=== PATIENT | male | born 1960 | race Caucasian/White ===

== ENCOUNTER 2017-04-18 13:50 | Emergency (ER) | payer SELFPAY ==
[2017-04-18 14:55] VITALS: BP 132/89
== END 2017-04-18 16:09 | disposition left against medical advice (07) ==
LOC: UCEAST 13:50
DX: M54.9 Dorsalgia, unspecified (principal); Z53.21 Procedure and treatment not carried out due to patient leaving prior to being seen by health care provider

== ENCOUNTER 2017-04-18 16:32 | Emergency (ER) | payer BC ==
--- NOTE | 2017-04-18 16:54 | UC ---
Ned Braxton Anna, scribed for Fabio Gutierrez MD on 04/18/17 at 1643 . Back Pain HPI - HPI Summary HPI Summary: Patient is a 56 y/o male coming to [facility] [place] presenting with acute on chronic back pain that began two days ago. He describes the pain as severity 10/10. He hurt his back one year ago and has since returned to work. Two days ago, he could not work because of the pain that started when he got out of bed. The pain was somewhat alleviated yesterday, and he was able to work a few hours but had to stop because of the pain. Today, the pain had returned. The pain extends to his lower back. The pain is exacerbated by twisting, bending, and movement. Denies incontinence, numbness, loss of leg strength. He is currently prescribed 300 mg pills of Gabapentin, which he reports that he takes 5 times a day, and this does not alleviate the symptoms. He has also tried ibuprofen and oxycodone, which do not alleviate the symptoms. Patient medications were reviewed this visit. - History of Current Complaint Stated Complaint: BACK PAIN Time Seen by Provider: 04/18/17 16:36 Hx Obtained From: Patient Onset/Duration: Still Present, Worse Since - two days ago Timing: Lasting Days Severity Initially: Moderate Severity Currently: Moderate - Allergies/Home Medications Allergies/Adverse Reactions: Allergies Allergy/AdvReac Type Severity Reaction Status Date / Time No Known Allergies Allergy Verified 04/18/17 16:51 PMH/Surg Hx/FS Hx/Imm Hx - Additional Past Medical History Additional PMH: chronic back pain Respiratory History: COPD - Surgical History Surgical History: Yes Surgery Procedure, Year, and Place: GROIN SURGERY, HERNIA REPAIR - Family History Known Family History: Positive: Hypertension - Social History Alcohol Use: Weekly Substance Use Type: None Smoking Status (MU): Light Every Day Tobacco Smoker Household Exposure Type: Cigarettes Review of Systems Constitutional: Negative Skin: Negative Eyes: Negative ENT: Negative Respiratory: Negative Cardiovascular: Negative Gastrointestinal: Negative Genitourinary: Negative Motor: Negative Neurovascular: Negative Musculoskeletal: Myalgia - acute on chronic back pain Neurological: Negative Psychological: Negative All Other Systems Reviewed And Are Negative: Yes Physical Exam Triage Information Reviewed: Yes Appearance: Well-Appearing, Pain Distress - mild, worse with activity and movement Vital Signs: Temp Pulse Resp BP Pulse Ox 99.3 F 73 16 119/66 100 04/18/17 16:47 04/18/17 16:47 04/18/17 16:47 04/18/17 16:47 04/18/17 16:47 Vital Signs Reviewed: Yes Eye Exam: Normal - EOMI, BORIS ENT Exam: Normal Neck: Positive: Supple, Nontender Respiratory: Positive: Lungs clear, Normal breath sounds, No respiratory distress Cardiovascular: Positive: RRR Musculoskeletal: Positive: Other: - Tender paraspinous upper lumbar area Neurological Exam: Normal - sensory/motor intact, A&O x3, Other - No focal neurological deficits. Good patella reflexes. No decreased sensation. Psychological Exam: Normal - affect/mood appropriate Skin Exam: Other - warm, dry, skin color reflects adequate perfusion Back Pain Course/Dx - Course Course Of Treatment: CANNOT TOLERATE NSAIDS. NO NEW TRAUMA. NO NEUROLOGIC SX. DISCHARGE HOME STABLE. F/U PMD. - Differential Dx/Diagnosis Provider Diagnoses: ACUTE LOW BACK PAIN WITH CHRONIC LOW BACK PAIN WITHOUT RADICULOPATHY/NEUROLOGIC SX. Discharge - Discharge Plan Condition: Stable Disposition: HOME Prescriptions: Cyclobenzaprine TAB* [Flexeril 10 MG TAB*] 10 mg PO TID PRN #15 tab MDD 3 PRN Reason: Pain HYDROcodone/ACETAMIN 5-325 MG* [Beach 5-325 TAB*] 1 tab PO Q4H PRN #20 tab MDD 6 PRN Reason: Pain Patient Education Materials: Acute Low Back Pain (ED), Chronic Back Pain (ED) Referrals: Pawel Van MD [Primary Care Provider] - Additional Instructions: FOLLOW UP WITH YOUR DOCTOR. GET REEVALUATED FOR ANY WORSENING OF YOUR CONDITION; WEAKNESS, NUMBNESS, DIFFICULTY CONTROLLING BOWEL OR BLADDER OR QUESTIONS OR CONCERNS. The documentation as recorded by the Ned de paz Anna accurately reflects the service I personally performed and the decisions made by me, Fabio Gutierrez MD.
[2017-04-18 17:04] VITALS: BP 119/66
== END 2017-04-18 17:07 | disposition home or self-care (01) ==
LOC: UCEAST 16:32
DX: M54.5 Low back pain (principal); G89.29 Other chronic pain; Z72.0 Tobacco use
CPT/HCPCS: 99212; G0463

== ENCOUNTER 2019-03-15 15:07 | Inpatient (IN) | payer SELFPAY ==
--- OUTSIDE RECORDS SUMMARY | 2019-03-15 15:28 | XMS REPORT | Continuity of Care Document ---
:1960 External Reference #:[id number] Author Name Ilene Clayton Care Team Providers Name Role Phone Pawel Van III, MD Primary Care Physician Unavailable Payers Date Identification Numbers Payment Provider Subscriber Expires: 2017 Policy Number: [id number] Medicaid Hector [facility] Name: 1 1 [address] PayID: [id number] [place] [address] Effective: 2015 Policy Number: [id number] [employer] Hector Bloom Onset: 2015 PayID: [id number] [address] [address] [place] [address] Effective: 2016 Policy Number: [id number] [facility] Hector Bloom Expires: 2018 Group Number: 60% [address] [facility] PayID: [id number] [address] Advance Directives Description No Information Available Problems Active Problems Provider Date Disturbance in sleep behavior Cyndy Ding MD Onset: 01/19/2017 Tobacco user Cyndy Ding MD Onset: 01/19/2017 Emphysema, unspecified Cyndy Ding MD Onset: 01/19/2017 Family History Date Family Member(s) Observation Comments Father Lung cancer ; at age 83 Mother Leukemia at age 67 Siblings 10 1/2 siblings - unknown 1 full sister - unknown Social History Type Date Description Comments Sex Unknown Marital Status Lives With Family 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 Tobacco Use Start: Unknown Currently smoking 1/2 1/2 PPD or less as of End: Unknown PPD as of 01/19/17 02/20/17 ETOH Use Occasionally consumes alcohol Tobacco Use Start: Unknown Patient is a current smoker, smokes every day Recreational Drug Use Current Drug User Jose Juan occasionally Tobacco Use Start: Unknown 1 PPD x 30 yrs Smoking Status Reviewed: 02/27/19 1 PPD x 30 yrs Exercise Type/Frequency Does not exercise Allergies, Adverse Reactions, Alerts Description No Known Drug Allergies Medications Active Medications SIG Qnty Indications Ordering Provider Date Ferrous Sulfate 1 by mouth twice 60tabs Luther Braxton NP 03/04/2019 daily. 325(65Fe) mg Tablets Tramadol HCL 1-2 tablets every 28tabs M25.50 Luther Braxton NP 02/27/2019 50mg 12 hours as Tablets needed for pain. History Medications No Active Medications Unknown 02/27/2019 - 02/27/2019 Lidocaine apply patch up 30units M54.6 Pawel Osorio 05/03/2017 - 5% Patches to 12 hours once Kamron Van 02/27/2019 a day. Vicodin 1 po up to 4 30tabs M54.6 Pawel Osorio 05/03/2017 - 5-300mg Tablets times a day as Kamron Van 02/27/2019 needed Cyclobenzaprine HCL one by mouth 30tabs M54.6 Pawel Osorio 05/03/2017 - 10mg three times a Kamron Van 02/27/2019 Tablets day as needed spasm Nicotine 1 patch on skin 30units F17.210 Cyndy 01/19/2017 - 14mg/24HR Patches every day MD Timur 02/27/2019 24HR [facility] Nicotine Polacrilex 1 gum, every 6 60units F17.210 Cyndy 01/19/2017 - 4mg hours as needed MD Timur 02/27/2019 Gum Iron 1 by mouth every Unknown 01/18/2017 - 325(65Fe) mg Tablets day 02/27/2019 Gabapentin Take Two 180caps M54.6 Pawel Osorio 01/12/2017 - 300mg Capsules Capsules By Kamron Van 02/27/2019 Mouth Three Times A Day as Directed Omeprazole 1 by mouth every 30caps D64.9 Pawel Osorio 12/07/2016 - 20mg Capsules DR desi Van M.D. 02/27/2019 Gabapentin 2 tabs 3 times a 180caps M54.6 Pawel Osorio 12/07/2016 - 100mg Capsules day Kamron Van 01/12/2017 Aspir-81 1 by mouth every 90tabs R07.9 Pawel Osorio 11/10/2016 - 81mg Tablets DR desi Van M.D. 01/18/2017 Nitrostat one sl q5min up 25tabs R07.9 Pawel Osorio 11/10/2016 - 0.4mg Tablets Sub to 3 doses as Kamron Van 02/27/2019 needed Duloxetine HCL 1 by mouth every 60caps M54.6 Pawel Osorio 05/12/2016 - 30mg Caps DR weeks x 1 week Kamron Vna 11/10/2016 Part then increase to 2 tablets daily Ferrous Sulfate take 5ml by 473units Pawel Osorio 05/05/2016 - 220(44Fe) mouth every day Kamron Van 01/18/2017 mg/5ML Liquid with a small glass of orange juice Oxycodone HCL 1-2 tabs by Unknown - 5mg Capsules mouth every 4-6 Unknown hours as needed pain Naproxen 1 tablet with 60tabs Pawel Osorio - 500mg Tablets food by mouth Kamron Van Unknown once a day Diazepam 1 or 2 by mouth Unknown - 5mg Tablets two hours prior Unknown to mri, repeat up to once per hour if needed. Aleve 2 tabs as needed Unknown - 220mg Tablets 01/18/2017 Medications Administered in Office Medication SIG Qnty Indications Ordering Provider Date Inj, Regadenoson, 0.1 MG Michael Rodrigues M.D. 12/16/2016 Injection Technetium TC 99M Tetrofosmin, Michael Rodrigues M.D. 12/16/2016 Per Unit Dose Up To 40 Millicuries Injection Immunizations CPT Code Status Date Vaccine Lot # [id number] Given 07/21/2016 Influ Virus Vaccine, Quadrivalent, Split Virus, Im Fluzone not PF Vital Signs Date Vital Result Comment 02/27/2019 11:10am Height 74 inches 6'2" Weight 135.00 lb Heart Rate 86 /min BP Systolic 115 mmHg BP Diastolic 70 mmHg Body Temperature 97.2 F O2 % BldC Oximetry 99 % BMI (Body Mass Index) 17.3 kg/m2 05/03/2017 5:22pm Height 74 inches 6'2" Weight 147.00 lb Heart Rate 76 /min BP Systolic 130 mmHg BP Diastolic 70 mmHg Body Temperature 97.6 F O2 % BldC Oximetry 98 % BMI (Body Mass Index) 18.9 kg/m2 02/20/2017 10:43am Height 74 inches 6'2" Weight 144.00 lb Heart Rate 64 /min BP Systolic Sitting 140 mmHg BP Diastolic Sitting 76 mmHg Respiratory Rate 16 /min O2 % BldC Oximetry 98 % BMI (Body Mass Index) 18.5 kg/m2 01/19/2017 7:20am Height 74 inches 6'2" Weight 145.12 lb with shoes on Heart Rate 86 /min BP Systolic Sitting 136 mmHg BP Diastolic Sitting 80 mmHg Respiratory Rate 16 /min O2 % BldC Oximetry 94 % BMI (Body Mass Index) 18.6 kg/m2 12/07/2016 1:13pm Height 75 inches 6'3" Weight 145.50 lb Heart Rate 81 /min BP Systolic Sitting 112 mmHg BP Diastolic Sitting 62 mmHg Body Temperature 97.6 F O2 % BldC Oximetry 98 % BMI (Body Mass Index) 18.2 kg/m2 11/10/2016 3:38pm Weight 147.00 lb Heart Rate 60 /min BP Systolic Sitting 150 mmHg BP Diastolic Sitting 84 mmHg Body Temperature 98.1 F Pain Level 10 lower back 10/03/2016 3:13pm Height 74 inches 6'2" Weight 140.00 lb Heart Rate 60 /min BP Systolic Sitting 116 mmHg BP Diastolic Sitting 80 mmHg Respiratory Rate 16 /min Body Temperature 97.8 F BMI (Body Mass Index) 18.0 kg/m2 03/22/2016 11:22am Weight 148.00 lb Heart Rate 65 /min BP Systolic Sitting 126 mmHg BP Diastolic Sitting 74 mmHg Body Temperature 97.4 F O2 % BldC Oximetry 96 % 08/20/2015 12:58pm Height 71.5 inches 5'11.50" Weight 144.00 lb Heart Rate 97 /min BP Systolic Sitting 124 mmHg BP Diastolic Sitting 80 mmHg Body Temperature 98.6 F O2 % BldC Oximetry 97 % BMI (Body Mass Index) 19.8 kg/m2 07/24/2015 1:00pm Height 71.5 inches 5'11.50" Weight 143.00 lb Heart Rate 62 /min BP Systolic Sitting 122 mmHg BP Diastolic Sitting 76 mmHg Body Temperature 97.7 F O2 % BldC Oximetry 96 % BMI (Body Mass Index) 19.7 kg/m2 Results Test Date Facility Test Result H/L Range Note Cell Morphology 02/27/2019 [facility] Microcytosis 2+ [place] [address] [phone] Hypochromasia 1+ Elliptocyte 1+ HIV 1&2 AB 02/27/2019 [facility] HIV 1 2 Nonreactive Nonreactive 1 W/[place] [address] [phone] Laboratory 02/27/2019 [facility] Erythrocyte 47 mm/Hr High 0- 19 [place] [address] [phone] C Reactive Protein 31.94 mg/L High <8.01 Lyme Screen W/ Reflex To WB Negative Negative Protein 02/27/2019 [facility] Total 6.4 g/dL 6.3 - Electrophoresis Protein(Pep) 7.9 [place] [address] [phone] Albumin 2.6 g/dL Abnormal 3.4-4.7 Alpha-1 Globulin 0.3 g/dL 0.1-0.3 Alpha-2 Globulin 0.8 g/dL 0.6-1.0 Beta Globulin 0.9 g/dL 0.7-1.2 Gamma Globulin 1.9 g/dL Abnormal 0.6-1.6 Albumin/Globulin Ratio 0.66 Impression See Comment 2 Laboratory test 02/27/2019 [facility] TSH (Thyroid 1.89 N 0.34 -5.60 finding Stim Horm) mcIU/[place] [address] [phone] Comp Metabolic 02/27/2019 [facility] Sodium 134 mmol/L Low 135 -145 [place] [address] [phone] Potassium 4.4 mmol/L N 3.5-5.0 Chloride 104 mmol/L N 101-111 Co2 Carbon Dioxide 27 mmol/L N 22-32 Anion Gap 3 mmol/L N 2-11 Glucose 95 mg/dL N 70-100 Blood Urea Nitrogen 12 mg/dL N 6-24 Creatinine 0.95 mg/dL N 0.67-1.17 BUN/Creatinine Ratio 12.6 N 8-20 Calcium 8.7 mg/dL N 8.6-10.3 Total Protein 6.2 g/dL Low 6.4-8.9 Albumin 3.0 g/dL Low 3.2-5.2 Globulin 3.2 g/dL N 2-4 Albumin/Globulin Ratio 0.9 Low 1-3 Total Bilirubin 0.30 mg/dL N 0.2-1.0 Alkaline Phosphatase 49 U/L N 34-104 Alt 4 U/L Low 7-52 Ast 12 U/L Low 13-39 Egfr Non- 81.4 >60 Egfr 98.5 >60 3 Iron & Iron 02/27/2019 [facility] Total Iron 330 g/dL N 250- [address] [place] [address] Capacity [phone] Transferrin 236 mg/dL N 203-362 Iron < 17 g/dL Low 50-212 Unsaturated Iron Binding < 315 g/dL % Iron Saturation 5 % Low 15-55 CBC Auto 02/27/2019 [facility] White Blood 2.5 10^3/uL Low 3.5 -10.[address] [place] [address] [phone] Red Blood Count 3.66 10^6/uL Low 4.18-5.48 Hemoglobin 7.9 g/dL Low 14.0-18.0 Hematocrit 26 % Low 36-46 Mean Corpuscular Volume 70 fL Low 80-94 Mean Corpuscular Hemoglobin 22 pg Low 27-31 Mean Corpuscular HGB Conc 31 g/dL N 31-36 Red Cell Distribution Width 17 % High 10.5-15 Platelet Count 502 10^3/uL High 150-450 Mean Platelet Volume 6.9 fL Low 7.4-10.4 Abs Neutrophils 1.8 10^3/uL N 1.5-7.7 Abs Lymphocytes 0.5 10^3/uL Low 1.0-4.8 Abs Monocytes 0.1 10^3/uL N 0-0.8 Abs Eosinophils 0 10^3/uL N 0-0.6 Abs Basophils 0 10^3/uL N 0-0.2 Abs Nucleated RBC 0 10^3/uL Granulocyte % 71.5 % Lymphocyte % 21.2 % Monocyte % 4.3 % Eosinophil % 1.8 % Basophil % 1.2 % Nucleated Red Blood Cells % 0 Laboratory test 04/20/2017 [facility] Surgical SEE RESULT [address] Interface Order BELOW [place], [place] [id number] [phone] CBC No Diff 04/19/2017 [facility] White Blood 4.9 10^3/uL N 3.5-[address] Count .8 [place], [place] [id number] [phone] Red Blood Count 4.21 10^6/uL N 4.0-5.4 Hemoglobin 7.6 g/dL Low 14.0-18.0 Hematocrit 27 % Low 42-52 Mean Corpuscular Volume 64 fL Low 80-94 Mean Corpuscular Hemoglobin 18 pg Low 27-31 Mean Corpuscular HGB Conc 28 g/dL Low 31-36 Red Cell Distribution Width 19 % High 10.5-15 Platelet Count 350 10^3/uL N 150-450 Mean Platelet Volume 7 um3 Low 7.4-10.4 Laboratory test 04/19/2017 [facility] Clotest SEE RESULT [address] [place] [address] [phone] Laboratory test 01/09/2017 [facility] Surgical Interface SEE RESULT 6, [address] [place] [address] [phone] Laboratory test 01/09/2017 [facility] Clotest SEE RESULT 8 , [address] [place] [address] [phone] Order 12/16/2016 [facility] Stress Test, <pending> Pharmacologic Nuclear (Lexiscan) Laboratory test 12/06/2016 [employer] [facility] Occult Blood - pos x3 finding Stool Laboratory test 11/11/2016 [facility] Troponin-I (TnI) 0.00 ng/ mL N <0.0 [address] 4 [place], [place] [address] [phone] Magnesium 1.9 mg/dL N 1.9-2.7 11 CKMB 11/11/2016 [facility] CKMB ng/mL 1.2 ng/mL N 0.6-6.[address] [place] [address] [phone] CBC Auto Diff 11/11/2016 [facility] White Blood 6.4 10^3/uL N 3.5-10.[address] [place] [address] [phone] Red Blood Count 3.49 10^6/uL Low 4.0-5.4 Hemoglobin 9.2 g/dL Low 14.0-18.0 Hematocrit 29 % Low 42-52 Mean Corpuscular Volume 83 fL N 80-94 Mean Corpuscular Hemoglobin 26 pg Low 27-31 Mean Corpuscular HGB Conc 32 g/dL N 31-36 Red Cell Distribution Width 18 % High 10.5-15 Platelet Count 385 10^3/uL N 150-450 Mean Platelet Volume 7 um3 Low 7.4-10.4 Abs Neutrophils 4.2 10^3/uL N 1.5-7.7 Abs Lymphocytes 1.1 10^3/uL N 1.0-4.8 Abs Monocytes 0.7 10^3/uL N 0-0.8 Abs Eosinophils 0.3 10^3/uL N 0-0.6 Abs Basophils 0.1 10^3/uL N 0-0.2 Abs Nucleated RBC 0 10^3/uL N Granulocyte % 66.6 % N 38-83 Lymphocyte % 17.8 % Low 25-47 Monocyte % 10.6 % High 1-9 Eosinophil % 4.2 % N 0-6 Basophil % 0.8 % N 0-2 Nucleated Red Blood Cells % 0 N Lipid Profile 11/11/2016 [facility] Triglycerides 99 mg/dL N 12 (Trig/Chol/HDL) [address] [place] [address] [phone] Cholesterol 126 mg/dL N 13 HDL Cholesterol 27.9 mg/dL N 14 LDL Cholesterol 78 mg/dL N 15 Laboratory test 11/11/2016 [facility] TSH (Thyroid 1.79 mcIU/mL N 0.34-5.60 [address] Stim Horm) [place] [address] [phone] Comp Metabolic 11/11/2016 [facility] Sodium 135 mmol/L N 133- [address] [place] [address] [phone] Potassium 4.5 mmol/L N 3.5-5.0 Chloride 104 mmol/L N 101-111 Co2 Carbon Dioxide 26 mmol/L N 22-32 Anion Gap 5 mmol/L N 2-11 Glucose 105 mg/dL High 70-100 Blood Urea Nitrogen 18 mg/dL N 6-24 Creatinine 0.83 mg/dL N 0.67-1.17 BUN/Creatinine Ratio 21.7 High 8-20 Calcium 8.7 mg/dL N 8.6-10.3 Total Protein 5.7 g/dL Low 6.4-8.9 Albumin 3.2 g/dL N 3.2-5.2 Globulin 2.5 g/dL N 2-4 Albumin/Globulin Ratio 1.3 N 1-3 Total Bilirubin 0.30 mg/dL N 0.2-1.0 Alkaline Phosphatase 41 U/L N 34-104 Alt 9 U/L N 7-52 Ast 10 U/L Low 13-39 Egfr Non- 96.2 N >60 Egfr 123.7 N >60 17 Laboratory test 11/11/2016 [facility] Erythrocyte Sed 30 mm/Hr High 0-20 [address] [place] [address] [phone] C Reactive Protein 3.94 mg/L N < 5.00 19 Iron & Iron 11/11/2016 [facility] Total Iron 421 g/dL N 250- [address] [place] [address] Capacity [phone] Iron < 15 g/dL Low 50-212 Unsaturated Iron Binding 406.04548 g/dL N % Iron Saturation 4 % Low 15-55 CBC Auto Diff 07/28/2016 [facility] White Blood 5.8 10^3/uL N 3.5-10.[address] [place] [address] [phone] Red Blood Count 4.41 10^6/uL N 4.0-5.4 Hemoglobin 11.3 g/dL Low 14.0-18.0 Hematocrit 36 % Low 42-52 Mean Corpuscular Volume 82 fL N 80-94 Mean Corpuscular Hemoglobin 26 pg Low 27-31 Mean Corpuscular HGB Conc 31 g/dL N 31-36 Red Cell Distribution Width 16 % High 10.5-15 Platelet Count 370 10^3/uL N 150-450 Mean Platelet Volume 7 um3 Low 7.4-10.4 Abs Neutrophils 3.4 10^3/uL N 1.5-7.7 Abs Lymphocytes 1.3 10^3/uL N 1.0-4.8 Abs Monocytes 0.7 10^3/uL N 0-0.8 Abs Eosinophils 0.3 10^3/uL N 0-0.6 Abs Basophils 0.1 10^3/uL N 0-0.2 Abs Nucleated RBC 0 10^3/uL N Granulocyte % 59.6 % N 38-83 Lymphocyte % 23.1 % Low 25-47 Monocyte % 11.5 % High 1-9 Eosinophil % 4.9 % N 0-6 Basophil % 0.9 % N 0-2 Nucleated Red Blood Cells % 0.1 N Laboratory test 05/05/2016 [facility] Occult Blood - Stool neg x 3 finding Cell Morphology 04/25/2016 [facility] Microcytosis 2+ N [address] [place] [address] [phone] Hypochromasia 3+ N Elliptocyte 1+ N CBC Auto Diff 04/25/2016 [facility] White Blood 7.2 10^3/uL N 3.5-10.[address] [place] [address] [phone] Red Blood Count 4.19 10^6/uL N 4.0-5.4 Hemoglobin 8.5 g/dL Low 14.0-18.0 Hematocrit 30 % Low 42-52 Mean Corpuscular Volume 71 fL Low 80-94 Mean Corpuscular Hemoglobin 20 pg Low 27-31 Mean Corpuscular HGB Conc 29 g/dL Low 31-36 Red Cell Distribution Width 18 % High 10.5-15 Platelet Count 515 10^3/uL High 150-450 Mean Platelet Volume 7 um3 Low 7.4-10.4 Abs Neutrophils 5.0 10^3/uL N 1.5-7.7 Abs Lymphocytes 1.1 10^3/uL N 1.0-4.8 Abs Monocytes 0.7 10^3/uL N 0-0.8 Abs Eosinophils 0.3 10^3/uL N 0-0.6 Abs Basophils 0.1 10^3/uL N 0-0.2 Abs Nucleated RBC 0 10^3/uL N Granulocyte % 69.3 % N 38-83 Lymphocyte % 15.5 % Low 25-47 Monocyte % 10.4 % High 1-9 Eosinophil % 4.1 % N 0-6 Basophil % 0.7 % N 0-2 Nucleated Red Blood Cells % 0 N Comp Metabolic Panel 03/23/2016 [facility] Sodium 136 mmol/L N 133-[address] [place] [address] [phone] Potassium 4.3 mmol/L N 3.5-5.0 Chloride 105 mmol/L N 101-111 Co2 Carbon Dioxide 26 mmol/L N 22-32 Anion Gap 5 mmol/L N 2-11 Glucose 91 mg/dL N 70-100 Blood Urea Nitrogen 9 mg/dL N 6-24 Creatinine 0.85 mg/dL N 0.67-1.17 BUN/Creatinine Ratio 10.6 N 8-20 Calcium 8.8 mg/dL N 8.6-10.3 Total Protein 6.3 g/dL Low 6.4-8.9 Albumin 3.6 g/dL N 3.2-5.2 Globulin 2.7 g/dL N 2-4 Albumin/Globulin Ratio 1.3 N 1-3 Total Bilirubin 0.30 mg/dL N 0.2-1.0 Alkaline Phosphatase 49 U/L N 34-104 Alt 8 U/L N 7-52 Ast 10 U/L Low 13-39 Egfr Non- 93.6 N >60 Egfr 120.4 N >60 20 Laboratory test 03/23/2016 [facility] TSH (Thyroid 1.32 ?IU/mL N 0.34-5.[address] Stim Horm) [place] [address] [phone] Erythrocyte Sed Rate 18 mm/Hr N 0-20 C Reactive Protein 3.51 mg/L N < 5.00 21 Iron & Iron Binding 03/23/2016 [facility] Iron 14 g/dL Low 50-[address] [place] [address] [phone] Unsaturated Iron Binding 449 g/dL N Total Iron Binding Capacity 463 g/dL High 250-450 % Iron Saturation 3 % Low 15-55 1 It is recognized that currently available assays for the detection of antibodies to HIV-1 and/or HIV-2 may not detect all infected individuals. HIV antibodies may be undetectable in some stages of the infection and in some clinical conditions. The performance of this assay has not been established for populations of infants or children. Assayed by Chemiluminescence Microparticle Immunoassay on the Siemens Advia Centaur CP. Values obtained with different methods or kits cannot be used interchangeably.The diagnostic specificity of the ADVIA Centaur 1/O/2 Enhanced assay in the low risk population was 99.90% (6052/6058) with a 95% confidence interval of 99.78 to 99.96%. 2 RESULT: Polyclonal hypergammaglobulinemia Test Performed by: [facility] [address], [place] [address] 3 Because ethnic data is not always readily available, this report includes an eGFR for both -Americans and non- Americans. The National Kidney Disease Education Program (NKDEP) does not endorse the use of the MDRD equation for patients that are not between the ages of 18 and 70, are , have extremes of body size, muscle mass, or nutritional status, or are non- or non-. According to the National Kidney Foundation, irrespective of diagnosis, the stage of the disease is based on the level of kidney function: Stage Description GFR(mL/min/1.73 m(2)) 1 Kidney damage with normal or decreased GFR 90 2 Kidney damage with mild decrease in GFR 60-89 3 Moderate decrease in GFR 30-59 4 Severe decrease in GFR 15-29 5 Kidney failure <15 (or dialysis) 4 SEE RESULT BELOW Name: HECTOR BLOOM : [address]: Tera Wright MD Acct: [id number] Unit: [id number] AGE: 56 Location: [facility] Re04/19/17 SEX: M Status: DEP REF SPEC: [id number] WANDA: 04/20/17- SUBM DR: Tera Wright MD REQ: [id number] RECD: 04/20/17 STATUS: HEMAL FELIX DR: Pawel Van III, MD _ ORDERED: LEVEL 4, IMMUNO-FIRST Addendum: An immunohistochemical stain for Helicobacter pylori-like organisms was performed with appropriate controls and is negative. Addendum Signed (signature on file) Clifford Quesada MD 0932 Addendum: An immunohistochemical stain for Helicobacter pylori-like organisms performed with appropriate controls and is negative. Addendum Signed (signature on file) Clifford Quesada MD 1458 FINAL DIAGNOSIS Stomach, biopsy: -- Focally eroded body-type gastric mucosa with moderate chronic gastritis and reactive chemical gastropathy; see comment. COMMENT: An H. pylori immunostain is pending and the results will be reported in an addendum. CLINICAL HISTORY History of gastric ulcer December 2016 POST-OPERATIVE DIAGNOSIS Esophagus - normal; stomach - area of previous ulcer, has healed with some mild flattening of folds, biopsied; duodenum - normal bulb to third portion. Conclusions/Plan : Healed gastric ulcer CONTINUED ON NEXT PAGE * ML=Testing performed at Main Lab DEPARTMENT OF PATHOLOGY, [address] [place] [address] Clifford Quesada M.D. Director [facility] # [id number] RUN DATE: 04/26/17 [facility] LAB LIVE PAGE 2 Patient: BLOOMHECTOR [id number] (Continued) GROSS DESCRIPTION (Continued) GROSS DESCRIPTION The specimen is received in formalin labeled, Biopsies Gastric Ulcer, and consists of a 0.7 x 0.5 by up to 0.2 cm aggregate of tripathi-white irregular soft tissue fragments which is submitted entirely in one cassette. Signed (signature on file) Rylee Saravia MD 01/06 1134 END OF REPORT * ML=Testing performed at Main Lab DEPARTMENT OF PATHOLOGY, [address] [place] [address] Clifford Quesada M.D. Director [facility] # [id number] 5 SEE RESULT BELOW Name: HECTOR BLOOM : [address]: Tera Wright MD Acct: [id number] Unit: [id number] AGE: 56 Location: ENDO Re04/19/17 SEX: M Status: REG REF SPEC: [id number] WANDA: 04/19/17-[address] [facility] [address]: Tera Wright MD REQ: [id number] RECD: 04/19/170904 STATUS: BENJA FELIX DR: Pawel Van III, MD _ SOURCE: GAS ANTRUM SPDESC: ORDERED: Clotest Procedure Result Reported Site Clotest Final 04/20/17- 906 ML Clotest Positive * ML - MAIN LAB ([facility]) . END OF REPORT * ML=Testing performed at Main Lab DEPARTMENT OF PATHOLOGY, [address] [place] [address] Clifford Quesada M.D. Director [facility] # [id number] SEE RESULT BELOW Name: HECTOR BLOOM : [address]: Tera Wright MD Acct: [id number] Unit: [id number] AGE: 56 Location: ENDOC Re01/09/17 SEX: M Status: DEP REF SPEC: [id number] WANDA: 01/09/17-[address] [facility] [address]: Tera Wright MD REQ: [id number] RECD: 01/09/17 STATUS: HEMAL FELIX DR: Pawel Van III, MD _ ORDERED: H PYLORI IMM ST, LEVEL IV COMMENTS: [id number] Deeper levels of sectioning show identical histologic features. There is no evidence of neoplasia. An H. pylori immunostain, with appropriately reacting controls, was performed and is negative. Addendum Signed (signature on file) Rylee Saravia MD 0937 FINAL DIAGNOSIS Stomach, body, biopsy: -- Ulcerated antral and body-type gastric mucosa with marked active inflammation; see comment. COMMENT: Deeper levels of sectioning and an H. pylori immunostain are pending and will be reported in an addendum. CLINICAL HISTORY Iron deficiency anemia POST-OPERATIVE DIAGNOSIS Esophagus- normal; stomach - large approximately 2 cm deep gastric ulcer in body, biopsied; duodenum - normal bulb to third portion. Conclusions/Plan: Gastric ulcer GROSS DESCRIPTION The specimen is received in formalin labeled, Biopsy Gastric Body Ulcer, and consists of three speckled tripathi-pink irregular to polypoid soft tissue fragments measuring 0.3 x 0.2 x 0.2 cm, 0.4 x 0.3 x 0.2 cm and 0.5 x 0.3 by up to 0.2 cm, which are entirely submitted in one cassette. CONTINUED ON NEXT PAGE * ML=Testing performed at Main Lab DEPARTMENT OF PATHOLOGY, [address] [place] [id number] Clifford Quesada M.D. Director [facility] # [id number] RUN DATE: 01/11/17 [facility] LAB LIVE PAGE 2 Patient: HECTOR BLOOM [id number] (Continued) GROSS DESCRIPTION (Continued) Signed (signature on file) Rylee Saravia MD 1130 END OF REPORT * ML=Testing performed at Main Lab DEPARTMENT OF PATHOLOGY, [address] [place], [place] [address] Clifford Quesada M.D. Director [facility] # [id number] SEE RESULT BELOW Name: HECTOR BLOOM : [address]: Tera Wright MD Acct: [id number] Unit: [id number] AGE: 56 Location: [facility] Re01/09/17 SEX: M Status: DEP REF SPEC: [id number] WANDA: 01/09/17-[address]: Tera Wright MD REQ: [id number] RECD: 01/09/17 STATUS: BENJA FELIX DR: Pawel Van III, MD _ SOURCE: GAS ANTRUM SPDC: ORDERED: Svitlana COMMENTS: [id number] Procedure Result Reported Site Clotest Final 01/10/17- 0752 ML Clotest Negative * ML - MAIN LAB ([facility]) . END OF REPORT * ML=Testing performed at Main Lab DEPARTMENT OF PATHOLOGY, [address] [place] [address] Clifford Quesada M.D. Director [facility] # [id number] 10 99th percentile=0.04 ng/mL Troponin results at [facility] and [facility] are not interchangeable. 11 FASTING PATIENT STATES HE HAD COFEE WITH LIGHT CREAM 1 CUP...STILL WANTS BLOODWORK DONE 12 Desirable <150 Borderline high 150-199 High 200-499 Very High >500 13 Desirable <200 Borderline high 200-239 High >239 14 Low <40 Desirable: 40-60 High: >60 15 Desirable: <100 mg/dL Near Optimal: 100-129 mg/dL Borderline High: 130-159 mg/dL High: 160-189 mg/dL Very High: >189 mg/dL 16 FASTING PATIENT STATES HE HAD COFEE WITH LIGHT CREAM 1 CUP...STILL WANTS BLOODWORK DONE 17 Because ethnic data is not always readily available, this report includes an eGFR for both -Americans and non- Americans. The National Kidney Disease Education Program (NKDEP) does not endorse the use of the MDRD equation for patients that are not between the ages of 18 and 70, are , have extremes of body size, muscle mass, or nutritional status, or are non- or non-. According to the National Kidney Foundation, irrespective of diagnosis, the stage of the disease is based on the level of kidney function: Stage Description GFR(mL/min/1.73 m(2)) 1 Kidney damage with normal or decreased GFR 90 2 Kidney damage with mild decrease in GFR 60-89 3 Moderate decrease in GFR 30-59 4 Severe decrease in GFR 15-29 5 Kidney failure <15 (or dialysis) 18 FASTING PATIENT STATES HE HAD COFEE WITH LIGHT CREAM 1 CUP...STILL WANTS BLOODWORK DONE 19 Acute inflammation: >10.00 20 Because ethnic data is not always readily available, this report includes an eGFR for both -Americans and non- Americans. The National Kidney Disease Education Program (NKDEP) does not endorse the use of the MDRD equation for patients that are not between the ages of 18 and 70, are , have extremes of body size, muscle mass, or nutritional status, or are non- or non-. According to the National Kidney Foundation, irrespective of diagnosis, the stage of the disease is based on the level of kidney function: Stage Description GFR(mL/min/1.73 m(2)) 1 Kidney damage with normal or decreased GFR 90 2 Kidney damage with mild decrease in GFR 60-89 3 Moderate decrease in GFR 30-59 4 Severe decrease in GFR 15-29 5 Kidney failure <15 (or dialysis) 21 Acute inflammation: >10.00 Procedures Date Code Description Status 02/06/2017 12356 Diffusing Capacity Completed 02/06/2017 46085 Plethysmography Determination Lung Volumes & Per Airway Completed Resist 02/06/2017 30972 Pulmonary Stress Test Simple Completed 02/06/2017 91888 Pulmonary Function><Bronchodil Completed 12/16/2016 96591 Stress Test Completed 12/16/2016 32417 Myocardial Perfusion Imaging Tomographic (Spect) Multiple Completed Studies Encounters Type Date Location Provider Dx Diagnosis Office Visit 02/27/2019 [facility] Internal Luther Braxton NP D64.9 Anemia, unspecified 11:20a Medicine R53.83 Other fatigue M25.50 Pain in unspecified joint R61 Generalized hyperhidrosis R63.4 Abnormal weight loss K62.5 Hemorrhage of anus and rectum Office Visit 05/03/2017 4:20p [facility] Internal Pawel Osorio M54.6 Pain in thoracic Medicine - Kamron Van spine [place] D64.9 Anemia, unspecified Office Visit 02/20/2017 10:45a Pulmonology And Cyndy J43.9 Emphysema, [facility] Timur unspecified [facility] F17.210 Nicotine dependence, cigarettes, uncomplicated R06.83 Snoring Office Visit 01/19/2017 7:30a Pulmonology And Cyndy J43.9 Emphysema, [facility] Timur unspecified [facility] F17.210 Nicotine dependence, cigarettes, uncomplicated R06.83 Snoring R06.89 Other abnormalities of breathing R06.00 Dyspnea, unspecified Office Visit 12/07/2016 1:20p [facility] Internal Pawel EKita R07.9 Chest pain, Selene Van M.D. unspecified [place] D64.9 Anemia, unspecified M54.6 Pain in thoracic spine Office Visit 11/10/2016 3:40p [facility] Internal Pawel EKita R07.9 Chest pain, Selene Van M.D. unspecified [place] R06.00 Dyspnea, unspecified D64.9 Anemia, unspecified Z13.220 Encounter for screening for lipoid disorders M54.6 Pain in thoracic spine Office Visit 10/03/2016 3:00p Surgical Blake PKita R10.32 [facility] Christina Ramirez MD, quadrant pain FACS W18.30xA Fall on same level, unspecified, initial encounter Office Visit 03/22/2016 11:40a [facility] Internal Pawel EKita M54.6 Pain in thoracic Medicine Kamron Van spine Plan of Treatment 02/27/2019 - Luther Braxton NPD64.9 Anemia, dsdpliynjdtL80.83 Other ibaxcfqK85.50 Pain in unspecified jointNew Medication:Tramadol HCL 50 mg - 1-2 tablets every 12 hours as needed for pain.Comments:Please have the bloodwork done today.I have sent the tramadol to your pharmacy.R61 Generalized rlscpilvgxfziO23.4 Abnormal weight lossK62.5 Hemorrhage of anus and rectumNew Labs:Stool Occult Blood, Screen, Ordered: 02/27/19
[2019-03-15] MEDS ORDERED: Albuterol/Ipratropium NEB.SOL* Albuterol 2.5 MG/Ipratropium 0.5 MG 3 ML ONE (15:41)
--- NOTE | 2019-03-15 15:44 | ED ---
Shortness of Breath - HPI Summary HPI Summary: Pt is a 58 y/o M presenting to the ED with a chief complaint of shortness of breath. The pt also reports chest pain that is worsened with deep breaths, cough , weakness, diffuse arthralgia, and myalgia. He has lost over 40lbs within the last year, and knows that his iron levels are currently low. All of these sx began approximately 5 months ago and are only getting worse. He is unsure about what physician he last saw, he thinks it may have been Dr. Ding or Dr. Van. - History of Current Complaint Chief Complaint: EDShortnessOfBreath Time Seen by Provider: 03/15/19 15:31 Hx Obtained From: Patient Onset/Duration: Gradual Onset, Lasting Weeks, Still Present Timing: Constant Current Severity: Severe Dyspnea At: Rest Aggrevating Factors: Nothing Alleviating Factors: Nothing Associated Signs & Symptoms: Cough (Nonproductive) - Allergy/Home Medications Allergies/Adverse Reactions: Allergies Allergy/AdvReac Type Severity Reaction Status Date / Time No Known Allergies Allergy Verified 07/28/17 11:35 Home Medications: Home Medications Iron,Carb/Vit C/Vit B12/Folic [Iron 100 Plus] 1 tab PO DAILY 03/15/19 [History Confirmed 03/15/19] PMH/Surg Hx/FS Hx/Imm Hx Previously Healthy: No Endocrine/Hematology History: Reports: Hx Anemia Denies: Hx Diabetes, Hx Thyroid Disease Cardiovascular History: Denies: Hx Hypertension, Hx Pacemaker/ICD Respiratory History: Reports: Hx Chronic Obstructive Pulmonary Disease (COPD), Other Respiratory Problems/Disorders - SOB Denies: Hx Asthma GI History: Reports: Hx Gastroesophageal Reflux Disease, Hx Ulcer - gastric ulcer w/ H pylori Musculoskeletal History: Reports: Hx Arthritis, Hx Back Problems, Hx Orthopedic Injury Sensory History: Reports: Hx Contacts or Glasses, Other Sensory Impairments - dentures Denies: Hx Hearing Aid Opthamlomology History: Reports: Hx Contacts or Glasses, Other Sensory Impairments - dentures Neurological History: Reports: Hx Headaches, Other Neuro Impairments/Disorders - hx dizziness, headaches, head injury 10 years ago Psychiatric History: Denies: Hx Panic Disorder - Surgical History Surgery Procedure, Year, and Place: GROIN SURGERY - [facility] -"CLEANED OUT" 17-18 YEARS AGO. INGUINAL HERNIA REPAIR AGE 7 Infectious Disease History: No Infectious Disease History: Denies: Hx Clostridium Difficile, Hx Hepatitis, Hx Human Immunodeficiency Virus (HIV), Hx of Known/Suspected MRSA, Hx Shingles, Hx Tuberculosis, Hx Known/ Suspected VRE, Hx Known/Suspected VRSA, History Other Infectious Disease, Traveled Outside the [place] in Last 30 Days - Family History Known Family History: Positive: Hypertension - Social History Alcohol Use: None Alcohol Amount: 12 pack of beer per week Hx Substance Use: Yes Substance Use Type: Reports: Marijuana Hx Tobacco Use: Yes Smoking Status (MU): Current Every Day Smoker Type: Cigarettes Amount Used/How Often: 1/2 PPD Review of Systems Positive: Chest Pain Positive: Shortness Of Breath, Cough Positive: Arthralgia, Myalgia Positive: Weakness All Other Systems Reviewed And Are Negative: Yes Physical Exam - Summary Physical Exam Summary: Appearance: The patient is cachectic, in no acute distress and in no acute pain. Skin: The skin is warm and dry and skin color reflects adequate perfusion. HEENT: The head is normocephalic and atraumatic. The pupils are equal and reactive. The conjunctivae are clear and without drainage. Nares are patent and without drainage. Mouth reveals moist mucous membranes and the throat is without erythema and exudate. The external ears are intact. The ear canals are patent and without drainage. The tympanic membranes are intact. Neck: The neck is supple with full range of motion and non-tender. There are no carotid bruits. There is no neck vein distension. Respiratory: Chest is non-tender. There are decreased breath sounds that are symmetrical and equal. Cardiovascular: Heart is regular rate and rhythm. There is no murmur or rub auscultated. There is no peripheral edema and pulses are symmetrical and equal. Abdomen: The abdomen is soft and non-tender. There are normal bowel sounds heard in all four quadrants and there is no organomegaly palpated. Musculoskeletal: There is no back tenderness noted. Extremities are non-tender with full range of motion. There is good capillary refill. There is no peripheral edema or calf tenderness elicited. Neurological: Patient is alert and oriented to person, place and time. The patient has symmetrical motor strength in all four extremities. Cranial nerves are grossly intact. Deep tendon reflexes are symmetrical and equal in all four extremities. Psychiatric: The patient has an appropriate affect and does not exhibit any anxiety or depression. Triage Information Reviewed: Yes Vital Signs On Initial Exam: Initial Vitals Temp Pulse Resp BP Pulse Ox 98.6 F 98 24 136/87 100 03/15/19 15:11 03/15/19 15:11 03/15/19 15:11 03/15/19 15:11 03/15/19 15:11 Vital Signs Reviewed: Yes Diagnostics - Vital Signs Vital Signs Temp Pulse Resp BP Pulse Ox 03/15/19 15:11 98.6 F 98 24 136/87 100 - Laboratory Result Diagrams: 03/15/19 15:55 03/15/19 15:55 Lab Statement: Any lab studies that have been ordered have been reviewed, and results considered in the medical decision making process. - Radiology CXR Radiology Interpretation Completed By: Radiologist Summary of Radiographic Findings: Hyperinflation, c/w COPD. No active cardiopulmonary disease. ED physician has reviewed this report. - CT CTA Chest/Thorax CT Interpretation Completed By: Radiologist Summary of CT Findings: 1. NO PULMONARY ARTERIAL FILLING DEFECT TO SUGGEST PULMONARY EMBOLISM. 2. EMPHYSEMA. 3. HILAR LYMPHADENOPATHY. 4. SMALL LEFT PLEURAL EFFUSION. ED physician has reviewed this report. Course/Dx - Course Course Of Treatment: Mr. Bloom presents in a very cachectic state with normal vitals and decreased breath sounds but no wheezes. His main complaint was some shortness of breath and chest pain but he did have a myriad of other complaints. A plain chest x-ray showed only hyperinflated lung diaz but his d -dimer returned very elevated. A CTA was obtained which showed some lymphadenopathy. At one point he spiked a fever here and became to And at that point met sepsis criteria. Antibiotics and fluids were ordered for him at that point. I spoke with the hospitalist for admission. - Diagnoses Provider Diagnoses: Sepsis - Critical Care Time Critical Care Time: 30-74 min Discharge - Sign-Out/Discharge Documenting (check all that apply): Patient Departure - Discharge Plan Condition: Stable Disposition: ADMITTED TO [facility] Referrals: Pawel Van MD [Primary Care Provider] - - Billing Disposition and Condition Condition: STABLE Disposition: Admitted to [facility] - Attestation Statements Document Initiated by Scribe: Yes Documenting Scribe: Lori Bagley Provider For Whom Scribe is Documenting (Include Credential): Randall Olivo MD. Scribe Attestation: Lori Braxton, scribed for Randall Olivo MD. on 03/15/19 at 1832. Scribe Documentation Reviewed: Yes Provider Attestation: The documentation as recorded by the scribe, Lori Bagley accurately reflects the service I personally performed and the decisions made by me, Randall Olivo MD. Status of Scribe Document: Viewed Consult Consult: [id number] - I spoke with Dr. Rivera about the pt's present condition who will be accepting the pt to [facility] with a dx of sepsis.
[2019-03-15] MEDS ORDERED: Albuterol/Ipratropium NEB.SOL* Albuterol 2.5 MG/Ipratropium 0.5 MG 3 ML INH ONE (15:47)
[2019-03-15 16:21] LABS: Albumin 3.1 g/dL (3.2-5.2); Albumin/Globulin Ratio 0.8 (1-3); BUN/Creatinine Ratio 16.5 (8-20); C Reactive Protein 84.91 mg/L (<8.01); Calcium 8.8 mg/dL (8.6-10.3); EGFR African American 70.5 (>60); EGFR Non-African American 58.2 (>60); Globulin 3.9 g/dL (2-4); Potassium 3.9 mmol/L (3.5-5.0); Total Bilirubin 0.4 mg/dL (0.2-1.0)
[2019-03-15 17:01] LABS: Hematocrit 28 % (36-46); Hemoglobin 8.6 g/dL (14.0-18.0); Mean Corpuscular HGB Conc 31 g/dL (31-36); Mean Corpuscular Hemoglobin 21 pg (27-31); Mean Corpuscular Volume 70 fL (80-94); Mean Platelet Volume 6.7 fL (7.4-10.4); Platelet Count 481 10^3/uL (150-450); Red Blood Count 4.06 10^6 /uL (4.18-5.48); Red Cell Distribution Width 18 % (10.5-15); White Blood Count 2.4 10^3/uL (3.5-10.8)
[2019-03-15 17:02] LABS: ABS Basophils 0 10^3/ul (0-0.2); ABS Eosinophils 0 10^3/ul (0-0.6); ABS Lymphocytes 0.6 10^3/ul (1.0-4.8); ABS Monocytes 0.2 10^3/ul (0-0.8); ABS Neutrophils 1.6 10^3/ul (1.5-7.7); ABS Nucleated RBC 0 10^3/ul; Eosinophil % 0.5 %; Lymphocyte % 24.3 %; Nucleated Red Blood Cells % 0.1
[2019-03-15] MEDS ORDERED: Iodixanol* (CONTRAST) 320 MG/ML 100 ML SDV IV ONE (17:02)
[2019-03-15 17:03] LABS: Microcytosis 2+
[2019-03-15 17:27] LABS: Troponin I 0.02 ng/mL (<0.04)
[2019-03-15] MEDS ORDERED: Levofloxacin 750 MG IVPREMIX(* 750 MG/150 ML BAG IVPB ONE (17:40)
[2019-03-15] MEDS ORDERED: NS 0.9% 1000 ML** 1,000 ML IV ONE ×2 (17:40→18:34)
[2019-03-15] MEDS ORDERED: Piperacillin/Tazobac ADVAN(*) 3.375 GM in NS 0.9% 100 ML* 100 ML IVPB ONE (17:42)
[2019-03-15] MEDS ORDERED: Vancomycin(*) 1,000 MG in NS 0.9% 250 ML* 250 ML IVPB ONE (17:42)
[2019-03-15] MEDS ORDERED: Acetaminophen TAB* 325 MG PO ONE (18:34)
[2019-03-15] MEDS ORDERED: Acetaminophen TAB* 325 MG PO PRN (19:50)
[2019-03-15] MEDS ORDERED: Albuterol 2.5 MG/3 ML NEB.SOL* (0.083%) INH PRN (19:50)
[2019-03-15] MEDS ORDERED: cefTRIAXone(*) 1 GM in NS 0.9% 50 ML* 50 ML IVPB ONE (20:30)
[2019-03-15] MEDS ORDERED: cefTRIAXone(*) 1 GM in NS 0.9% 50 ML* 50 ML IVPB SCH (21:00)
[2019-03-15] MEDS ORDERED: Azithromycin 500 mg/250 mL NS IVPB ONE (21:00)
[2019-03-15 21:09] LABS: Influenza A Molecular NEGATIVE (Negative); Influenza B Molecular NEGATIVE (Negative)
[2019-03-15] MEDS ORDERED: Azithromycin 500 mg/250 ml NS 500 MG/250 ML BAG IVPB SCH (21:30)
[2019-03-15] MEDS: NS 0.9% 1000 ML** 1,000 ML IV SCH (22:34)
[2019-03-15 23:05] LABS: Urine Appearance Cloudy; Urine Bacteria 1+ (Absent); Urine Bilirubin Negative (Negative); Urine Blood 3+ (Negative); Urine Color Yellow; Urine Glucose Negative (Negative); Urine Ketones Negative (Negative); Urine Nitrite Negative (Negative); Urine Protein 2+(100 mg/dL) (Negative); Urine Red Blood Cell 3+(>10/hpf) (Absent); Urine Specific Gravity 1.036 (1.010-1.030); Urine Urobilinogen Negative (Negative); Urine White Blood Cell Trace(0-5/hpf) (Absent)
--- NOTE | 2019-03-16 06:03 | HP ---
CC: Dr. Van* HISTORY AND PHYSICAL: DATE OF ADMISSION: 03/15/19 PROVIDER: Humera Greenfield NP. PRIMARY CARE PROVIDER: Dr. Van. ATTENDING PHYSICIAN WHILE IN THE HOSPITAL: Dr. Lilliana Craft* (dictated by Humera Greenfield NP). CHIEF COMPLAINT: Shortness of breath. HISTORY OF PRESENT ILLNESS: Mr. Bloom is a 58-year-old male with no significant past medical history, who presented to the emergency room with complaints of progressively worsening shortness of breath. The patient reports that he has had body aches for the last 5 to 6 months that have progressively become worse. He reports over the past 2 weeks he has progressively become more short of breath. It is worse with ambulation and exertion. He reports that he has also had chest pain on and off x3 weeks. He reports pain with swallowing x2 weeks. His tongue is black. The patient reports that he has had a 50- to 60-pound weight loss in the last 8 to 9 months. He reports a dry cough. He does report increased rib pain with coughing. He denies any nausea, vomiting, or diarrhea. He denies any abdominal pain, hematuria, or dysuria. He denies any weakness on one side. Denies any visual complaints. He does report generalized body aches and pains and red scabbed areas noted to the lower legs. He denies any psychosis or anxiety. The patient reports that he was seen at urgent care approximately 2 weeks ago for an episode of bright red blood per rectum. The patient reports he has had no further episodes of bright red blood. At that time, he was started on iron. He reports he does have black stools and has been constipated at times, but has had no further blood. While in the emergency room, the patient was found to have a fever and leukopenia with a white count of 2.4, for which he meets SIRS criteria. He has no identified source of infection. Due to his shortness of breath and meeting SIRS criteria, we were asked to see and evaluate him for admission. PAST MEDICAL HISTORY: No significant past medical history. PAST SURGICAL HISTORY: No surgeries. MEDICATIONS: No home medications. ALLERGIES: No known drug allergies. FAMILY HISTORY: Unknown for coronary artery disease or diabetes. Mother at the age of 65 from leukemia. Father at the age of 83 from lung cancer. SOCIAL HISTORY: The patient smoked a pack a day, he quit this morning, for 42 years. He denies any alcohol use. He reports he quit drinking approximately 4 months ago, prior to that he was drinking a 6-pack twice a week. He does admit to marijuana use, last use 2 months ago. He does report use of cocaine, last use approximately a month ago. He is . Surrogate decision maker in the event he is unable to make his own decisions is his . He is a full code. REVIEW OF SYSTEMS: He did have documented fever in the emergency room. He reports a 50- to 60-pound weight loss in the last 8 to 9 months. He does report chest pain on and off x3 weeks. Denies any edema. He does report dry cough and progressively worsening shortness of breath x2 weeks. He denies any nausea, vomiting, or diarrhea. He denies any abdominal pain. He does report rib pain with coughing. Denies any hematuria, dysuria, focal weakness, or sensory loss. Denies any visual complaints. He does report he has had difficulty swallowing x2 weeks, reports it is painful to swallow. He reports generalized body aches, joint aches, bone pain x5 to 6 months, this progressively worsened. He denies any rashes, lesions, psychosis, or anxiety. PHYSICAL EXAMINATION GENERAL: Mr. Bloom is a 58-year-old male. He is emaciated, resting on the stretcher in the emergency room. He does have temporal wasting and appears malnourished. VITAL SIGNS: Blood pressure 113/64, temperature 97.7, heart rate 77, respirations 18, O2 saturation 97% on room air. HEENT: Head is atraumatic, normocephalic. Eyes: EOMs are intact. Sclerae are pale. Mucous membranes are dry. His tongue is black. NECK: Supple. LUNGS: Diminished throughout bilaterally. No expiratory wheezes or rales. CARDIAC: S1, S2. Regular rate and rhythm. No murmurs, rubs, or gallops. ABDOMEN: Flat, concave. Bowel sounds are active x4. MUSCULOSKELETAL: He is able to move all 4 extremities. There is no clubbing or cyanosis. SKIN: Intact. NEUROLOGIC: He is awake, alert, oriented x3. Speech is clear. Thought process is intact. There is no gross focal deficits. PSYCH: Calm and cooperative. LABORATORY DATA AND DIAGNOSTIC STUDIES: WBCs 2.4, RBCs 4.06, hemoglobin 8.6, hematocrit 28, MCV 70, MCH 21, platelet count 481. D-dimer was greater than 1050. Sodium 135, potassium 3.9, chloride 104, carbon dioxide 25, anion gap 6, BUN 21, creatinine 1.27, glucose 105, calcium 8.8. AST 16, ALT 6, alkaline phosphatase 36. Troponin 0.02, 0.02, and 0.01. C-reactive protein was 84.91. Albumin was 3.1, prealbumin was 5. Urine pH was 5, specific gravity was 1.036. Urine protein was 2+, ketones were negative, blood was 3+, nitrites were negative, bilirubin was negative, urobilinogen was negative, leukocyte esterase was negative, WBCs were trace, RBCs 3+, bacteria was 1+. Flu A and B were both negative. The patient had a chest x-ray. Radiologist's impression: Hyperinflation consistent with COPD, no active cardiopulmonary disease. He had a CTA of the chest and thorax, showed no pulmonary embolism. Emphysema, hilar lymphadenopathy, small left pleural effusion. ASSESSMENT AND PLAN: Mr. Bloom is a 58-year-old male with no significant past medical history, who presented to the emergency room with complaints of generalized body aches, shortness of breath, and found to have a fever meeting systemic inflammatory response syndrome criteria. He received a 30 cc per kg bolus in the emergency room and was started on antibiotics. At this time, he will be admitted inpatient for: 1. Systemic inflammatory response syndrome. The patient does meet systemic inflammatory response syndrome criteria with an elevated temperature and leukopenia. It is unclear his source of infection, this could possibly be related to pneumonia, though this is not evident on a CAT scan. Urine culture is currently pending. Sputum culture is currently pending. The patient will have blood cultures, urine culture. 2. Shortness of breath. The patient did have an elevated D-dimer. He had a CTA of the chest that did not show pulmonary embolism or pneumonia. I suspect that his shortness of breath is probably related to undiagnosed chronic obstructive pulmonary disease. I will place him on nebulizers and continue with ceftriaxone and azithromycin as the patient does report he has been short of breath with a dry cough and did have a fever of 101.4 in the emergency room. 3. Leukopenia. Leukopenia can be related to his infection. I would recommend that the patient follow up with Oncology as an outpatient for further evaluation. 4. Anemia. The patient did present with anemia. He was seen at urgent care center approximately 2 weeks ago, and at the urgent care center, he was found to be anemic with a hemoglobin of 7.9. His hemoglobin today is 8.6. The patient does report that he had an episode of rectal bleeding approximately 2 weeks ago and has had no further bright red blood from the rectum since that episode. 5. Acute kidney injury. The patient does have an elevated creatinine level. I suspect this is related to dehydration. He did receive hydration in the emergency room. Repeat a BMP in the a.m. 6. Chest pain. The patient does report he has had chest pain on and off for the past 3 weeks. We will trend his troponins and monitor him on telemetry during this hospitalization. I will get an EKG. We will get a transthoracic echocardiogram. 7. DVT prophylaxis: The patient will be placed on SCDs. 8. Code status: He is a full code. 9. Fluid, electrolytes, and nutrition: He can have a regular diet. 10. Disposition: He will be placed under observation on medical floor on tele. 11. Severe malnutrition. The patient does have temporal wasting and appears to be emaciated. I would recommend that the patient have a nutritional consult during this hospitalization. 12. Tobacco abuse. The patient reports that he has quit smoking and should he have nicotine withdrawal, we can offer nicotine patch or inhalers as needed. TIME SPENT: Time spent on this admission was 60 minutes, greater than half the time was spent at the bedside reviewing the events leading thus far to his hospitalization, performing my physical exam, and reviewing my plan of care. I have discussed this with my attending Dr. Lilliana Craft, and she is in agreement with my plan. HUMERA GREENFIELD, TONYA [id number]/[facility] #: [id number] LUCINDA
[2019-03-16 07:31] LABS: Hematocrit 21 % (36-46); Hemoglobin 6.5 g/dL (14.0-18.0); Mean Corpuscular HGB Conc 31 g/dL (31-36); Mean Corpuscular Hemoglobin 22 pg (27-31); Mean Corpuscular Volume 69 fL (80-94); Mean Platelet Volume 6.9 fL (7.4-10.4); Platelet Count 400 10^3/uL (150-450); Red Blood Count 2.99 10^6 /uL (4.18-5.48); Red Cell Distribution Width 18 % (10.5-15); White Blood Count 2.2 10^3/uL (3.5-10.8)
[2019-03-16 08:02] LABS: ABS Basophils 0 10^3/ul (0-0.2); ABS Eosinophils 0 10^3/ul (0-0.6); ABS Lymphocytes 0.4 10^3/ul (1.0-4.8); ABS Monocytes 0.1 10^3/ul (0-0.8); ABS Neutrophils 1.6 10^3/ul (1.5-7.7); ABS Nucleated RBC 0 10^3/ul; Eosinophil % 1.1 %; Lymphocyte % 18.2 %; Nucleated Red Blood Cells % 0
[2019-03-16 08:04] LABS: Microcytosis 2+
[2019-03-16 08:26] LABS: BUN/Creatinine Ratio 15.9 (8-20); Calcium 7.8 mg/dL (8.6-10.3); EGFR African American 71.1 (>60); EGFR Non-African American 58.8 (>60); Potassium 3.9 mmol/L (3.5-5.0)
[2019-03-16] MEDS: Ferrous Sulfate TAB* 325 MG PO SCH (08:36)
[2019-03-16] MEDS: NS 0.9% 1000 ML** 1,000 ML IV SCH (09:16)
[2019-03-16] MEDS ORDERED: methylPREDNISolone 125 MG* 2 ML VIAL IV ONE (16:14)
[2019-03-16] MEDS ORDERED: Pantoprazole IV* 40 MG IV ONE (16:27)
--- NOTE | 2019-03-16 16:27 | PN ---
Subjective Date of Service: 03/16/19 Interval History: Dry cough Odynophagia and dysphagia continue worse over last 2 weeks but present at several months SOB with dypnea walking to bathroom which is about baseline but improved since yesterday Loose stool with black specks but no tarry characteristics or BRBPR Objective Active Medications: Acetaminophen (Tylenol Tab*) 650 mg PO Q4H PRN PRN Reason: FEVER/PAIN Albuterol (Ventolin 2.5 Mg/3 Ml Neb.Maida*) 2.5 mg INH [id number] AWAKE PRN PRN Reason: sob/wheezing Ferrous Sulfate (Ferrous Sulfate Tab*) 325 mg PO DAILY [facility] Last Admin: 03/16/19 08:36 Dose: 325 mg Azithromycin (Zithromax 500 Mg/250 Ml) 500 mg in 250 mls @ 250 mls/hr IVPB Q24H [facility] Last Admin: 03/15/19 22:33 Dose: 250 mls/hr Ceftriaxone Sodium 1 gm/ (Sodium Chloride) 50 mls @ 200 mls/hr IVPB Q24H [facility] Last Admin: 03/15/19 22:07 Dose: 200 mls/hr Methylprednisolone Sodium Succinate (Solu-Medrol 125mg *) 125 mg IV ONCE ONE Stop: 03/16/19 16:15 Prednisone (Deltasone Tab*) 40 mg PO DAILY [facility] Vital Signs - 8 hr 03/16/19 03/16/19 11:26 15:18 Temperature 98.1 F 98.8 F Pulse Rate 73 76 Respiratory 24 18 Rate Blood Pressure 120/62 127/64 (mmHg) O2 Sat by Pulse 98 97 Oximetry Oxygen Devices in Use Now: None Appearance: thin, NAD Eyes: No Scleral Icterus, PERRLA Ears/Nose/Mouth/Throat: Clear Oropharnyx, Mucous Membranes Moist Neck: - - thypoid tissue apparently enlarged, no nodules Respiratory: Symmetrical Chest Expansion and Respiratory Effort, Clear to Auscultation Cardiovascular: RRR Abdominal: NL Sounds; No Tenderness; No Distention, No Hepatosplenomegaly Extremities: No Edema, No Clubbing, Cyanosis Skin: No Rash or Ulcers Neurological: Alert and Oriented x 3 - Nutrition: Malnutrition Diagnosis/Plan Malnutrition Assessment by Registered Dietitian: Malnutrition Assessment Clinical Characteristics Chronic,Severe Malnutrition Assessment: severe wt loss 5-6 mos (and up to 1 year): 25% Criteria < or = 75% of EEE x > or = 1 mo [id number] body fat/muscle mass wasting as evidenced by temporal wasting; orbital fat pad wasting; subcutaneous fat loss (triceps) Malnutrition Assessment: * regular diet appropriate; pt declined modified Interventions texture diet to ease chewing, but accepted suggestion of extra sauce/gravy with meals * Ensure Enlive (vance) @ BLD daily: 350 kcal, 20 g pro per serving * recommend APPLICATION COORDINATOR eval to determine etiology of difficulty/pain with swallowing and for recommendations for diet/liquid texture * pt at risk for refeeding syndrome - monitor K + , phos, mag * follow PO intake at meals and supplement intake Malnutrition Assessment: Goals 1. Pt will tolerate regular texture diet without difficulty/pain with swallowing 2. Intake at meals and of supplement will be adequate to repete protein stores and promote wt gain 3. H&H will improve with iron supplementation and adequate intake 4. Cr will improve with adequate hydration Result Diagrams: 03/16/19 06:31 03/16/19 06:31 Microbiology and Other Data: Microbiology 03/15/19 22:10 Gram Stain - Final Sputum Assess/Plan/Problems-Billing Assessment: 58 yo M h/o microcytic anemia pw SOB in setting of 60 lbs weight loss over last year with hospital stay notable for worsening anemia - Patient Problems (1) Anemia Comment: Iron def anemia at baseline Gastric ulcer seen in 2017 EGD which healed Acute drop since presentation stool occult pending and requested to RN 1 U PRBC now and recheck this evening (2) Odynophagia Comment: GI consult for evaluation concerning given weight loss (3) Goiter Comment: thyroid US (4) Weight loss Comment: management as above HIV check (5) Shortness of breath Comment: suspect COPD exacerbation start steroids stop abx (6) DVT prophylaxis Comment: hsq
[2019-03-16 21:28] LABS: Hematocrit 24 % (36-46); Hemoglobin 7.3 g/dL (14.0-18.0)
[2019-03-17] MEDS: Heparin VIAL(*) 5000 UNITS/ML VIAL (FIVE THOUSAND) SUBCUT SCH ×4 (00:05→21:45)
[2019-03-17 08:04] LABS: BUN/Creatinine Ratio 23.7 (8-20); Calcium 8.6 mg/dL (8.6-10.3); EGFR African American 79.8 (>60); Potassium 4.3 mmol/L (3.5-5.0)
[2019-03-17] MEDS: Ferrous Sulfate TAB* 325 MG PO SCH (08:04)
[2019-03-17] MEDS: predniSONE TAB* 20 MG PO SCH (08:04)
[2019-03-17 08:16] LABS: Hematocrit 24 % (36-46); Hemoglobin 7.5 g/dL (14.0-18.0); Mean Corpuscular HGB Conc 31 g/dL (31-36); Mean Corpuscular Hemoglobin 22 pg (27-31); Mean Corpuscular Volume 71 fL (80-94); Mean Platelet Volume 7.1 fL (7.4-10.4); Platelet Count 363 10^3/uL (150-450); Red Blood Count 3.42 10^6 /uL (4.18-5.48); Red Cell Distribution Width 19 % (10.5-15); White Blood Count 1.4 10^3/uL (3.5-10.8)
[2019-03-17 08:37] LABS: ABS Basophils 0 10^3/ul (0-0.2); ABS Eosinophils 0 10^3/ul (0-0.6); ABS Lymphocytes 0.4 10^3/ul (1.0-4.8); ABS Monocytes 0.1 10^3/ul (0-0.8); ABS Neutrophils 0.9 10^3/ul (1.5-7.7); ABS Nucleated RBC 0 10^3/ul; Eosinophil % 0 %; Lymphocyte % 27.8 %; Nucleated Red Blood Cells % 0.2
[2019-03-17] MEDS ORDERED: Pantoprazole IV* 40 MG IV SCH (09:00)
[2019-03-17 12:25] LABS: Urine Appearance Cloudy; Urine Bacteria Absent (Absent); Urine Bilirubin Negative (Negative); Urine Blood 3+ (Negative); Urine Color Amber; Urine Glucose Negative (Negative); Urine Ketones Negative (Negative); Urine Nitrite Negative (Negative); Urine Protein 1+(30 mg/dL) (Negative); Urine Red Blood Cell 3+(>10/hpf) (Absent); Urine Specific Gravity 1.023 (1.010-1.030); Urine Urobilinogen Negative (Negative); Urine White Blood Cell 1+(6-10/hpf) (Absent)
--- NOTE | 2019-03-17 15:06 | PN ---
Subjective Date of Service: 03/17/19 Interval History: SOB feels much better; was SOB at rest now able to walk to bathroom. Dry cough persists Denies BRBPR or melena +odynophagia Objective Active Medications: Acetaminophen (Tylenol Tab*) 650 mg PO Q4H PRN PRN Reason: FEVER/PAIN Albuterol (Ventolin 2.5 Mg/3 Ml Neb.Maida*) 2.5 mg INH [id number] AWAKE PRN PRN Reason: sob/wheezing Ferrous Sulfate (Ferrous Sulfate Tab*) 325 mg PO DAILY [facility] Last Admin: 03/17/19 08:04 Dose: 325 mg Heparin Sodium (Porcine) (Heparin Vial(*)) 5,000 units SUBCUT Q8HR [facility] Last Admin: 03/17/19 13:21 Dose: 5,000 units Pantoprazole Sodium (Protonix Iv*) 40 mg IV DAILY [facility] Last Admin: 03/17/19 08:05 Dose: 40 mg Prednisone (Deltasone Tab*) 40 mg PO DAILY [facility] Last Admin: 03/17/19 08:04 Dose: 40 mg Vital Signs - 8 hr 03/17/19 03/17/19 07:30 10:56 Temperature 97.7 F 98.1 F Pulse Rate 49 46 Respiratory 16 16 Rate Blood Pressure 117/59 119/53 (mmHg) O2 Sat by Pulse 96 99 Oximetry Oxygen Devices in Use Now: None Appearance: thin appearing, interactive, NAD Eyes: No Scleral Icterus, PERRLA Ears/Nose/Mouth/Throat: NL Teeth, Lips, Gums, Clear Oropharnyx, Mucous Membranes Moist Neck: NL Appearance and Movements; NL JVP, Trachea Midline Respiratory: Symmetrical Chest Expansion and Respiratory Effort, Clear to Auscultation Cardiovascular: NL Sounds; No Murmurs; No JVD, RRR Abdominal: NL Sounds; No Tenderness; No Distention, No Hepatosplenomegaly Lymphatic: No Cervical Adenopathy Extremities: No Edema Skin: No Rash or Ulcers Neurological: Alert and Oriented x 3, NL Muscle Strength and Tone - Nutrition: Malnutrition Diagnosis/Plan Malnutrition Assessment by Registered Dietitian: Malnutrition Assessment Clinical Characteristics Chronic,Severe Malnutrition Assessment: severe wt loss 5-6 mos (and up to 1 year): 25% Criteria < or = 75% of EEE x > or = 1 mo [id number] body fat/muscle mass wasting as evidenced by temporal wasting; orbital fat pad wasting; subcutaneous fat loss (triceps) Malnutrition Assessment: * regular diet appropriate; pt declined modified Interventions texture diet to ease chewing, but accepted suggestion of extra sauce/gravy with meals * Ensure Enlive (vance) @ BLD daily: 350 kcal, 20 g pro per serving * recommend MACHINE SPREADER eval to determine etiology of difficulty/pain with swallowing and for recommendations for diet/liquid texture * pt at risk for refeeding syndrome - monitor K + , phos, mag * follow PO intake at meals and supplement intake Malnutrition Assessment: Goals 1. Pt will tolerate regular texture diet without difficulty/pain with swallowing 2. Intake at meals and of supplement will be adequate to repete protein stores and promote wt gain 3. H&H will improve with iron supplementation and adequate intake 4. Cr will improve with adequate hydration Result Diagrams: 03/17/19 07:29 03/17/19 07:29 Microbiology and Other Data: Microbiology 03/15/19 22:10 Gram Stain - Final Sputum Assess/Plan/Problems-Billing Assessment: 58 yo M h/o microcytic anemia pw SOB in setting of 60 lbs weight loss over last year with hospital stay notable for worsening anemia - Patient Problems (1) Anemia Comment: Iron def anemia at baseline Gastric ulcer seen in 2017 EGD which healed on repeat EGD Acute drop since presentation improved with 1 U PRBC 03/16 Transfusion reaction notable for flushing and SOB - rceived about 1/2 of 1 unit PRBC total stool occult negative PPI stopped (2) Odynophagia Comment: GI consult appreciated concerning given weight loss EGD planned fpr 03/18 (3) Goiter Comment: thyroid wnl (4) Weight loss Comment: management as above HIV check (5) Shortness of breath Comment: suspect COPD exacerbation improving on steroids (6) Microscopic hematuria Comment: Persistant on repeat UA May warrant urine cytology as outpatient Consider depending on EGD results and need for further evaluation (7) Leukopenia Comment: Unclear etiology Now neutropenic Start precautions and neutropenic diet If develops fever will warrant abx Stop PPI, no other medications identified consult heme for assistance (8) DVT prophylaxis Comment: hsq
--- NOTE | 2019-03-17 15:49 | CONS ---
CC: Dr. Van* CONSULTATION REPORT: DATE OF CONSULT: 03/17/19 REQUESTING PHYSICIAN: Dr. Miller. INDICATION: Dysphagia. NARRATIVE: Mr. Bloom is a pleasant 58-year-old gentleman who was admitted to the hospital on the 03/15/19 for worsening shortness of breath. He states that his symptoms began on the 03/14/19 the day before. He has been having body aches for about 6 months that it become worse and the shortness of breath over the past few weeks have definitely become more difficult. He describes difficulties eating over the past 2 to 3 weeks, feels like food gets down into his stomach, but then it sits there and just does not want to go any further. He states that it is difficult to swallow, but food is not coming back up on him. He does have some painful swallowing. He has lost approximately 60 pounds over the past 9 months. He did have one episode of bright red blood per rectum 2 weeks ago, but that has stopped. He has occasional black stools and does feel constipated at times. The patient was admitted to the hospital with a diagnosis of leukopenia and fever. He did have an upper endoscopy in March [address] Wright, which revealed healing gastric ulcer. PAST MEDICAL HISTORY: None. PAST SURGICAL HISTORY: None. MEDICATIONS AT HOME: None. ALLERGIES: None. FAMILY HISTORY: Coronary artery disease, leukemia, lung cancer. No esophageal cancers in the family. SOCIAL HISTORY: He does smoke a pack of tobacco per day. He has been doing this for at least 40 years. No recent alcohol use. He quit drinking about 3 to 4 months ago. He was drinking about 12 beers per week. He does use occasional marijuana. REVIEW OF SYSTEMS: Twelve systems were reviewed and other than that mentioned in the HPI were unremarkable. PHYSICAL EXAM: Temperature is 98.1, blood pressure is 119/53, pulse is 46. General: Cachectic-appearing male, no apparent distress, alert, oriented, pleasant, fluent. HEENT: Mucous membranes are moist without lesions, ulcers, or exudate. Neck is supple. Trachea is midline. Head is normocephalic, atraumatic. Heart: Regular rate and rhythm. No murmurs, rubs, or gallops. Lungs: Diminished breath sounds bilaterally. No wheezes, rales, or rhonchi. Abdomen: Positive bowel sounds. Soft, nontender, nondistended. Skin is warm and dry, numerous tattoos. DIAGNOSTIC STUDIES/LAB DATA: Radiology workup: He did just have a thyroid ultrasound, which reveals no discrete thyroid nodule or mass. He had a CTA of his chest back in February which revealed no PE. He does have emphysema, hilar lymphadenopathy and a small left pleural effusion. Labs of note; white count is 1.4, hemoglobin is 7.5, platelets of 363. BUN is 27, creatinine is 1.14, iron is less than 17. HIV and Lyme are nonreactive from February. ASSESSMENT AND PLAN: This is a pleasant 58-year-old gentleman with a significant 50- to 60-pound weight loss, potentially odynophagia, dysphagia and gastroesophageal reflux disease. His last endoscopy approximately 2 years ago did not reveal any ominous pathology; however, I think given his new symptoms and weight loss, we should perform another upper endoscopy. I will make arrangements for it tomorrow. [id number]/[facility] #: [id number] LUCINDA
[2019-03-18] MEDS: Heparin VIAL(*) 5000 UNITS/ML VIAL (FIVE THOUSAND) SUBCUT SCH ×3 (05:11→20:59)
[2019-03-18 06:58] LABS: BUN/Creatinine Ratio 35.2 (8-20); Calcium 8.7 mg/dL (8.6-10.3); EGFR African American 73.8 (>60); Potassium 4.3 mmol/L (3.5-5.0)
[2019-03-18 07:03] LABS: ABS Basophils 0 10^3/ul (0-0.2); ABS Eosinophils 0 10^3/ul (0-0.6); ABS Lymphocytes 0.9 10^3/ul (1.0-4.8); ABS Monocytes 0.3 10^3/ul (0-0.8); ABS Neutrophils 4.4 10^3/ul (1.5-7.7); ABS Nucleated RBC 0 10^3/ul; Eosinophil % 0 %; Hematocrit 24 % (36-46); Hemoglobin 7.3 g/dL (14.0-18.0); Lymphocyte % 15.8 %; Mean Corpuscular HGB Conc 31 g/dL (31-36); Mean Corpuscular Hemoglobin 22 pg (27-31); Mean Corpuscular Volume 71 fL (80-94); Mean Platelet Volume 7.3 fL (7.4-10.4); Nucleated Red Blood Cells % 0; Platelet Count 431 10^3/uL (150-450); Red Blood Count 3.33 10^6 /uL (4.18-5.48); Red Cell Distribution Width 18 % (10.5-15); White Blood Count 5.7 10^3/uL (3.5-10.8)
[2019-03-18] MEDS: predniSONE TAB* 20 MG PO SCH (08:34)
[2019-03-18] MEDS: Ferrous Sulfate TAB* 325 MG PO SCH (08:34)
[2019-03-18 11:35] LABS: Corrected Retic Count 0.6 % (0.5-1.5); Hematocrit for Retic CNT 24 % (36-46); RBC Retic Count 3.36 10^6/uL (4.18-5.48)
[2019-03-18] MEDS: Iron Sucrose* 200 MG in NS 0.9% 100 ML* 100 ML IVPB SCH (12:07)
[2019-03-18] MEDS ORDERED: Iohexol 300* (CONTRAST) 10 ML SDV IV ONE (12:38)
--- NOTE | 2019-03-18 13:22 | CONS ---
CONSULTATION REPORT: DATE OF CONSULT: 03/18/19 REFERRING PHYSICIAN: Dr. Miller. PRIMARY CARE PHYSICIAN: Dr. Van. CHIEF COMPLAINT: Weight loss, iron-deficiency anemia and leukopenia. HISTORY OF PRESENT ILLNESS: Mr. Bloom is a 58-year-old male, smoker, without significant other past medical history. He was admitted on 03/17/19 with complaint of worsening shortness of breath. Difficulty breathing started approximately 5 to 6 months ago, but is getting worse and worse, the past 2 weeks it has become difficult for him to function. 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 He feels his symptoms all started approximately 2 years ago when he developed back pain at work. He has been followed by Dr. Van for that ever since and has had muscle spasms, treated with steroid injections and pain medication. In addition to the shortness of breath, he has also developed decreased appetite and weight loss over the past 5 to 6 months. He does not know why he was losing weight. He has also been getting weaker and feel like he is losing muscle mass. Two weeks ago, he had difficulty just picking the bag of joie letter. He has had difficulty swallowing and pain with swallowing over the past 2 to 3 weeks and then just before admission, he had an episode of bright red blood per rectum. He has lost approximately 60 pounds over the last 5 to 6 months. When he was sent to the emergency room, he has noted to be cachetic, he had a fever of 101.4, then 102. He was noted to be leukopenic with a white count of 1.2. He was treated with Zosyn and ceftriaxone as well as vancomycin IV. On the first day of admission, he had a brief course of Levaquin, but has been off antibiotics since that time. His white count was 2.4 on admission, went down to 1.4 yesterday and then came back at 5.7 today, ANC was 1.6 on admission, down to 0.9 and 4.4 today and he has more than normal absolute lymphocyte count. He had a creatinine of 1.22 on admission, up from 0.83 at baseline and it stayed elevated despite hydration. He had an albumin of 3.1, otherwise normal LFTs. He had CT of the chest that shows fairly severe COPD. He has no mediastinal lymphadenopathy. Diffuse thickening of the esophagus, seems more prominent at the GE junction. Upper abdominal cuts without clear liver disease , normal-sized spleen, and no clear retroperitoneal lymphadenopathy. There is no pulmonary embolism. PAST MEDICAL HISTORY: 1. Heavy smoking history, but not formally diagnosed with COPD. 2. History of alcohol use, drank up to two 6 packs a day up until a year ago, then moderated significantly. PAST SURGICAL HISTORY: Back injections, otherwise none. FAMILY HISTORY: Mother had blood cancer at 83 and father had lung cancer at 65 , he was a smoker. He has a brother and sister, but they are estranged. He has no other history. SOCIAL HISTORY: He is , no children. He works on [employer] and construction, but has not been working lately. Very concerned about losing his income and insurance, applying for disability. He has a history of marijuana and cocaine use, but not daily. REVIEW OF SYSTEMS: Fatigue and weight loss, difficulty swallowing. HEENT: No visual changes. No dental pain. Nodes: He has no distinct swollen glands or lymph nodes. Skin: No rash. Pulmonary: Shortness of breath as noted above for the past several weeks, no cough. GI: Difficulty swallowing, weight loss, poor appetite. He has been having normal bowel movements. Cardiac: Negative. Musculoskeletal: Chronic back pain, otherwise negative. Neurologic: Negative. Psychiatry: Denies depression or anxiety. PHYSICAL EXAMINATION: Temperature 96.3, BP 112/60, heart rate 50, respirations 16, O2 sat 96%. HEENT: Oral mucosa moist, no clear oral lesions, poor dentition. Cachetic. Nodes: No cervical, supraclavicular, axillary or inguinal lymphadenopathy. Lungs: Decreased breath sounds bilaterally. No wheezing or crackles. Cardiac: Regular rate and rhythm. S1 and S2. No murmurs or gallops. Abdomen: Thin, nontender, nondistended. No hepatosplenomegaly. No palpable masses. Extremities: Clubbing. Good pulses and no edema. Skin: No rashes or lesions. Neurologic: Alert and oriented x3. Grossly nonfocal, but full exam deferred. DIAGNOSTIC STUDIES/LAB DATA: As noted above. ASSESSMENT AND PLAN: This a 58-year-old male who presents with 60-pound weight loss and dysphagia. CT scan of the chest with some thickening in the esophagus , but is fairly nonspecific. He had leukopenia on admission, improved today. 1. Leukopenia. Differential diagnosis includes medication effect. Among the medications he received in the hospital, Zosyn and ceftriaxone are likely causative. It is possible it is from a course of antibiotics given as an outpatient but he does not recall any new medications started between February and now that were stopped on admission. Given improvement today, we will continue to follow. We will check B12. 2. Odynophagia and weight loss. Agree with EGD. We will also check CT scan of the abdomen and pelvis. 3. Iron-deficiency anemia. Stop all iron as it will exacerbate his difficulty swallowing. IV iron sucrose 200 mg daily x8 days or until discharge. 4. Protein-calorie malnutrition. We will need nutrition evaluation, pending EGD. We will continue to follow through the hospitalization. [id number]/[facility] #: [id number] MTDD
[2019-03-18] MEDS ORDERED: fentaNYL* 50 MCG/ML 2 ML VIAL (100 MCG VIAL) ONE (15:15)
[2019-03-18] MEDS ORDERED: Midazolam* 1 MG/ML 10 ML VIAL (10 MG) ONE (15:15)
--- NOTE | 2019-03-18 17:29 | PRO ---
DATE OF PROCEDURE: 03/18/19 - ROOM #420 PROCEDURE: EGD. INDICATIONS: Odynophagia, dysphagia, weight loss, failure to thrive. MEDIATIONS GIVEN: 50 mcg IV fentanyl, 7 mg IV Versed. DESCRIPTION OF PROCEDURE: After the EGD procedure, including risks, benefits, and alternative, not limited to perforation, surgery, and/or were explained to the patient, written consent was then obtained, IV medication was given and a bite block was placed between the teeth. Olympus gastroscope was then inserted into the patient's mouth, advanced down the distal esophagus, into the stomach, into the distal duodenum. In the esophagus at the GE junction , Z-line was intact. No erosive esophagitis, stricture, ring or mass was seen. Scope was advanced through the GE junction into the body of the stomach. Retroflexed view was unremarkable. Forward view also was unremarkable. Biopsy was obtained from the gastric antrum. Scope was advanced through a widely patent pylorus, into the duodenal bulb and into the distal duodenum, both of which were unremarkable. Biopsy was obtained for celiac disease. Scope was then withdrawn from the patient. In the esophagus, I did take biopsy from the upper esophageal mucosa to rule out fungal infection. It did not really appear like nataliya, appeared to be more likely food debris; however, biopsy was obtained. The scope was withdrawn from the patient. He tolerated the procedure well and was returned to his hospital room in stable condition. IMPRESSION: 1. Complete upper endoscopy into the duodenum with biopsies. 2. No abnormalities were seen. Biopsies were obtained from the esophagus, stomach and small bowel. 3. We will follow up on the biopsies. [id number]/[facility] #: [id number] [facility]ENTER[facility]
--- NOTE | 2019-03-18 17:31 | PN ---
Subjective Date of Service: 03/18/19 Interval History: Patient has no new complaints. He continues to have trouble swallowing. Just came back from endoscopy, he is a bit confused from the sedation. Family History: Unchanged from Admission Social History: Unchanged from Admission Past Medical History: Unchanged from Admission Objective Active Medications: Acetaminophen (Tylenol Tab*) 650 mg PO Q4H PRN PRN Reason: FEVER/PAIN Albuterol (Ventolin 2.5 Mg/3 Ml Neb.Maida*) 2.5 mg INH [id number] AWAKE PRN PRN Reason: sob/wheezing Heparin Sodium (Porcine) (Heparin Vial(*)) 5,000 units SUBCUT Q8HR [facility] Last Admin: 03/18/19 14:12 Dose: 5,000 units Iron Sucrose 200 mg/ Sodium (Chloride) 110 mls @ 110 mls/hr IVPB DAILY [facility] Stop: 03/26/19 10:59 Last Admin: 03/18/19 12:07 Dose: 110 mls/hr Prednisone (Deltasone Tab*) 40 mg PO DAILY [facility] Last Admin: 03/18/19 08:34 Dose: 40 mg Vital Signs - 8 hr 03/18/19 11:20 Temperature 36.7 C Pulse Rate 49 Respiratory 20 Rate Blood Pressure 127/62 (mmHg) O2 Sat by Pulse 96 Oximetry Oxygen Devices in Use Now: None Appearance: alert, no distress, cachectic Eyes: No Scleral Icterus Ears/Nose/Mouth/Throat: Clear Oropharnyx Neck: NL Appearance and Movements; NL JVP, No Thyroid Enlargement, Masses Respiratory: Symmetrical Chest Expansion and Respiratory Effort, - - diminished bilat Abdominal: NL Sounds; No Tenderness; No Distention Lymphatic: No Cervical Adenopathy, No Axillary Adenopathy, No Inguinal Adenopathy Extremities: No Edema Neurological: Alert and Oriented x 3 Lines/Tubes/Other Access: Clean, Dry and Intact Peripheral IV - Nutrition: Malnutrition Diagnosis/Plan Malnutrition Assessment by Registered Dietitian: Malnutrition Assessment Clinical Characteristics Chronic,Severe Malnutrition Assessment: severe wt loss 5-6 mos (and up to 1 year): 25% Criteria < or = 75% of EEE x > or = 1 mo [id number] body fat/muscle mass wasting as evidenced by temporal wasting; orbital fat pad wasting; subcutaneous fat loss (triceps) Malnutrition Assessment: * regular diet appropriate; pt declined modified Interventions texture diet to ease chewing, but accepted suggestion of extra sauce/gravy with meals * Ensure Enlive (vance) @ BLD daily: 350 kcal, 20 g pro per serving * recommend POOLROOM/POOLHALL MANAGER eval to determine etiology of difficulty/pain with swallowing and for recommendations for diet/liquid texture * pt at risk for refeeding syndrome - monitor K + , phos, mag * follow PO intake at meals and supplement intake Malnutrition Assessment: Goals 1. Pt will tolerate regular texture diet without difficulty/pain with swallowing 2. Intake at meals and of supplement will be adequate to repete protein stores and promote wt gain 3. H&H will improve with iron supplementation and adequate intake 4. Cr will improve with adequate hydration Result Diagrams: 03/18/19 06:19 03/18/19 06:19 Additional Lab and Data: Laboratory Tests 03/18/19 03/18/19 06:19 10:52 Lactate Dehydrogenase 176 Lipase 33 Vitamin B12 217 Assess/Plan/Problems-Billing Assessment: 58 yo M h/o microcytic anemia pw SOB in setting of 60 lbs weight loss over last year with hospital stay notable for worsening anemia - Patient Problems (1) Cachexia Current Visit: Yes Status: Acute Priority: High Code(s): R64 - CACHEXIA SNOMED Code(s): 994155345 Comment: -Discussed case with Dr. Worley, EGD is normal -Differential includes colonic malignancy, lymphoma, sarcoidosis, depression -Will pursue colonoscopy (2) Iron deficiency anemia Current Visit: Yes Status: Acute Priority: Medium Code(s): D50.9 - IRON DEFICIENCY ANEMIA, UNSPECIFIED SNOMED Code(s): 92585571 Comment: -Occult blood in stool negative, will check iron studies -Received first dose IV iron -Appreciate Dr. Peña's consult, he will follow up in office (3) Leukopenia Current Visit: Yes Status: Acute Priority: Medium Code(s): D72.819 - DECREASED WHITE BLOOD CELL COUNT, UNSPECIFIED SNOMED Code(s): 43638367 Comment: -Resolved, may have been medication effect -B12 borderline low, checking MMA. (4) DVT prophylaxis Current Visit: Yes Status: Acute Priority: Low Code(s): YYD1523 - SNOMED Code(s): 762633633 Comment: hsq Status and Disposition: inpatient
[2019-03-18] MEDS ORDERED: PEG 3000 GI LAVAGE* 1 GALLON PO ONE (17:58)
[2019-03-18 18:02] LABS: % Iron Saturation 22 % (15-55); Iron 55 ug/dL (50-212); Total Iron Binding Capacity 252 mcg/dL (250-450); Transferrin 180 mg/dL (203-362)
[2019-03-18 18:12] LABS: Ferritin 48.9 ng/mL (24-336)
[2019-03-19] MEDS: Heparin VIAL(*) 5000 UNITS/ML VIAL (FIVE THOUSAND) SUBCUT SCH ×3 (05:55→21:11)
[2019-03-19 06:28] LABS: ABS Basophils 0 10^3/ul (0-0.2); ABS Eosinophils 0 10^3/ul (0-0.6); ABS Lymphocytes 0.9 10^3/ul (1.0-4.8); ABS Monocytes 0.2 10^3/ul (0-0.8); ABS Nucleated RBC 0 10^3/ul; Eosinophil % 0 %; Hematocrit 24 % (36-46); Hemoglobin 7.6 g/dL (14.0-18.0); Lymphocyte % 20.7 %; Mean Corpuscular HGB Conc 31 g/dL (31-36); Mean Corpuscular Hemoglobin 22 pg (27-31); Mean Corpuscular Volume 71 fL (80-94); Nucleated Red Blood Cells % 0.1; Platelet Count 461 10^3/uL (150-450); Red Blood Count 3.42 10^6 /uL (4.18-5.48); Red Cell Distribution Width 19 % (10.5-15); White Blood Count 4.1 10^3/uL (3.5-10.8)
[2019-03-19] MEDS: predniSONE TAB* 20 MG PO SCH (09:17)
[2019-03-19] MEDS: Iron Sucrose* 200 MG in NS 0.9% 100 ML* 100 ML IVPB SCH (09:18)
--- NOTE | 2019-03-19 14:33 | PN ---
Subjective Date of Service: 03/19/19 Interval History: Patient unhappy with being NPO for colonoscopy prep again. He feels he could eat once this is done. States he was eating pretty well before admission, but could not keep the weight on. This AM, reported anterior chest pain w/ exertion. He states the tele pack is causing the pain. Pain associated w/ SOB, same as SOB present on admission Also has pains in both shoulders, forearms, both hands. SOB and extremity pain present for weeks-months prior to admission. Family History: Unchanged from Admission Social History: Unchanged from Admission Past Medical History: Unchanged from Admission Objective Active Medications: Acetaminophen (Tylenol Tab*) 650 mg PO Q4H PRN PRN Reason: FEVER/PAIN Albuterol (Ventolin 2.5 Mg/3 Ml Neb.Maida*) 2.5 mg INH [id number] AWAKE PRN PRN Reason: sob/wheezing Heparin Sodium (Porcine) (Heparin Vial(*)) 5,000 units SUBCUT Q8HR PENDING SALE TO [facility] Last Admin: 03/19/19 05:55 Dose: Not Given Iron Sucrose 200 mg/ Sodium (Chloride) 110 mls @ 110 mls/hr IVPB DAILY PENDING SALE TO [facility] Stop: 03/26/19 10:59 Last Admin: 03/19/19 09:18 Dose: 110 mls/hr Prednisone (Deltasone Tab*) 40 mg PO DAILY PENDING SALE TO [facility] Last Admin: 03/19/19 09:17 Dose: 40 mg Vital Signs - 8 hr 03/19/19 03/19/19 03/19/19 07:42 08:00 09:43 Temperature 36.6 C Pulse Rate 54 56 Respiratory 20 20 22 Rate Blood Pressure 130/63 142/69 (mmHg) O2 Sat by Pulse 94 98 Oximetry 03/19/19 11:24 Temperature 36.2 C Pulse Rate 58 Respiratory 23 Rate Blood Pressure 135/67 (mmHg) O2 Sat by Pulse 95 Oximetry Oxygen Devices in Use Now: None Appearance: cachectic, alert Eyes: No Scleral Icterus Ears/Nose/Mouth/Throat: NL Teeth, Lips, Gums Neck: NL Appearance and Movements; NL JVP Respiratory: Symmetrical Chest Expansion and Respiratory Effort, - - diminished bilat Cardiovascular: NL Sounds; No Murmurs; No JVD, RRR Abdominal: NL Sounds; No Tenderness; No Distention, No Hepatosplenomegaly, - - scaphoid Extremities: - - cannot make fist >60% bilat Lines/Tubes/Other Access: Clean, Dry and Intact Peripheral IV Nutrition: Taking PO's - Nutrition: Malnutrition Diagnosis/Plan Malnutrition Assessment by Registered Dietitian: Malnutrition Assessment Clinical Characteristics Chronic,Severe Malnutrition Assessment: severe wt loss 5-6 mos (and up to 1 year): 25% Criteria < or = 75% of EEE x > or = 1 mo [id number] body fat/muscle mass wasting as evidenced by temporal wasting; orbital fat pad wasting; subcutaneous fat loss (triceps) Malnutrition Assessment: * regular diet appropriate; pt declined modified Interventions texture diet to ease chewing, but accepted suggestion of extra sauce/gravy with meals * Ensure Enlive (vance) @ BLD daily: 350 kcal, 20 g pro per serving * recommend NP eval to determine etiology of difficulty/pain with swallowing and for recommendations for diet/liquid texture * pt at risk for refeeding syndrome - monitor K + , phos, mag * follow PO intake at meals and supplement intake Malnutrition Assessment: Goals 1. Pt will tolerate regular texture diet without difficulty/pain with swallowing 2. Intake at meals and of supplement will be adequate to repete protein stores and promote wt gain 3. H&H will improve with iron supplementation and adequate intake 4. Cr will improve with adequate hydration Result Diagrams: 03/19/19 06:03 03/18/19 06:19 Additional Lab and Data: Laboratory Tests 03/18/19 10:52 Iron 55 TIBC 252 D % Saturation 22 Transferrin 180 L Vitamin B12 217 Microbiology and Other Data: Microbiology 03/17/19 12:00 Urine Urine Culture - Final No Growth (<1,000 CFU/mL) 03/16/19 20:08 Blood Bag Transfusion Reaction Gram Stain - Final 03/16/19 19:00 Stool Stool Occult Blood (MATTHEW) - Final 03/16/19 20:08 Blood Bag Transfusion Reaction Culture - Preliminary 03/16/19 20:08 Blood Bag No Growth Day 3 Assess/Plan/Problems-Billing Assessment: 58 yo M h/o microcytic anemia pw SOB in setting of 60 lbs weight loss over last year with hospital stay notable for worsening anemia - Patient Problems (1) Cachexia Current Visit: Yes Status: Chronic Priority: High Code(s): R64 - CACHEXIA SNOMED Code(s): 323413544 Comment: -Discussed case with Dr. Hoskins and Dr. Worley, EGD is normal, will have colonoscopy today -Differential includes colonic malignancy, lymphoma, sarcoidosis, depression, rheumatic disease -RF added on (2) Iron deficiency anemia Current Visit: Yes Status: Suspected Priority: Medium Code(s): D50.9 - IRON DEFICIENCY ANEMIA, UNSPECIFIED SNOMED Code(s): 73084379 Comment: -Occult blood in stool negative, iron studies do not actually show iron deficiency -Received first dose IV iron after labs yesterday -may need bone marrow biopsy for severe microcytic anemia (3) Leukopenia Current Visit: Yes Status: Resolved Priority: Medium Code(s): D72.819 - DECREASED WHITE BLOOD CELL COUNT, UNSPECIFIED SNOMED Code(s): 34426954 Comment: -Resolved, may have been medication effect -B12 borderline low, MMA pending (4) DVT prophylaxis Current Visit: Yes Status: Acute Priority: Low Code(s): EYX4730 - SNOMED Code(s): 378603592 Comment: hsq (5) Chest pain Current Visit: Yes Status: Acute Priority: Medium Code(s): R07.9 - CHEST PAIN, UNSPECIFIED SNOMED Code(s): 55180186 Comment: -New issue, may be associated w/ COPD, chest tightness/SOB w/ exertion -Will recheck EKG -If negative, will d/c telemetry -outpatient stress test should be arranged (6) COPD exacerbation Current Visit: Yes Status: Acute Priority: Medium Code(s): J44.1 - CHRONIC OBSTRUCTIVE PULMONARY DISEASE W (ACUTE) EXACERBATION SNOMED Code(s): 132178618 Comment: -Continue oral prednisone -Continue albuterol PRN Status and Disposition: inpatient
[2019-03-19] MEDS ORDERED: Midazolam* 1 MG/ML 10 ML VIAL (10 MG) ONE (17:26)
[2019-03-19] MEDS ORDERED: fentaNYL* 50 MCG/ML 2 ML VIAL (100 MCG VIAL) ONE (17:26)
--- NOTE | 2019-03-20 00:06 | PRO ---
DATE: 03/19/19 - ROOM #[id number] REFERRING PHYSICIAN: Pawel Van.* PROCEDURE: Colonoscopy and ileoscopy INDICATIONS: This 58-year-old man was admitted with shortness of breath and found to be weak, fatigued and anemic with an iron-deficiency pattern. His stool is heme negative. Hemoglobin was 8.6, MCV 71, white count 2.4, ferritin 48, ALT 6, C-reactive protein 84.91, albumin 3.1, prealbumin 5, creatinine 1.27, BUN 21, B12 217. He had had a gastric ulcer diagnosed December [address] Wright, which was healed as of 04/19/17. Virtual colonoscopy 05/17/16 had been negative but a poor prep. Yesterday, he had upper endoscopy that was unremarkable by Dr. Worley. He did take between 2 and 3 L of a standard prep. Informed consent was obtained from the patient with him being explained that not all findings necessarily would be acted upon based on his frailty and weakness. ENDOSCOPIST: Dr. Hoskins. MEDICATIONS: Midazolam 7, fentanyl 75. FINDINGS: He is a frail-appearing, somewhat cachectic middle-aged man, multiple tattooed, in no overt distress. His abdomen was scaphoid and firm. Perianal inspection and rectal are normal. He was positioned left side down and moderate sedation induced. An adult scope was introduced and encountered normal-appearing mucosa. The sigmoid and left colon in general was quite floppy with loops that raised up, not unexpected given his reduced fat stores and tall frame. BMI was 16. Slow, painstaking advancement with frequent filling of loops was accomplished to the transverse. The hepatic flexure was quite windy. Eventually, the cecum was reached. Cecum, ileocecal valve 25 cm from terminal ileum and the right colon directly were normal. On slow withdrawal, no abnormalities were noted. Views were 98% with a fair amount of retained sludge but much could be suctioned and the scope did not clog. Two biopsies were taken at 20 cm from the edge of the sigmoid fold. There is a question of furrowing seen in the distal colon. Final views in the rectum directly were normal. IMPRESSION: 1. Normal colonoscopy and ileoscopy. 2. Weight loss and systemic illness - no answer found with this exam. Corroborating history from his may be helpful. Addendum: sigmoid Bx hyperplastic change [id number]/[facility] #: [id number] LUCINDA
[2019-03-20] MEDS: Heparin VIAL(*) 5000 UNITS/ML VIAL (FIVE THOUSAND) SUBCUT SCH (06:23)
[2019-03-20 07:04] LABS: Albumin 2.3 g/dL (3.2-5.2); Calcium 8.4 mg/dL (8.6-10.3); Potassium 4.3 mmol/L (3.5-5.0); Total Bilirubin 0.2 mg/dL (0.2-1.0)
[2019-03-20 07:10] LABS: Albumin/Globulin Ratio 0.8 (1-3); BUN/Creatinine Ratio 30.2 (8-20); EGFR African American 63.5 (>60); EGFR Non-African American 52.5 (>60); Globulin 2.8 g/dL (2-4); Total Protein 5.1 g/dL (6.4-8.9)
[2019-03-20 07:36] VITALS: BP 133/61
[2019-03-20] MEDS ORDERED: Calcium Carbonate CHEW TAB* 500 MG (TUMS) PO PRN (09:18)
[2019-03-20] MEDS: predniSONE TAB* 20 MG PO SCH (09:47)
[2019-03-20] MEDS: Iron Sucrose* 200 MG in NS 0.9% 100 ML* 100 ML IVPB SCH (10:38)
--- NOTE | 2019-03-20 23:43 | DS ---
CC: Dr. Van; Dr. Peña; Ismael; Dr. Worley * DISCHARGE SUMMARY: DATE OF ADMISSION: 03/17/19 DATE OF DISCHARGE: 03/20/19 PRIMARY CARE PROVIDER: Dr. Van. CONSULTING PROCESS CONTROL TECHNICIAN: Dr. Peña. CONSULTING FOLDER SEAMER AUTOMATIC: Dr. Worley. DISCHARGE DIAGNOSES: 1. Severe protein-calorie malnutrition. 2. Iron deficiency anemia. 3. Leukopenia. 4. Hilar adenopathy. 5. Probable chronic obstructive pulmonary disease. 6. Esophageal candidiasis. SECONDARY DIAGNOSIS: Tobacco abuse. MEDICATIONS AT THE TIME OF TRANSFER: 1. Iron Plus tablet 1 tablet p.o. daily. New medications: 1. Acetaminophen 60 mg p.o. q.4 hours p.r.n. pain or fever. 2. Albuterol HFA 2 puffs inhaled q.6 hours p.r.n. shortness of breath or wheezing. 3. Prednisone taper as follows 40 mg for 3 days, 30 mg for 3 days, 20 mg for 3 days, 10 mg for 3 days, 5 mg for 3 days and stop. 4. Tramadol 50 mg p.o. q.12 hours p.r.n. severe pain, MDD 100 mg, dispensed 14 tablets. 5. Fluconazole 400 mg p.o. x1 dose followed by 200 mg p.o. daily for 14 days. HOSPITAL COURSE: Mr. Bloom is a 58-year-old male with a past medical history as stated above that presented to the emergency room on 03/15/19 with complaints of shortness of breath, arthralgias, and weight loss. For the past 5 to 6 months, he has had progressive shortness of breath with exertion but he continued to smoke until the day of admission. He also described pain in all his joints and had unintentional weight loss of 50 to 60 pounds over that time period too. In the emergency room, the patient had a chest x-ray that showed hyperinflation consistent with COPD, but no active cardiopulmonary disease. He also had a CTA of the chest that showed no pulmonary arterial filling defect to suggest pulmonary embolism, only emphysema, hilar lymphadenopathy, and small left pleural effusion. X-ray of the lumbar spine showed scoliosis, degenerative disk disease, and osteoarthritis. The patient was admitted for further workup. There was concern for possible COPD exacerbation and the patient was started on antibiotics, bronchodilators, and steroids. He states that his shortness of breath remains unchanged but he did have some fever on the day of admission, although only 1 episode. Sputum, blood, and urine cultures yielded no growth and influenza A and B were negative. With his significant weight loss, multiple etiologies were searched including thyroid disease. The patient had a normal TSH of 1.8 earlier this month and a thyroid ultrasound showed no discrete thyroid nodule or mass. The patient was found to be anemic with an H and H of 8.6 from a baseline of 11.3, although he was anemic before that. He was seen in consultation by GI ( Dr. Worley) whose impression was the patient had significant 50- to 60-pound weight loss with potential odynophagia, dysphagia, and GERD. His recommendation was for an upper endoscopy that the patient underwent on and showed no abnormalities. Biopsies taken showed no malignancy. The pathology did show an inflammatory exudate containing numerous nataliya yeast on his esophagus biopsy. The patient received prescription for fluconazole at this time, but he will need followup with GI as an outpatient. The patient underwent a colonoscopy that was normal. CT of the abdomen and pelvis showed small bilateral pleural effusions with small amount of ascites, mildly enlarged retroperitoneal lymph nodes and chronic dorsal vertebral body compression fractures, unchanged. The patient was seen in consultation by Hematology (Dr. Peña), and his impression was the patient had a 60-pound weight loss, dysphagia, and he felt that this leukopenia could be secondary to a medication side effect including Zosyn and ceftriaxone. For his iron deficiency anemia, he had recommended IV iron that the patient received while in the hospital and he will continue oral iron as outpatient as his odynophagia is improved and he will follow up with Dr. Peña as an outpatient. Please note that at the time of this dictation, the pathology of his colonic biopsy is still pending and this will need to be followed as outpatient. Going over the patient's symptoms and confirmatory studies, I believe he may have a rheumatological disease causing his anemia, joint pain, and even his lung disease, although I also suspect he has undiagnosed COPD. His CRP was elevated at 84, and with his hilar adenopathy, I suspect he may have sarcoidosis. An JURGEN level was sent and is pending at the time of this dictation , so it will need to be followed, but he may benefit from rheumatology and pulmonology evaluations as outpatient to clarify his diagnosis. 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 He was seen in consultation by rn social work and he received information on how to apply for Medicaid. The patient was advised he should quit smoking, and he states that he will be able to do so with no nicotine supplementation. The patient received indication about the need for further workup and my suspicion for possible sarcoidosis, although he understands the malignancy is still on the differential on his significant weight loss. The patient is medically stable to be discharged home today to follow up with Dr. Van, Dr. Peña, and Dr. Worley as an outpatient. PHYSICAL EXAMINATION: Vital Signs: Temperature 97.8, heart rate 51, respiratory rate 17, oxygen saturation 97% room air, blood pressure is 133/61. General: The patient is a middle aged, very thin gentleman, sitting up in bed, in no acute distress. CVS: Normal S1, S2. Regular rate and rhythm. Chest: Breath sounds bilaterally with no added sounds. Neuro: He is alert and oriented x3, able to move all 4 extremities. DIET: Regular diet. ACTIVITIES: As tolerated. DISPOSITION: To home. STATUS WHILE IN THE HOSPITAL: Inpatient. CONDITION: Fair. Please keep in mind, this is a summarized version of this patient's hospital stay. If you need more information, please feel free to call me at [phone] or please obtain the full medical records. TIME SPENT: Approximately 45 minutes was spent to complete this discharge. ADDENDUM 03/21/19 Patient was called and updated about EGD result with esophageal candidiasis. 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 Worley was also called and updated. [id number]/[facility] #: [id number] [facility]
== END 2019-03-20 11:05 | disposition home or self-care (01) | DRG 811 ==
LOC: ED 15:07 → MED 19:50 → OBSVTOIN 03-17 12:55
PROVIDERS: ADMIT Hospitalist; ATTEND Internal Medicine
PROC: 30233N1 Transfusion of Nonautologous Red Blood Cells into Peripheral Vein, Percutaneous Approach (ICD-10-PCS; 2019-03-16)
PROC: 0DD18ZX Extraction of Upper Esophagus, Via Natural or Artificial Opening Endoscopic, Diagnostic (ICD-10-PCS; principal; 2019-03-18)
PROC: 0DD98ZX Extraction of Duodenum, Via Natural or Artificial Opening Endoscopic, Diagnostic (ICD-10-PCS; 2019-03-18)
PROC: 0DD68ZX Extraction of Stomach, Via Natural or Artificial Opening Endoscopic, Diagnostic (ICD-10-PCS; 2019-03-18)
PROC: 0DDN8ZX Extraction of Sigmoid Colon, Via Natural or Artificial Opening Endoscopic, Diagnostic (ICD-10-PCS; 2019-03-19)
DX: D50.9 Iron deficiency anemia, unspecified (principal); E43 Unspecified severe protein-calorie malnutrition; N17.9 Acute kidney failure, unspecified; B37.81 Candidal esophagitis; J90 Pleural effusion, not elsewhere classified; R18.8 Other ascites; R65.10 Systemic inflammatory response syndrome (SIRS) of non-infectious origin without acute organ dysfunction; J44.1 Chronic obstructive pulmonary disease with (acute) exacerbation; Z68.1 Body mass index [BMI] 19.9 or less, adult; K92.1 Melena; M41.9 Scoliosis, unspecified; R13.10 Dysphagia, unspecified; E04.9 Nontoxic goiter, unspecified; R59.9 Enlarged lymph nodes, unspecified; F17.210 Nicotine dependence, cigarettes, uncomplicated; M51.36 Other intervertebral disc degeneration, lumbar region; M47.896 Other spondylosis, lumbar region; D86.9 Sarcoidosis, unspecified; R07.9 Chest pain, unspecified; R31.29 Other microscopic hematuria; M48.56XD Collapsed vertebra, not elsewhere classified, lumbar region, subsequent encounter for fracture with routine healing; T36.0X5A Adverse effect of penicillins, initial encounter; F12.90 Cannabis use, unspecified, uncomplicated; T36.1X5A Adverse effect of cephalosporins and other beta-lactam antibiotics, initial encounter; Y92.9 Unspecified place or not applicable; Z80.1 Family history of malignant neoplasm of trachea, bronchus and lung; Z80.6 Family history of leukemia
CPT/HCPCS: 36415; 71045; 71046; 71275; 72100; 74177; 76536; 80048; 80053; 81003; 81015; 82164; 82272; 82607; 82728; 83010; 83540; 83550; 83615; 83690; 83921; 84134; 84484; 85014; 85018; 85025; 85045; 85060; 85379; 86078; 86140; 86431; 86703; 86850; 86900; 86901; 86922; 87040; 87070; 87077; 87086; 87205; 88305; 93005; 99156; 99157; 99223; 99284; A9270-GY; G0378; J0456; J0696; J1644; J1756; J2250; J2543; J2930; J3010; J3370; J7512; P9040; Q9967

== ENCOUNTER 2019-05-21 21:12 | Emergency (ER) | payer MEDICAID ==
[2019-05-21 21:58] LABS: ABS Lymphocytes 0.4 10^3/ul (1.0-4.8); ABS Monocytes 0.1 10^3/ul (0-0.8); ABS Neutrophils 1.6 10^3/ul (1.5-7.7); Eosinophil % 1.5 %; Hematocrit 26 % (42-52); Hemoglobin 8.3 g/dL (14.0-18.0); Lymphocyte % 20.6 %; Mean Corpuscular HGB Conc 33 g/dL (31-36); Mean Corpuscular Hemoglobin 26 pg (27-31); Mean Corpuscular Volume 78 fL (80-94); Mean Platelet Volume 6.4 fL (7.4-10.4); Platelet Count 409 10^3/uL (150-450); Red Blood Count 3.27 10^6 /uL (4.18-5.48); Red Cell Distribution Width 20 % (10-15); White Blood Count 2.2 10^3/uL (3.5-10.8)
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
--- OUTSIDE RECORDS SUMMARY | 2019-05-21 22:13 | XMS REPORT | Continuity of Care Document ---
:1960 External Reference #:[id number] Author Name Hector Tan Care Team Providers Name Role Phone Cierra Bell M.D. Primary Care Physician Unavailable Payers Date Identification Numbers Payment Provider Subscriber Expires: 2017 Policy Number: [id number] Medicaid Hector Barr Group Name: 1 1 [address] PayID: [id number] [place] [address] Effective: 2015 Policy Number: [id number] Mar[employer] Claims Hector Barr Onset: 2015 PayID: [id number] [address] [address] [place] [address] Effective: 2016 Policy Number: [id number] [facility] Hector Barr Expires: 2018 Group Number: 60% [address] [facility] PayID: [id number] [facility] [address] [place] [address] Problems Active Problems Provider Date Disturbance in [...] Marital Status Lives With Family 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 Tobacco Use Start: Unknown Currently smoking 1/2 1/2 PPD or less as of End: Unknown PPD as of 01/19/17 02/20/17 ETOH Use Occasionally consumes alcohol Recreational Drug Use Current Drug User Jose Juan occasionally Tobacco Use Start: Unknown Patient is a former End: Unknown smoker Smoking Status Reviewed: 05/10/19 Patient is a former smoker Exercise Type/Frequency Does not exercise Allergies, Adverse Reactions, Alerts Description No Known Drug Allergies Medications Active Medications SIG Qnty Indications Ordering Provider Date Ferrous Sulfate 1 by mouth twice 60tabs Luther Braxton NP 03/04/2019 daily. 325(65Fe) mg Tablets Tramadol HCL 1-2 tablets every 28tabs M25.50 Luther Braxton NP 02/27/2019 50mg 12 hours as Tablets needed for pain. Mapap take 2 tablets by Unknown 325mg Tablets mouth every 4 hours if needed Fluconazole Take 2 tablets Unknown 200mg then take 1 by Tablets mouth every day for 14 days Prednisone 4 tabs by mouth Unknown 10mg Tablets for 3 days 3 tabs by mouth for 3 days 2 tabs by mouth for 3 days 1 tab by mouth for 3 days, & 1/2 tab by mouth for 3 days History Medications No Active Medications Unknown 02/27/2019 [...] Mouth Three Times A Day as Directed Gabapentin 2 tabs 3 times a 180caps M54.6 Pawel Osorio 12/07/2016 - 100mg Capsules desi Van M.D. 01/12/2017 Omeprazole 1 by mouth every 30caps D64.9 Pawel Osorio 12/07/2016 - 20mg Capsules DR desi Van M.D. 02/27/2019 Aspir-81 1 by mouth every 90tabs R07.9 Pawel Osorio 11/10/2016 - 81mg Tablets DR desi Van M.D. 01/18/2017 Nitrostat one sl q5min up 25tabs R07.9 Pawel Osorio 11/10/2016 - 0.4mg Tablets Sub to 3 doses as Kamron Van 02/27/2019 needed Duloxetine HCL 1 by mouth every 60caps M54.6 Pawel Osorio 05/12/2016 - 30mg Caps DR weeks x 1 week Kamron Van 11/10/2016 Part then increase to 2 tablets [...] CPT Code Status Date Vaccine Lot # 56868 Given 07/21/2016 Influ Virus Vaccine, Quadrivalent, Split Virus, Im Fluzone not PF Vital Signs Date Vital Result Comment 05/10/2019 9:56am Height 74 inches 6'2" Weight 120.31 lb Heart Rate 111 /min BP Systolic 115 mmHg BP Diastolic 74 mmHg Body Temperature 97.6 F O2 % BldC Oximetry 99 % BMI (Body Mass Index) 15.4 kg/m2 03/28/2019 3:35pm Height 74 inches 6'2" Weight 141.50 lb Heart Rate 58 /min BP Systolic 145 mmHg BP Diastolic 71 mmHg Body Temperature 97.3 F O2 % BldC Oximetry 99 % BMI (Body Mass Index) 18.2 kg/m2 02/27/2019 11:10am Height 74 inches 6'2" Weight [...] Date Facility Test Result H/L Range Note CBC Auto Diff 03/28/2019 [facility] White Blood 4.0 10^3/uL N 3.5-10.[address] [place] [address] [phone] Red Blood Count 3.21 10^6/uL Low 4.18-5.48 Hemoglobin 7.5 g/dL Low 14.0-18.0 Hematocrit 24 % Low 42-52 Mean Corpuscular Volume 75 fL Low 80-94 Mean Corpuscular Hemoglobin 23 pg Low 27-31 Mean Corpuscular HGB Conc 31 g/dL N 31-36 Red Cell Distribution Width 23 % High 10.5-15 Platelet Count 384 10^3/uL N 150-450 Mean Platelet Volume 7.4 fL N 7.4-10.4 Abs Neutrophils 3.3 10^3/uL N 1.5-7.7 Abs Lymphocytes 0.5 10^3/uL Low 1.0-4.8 Abs Monocytes 0.2 10^3/uL N 0-0.8 Abs Eosinophils 0.0 10^3/uL N 0-0.6 Abs Basophils 0.0 10^3/uL N 0-0.2 Abs Nucleated RBC 0.0 10^3/uL Granulocyte % 82.5 % Lymphocyte % 11.9 % Monocyte % 4.6 % Eosinophil % 0.2 % Basophil % 0.8 % Nucleated Red Blood Cells % 0.0 Cell Morphology 03/28/2019 [facility] Anisocytosis 2+ [address] [place] [address] [phone] Schistocytes 1+ Elliptocyte 1+ Laboratory test 03/28/2019 [facility] Pathologist (SEE NOTE) [address] [place] [address] [phone] Laboratory test 03/18/2019 [facility] Surgical SEE RESULT [address] [place] [address] [phone] Comp Metabolic 03/15/2019 [facility] Sodium 135 mmol/L N 135- [address] [place] [address] [phone] Potassium 3.9 mmol/L N 3.5-5.0 Chloride 104 mmol/L N 101-111 Co2 Carbon Dioxide 25 mmol/L N 22-32 Anion Gap 6 mmol/L N 2-11 Glucose 105 mg/dL High 70-100 Blood Urea Nitrogen 21 mg/dL N 6-24 Creatinine 1.27 mg/dL High 0.67-1.17 BUN/Creatinine Ratio 16.5 N 8-20 Calcium 8.8 mg/dL N 8.6-10.3 Total Protein 7.0 g/dL N 6.4-8.9 Albumin 3.1 g/dL Low 3.2-5.2 Globulin 3.9 g/dL N 2-4 Albumin/Globulin Ratio 0.8 Low 1-3 Total Bilirubin 0.40 mg/dL N 0.2-1.0 Alkaline Phosphatase 36 U/L N 34-104 Alt 6 U/L Low 7-52 Ast 16 U/L N 13-39 Egfr Non- 58.2 >60 Egfr 70.5 >60 3 Laboratory test 03/15/2019 [facility] C Reactive 84.91 mg/L High <8.[address] [place] [address] [phone] D Dimer Quantitative > 1050 ng/mL High Less Than 230 4 CBC Auto 03/15/2019 [facility] White Blood 2.4 10^3/uL Low 3.5 -10.[address] [place] [address] [phone] Red Blood Count 4.06 10^6/uL Low 4.18-5.48 Hemoglobin 8.6 g/dL Low 14.0-18.0 Hematocrit 28 % Low 36-46 Mean Corpuscular Volume 70 fL Low 80-94 5 Mean Corpuscular Hemoglobin 21 pg Low 27-31 Mean Corpuscular HGB Conc 31 g/dL N 31-36 Red Cell Distribution Width 18 % High 10.5-15 Platelet Count 481 10^3/uL High 150-450 Mean Platelet Volume 6.7 fL Low 7.4-10.4 Abs Neutrophils 1.6 10^3/uL N 1.5-7.7 Abs Lymphocytes 0.6 10^3/uL Low 1.0-4.8 Abs Monocytes 0.2 10^3/uL N 0-0.8 Abs Eosinophils 0 10^3/uL N 0-0.6 Abs Basophils 0 10^3/uL N 0-0.2 Abs Nucleated RBC 0 10^3/uL Granulocyte % 67.1 % Lymphocyte % 24.3 % Monocyte % 6.5 % Eosinophil % 0.5 % Basophil % 1.6 % Nucleated Red Blood Cells % 0.1 Cell Morphology 03/15/2019 [facility] Microcytosis 2+ [address] [place] [address] [phone] Hypochromasia 2+ Anisocytosis 2+ Elliptocyte 1+ Laboratory test 03/15/2019 [facility] Troponin-I (TnI) 0.02 ng/ mL <0.04 [address] [place] [address] [phone] Prealbumin 5 mg/dL Low 18-38 Cell Morphology 02/27/2019 [facility] Microcytosis 2+ [address] [place] [address] [phone] Hypochromasia 1+ Elliptocyte 1+ HIV 1&2 AB 02/27/2019 [facility] HIV 1 2 Nonreactive Nonreactive 7 W/Prelim [address] [place] [address] [phone] Laboratory 02/27/2019 [facility] Erythrocyte 47 mm/Hr High 0- 19 [place] [address] [phone] C Reactive Protein 31.94 mg/L High <8.01 Lyme Screen W/ Reflex To WB Negative Negative Protein 02/27/2019 [facility] Total 6.4 g/dL 6.3 - Electrophoresis Protein(Pep) 7.9 [place] [address] [phone] Albumin 2.6 g/dL Abnormal 3.4-4.7 Alpha-1 Globulin 0.3 g/dL 0.1-0.3 Alpha-2 Globulin 0.8 g/dL 0.6-1.0 Beta Globulin 0.9 g/dL 0.7-1.2 Gamma Globulin 1.9 g/dL Abnormal 0.6-1.6 Albumin/Globulin Ratio 0.66 Impression See Comment 8 Laboratory test 02/27/2019 [facility] TSH (Thyroid 1.89 N 0.34 -5.60 finding Stim Horm) mcIU/[place] [address] [phone] Comp Metabolic 02/27/2019 [facility] Sodium 134 mmol/L Low 135 -145 [place] [address] [phone] Potassium 4.4 mmol/L N 3.5-5.0 Chloride 104 [...] Egfr Non- 81.4 >60 Egfr 98.5 >60 9 Iron & Iron 02/27/2019 [facility] Total Iron 330 g/dL N 250- [address] [place] [address] Capacity [phone] Transferrin 236 mg/dL N 203-362 Iron < 17 g/dL Low 50-212 Unsaturated Iron Binding < 315 g/dL % Iron Saturation 5 % Low 15-55 CBC Auto 02/27/2019 [facility] White Blood 2.5 10^3/uL Low 3.5 -10.[address] [place] [address] [phone] Red Blood Count 3.66 10^6/uL Low 4.18-5.48 [...] Blood Cells % 0 Laboratory test 04/20/2017 [facility] Surgical SEE RESULT [address] [place] [place] [address] [phone] CBC No Diff 04/19/2017 [facility] White Blood 4.9 10^3/uL N 3.5-[address] Count .8 [place] [address] [phone] Red Blood Count 4.21 10^6/uL N 4.0-5.4 Hemoglobin 7.6 g/dL Low 14.0-18.0 Hematocrit 27 % Low 42-52 Mean Corpuscular Volume 64 fL Low 80-94 Mean Corpuscular Hemoglobin 18 pg Low 27-31 Mean Corpuscular HGB Conc 28 g/dL Low 31-36 Red Cell Distribution Width 19 % High 10.5-15 Platelet Count 350 10^3/uL N 150-450 Mean Platelet Volume 7 um3 Low 7.4-10.4 Laboratory test 04/19/2017 [facility] Clotest SEE RESULT [address] [place] [address] [phone] Laboratory test 01/09/2017 [facility] Surgical Interface SEE RESULT 12, [address] [place] [place] [address] [phone] Laboratory test 01/09/2017 [facility] Clotest SEE RESULT 14 , [address] [place] [address] [phone] Order 12/16/2016 [facility] In-House Stress Test, <pending> Pharmacologic Nuclear (Lexiscan) Laboratory test 12/06/2016 [facility] In House Occult Blood - pos x3 finding Stool Laboratory test 11/11/2016 [facility] Troponin-I (TnI) 0.00 ng/ mL N <0.0 [address] [place] [address] [phone] Magnesium 1.9 mg/dL N 1.9-2.7 17 CKMB 11/11/2016 [facility] CKMB ng/mL 1.2 ng/mL N 0.6-6.[address] [place] [address] [phone] CBC Auto Diff 11/11/2016 [facility] White Blood 6.4 10^3/uL N 3.5-10.[address] [place] [address] [phone] Red Blood Count 3.49 10^6/uL Low 4.0-5.4 [...] Cells % 0 N Lipid Profile 11/11/2016 [facility] Triglycerides 99 mg/dL N 18 (Trig/Chol/HDL) [address] [place] [address] [phone] Cholesterol 126 mg/dL N 19 HDL Cholesterol 27.9 mg/dL N 20 LDL Cholesterol 78 mg/dL N 21 Laboratory test 11/11/2016 [facility] TSH (Thyroid 1.79 mcIU/mL N 0.34-5.[address] Stim Horm) [place] [address] [phone] Comp Metabolic 11/11/2016 [facility] Sodium 135 mmol/L N 133- 145 Panel [address] [place] [address] [phone] Potassium 4.5 mmol/L N 3.5-5.0 Chloride 104 [...] 96.2 N >60 Egfr 123.7 N >60 23 Laboratory test 11/11/2016 [facility] Erythrocyte Sed 30 mm/Hr High 0-20 [address] [place] [address] [phone] Reactive Protein 3.94 mg/L N < 5.00 25 Iron & Iron 11/11/2016 [facility] Total Iron 421 g/dL N 250- [address] [place] [address] Capacity [phone] Iron < 15 g/dL Low 50-212 Unsaturated Iron Binding 406.03910 g/dL N % Iron Saturation 4 % Low 15-55 CBC Auto Diff 07/28/2016 [facility] White Blood 5.8 10^3/uL N 3.5-10.[address] [place] [address] [phone] Red Blood Count 4.41 10^6/uL N 4.0-5.4 [...] Cells % 0.1 N Laboratory test 05/05/2016 [facility]ologist In House Occult Blood - Stool neg x 3 finding Cell Morphology 04/25/2016 [facility] Microcytosis 2+ [place] [address] [place] [address] [phone] Hypochromasia 3+ N Elliptocyte 1+ N CBC Auto Diff 04/25/2016 [facility] White Blood 7.2 10^3/uL N 3.5-10.[address] [place] [address] [phone] Red Blood Count 4.19 10^6/uL N 4.0-5.4 [...] % 0 N Comp Metabolic Panel 03/23/2016 [facility] Sodium 136 mmol/L N 133-[address] [place] [address] [phone] Potassium 4.3 mmol/L N 3.5-5.0 Chloride 105 [...] 93.6 N >60 Egfr 120.4 N >60 26 Laboratory test 03/23/2016 [facility] TSH (Thyroid 1.32 ?IU/mL N 0.34-5.[address] Stim Horm) [place] [address] [phone] Erythrocyte Sed Rate 18 mm/Hr N 0-20 C Reactive Protein 3.51 mg/L N < 5.00 27 Iron & Iron Binding 03/23/2016 [facility] Iron 14 g/dL Low 50-[address] [place] [address] [phone] Unsaturated Iron Binding 449 g/dL N Total Iron Binding Capacity 463 g/dL High 250-450 % Iron Saturation 3 % Low 15-55 1 Hypochromic microcytic anemia with red cell indices suggestive of iron deficiency. Additional studies as clinically warranted. Reviewed by Dr. Quesada 2 SEE RESULT BELOW Name: HECTOR BARR : [address]: El Langley MD Acct: [id number] Unit: [id number] AGE: 58 Location: [facility]: 03/17/19 SEX: M Status: ADM IN SPEC: [id number] WANDA: 03/18/19-[address] [facility] [address]: Jama Worley MD REQ: [id number] RECD: 03/18/19 STATUS: HEMAL FELIX DR: Miguelangel Van III, MD _ ORDERED: LEVEL 4/3 FINAL DIAGNOSIS 1. Duodenum, biopsy: -- Benign small intestinal mucosa with no significant pathologic abnormalities. -- No evidence of villous blunting or increased intraepithelial lymphocytes. 2. Stomach, body, biopsy: -- Body-type gastric mucosa with mild chronic gastritis. -- No evidence of Helicobacter organisms. 3. Esophagus, upper, biopsy: -- Benign squamous mucosa with chronic inflammation and an inflammatory exudate containing numerous Shani yeasts. POST-OPERATIVE DIAGNOSIS EGD: esophagus - nomass, biopsy of upper esophagus; gastric - no mass, biopsy for body; duodenum - no mass, biopsy for celiac; normal GROSS DESCRIPTION 1. The specimen is received in formalin labeled, Duodenal Biopsy, and consists of a 0.3 x 0.3 x 0.2 cm tripathi-pink irregular to polypoid soft tissue fragment, which is entirely submitted in one cassette. 2. The specimen is received in formalin labeled, Gastric Body Biopsy, and consists of a 0.4 x 0.3 x 0.2 cm white-pink irregular to polypoid soft tissue fragments, which is entirely submitted in one cassette. CONTINUED ON NEXT PAGE DEPARTMENT OF PATHOLOGY, [facility] [place], [place] [address] Clifford Quesada M.D. Director T[facility] # [id number] RUN DATE: 03/19/19 [facility] LAB LIVE PAGE 2 Patient: HECTOR BARR [id number] (Continued) GROSS DESCRIPTION (Continued) 3. The specimen is received in formalin labeled, Upper Esophageal Biopsy, and consists of two speckled white red irregular to polypoid soft tissue fragments measuring 0.2 x 0.2 x 0.1 cm and 0.5 x 0.3 x 0.1 cm, which are entirely submitted in one cassette. Signed by and Reported on: Rylee Saravia MD 03/19/19 1124 END OF REPORT DEPARTMENT OF PATHOLOGY, [facility] [place], [place] [address] Clifford Quesada M.D. Director [facility] # [id number] 3 Because ethnic data is not always [...] 5 Kidney failure <15 (or dialysis) 4 Please note: The following may produce a false positive D Dimer test: - Rheumatoid factor greater than 60 IU/ml - Plasma hemoglobin greater than 0.05 gm/dl - Bilirubin greater than 50 mg/dl - Lipids greater than 1000 mg/dl - FDP greater than 20 ug/ml 5 Consistent with Previous Results Reported on 02/27/19 6 Troponin-I testing on Plasma Separator Tubes (PST) has a known false positive rate of 0.20-0.40%. All positive troponins reflex immediately to secondary confirmatory testing. Using the [employer] 800 Access Immunoassay systems, the 99th percentile upper reference limit was demonstrated to be < 0.03 ng/mL. 7 It is recognized that currently available assays [...] 95% confidence interval of 99.78 to 99.96%. 8 RESULT: Polyclonal hypergammaglobulinemia Test Performed by: [facility] [address] , [place] [address] 9 Because ethnic data is not always readily [...] 15-29 5 Kidney failure <15 (or dialysis) 10 SEE RESULT BELOW Name: MOMOHECTOR Yash : [address]: Tera Wright MD Acct: [id number] Unit: [id number] AGE: 56 Location: ENDO Re04/19/17 SEX: M Status: DEP REF SPEC: [id number] WANDA: 04/20/17- [facility] DR: Tera Wright MD REQ: [id number] RECD: 04/20/17-1053 STATUS: HEMAL FELIX DR: Pawel Van III, [...] performed at Main Lab DEPARTMENT OF PATHOLOGY, [address] [place] [address] Clifford Quesada M.D. Director [facility] # [id number] RUN DATE: 04/26/17 [facility] LAB LIVE PAGE 2 Patient: HECTOR BARR [id number] (Continued) GROSS DESCRIPTION (Continued) GROSS DESCRIPTION The specimen is received in formalin labeled, Biopsies Gastric Ulcer, and consists of a 0.7 x 0.5 by up to 0.2 cm aggregate of tripathi-white irregular soft tissue fragments which is submitted entirely in one cassette. Signed (signature on file) Rylee Saravia MD 01/06 1134 END OF REPORT * ML=Testing performed at Main Lab DEPARTMENT OF PATHOLOGY, [address] [place] [address] Clifford Quesada M.D. Director [facility] # [id number] 11 SEE RESULT BELOW Name: HECTOR BARR : [address]: Tera Wright MD Acct: [id number] Unit: [id number] AGE: 56 Location: ENDO Re04/19/17 SEX: M Status: REG REF SPEC: [id number] WANDA: 04/19/17-[address]: Tera Wright MD REQ: [id number] RECD: 04/19/171418 STATUS: BENJA FELIX DR: Pawel Van III, MD _ SOURCE: GAS ANTRUM SPDESC: ORDERED: Clotest Procedure Result Reported Site Clotest Final 04/20/17- 906 ML Clotest Positive * ML - MAIN LAB ([facility]) . END OF REPORT * ML=Testing performed at Main Lab DEPARTMENT OF PATHOLOGY, [address] [place] [address] Clifford Quesada M.D. Director [facility] # [id number] 12 [id number] 13 SEE RESULT BELOW Name: HECTOR BARR : [address]: Tera Wright MD Acct: [id number] Unit: [id number] AGE: 56 Location: [facility] Re01/09/17 SEX: M Status: DEP REF SPEC: [id number] WANDA: 01/09/17-[address] [facility] [address]: Tera Wright MD REQ: [id number] RECD: 01/09/17160 STATUS: HEMAL FELIX DR: Pawel Van III, MD _ ORDERED: H PYLORI IMM ST, LEVEL IV COMMENTS: [id number] Deeper levels of sectioning show identical histologic [...] performed at Main Lab DEPARTMENT OF PATHOLOGY, [address] [place] [address] Clifford Quesada M.D. Director [facility] # [id number] RUN DATE: 01/11/17 [facility] LAB LIVE PAGE 2 Patient: MOMOHECTOR Berrios [id number] (Continued) GROSS DESCRIPTION (Continued) Signed (signature on file) Rylee Saravia MD 1130 END OF REPORT * ML=Testing performed at Main Lab DEPARTMENT OF PATHOLOGY, [address] [place] [address] Clifford Quesada M.D. Director [facility] # [id number] 14 [id number] 15 SEE RESULT BELOW Name: HECTOR BARR : [address]: Tera Wright MD Acct: [id number] Unit: [id number] AGE: 56 Location: [facility] Re01/09/17 SEX: M Status: DEP REF SPEC: [id number] WANDA: 01/09/17-[address] [facility] [address]: Tera Wright MD REQ: [id number] RECD: 01/09/17 STATUS: BENJA FELIX DR: Pawel Van III, MD _ SOURCE: GAS ANTRUM SPDES: ORDERED: Clotest COMMENTS: [id number] Procedure Result Reported Site Clotest Final 01/10/17- 0752 ML Clotest Negative * ML - MAIN LAB ([facility]) . END OF REPORT * ML=Testing performed at Main Lab DEPARTMENT OF PATHOLOGY, [address] [place] [address] Clifford Quesada M.D. Director [facility] # [id number] 16 99th percentile=0.04 ng/mL Troponin results at [facility] and [facility] are not interchangeable. 17 FASTING PATIENT STATES HE HAD COFEE WITH LIGHT CREAM 1 CUP...STILL WANTS BLOODWORK DONE 18 Desirable <150 Borderline high 150-199 High 200-499 Very High >500 19 Desirable <200 Borderline high 200-239 High >239 20 Low <40 Desirable: 40-60 High: >60 21 Desirable: <100 mg/dL Near Optimal: 100-129 mg/dL Borderline High: 130-159 mg/dL High: 160-189 mg/dL Very High: >189 mg/dL 22 FASTING PATIENT STATES HE HAD COFEE WITH LIGHT CREAM 1 CUP...STILL WANTS BLOODWORK DONE 23 Because ethnic data is not always readily [...] 15-29 5 Kidney failure <15 (or dialysis) 24 FASTING PATIENT STATES HE HAD COFEE WITH LIGHT CREAM 1 CUP...STILL WANTS BLOODWORK DONE 25 Acute inflammation: >10.00 26 Because ethnic data is not always readily [...] 15-29 5 Kidney failure <15 (or dialysis) 27 Acute inflammation: >10.00 Procedures Date Code Description Status 03/19/2019 46492 EKG, Interpretation Only Completed 03/19/2019 03325 Colonoscopy Flexible W/Biopsy Completed 03/19/2019 58616 Colonoscopy Flexible W/Biopsy Completed 03/19/2019 81511549 Colonoscopy Completed 03/18/2019 90064 EKG, Interpretation Only Completed 02/06/2017 91512 Diffusing Capacity Completed 02/06/2017 95561 Plethysmography Determination Lung Volumes & Per Airway Completed Resist 02/06/2017 25065 Pulmonary Stress Test Simple Completed 02/06/2017 09338 Pulmonary Function><Bronchodil Completed 12/16/2016 83714 Stress Test Completed 12/16/2016 28952 Myocardial Perfusion Imaging Tomographic (Spect) Completed Multiple Studies Encounters Type Date Location Provider Dx Diagnosis Office Visit 03/28/2019 [facility] Internal Pawel Van, D50.9 Iron deficiency 3:20p Selene - Natalie Lundy anemia, unspecified E43 Unspecified severe protein-calorie malnutrition B37.81 Candidal esophagitis D50.9 Iron deficiency anemia, unspecified R53.83 Other fatigue R06.02 Shortness of breath J43.9 Emphysema, unspecified R53.83 Other fatigue J44.9 Chronic obstructive pulmonary disease, unspecified Office Visit 03/20/2019 [facility] Ronda E43 Unspecified severe 10:30a mike Salas M.D. protein-calorie Hospitalists malnutrition D50.9 Iron deficiency anemia, unspecified D72.819 Decreased white blood cell count, unspecified B37.81 Candidal esophagitis R59.0 Localized enlarged lymph nodes Office Visit 03/19/2019 [facility] Miguelangel Ladd E43 Unspecified severe 10:29a Assoc,mike Langley M.D.,FACP protein-calorie Hospitalists malnutrition D50.9 Iron deficiency anemia, unspecified D72.819 Decreased white blood cell count, unspecified R64 Cachexia R07.9 Chest pain, unspecified Office Visit 03/18/2019 [facility] Miguelangel Ladd D50.9 Iron deficiency 10:29a Assoc,mike Langley M.D.,FACP anemia, Hospitalists unspecified R64 Cachexia Office Visit 03/17/2019 10:29a [facility] Trino D50.9 Iron deficiency Assoc,mike Miller M.D. anemia, Hospitalists unspecified D72.819 Decreased white blood cell count, unspecified R63.4 Abnormal weight loss R31.29 Other microscopic hematuria R13.19 Other dysphagia R06.02 Shortness of breath Office Visit 03/16/2019 10:28a [facility] D64.9 Anemia, Assoc,mike Miller M.D. unspecified Hospitalists E43 Unspecified severe protein-calorie malnutrition R13.19 Other dysphagia R06.02 Shortness of breath Office Visit 03/15/2019 [facility] Humera D64.9 Anemia, 10:27a Assoc,mike Greenfield, FUSING MACHINE [employer]EDER unspecified Hospitalists D64.9 Anemia, unspecified N17.9 Acute kidney failure, unspecified R65.11 Sirs of non-infectious origin w acute organ dysfunction N17.9 Acute kidney failure, unspecified R65.11 Sirs of non-infectious origin w acute organ dysfunction D72.819 Decreased white blood cell count, unspecified D72.819 Decreased white blood cell count, unspecified R07.9 Chest pain, unspecified R07.9 Chest pain, unspecified R63.4 Abnormal weight loss R63.4 Abnormal weight loss Office Visit 02/27/2019 11:20a [facility] Internal Luther Fox, D64.9 Anemia, unspecified Medicine - [facility] FUSING MACHINE [employer]EDER R53.83 Other fatigue M25.50 Pain in unspecified joint R61 Generalized hyperhidrosis R63.4 Abnormal weight loss K62.5 Hemorrhage of anus and rectum Office Visit 05/03/2017 [facility] Internal Pawel Osorio M54.6 Pain in 4:20p Medicine-Nathalie Van M.D. thoracic spine D64.9 Anemia, unspecified Office Visit 02/20/2017 10:45a Pulmonology [facility] Cyndy J43.9 Emphysema, [facility] Timur unspecified [facility] F17.210 Nicotine dependence, cigarettes, uncomplicated R06.83 Snoring Office Visit 01/19/2017 7:30a Pul[facility]dy J43.9 Emphysema, [facility] Timur unspecified [facility] F17.210 Nicotine dependence, cigarettes, uncomplicated R06.83 Snoring R06.89 Other abnormalities of breathing R06.00 Dyspnea, unspecified Office Visit 12/07/2016 [facility] Internal Pawel Osorio R07.9 Chest pain, 1:20p Medicine-Nathalie Van M.D. unspecified D64.9 Anemia, unspecified M54.6 Pain in thoracic spine Office Visit 11/10/2016 [facility] Internal Pawel Osorio R07.9 Chest pain, 3:40p SeleneNathalie Van M.D. unspecified R06.00 Dyspnea, unspecified D64.9 Anemia, unspecified Z13.220 Encounter for screening for lipoid disorders M54.6 Pain in thoracic spine Office Visit 10/03/2016 3:00p Surgical Blake P. R10.32 Left lower [facility] MD James, quadrant pain FACS W18.30xA Fall on same level, unspecified, initial encounter Office Visit 03/22/2016 11:40a [facility] Internal Pawel Osorio M54.6 Pain in thoracic Medicine - Natalie Van M.D. spine Plan of Treatment Future Appointment(s):07/03/2019 8:20 am - Cierra Bell MD at [facility] Internal Medicine - [facility]05/10/2019 - Pawel Van M.D.R64 Cachexia
[2019-05-21 22:15] LABS: Albumin 3.1 g/dL (3.2-5.2); Albumin/Globulin Ratio 0.8 (1-3); BUN/Creatinine Ratio 20.7 (8-20); Calcium 9.3 mg/dL (8.6-10.3); EGFR African American 58.2 (>60); EGFR Non-African American 48.1 (>60); Globulin 3.7 g/dL (2-4); Potassium 4.2 mmol/L (3.5-5.0); Total Bilirubin 0.3 mg/dL (0.2-1.0); Total Protein 6.8 g/dL (6.4-8.9)
[2019-05-21 22:18] LABS: Troponin I 0.01 ng/mL (<0.04)
[2019-05-21 22:20] LABS: CKMB ng/mL 0.6 ng/mL (0.6-6.3)
[2019-05-21 22:30] LABS: TSH (Thyroid Stimulating Horm) 2.56 mcIU/mL (0.34-5.60)
[2019-05-21 22:33] LABS: Free T4 1.08 ng/dL (0.61-1.12)
--- NOTE | 2019-05-21 22:41 | ED ---
Progress - Progress Note Progress Note: Receiving sign-out from Dr. Maldonado at 2200 pending workup. CXR reveals no acute process. Pending official radiologist report. A plan for discharge was discussed with the patient and he was agreeable with this plan. Course/Dx - Course Course Of Treatment: Receiving sign-out from Dr. Maldonado at 2200 pending workup. CXR reveals no acute process. Pending official radiologist report. A plan for discharge was discussed with the patient and he was agreeable with this plan. - Diagnoses Provider Diagnoses: Atypical chest pain Discharge - Sign-Out/Discharge Documenting (check all that apply): Patient Departure - Discharge, Receiving Sign-Out Receiving patient FROM: Noa Maldonado Patient Received Moderate/Deep Sedation with Procedure: No - Discharge Plan Condition: Stable Disposition: HOME Patient Education Materials: Chest Pain (ED) Referrals: No Primary Care Phys,NOPCP [Primary Care Provider] - Additional Instructions: Return to ED with new or worsening symptoms. - Billing Disposition and Condition Condition: STABLE Disposition: Home - Attestation Statements Document Initiated by Amadou: Yes Documenting Scribe: Trino Patton Provider For Whom Amadou is Documenting (Include Credential): Ary Velásquez MD Scribe Attestation: Trino Braxton, scribed for Ary Velásquez MD on 05/22/19 at 0648. Scribe Documentation Reviewed: Yes Provider Attestation: The documentation as recorded by the Trino de paz accurately reflects the service I personally performed and the decisions made by me, Ary Velásquez MD Status of Scribe Document: Viewed
[2019-05-22 02:34] VITALS: BP 131/73
== END 2019-05-22 02:31 | disposition home or self-care (01) ==
LOC: ED 21:12
DX: R07.89 Other chest pain (principal); J44.1 Chronic obstructive pulmonary disease with (acute) exacerbation; E43 Unspecified severe protein-calorie malnutrition; Z79.899 Other long term (current) drug therapy; Z87.891 Personal history of nicotine dependence
CPT/HCPCS: 36415; 71045; 80053; 82550; 82553; 83605; 84439; 84443; 84484; 85025; 85730; 87040; 93005; 99284

== ENCOUNTER 2019-06-28 08:53 | Inpatient (IN) | payer OTHER ==
[2019-06-28] MEDS ORDERED: NS 0.9% 1000 ML** 1,000 ML IV.FLUID IV ONE (09:14)
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
[2019-06-28 09:52] LABS: ABS Lymphocytes 0.3 10^3/ul (1.0-4.8); ABS Monocytes 0.2 10^3/ul (0-0.8); Eosinophil % 0.1 %; Hematocrit 20 % (42-52); Hemoglobin 6.4 g/dL (14.0-18.0); Lymphocyte % 3.9 %; Mean Corpuscular HGB Conc 33 g/dL (31-36); Mean Corpuscular Hemoglobin 26 pg (27-31); Mean Corpuscular Volume 78 fL (80-94); Mean Platelet Volume 6.4 fL (7.4-10.4); Platelet Count 334 10^3/uL (150-450); Red Blood Count 2.53 10^6 /uL (4.18-5.48); Red Cell Distribution Width 18 % (10-15); White Blood Count 6.4 10^3/uL (3.5-10.8)
--- OUTSIDE RECORDS SUMMARY | 2019-06-28 09:55 | XMS REPORT | Continuity of Care Document ---
:1960 External Reference #:[id number] Author Name Liyah Fowler Care Team Providers Name Role Phone Cierra Bell M.D. Primary Care Physician Unavailable Payers Date Identification Numbers Payment Provider Subscriber Policy Number: [id number] Medicaid Hector Barr Group Name: 1 1 [address] PayID: [id number] [place] [address] Expires: 2017 Policy Number: [id number] Medicaid Hector Barr Group Name: 1 1 [address] PayID: [id number] [place] [address] Effective: 2015 Policy Number: [id number] [place] [employer] Hector Barr Onset: 2015 PayID: [id number] [address] [address] [place] [address] Effective: 2016 Policy Number: [id number] [facility] Hector Barr Expires: 2018 Group Number: 60% [id number] [facility] PayID: [id number] [address] Problems Active Problems Provider Date Disturbance in [...] Marital Status Lives With Family 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 Tobacco Use Start: Unknown Currently smokes 1-5 Cigarettes Daily Smoking Status Reviewed: 06/18/19 Currently smokes 1-5 Cigarettes Daily ETOH Use Occasionally consumes alcohol Recreational Drug Use Current Drug User Jose Juan occasionally Tobacco Use Start: Unknown Patient is a former End: Unknown smoker Exercise Type/Frequency Does not exercise Allergies, Adverse Reactions, Alerts Description No Known Drug Allergies Medications Active Medications SIG Qnty Indications Ordering Date Provider Prednisone one tab daily 30tabs M06.4 Cierra Bell MD 06/18/2019 20mg Tablets Ensure Active High 2-3 times a day 90units R64 Elaine Stallings, 05/28/2019 Protein after meals M.D. Liquid Spiriva Handihaler inhale the 90caps J43.9 Elaine Stallings, 05/28/2019 contents of one M.D. 18mcg Capsules capsule via handihaler by mouth every evening Oxycodone HCL 1 - 2 tabs by Unknown 5mg mouth every 12 Capsules hours as needed pain History Medications Ferrous Sulfate 1 by mouth 60tabs Luther Braxton NP 03/04/2019 - 325(65Fe) twice daily. 06/17/2019 mg Tablets No Active Medications Unknown 02/27/2019 - 02/27/2019 Tramadol HCL 1-2 tablets 28tabs M25.50 Luther Braxton NP 02/27/2019 - 50mg Tablets every 12 hours 06/17/2019 as needed for pain. Lidocaine apply patch up 30units M54.6 Pawel Osorio 05/03/2017 - 5% Patches to 12 hours Kamron Van 02/27/2019 once a day. Vicodin 1 po up to [...] Timur 02/27/2019 Gum Iron 1 by mouth Unknown 01/18/2017 - 325(65Fe) mg Tablets every day 02/27/2019 Gabapentin Take Two 180caps M54.6 Pawel Osorio 01/12/2017 - 300mg Capsules Capsules By Kamron Van 02/27/2019 Mouth Three Times A Day as Directed Omeprazole 1 by mouth 30caps D64.9 Pawel Osorio 12/07/2016 - 20mg Capsules every day Kamron Van 02/27/2019 Gabapentin 2 tabs 3 times 180caps M54.6 Pawel Osorio 12/07/2016 - 100mg Capsules a day Kamron Van 01/12/2017 Aspir-81 1 by mouth 90tabs R07.9 Pawel Osorio 11/10/2016 - 81mg Tablets DR every day Kamron Van 01/18/2017 Nitrostat one sl q5min up 25tabs R07.9 Pawel Osorio 11/10/2016 - 0.4mg Tablets Sub to 3 doses as aKmron Van 02/27/2019 needed Duloxetine HCL 1 by mouth 60caps M54.6 Pawel Osorio 05/12/2016 - 30mg Caps every day x 1 Kamron Van 11/10/2016 Part week then increase to 2 tablets daily Ferrous [...] hour if needed. Aleve 2 tabs as Unknown - 220mg Tablets needed 01/18/2017 Mapap take 2 tablets Unknown - 325mg Tablets by mouth every 06/17/2019 4 hours if needed Fluconazole Take 2 tablets Unknown - 200mg Tablets then take 1 by 05/28/2019 mouth every day for 14 days Prednisone 4 tabs by mouth Unknown - 10mg Tablets for 3 days 3 05/28/2019 tabs by mouth for 3 days 2 tabs by mouth for 3 days 1 tab by mouth for 3 days, & 1/2 tab by mouth for 3 days Prednisone 2 tabs daily in Unknown - 20mg Tablets Am 06/18/2019 Medications Administered in Office Medication SIG Qnty Indications Ordering Provider Date Inj, Regadenoson, 0.1 MG Michael Rodrigues M.D. 12/16/2016 Injection Technetium TC 99M Tetrofosmin, Michael Rodrigues M.D. 12/16/2016 Per Unit Dose Up To 40 Millicuries Injection Immunizations CPT Code Status Date Vaccine Lot # [id number] Given 07/21/2016 Influ Virus Vaccine, Quadrivalent, Split Virus, Im Fluzone not PF Vital Signs Date Vital Result Comment 06/18/2019 1:37pm Height 74 inches 6'2" Weight 120.00 lb Heart Rate 80 /min BP Systolic Sitting 130 mmHg Rue sm cuff BP Diastolic Sitting 82 mmHg Rue sm cuff O2 % BldC Oximetry 98 % BMI (Body Mass Index) 15.4 kg/m2 05/28/2019 7:50am Height 74 inches 6'2" Weight 110.00 lb per pt Heart Rate 111 /min BP Systolic Sitting 77 mmHg BP Diastolic Sitting 57 mmHg O2 % BldC Oximetry 100 % BMI (Body Mass Index) 14.1 kg/m2 05/10/2019 9:56am Height 74 inches 6'2" Weight [...] Date Facility Test Result H/L Range Note HIV 4TH Generation [facility] HIV 4th Negative Negative [address] [place] [address] [phone] Protein [facility] Total 7.0 g/dL 6.3 - 7.9 Electrophoresis [address] Protein(Pep) [place] [address] [phone] Albumin 3.0 g/dL Abnormal 3.4-4.7 Alpha-1 Globulin 0.3 g/dL 0.1-0.3 Alpha-2 Globulin 1.0 g/dL 0.6-1.0 Beta Globulin 0.9 g/dL 0.7-1.2 Gamma Globulin 1.9 g/dL Abnormal 0.6-1.6 Albumin/Globulin Ratio 0.73 Impression See Comment 1 CBC Auto 05/28/2019 [facility] White Blood 3.2 10^3/uL Low 3.5 -10.[address] [place] [address] [phone] Red Blood Count 3.19 10^6/uL Low 4.18-5.48 Hemoglobin 8.2 g/dL Low 14.0-18.0 Hematocrit 25 % Low 42-52 Mean Corpuscular Volume 79 fL Low 80-94 Mean Corpuscular Hemoglobin 26 pg Low 27-31 Mean Corpuscular HGB Conc 32 g/dL Normal 31-36 Red Cell Distribution Width 18 % High 10-15 Platelet Count 415 10^3/uL Normal 150-450 Mean Platelet Volume 6.7 fL Low 7.4-10.4 Abs Neutrophils 2.6 10^3/uL Normal 1.5-7.7 Abs Lymphocytes 0.4 10^3/uL Low 1.0-4.8 Abs Monocytes 0.2 10^3/uL Normal 0-0.8 Abs Eosinophils 0.0 10^3/uL Normal 0-0.6 Abs Basophils 0.0 10^3/uL Normal 0-0.2 Abs Nucleated RBC 0.0 10^3/uL Granulocyte % 81.8 % Lymphocyte % 12.7 % Monocyte % 4.6 % Eosinophil % 0.3 % Basophil % 0.6 % Nucleated Red Blood Cells % 0.0 Laboratory 05/28/2019 [facility] Alpha 1 207 mg/dL Abnormal 100 - 2 test finding [address] Antitrypsin A1a 190 [place] [address] [phone] Laboratory 05/21/2019 [facility] Partial Thrombo 31.6 Normal 26.0-3 3 test finding [address] Time PTT seconds 8.0 [place] [address] [phone] Lactic Acid 1.4 mmol/L Normal 0.5-2.0 4 Laboratory 05/21/2019 [facility] TSH (Thyroid 2.56 Normal 0.34 -5.60 test finding [address] Stim Horm) mcIU/[place] [address] [phone] Free T4 (Free Thyroxine) 1.08 ng/dL Normal 0.61-1.12 Blood Culture SEE RESULT BELOW 5 CBC Auto 05/21/2019 [facility] White Blood 2.2 10^3/uL Low 3.5 -10.[address] [place] [address] [phone] Red Blood Count 3.27 10^6/uL Low 4.18-5.48 Hemoglobin 8.3 g/dL Low 14.0-18.0 Hematocrit 26 % Low 42-52 Mean Corpuscular Volume 78 fL Low 80-94 Mean Corpuscular Hemoglobin 26 pg Low 27-31 Mean Corpuscular HGB Conc 33 g/dL Normal 31-36 Red Cell Distribution Width 20 % High 10-15 Platelet Count 409 10^3/uL Normal 150-450 Mean Platelet Volume 6.4 fL Low 7.4-10.4 Abs Neutrophils 1.6 10^3/uL Normal 1.5-7.7 Abs Lymphocytes 0.4 10^3/uL Low 1.0-4.8 Abs Monocytes 0.1 10^3/uL Normal 0-0.8 Abs Eosinophils 0.0 10^3/uL Normal 0-0.6 Abs Basophils 0.0 10^3/uL Normal 0-0.2 Abs Nucleated RBC 0.0 10^3/uL Granulocyte % 72.3 % Lymphocyte % 20.6 % Monocyte % 4.8 % Eosinophil % 1.5 % Basophil % 0.8 % Nucleated Red Blood Cells % 0.0 Comp Metabolic 05/21/2019 [facility] Sodium 136 mmol/L Normal 135-[address] [place] [address] [phone] Potassium 4.2 mmol/L Normal 3.5-5.0 Chloride 105 mmol/L Normal 101-111 Co2 Carbon Dioxide 24 mmol/L Normal 22-32 Anion Gap 7 mmol/L Normal 2-11 Glucose 103 mg/dL High 70-100 Blood Urea Nitrogen 31 mg/dL High 6-24 Creatinine 1.50 mg/dL High 0.67-1.17 BUN/Creatinine Ratio 20.7 High 8-20 Calcium 9.3 mg/dL Normal 8.6-10.3 Total Protein 6.8 g/dL Normal 6.4-8.9 Albumin 3.1 g/dL Low 3.2-5.2 Globulin 3.7 g/dL Normal 2-4 Albumin/Globulin Ratio 0.8 Low 1-3 Total Bilirubin 0.30 mg/dL Normal 0.2-1.0 Alkaline Phosphatase 38 U/L Normal 34-104 Alt 6 U/L Low 7-52 Ast 15 U/L Normal 13-39 Egfr Non- 48.1 >60 Egfr 58.2 >60 6 CKMB 05/21/2019 [facility] CKMB ng/mL 0.6 ng/mL Normal 0.6- 6.[address] [place] [address] [phone] Laboratory test 05/21/2019 [facility] Creatine 17 U/L Normal 10-[address] Kinase(CK) [place] [address] [phone] Troponin-I (TnI) 0.01 ng/mL <0.04 7 CBC Auto 03/28/2019 [facility] White Blood 4.0 10^3/uL Normal 3.5-10.[address] [place] [address] [phone] Red Blood Count 3.21 10^6/uL Low 4.18-5.48 Hemoglobin 7.5 g/dL Low 14.0-18.0 Hematocrit 24 % Low 42-52 Mean Corpuscular Volume 75 fL Low 80-94 Mean Corpuscular Hemoglobin 23 pg Low 27-31 Mean Corpuscular HGB Conc 31 g/dL Normal 31-36 Red Cell Distribution Width 23 % High 10.5-15 Platelet Count 384 10^3/uL Normal 150-450 Mean Platelet Volume 7.4 fL Normal 7.4-10.4 Abs Neutrophils 3.3 10^3/uL Normal 1.5-7.7 Abs Lymphocytes 0.5 10^3/uL Low 1.0-4.8 Abs Monocytes 0.2 10^3/uL Normal 0-0.8 Abs Eosinophils 0.0 10^3/uL Normal 0-0.6 Abs Basophils 0.0 10^3/uL Normal 0-0.2 Abs Nucleated RBC 0.0 10^3/uL Granulocyte % 82.5 % Lymphocyte % 11.9 % Monocyte % 4.6 % Eosinophil % 0.2 % Basophil % 0.8 % Nucleated Red Blood Cells % 0.0 Cell Morphology 03/28/2019 [facility] Anisocytosis 2+ [place] [address] [phone] Schistocytes 1+ Elliptocyte 1+ Laboratory test 03/28/2019 [facility] Pathologist (SEE NOTE) [address] [place] [address] [phone] Laboratory test 03/18/2019 [facility] Surgical SEE RESULT [address] [place] [address] [phone] Laboratory test 03/15/2019 [facility] Troponin-I (TnI) 0.02 ng/ mL <0.[address] [place] [address] [phone] Prealbumin 5 mg/dL Low 18-38 Comp Metabolic 03/15/2019 [facility] Sodium 135 mmol/L Normal 135-[address] [place] [address] [phone] Potassium 3.9 mmol/L Normal 3.5-5.0 Chloride 104 mmol/L Normal 101-111 Co2 Carbon Dioxide 25 mmol/L Normal 22-32 Anion Gap 6 mmol/L Normal 2-11 Glucose 105 mg/dL High 70-100 Blood Urea Nitrogen 21 mg/dL Normal 6-24 Creatinine 1.27 mg/dL High 0.67-1.17 BUN/Creatinine Ratio 16.5 Normal 8-20 Calcium 8.8 mg/dL Normal 8.6-10.3 Total Protein 7.0 g/dL Normal 6.4-8.9 Albumin 3.1 g/dL Low 3.2-5.2 Globulin 3.9 g/dL Normal 2-4 Albumin/Globulin Ratio 0.8 Low 1-3 Total Bilirubin 0.40 mg/dL Normal 0.2-1.0 Alkaline Phosphatase 36 U/L Normal 34-104 Alt 6 U/L Low 7-52 Ast 16 U/L Normal 13-39 Egfr Non- 58.2 >60 Egfr 70.5 >60 11 Laboratory test 03/15/2019 [facility] C Reactive 84.91 mg/L High <8.[address] [place] [address] [phone] D Dimer Quantitative > 1050 ng/mL High Less Than 230 12 Cell Morphology 03/15/2019 [facility] Microcytosis 2+ [address] [place] [address] [phone] Hypochromasia 2+ Anisocytosis 2+ Elliptocyte 1+ CBC Auto 03/15/2019 [facility] White Blood 2.4 10^3/uL Low 3.5 -10.[address] [place] [address] [phone] Red Blood Count 4.06 10^6/uL Low 4.18-5.48 Hemoglobin 8.6 g/dL Low 14.0-18.0 Hematocrit 28 % Low 36-46 Mean Corpuscular Volume 70 fL Low 80-94 13 Mean Corpuscular Hemoglobin 21 pg Low 27-31 Mean Corpuscular HGB Conc 31 g/dL Normal 31-36 Red Cell Distribution Width 18 % High 10.5-15 Platelet Count 481 10^3/uL High 150-450 Mean Platelet Volume 6.7 fL Low 7.4-10.4 Abs Neutrophils 1.6 10^3/uL Normal 1.5-7.7 Abs Lymphocytes 0.6 10^3/uL Low 1.0-4.8 Abs Monocytes 0.2 10^3/uL Normal 0-0.8 Abs Eosinophils 0 10^3/uL Normal 0-0.6 Abs Basophils 0 10^3/uL Normal 0-0.2 Abs Nucleated RBC 0 10^3/uL Granulocyte % 67.1 % Lymphocyte % 24.3 % Monocyte % 6.5 % Eosinophil % 0.5 % Basophil % 1.6 % Nucleated Red Blood Cells % 0.1 Cell Morphology 02/27/2019 [facility] Microcytosis 2+ [address] [place] [address] [phone] Hypochromasia 1+ Elliptocyte 1+ HIV 1&2 AB 02/27/2019 [facility] HIV 1 2 Nonreactive Nonreactive 14 W/Prelim [address] [place] [place] [address] [phone] CBC Auto 02/27/2019 [facility] White Blood 2.5 10^3/uL Low 3.5 -10.[address] Count [place], [place] [address] [phone] Red Blood Count 3.66 10^6/uL Low 4.18-5.48 Hemoglobin 7.9 g/dL Low 14.0-18.0 Hematocrit 26 % Low 36-46 Mean Corpuscular Volume 70 fL Low 80-94 Mean Corpuscular Hemoglobin 22 pg Low 27-31 Mean Corpuscular HGB Conc 31 g/dL Normal 31-36 Red Cell Distribution Width 17 % High 10.5-15 Platelet Count 502 10^3/uL High 150-450 Mean Platelet Volume 6.9 fL Low 7.4-10.4 Abs Neutrophils 1.8 10^3/uL Normal 1.5-7.7 Abs Lymphocytes 0.5 10^3/uL Low 1.0-4.8 Abs Monocytes 0.1 10^3/uL Normal 0-0.8 Abs Eosinophils 0 10^3/uL Normal 0-0.6 Abs Basophils 0 10^3/uL Normal 0-0.2 Abs Nucleated RBC 0 10^3/uL Granulocyte % 71.5 % Lymphocyte % 21.2 % Monocyte % 4.3 % Eosinophil % 1.8 % Basophil % 1.2 % Nucleated Red Blood Cells % 0 Iron & Iron 02/27/2019 [facility] Total Iron 330 g/dL Normal 250-[address] [place] [address] Capacity [phone] Transferrin 236 mg/dL Normal 203-362 Iron < 17 g/dL Low 50-212 Unsaturated Iron Binding < 315 g/dL % Iron Saturation 5 % Low 15-55 Comp Metabolic Panel 02/27/2019 [facility] Sodium 134 mmol/L Low 135-[address] [place] [address] [phone] Potassium 4.4 mmol/L Normal 3.5-5.0 Chloride 104 mmol/L Normal 101-111 Co2 Carbon Dioxide 27 mmol/L Normal 22-32 Anion Gap 3 mmol/L Normal 2-11 Glucose 95 mg/dL Normal 70-100 Blood Urea Nitrogen 12 mg/dL Normal 6-24 Creatinine 0.95 mg/dL Normal 0.67-1.17 BUN/Creatinine Ratio 12.6 Normal 8-20 Calcium 8.7 mg/dL Normal 8.6-10.3 Total Protein 6.2 g/dL Low 6.4-8.9 Albumin 3.0 g/dL Low 3.2-5.2 Globulin 3.2 g/dL Normal 2-4 Albumin/Globulin Ratio 0.9 Low 1-3 Total Bilirubin 0.30 mg/dL Normal 0.2-1.0 Alkaline Phosphatase 49 U/L Normal 34-104 Alt 4 U/L Low 7-52 Ast 12 U/L Low 13-39 Egfr Non- 81.4 >60 Egfr 98.5 >60 15 Laboratory test 02/27/2019 [facility] TSH 1.89 Normal 0.34- 5.[address] (Thyroid mcIU/[place] [address] Stim Horm) [phone] Protein 02/27/2019 [facility] Total 6.4 g/dL 6.3 - 7.[address] Protein([place] [address] ) [phone] Albumin 2.6 g/dL Abnormal 3.4-4.7 Alpha-1 Globulin 0.3 g/dL 0.1-0.3 Alpha-2 Globulin 0.8 g/dL 0.6-1.0 Beta Globulin 0.9 g/dL 0.7-1.2 Gamma Globulin 1.9 g/dL Abnormal 0.6-1.6 Albumin/Globulin Ratio 0.66 Impression See Comment 16 Laboratory test 02/27/2019 [facility] Erythrocyte Sed 47 mm/Hr High 0-[address] [place] [address] [phone] C Reactive Protein 31.94 mg/L High <8.01 Lyme Screen W/ Reflex To WB Negative Negative Laboratory test 04/20/2017 [facility] Surgical SEE RESULT [address] [place] [address] Order [phone] CBC No Diff 04/19/2017 [facility] White Blood 4.9 10^3/uL Normal 3.5-[address] Count 0.8 [place] [address] [phone] Red Blood Count 4.21 10^6/uL Normal 4.0-5.4 Hemoglobin 7.6 g/dL Low 14.0-18.0 Hematocrit 27 % Low 42-52 Mean Corpuscular Volume 64 fL Low 80-94 Mean Corpuscular Hemoglobin 18 pg Low 27-31 Mean Corpuscular HGB Conc 28 g/dL Low 31-36 Red Cell Distribution Width 19 % High 10.5-15 Platelet Count 350 10^3/uL Normal 150-450 Mean Platelet Volume 7 um3 Low 7.4-10.4 Laboratory 04/19/2017 [facility] Clotest SEE RESULT 18 test finding [address] [place] [address] [phone] Laboratory 01/09/2017 [facility] Surgical SEE RESULT 19, test finding [address] Interface Order BELOW 20 [place], [place] [id number] [phone] Laboratory 01/09/2017 [facility] Clotest SEE RESULT 21, test finding [address] BELOW 22 [place] [address] [phone] Order 12/16/2016 [employer] In-House Stress Test, <pending> Pharmacologic Nuclear (Lexiscan) Laboratory 12/06/2016 [employer] In House Occult Blood - pos x3 test finding Stool Iron & Iron 11/11/2016 [facility] Total Iron 421 g/dL Normal [address] Binding Capacity -45 [place] [address] 0 [phone] Iron < 15 g/dL Low 50-212 Unsaturated Iron Binding 406.34583 g/dL Normal % Iron Saturation 4 % Low 15-55 Laboratory test 11/11/2016 [facility] Erythrocyte Sed 30 mm/Hr High 0-20 [address] [place] [address] [phone] C Reactive Protein 3.94 mg/L Normal < 5.00 24 Comp Metabolic 11/11/2016 [facility] Sodium 135 mmol/L Normal 133-[address] [place] [address] [phone] Potassium 4.5 mmol/L Normal 3.5-5.0 Chloride 104 mmol/L Normal 101-111 Co2 Carbon Dioxide 26 mmol/L Normal 22-32 Anion Gap 5 mmol/L Normal 2-11 Glucose 105 mg/dL High 70-100 Blood Urea Nitrogen 18 mg/dL Normal 6-24 Creatinine 0.83 mg/dL Normal 0.67-1.17 BUN/Creatinine Ratio 21.7 High 8-20 Calcium 8.7 mg/dL Normal 8.6-10.3 Total Protein 5.7 g/dL Low 6.4-8.9 Albumin 3.2 g/dL Normal 3.2-5.2 Globulin 2.5 g/dL Normal 2-4 Albumin/Globulin Ratio 1.3 Normal 1-3 Total Bilirubin 0.30 mg/dL Normal 0.2-1.0 Alkaline Phosphatase 41 U/L Normal 34-104 Alt 9 U/L Normal 7-52 Ast 10 U/L Low 13-39 Egfr Non- 96.2 Normal >60 Egfr 123.7 Normal >60 25 Laboratory test 11/11/2016 [facility] Troponin-I 0.00 Normal < 0.04 26 finding 101 (TnI) ng/[place] [address] [phone] Magnesium 1.9 mg/dL Normal 1.9-2.7 27 Laboratory 11/11/2016 [facility] TSH (Thyroid 1.79 Normal 0.34 -5.[address] Stim Horm) mcIU/[place] [address] [phone] Lipid Profile 11/11/2016 [facility] Triglycerides 99 mg/dL Normal 29 (Trig/Chol/HD [address]) [place] [address] [phone] Cholesterol 126 mg/dL Normal 30 HDL Cholesterol 27.9 mg/dL Normal 31 LDL Cholesterol 78 mg/dL Normal 32 CKMB 11/11/2016 [facility] CKMB ng/mL 1.2 ng/mL Normal 0.6- 6.[address] [place] [address] [phone] CBC Auto 11/11/2016 [facility] White Blood 6.4 10^3/uL Normal 3.5-10.[address] [place] [address] [phone] Red Blood Count 3.49 10^6/uL Low 4.0-5.4 Hemoglobin 9.2 g/dL Low 14.0-18.0 Hematocrit 29 % Low 42-52 Mean Corpuscular Volume 83 fL Normal 80-94 Mean Corpuscular Hemoglobin 26 pg Low 27-31 Mean Corpuscular HGB Conc 32 g/dL Normal 31-36 Red Cell Distribution Width 18 % High 10.5-15 Platelet Count 385 10^3/uL Normal 150-450 Mean Platelet Volume 7 um3 Low 7.4-10.4 Abs Neutrophils 4.2 10^3/uL Normal 1.5-7.7 Abs Lymphocytes 1.1 10^3/uL Normal 1.0-4.8 Abs Monocytes 0.7 10^3/uL Normal 0-0.8 Abs Eosinophils 0.3 10^3/uL Normal 0-0.6 Abs Basophils 0.1 10^3/uL Normal 0-0.2 Abs Nucleated RBC 0 10^3/uL Normal Granulocyte % 66.6 % Normal 38-83 Lymphocyte % 17.8 % Low 25-47 Monocyte % 10.6 % High 1-9 Eosinophil % 4.2 % Normal 0-6 Basophil % 0.8 % Normal 0-2 Nucleated Red Blood Cells % 0 Normal CBC Auto 07/28/2016 [facility] White Blood 5.8 10^3/uL Normal 3.5-10.[address] [place] [address] [phone] Red Blood Count 4.41 10^6/uL Normal 4.0-5.4 Hemoglobin 11.3 g/dL Low 14.0-18.0 Hematocrit 36 % Low 42-52 Mean Corpuscular Volume 82 fL Normal 80-94 Mean Corpuscular Hemoglobin 26 pg Low 27-31 Mean Corpuscular HGB Conc 31 g/dL Normal 31-36 Red Cell Distribution Width 16 % High 10.5-15 Platelet Count 370 10^3/uL Normal 150-450 Mean Platelet Volume 7 um3 Low 7.4-10.4 Abs Neutrophils 3.4 10^3/uL Normal 1.5-7.7 Abs Lymphocytes 1.3 10^3/uL Normal 1.0-4.8 Abs Monocytes 0.7 10^3/uL Normal 0-0.8 Abs Eosinophils 0.3 10^3/uL Normal 0-0.6 Abs Basophils 0.1 10^3/uL Normal 0-0.2 Abs Nucleated RBC 0 10^3/uL Normal Granulocyte % 59.6 % Normal 38-83 Lymphocyte % 23.1 % Low 25-47 Monocyte % 11.5 % High 1-9 Eosinophil % 4.9 % Normal 0-6 Basophil % 0.9 % Normal 0-2 Nucleated Red Blood Cells % 0.1 Normal Laboratory test 05/05/2016 Adult [employer] In House Occult Blood - Stool neg x 3 finding Cell Morphology 04/25/2016 [facility] Microcytosis 2+ Normal [address] [place] [address] [phone] Hypochromasia 3+ Normal Elliptocyte 1+ Normal CBC Auto 04/25/2016 [facility] White Blood 7.2 10^3/uL Normal 3.5-10.[address] [place] [address] [phone] Red Blood Count 4.19 10^6/uL Normal 4.0-5.4 Hemoglobin 8.5 g/dL Low 14.0-18.0 Hematocrit 30 % Low 42-52 Mean Corpuscular Volume 71 fL Low 80-94 Mean Corpuscular Hemoglobin 20 pg Low 27-31 Mean Corpuscular HGB Conc 29 g/dL Low 31-36 Red Cell Distribution Width 18 % High 10.5-15 Platelet Count 515 10^3/uL High 150-450 Mean Platelet Volume 7 um3 Low 7.4-10.4 Abs Neutrophils 5.0 10^3/uL Normal 1.5-7.7 Abs Lymphocytes 1.1 10^3/uL Normal 1.0-4.8 Abs Monocytes 0.7 10^3/uL Normal 0-0.8 Abs Eosinophils 0.3 10^3/uL Normal 0-0.6 Abs Basophils 0.1 10^3/uL Normal 0-0.2 Abs Nucleated RBC 0 10^3/uL Normal Granulocyte % 69.3 % Normal 38-83 Lymphocyte % 15.5 % Low 25-47 Monocyte % 10.4 % High 1-9 Eosinophil % 4.1 % Normal 0-6 Basophil % 0.7 % Normal 0-2 Nucleated Red Blood Cells % 0 Normal Comp Metabolic 03/23/2016 [facility] Sodium 136 mmol/L Normal 133-145 [place] [address] [phone] Potassium 4.3 mmol/L Normal 3.5-5.0 Chloride 105 mmol/L Normal 101-111 Co2 Carbon Dioxide 26 mmol/L Normal 22-32 Anion Gap 5 mmol/L Normal 2-11 Glucose 91 mg/dL Normal 70-100 Blood Urea Nitrogen 9 mg/dL Normal 6-24 Creatinine 0.85 mg/dL Normal 0.67-1.17 BUN/Creatinine Ratio 10.6 Normal 8-20 Calcium 8.8 mg/dL Normal 8.6-10.3 Total Protein 6.3 g/dL Low 6.4-8.9 Albumin 3.6 g/dL Normal 3.2-5.2 Globulin 2.7 g/dL Normal 2-4 Albumin/Globulin Ratio 1.3 Normal 1-3 Total Bilirubin 0.30 mg/dL Normal 0.2-1.0 Alkaline Phosphatase 49 U/L Normal 34-104 Alt 8 U/L Normal 7-52 Ast 10 U/L Low 13-39 Egfr Non- 93.6 Normal >60 Egfr 120.4 Normal >60 33 Laboratory test 03/23/2016 [facility] TSH (Thyroid 1.32 Normal 0.34-5.[address] Stim Horm) ?IU/[place] [address] [phone] Erythrocyte Sed Rate 18 mm/Hr Normal 0-20 C Reactive Protein 3.51 mg/L Normal < 5.00 34 Iron & Iron Binding 03/23/2016 [facility] Iron 14 g/dL Low 50-212 [place] [address] [phone] Unsaturated Iron Binding 449 g/dL Normal Total Iron Binding Capacity 463 g/dL High 250-450 % Iron Saturation 3 % Low 15-55 1 RESULT: Polyclonal hypergammaglobulinemia Test Performed by: [facility] [address] [place] [address] 2 Test Performed by: [facility] [address] [place] [address] 3 Patient is On Antibiotics? NO 4 MDS Severe Sepsis and Septic Shock Management Bundle Measure requires all lactic acids initially measuring >2.0 mmol/L be repeated. 5 SEE RESULT BELOW Name: HECTOR BARR : [address]: Noa Maldonado MD Acct: [id number] Unit: [id number] AGE: 58 Location: ED Re05/21/19 SEX: M Status: DEP ER SPEC: [id number] WANDA: 05/21/[address] [facility] [address]: Noa Maldonado MD REQ: [id number] RECD: 05/21/19 STATUS: BENJA FELIX DR: Pawel Van III, MD _ SOURCE: BLOOD,VENO SPDESC: ORDERED: Blood Cult COMMENTS: Patient is On Antibiotics? NO Procedure Result Reported Site Aerobic Culture Bottle Final 05/26/19- 2152 ML No Growth Day 5 Anaerobic Culture Bottle Final 05/26/19- 2152 ML No Growth Day 5 * ML - Main Lab . END OF REPORT DEPARTMENT OF PATHOLOGY, [address] [place] [address] Clifford Quesada M.D. Director [facility] # [id number] 6 Because ethnic data is not always readily [...] 15-29 5 Kidney failure <15 (or dialysis) 7 Troponin-I testing on Plasma Separator Tubes (PST) has a known false positive rate of 0.20-0.40%. All positive troponins reflex immediately to secondary confirmatory testing. Using the [employer] 800 Access Immunoassay systems, the 99th percentile upper reference limit was demonstrated to be < 0.03 ng/mL. 8 Hypochromic microcytic anemia with red cell indices suggestive of iron deficiency. Additional studies as clinically warranted. Reviewed by Dr. Quesada 9 SEE RESULT BELOW Name: HECTOR BARR : [address]: El Langley MD Acct: [id number] Unit: [id number] AGE: 58 Location: [place] [address] Re03/17/19 SEX: M Status: ADM IN SPEC: [id number] WANDA: 03/18/191049 [facility] DR: Jama Worley MD REQ: [id number] RECD: 03/18/19 STATUS: HEMAL FELIX DR: Miguelangel [...] CONTINUED ON NEXT PAGE DEPARTMENT OF PATHOLOGY, [address] [place] [address] Clifford Quesada M.D. Director [facility] # [id number] RUN DATE: 03/19/19 [facility] LIVE PAGE 2 Patient: HECTOR BARR [id number] (Continued) GROSS DESCRIPTION (Continued) 3. The specimen [...] 1124 END OF REPORT DEPARTMENT OF PATHOLOGY, [address] [place] [address] Clifford Quesada M.D. Director [facility] # [id number] 10 Troponin-I testing on Plasma Separator Tubes (PST) has a known false positive rate of 0.20-0.40%. All positive troponins reflex immediately to secondary confirmatory testing. Using the spotflux DxI 800 Access Immunoassay systems, the 99th percentile upper reference limit was demonstrated to be < 0.03 ng/mL. 11 Because ethnic data is not always readily [...] 15-29 5 Kidney failure <15 (or dialysis) 12 Please note: The following may produce a false positive D Dimer test: - Rheumatoid factor greater than 60 IU/ml - Plasma hemoglobin greater than 0.05 gm/dl - Bilirubin greater than 50 mg/dl - Lipids greater than 1000 mg/dl - FDP greater than 20 ug/ml 13 Consistent with Previous Results Reported on 02/27/19 14 It is recognized that currently available assays [...] 95% confidence interval of 99.78 to 99.96%. 15 Because ethnic data is not always readily [...] 15-29 5 Kidney failure <15 (or dialysis) 16 RESULT: Polyclonal hypergammaglobulinemia Test Performed by: [facility] [address] [place] [address] 17 SEE RESULT BELOW Name: HECTOR BARR : [address]: Tera Wright MD Acct: [id number] Unit: [id number] AGE: 56 Location: ENDO Re04/19/17 SEX: M Status: DEP REF SPEC: [id number] WANDA: 04/20/17- [facility] DR: Tera Wright MD REQ: [id number] RECD: 04/20/171053 STATUS: HEMAL FELIX DR: Pawel Van III, MD _ ORDERED: LEVEL 4, IMMUNO-FIRST Addendum: An immunohistochemical stain for Helicobacter pylori-like organisms was performed with appropriate controls and is negative. Addendum Signed (signature on file) Clifford Quesada MD 0932 Addendum: An immunohistochemical stain for Helicobacter pylori-like organisms performed with appropriate controls and is negative. Addendum Signed (signature on file)Rosie Clifford Quesada MD 1458 FINAL DIAGNOSIS Stomach, [...] performed at Main Lab DEPARTMENT OF PATHOLOGY, [address] [place] [address] Clifford Quesada M.D. Director [facility] # [id number] RUN DATE: 04/26/17 [facility] LAB LIVE PAGE 2 Patient: HECTOR BARR Yash [id number] (Continued) GROSS DESCRIPTION (Continued) GROSS DESCRIPTION The specimen is received in formalin labeled, Biopsies Gastric Ulcer, and consists of a 0.7 x 0.5 by up to 0.2 cm aggregate of tripathi-white irregular soft tissue fragments which is submitted entirely in one cassette. Signed (signature on file) Rylee Saravia MD 01/06 1134 END OF REPORT * ML=Testing performed at Main Lab DEPARTMENT OF PATHOLOGY, [address] [place] [address] Clifford Quesada M.D. Director [facility] # [id number] 18 SEE RESULT BELOW Name: HECTOR BARR : [address]: Tera Wright MD Acct: [id number] Unit: [id number] AGE: 56 Location: ENDO Re04/19/17 SEX: M Status: REG REF SPEC: [id number] WANDA: 04/19/17-[address] [facility] [address]: Tera Wright MD REQ: [id number] RECD: 04/19/178770 STATUS: COMP OTHR DR: Pawel Van III, MD _ SOURCE: GAS ANTRUM SPDESC: ORDERED: Clotest Procedure Result Reported Site Clotest Final 04/20/17- 906 ML Clotest Positive * ML - MAIN LAB ([facility]) . END OF REPORT * ML=Testing performed at Main Lab DEPARTMENT OF PATHOLOGY, [address] [place] [address] Clifford Quesada M.D. Director [facility] # [id number] 19 [id number] 20 SEE RESULT BELOW Name: HECTOR BARR : [address]: Tera Wright MD Acct: [id number] Unit: [id number] AGE: 56 Location: [facility] Re01/09/17 SEX: M Status: DEP REF SPEC: [id number] WANDA: 01/09/17-[address] [facility] [address]: Tera Wright MD REQ: [id number] RECD: 01/09/17 STATUS: HEMAL FELIX DR: Pawel Van III, MD _ ORDERED: H PYLORI IMM ST, LEVEL IV COMMENTS: [id number] Deeper levels of sectioning show identical histologic [...] performed at Main Lab DEPARTMENT OF PATHOLOGY, [facility] [employer] [place] [address] Clifford Quesada M.D. Director [facility] # [id number] RUN DATE: 01/11/17 [facility] LAB LIVE PAGE 2 Patient: HECTOR BARR [id number] (Continued) GROSS DESCRIPTION (Continued) Signed (signature on file) Rylee Saravia MD 1130 END OF REPORT * ML=Testing performed at Main Lab DEPARTMENT OF PATHOLOGY, [facility] [place] [address] Clifford Quesada M.D. Director [facility] # [id number] 21 [id number] 22 SEE RESULT BELOW Name: HECTOR BARR : [address]: Tera Wright MD Acct: [id number] Unit: [id number] AGE: 56 Location: ENDOC Re01/09/17 SEX: M Status: DEP REF SPEC: [id number] WANDA: 01/09/17-[address] [facility] [address]: Tera Wright MD REQ: [id number] RECD: 01/09/17-1635 STATUS: BENJA FELIX DR: Pawel Van III, MD _ SOURCE: GAS ANTRUM SPDES: ORDERED: Clotest COMMENTS: [id number] Procedure Result Reported Site Clotest Final 01/10/17- 0752 ML Clotest Negative * ML - MAIN LAB ([facility]) . END OF REPORT * ML=Testing performed at Main Lab DEPARTMENT OF PATHOLOGY, [address] [place] [address] Clifford Quesada M.D. Director [facility] # [id number] 23 FASTING PATIENT STATES HE HAD COFEE WITH LIGHT CREAM 1 CUP...STILL WANTS BLOODWORK DONE 24 Acute inflammation: >10.00 25 Because ethnic data is not always readily [...] 15-29 5 Kidney failure <15 (or dialysis) 26 99th percentile=0.04 ng/mL Troponin results at [facility] and [facility] are not interchangeable. 27 FASTING PATIENT STATES HE HAD COFEE WITH LIGHT CREAM 1 CUP...STILL WANTS BLOODWORK DONE 28 FASTING PATIENT STATES HE HAD COFEE WITH LIGHT CREAM 1 CUP...STILL WANTS BLOODWORK DONE 29 Desirable <150 Borderline high 150-199 High 200-499 Very High >500 30 Desirable <200 Borderline high 200-239 High >239 31 Low <40 Desirable: 40-60 High: >60 32 Desirable: <100 mg/dL Near Optimal: 100-129 mg/dL Borderline High: 130-159 mg/dL High: 160-189 mg/dL Very High: >189 mg/dL 33 Because ethnic data is not always readily [...] 15-29 5 Kidney failure <15 (or dialysis) 34 Acute inflammation: >10.00 Procedures Date Code Description Status 03/19/2019 67999 EKG, Interpretation Only Completed 03/19/2019 08717 Colonoscopy Flexible W/Biopsy Completed 03/19/2019 54859 Colonoscopy Flexible W/Biopsy Completed 03/19/2019 18853897 Colonoscopy Completed 03/18/2019 42761 EKG, Interpretation Only Completed 02/06/2017 94322 Diffusing Capacity Completed 02/06/2017 68991 Plethysmography Determination Lung Volumes & Per Airway Completed Resist 02/06/2017 94395 Pulmonary Stress Test Simple Completed 02/06/2017 50606 Pulmonary Function><Bronchodil Completed 12/16/2016 52640 Stress Test Completed 12/16/2016 80259 Myocardial Perfusion Imaging Tomographic (Spect) Completed Multiple Studies Encounters Type Date Location Provider Dx Diagnosis Office Visit 05/28/2019 8:50a [facility] Elaine Stallings M.D. R64 [facility] J[facility].9 Emphysema, unspecified D64.9 Anemia, unspecified Office Visit 05/10/2019 10:20a [facility] Pawel Van, R64 [facility] - [facility] [place] R64 Cachexia Office Visit 03/28/2019 3:20p [facility] Pawel Osorio D50.9 Iron deficiency Medicine - [facility] [place] M.[facility]. anemia, unspecified E43 Unspecified severe protein-calorie malnutrition B37.81 Candidal esophagitis D50.9 Iron deficiency anemia, unspecified R53.83 Other fatigue R06.02 Shortness of breath J43.9 Emphysema, unspecified R53.83 Other fatigue J44.9 Chronic obstructive pulmonary disease, unspecified [facility] Unspecified severe 10:30a mike Salas M.D. protein-calorie Hospitalists malnutrition D50.9 Iron deficiency anemia, unspecified D72.819 Decreased white blood cell count, unspecified B37.81 Candidal esophagitis R59.0 Localized enlarged lymph nodes Office Visit 03/19/2019 [facility] Miguelangel D. E43 Unspecified severe 10:29a Assmike rodriguez M.D.,FACP protein-calorie Hospitalists malnutrition D50.9 Iron deficiency anemia, unspecified D72.819 Decreased white blood cell count, unspecified R64 Cachexia R07.9 Chest pain, unspecified Office Visit 03/18/2019 [facility] Miguelangel D. D50.9 Iron deficiency 10:29a Assmike rodriguez M.D.,FACP anemia, Hospitalists unspecified R64 Cachexia Office Visit 03/17/2019 10:29a [facility] Trino D50.9 Iron deficiency Assmike rodriguez M.D. anemia, Hospitalists unspecified D72.819 Decreased white blood cell count, unspecified R63.4 Abnormal weight loss R31.29 Other microscopic hematuria R13.19 Other dysphagia R06.02 Shortness of breath Office Visit 03/16/2019 10:28a [facility] Trino D64.9 Anemia, Assmike rodriguez M.D. unspecified Hospitalists E43 Unspecified severe protein-calorie malnutrition R13.19 Other dysphagia R06.02 Shortness of breath Office Visit 03/15/2019 [facility] D64.9 Anemia, 10:27a Assoc,mike Greenfield, MACHINE SHORTHAND TEACHER unspecified Hospitalists D64.9 Anemia, unspecified N17.9 Acute [...] Abnormal weight loss Office Visit 02/27/2019 11:20a [facility] Internal Luther Fox, D64.9 Anemia, unspecified Medicine - [facility] MACHINE SHORTHAND TEACHER R53.83 Other fatigue M25.50 Pain in unspecified joint R61 Generalized hyperhidrosis R63.4 Abnormal weight loss K62.5 Hemorrhage of anus and rectum Office Visit 05/03/2017 [facility] Pawel EKita M54.6 Pain in 4:20p Leah Van M.D. thoracic spine D64.9 Anemia, unspecified Office Visit 02/20/2017 10:45a [facility] Cyndy J43.9 Emphysema, [facility] Timur unspecified Adult Basic Education Instructor F17.210 Nicotine dependence, cigarettes, uncomplicated R06.83 Snoring Office Visit 01/19/2017 7:30a [facility]dy J43.9 Emphysema, [facility] Timur unspecified Adult Basic Education Instructor F17.210 Nicotine dependence, cigarettes, uncomplicated R06.83 Snoring R06.89 Other abnormalities of breathing R06.00 Dyspnea, unspecified Office Visit 12/07/2016 [facility] Pawel EKita R07.9 Chest pain, 1:20p Leah Van M.D. unspecified D64.9 Anemia, unspecified M54.6 Pain in thoracic spine Office Visit 11/10/2016 [facility] Pawel EKita R07.9 Chest pain, 3:40p Leah Van M.D. unspecified R06.00 Dyspnea, unspecified D64.9 Anemia, unspecified Z13.220 Encounter for screening for lipoid disorders M54.6 Pain in thoracic spine Office Visit 10/03/2016 3:00p Surgical Blake Rich R10.32 Left lower [facility] MD James, quadrant pain FACS W18.30xA Fall on same level, unspecified, initial encounter Office Visit 03/22/2016 11:40a [facility] Pawel E. M54.6 Pain in thoracic Medicine - [facility] [place] [facility] M.D. spine Plan of Treatment Future Appointment(s):07/03/2019 8:20 am - Cierra Bell MD at [facility] - [facility]06/18/2019 - Cierra Bell, MDR64 CachexiaComments:we will process a prior authorization with your insurance for RulhnpP75.9 Iron deficiency anemia, unspecifiedComments:please keep appointment with Dr. Fall53.83 Other fatigueComments:we cannot explain why you are anemic and losing weight yet. The CT scan was negative (normal). I will continue to look for answers I am ordering a test for your heart tzagnwggT24.4 Inflammatory polyarthropathyNew Medication:Prednisone 20 mg - one tab dailyComments:I am starting you on a trial of prednisone for your swollen, painful joints.R06.02 Shortness of breathNew Orders:Echocardiogram, Ordered: 06/18/19
[2019-06-28 09:58] LABS: Activated Partial Thrombo Time 33.4 seconds (26.0-38.0); INR 1.27 (0.82-1.09)
[2019-06-28 10:02] LABS: Albumin 2.5 g/dL (3.2-5.2); Albumin/Globulin Ratio 0.8 (1-3); BUN/Creatinine Ratio 17.8 (8-20); C Reactive Protein 251.44 mg/L (<8.01); Calcium 7.7 mg/dL (8.6-10.3); EGFR African American 57.3 (>60); EGFR Non-African American 47.3 (>60); Globulin 3.2 g/dL (2-4); Potassium 3.6 mmol/L (3.5-5.0); Total Bilirubin 0.6 mg/dL (0.2-1.0); Total Protein 5.7 g/dL (6.4-8.9)
[2019-06-28 10:04] LABS: Troponin I 0.03 ng/mL (<0.04)
[2019-06-28 10:43] LABS: Microcytosis 1+
[2019-06-28] MEDS ORDERED: cefTRIAXone(*) 1 GM in NS 0.9% 50 ML* 50 ML IVPB ONE (10:44)
[2019-06-28] MEDS ORDERED: Azithromycin 500 mg/250 ml NS 500 MG/250 ML BAG IVPB ONE (10:44)
[2019-06-28] MEDS ORDERED: Ondansetron INJ* 2 MG/ML VIAL IV PRN (13:50)
[2019-06-28] MEDS ORDERED: Acetaminophen TAB* 325 MG PO PRN (13:50)
[2019-06-28] MEDS ORDERED: Albuterol/Ipratropium NEB.SOL* Albuterol 2.5 MG/Ipratropium 0.5 MG 3 ML INH PRN (13:50)
[2019-06-28] MEDS ORDERED: Benzonatate CAP* 100 MG PO PRN (13:50)
[2019-06-28] MEDS: Pantoprazole* 80 mg IN NS 80 MG/250 ML BAG IV SCH (16:00)
[2019-06-28] MEDS: predniSONE TAB* 50 MG PO SCH (16:00)
[2019-06-28 17:08] LABS: Erythrocyte Sed Rate 115 mm/Hr (0-19)
--- NOTE | 2019-06-28 17:12 | CONSULT ---
Consult Consult: Mr. Bloom is a 58 year old man with recurrent pulmonary and musculoskeletal complaints admitted for treatment of pneumonia. A serologic evaluation has revealed an abnormal AMMY and P ANCA. These antibodies are non specific; his P ANCA in particular could potentially reflect a possible evolving connective tissue disorder; however he does not have cavitating lung lesions. Granulomatosis with polyangiitis seems unlikely. I agree with a serologic evaluation of his condition but checking more specific antibodies. Agree with a trial of Prednisone at 50 mg daily. The response to steroids suggests an underlying inflammatory process. 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 Ding.
--- NOTE | 2019-06-28 18:44 | CONS ---
CONSULTATION REPORT: DATE OF CONSULT: 06/28/19 CONSULTING PHYSICIAN: NAEL Hanley. REASON FOR CONSULT: Evaluate for vasculitis in the setting of an indeterminate pANCA. HISTORY OF PRESENT ILLNESS: Mr. Hector Bloom is a 58-year-old male with a recent hospitalization, n ow readmitted with a syncopal episode. He has had pulmonary complaints as well as increased joint pa in and diffuse arthralgias. Specifically, he noted over the past 6 years that his joints have been v tino stiff and painful with minimal swelling, but it has involved his hands, shoulders, and lower extr emities. It has been difficult to mobilize, but it has been difficult to get medical care over the p ast couple of years. Regarding his recent joint pain, however, it improved dramatically with prednis one, although not completely. It has been difficult to afford prednisone as an outpatient and some o f his joint pain symptoms returned when he was unable to get the prescribed dose. In terms of his mo st recent complaints, he was found to be in SVT when he had a syncopal episode this morning. He had been recently seen by his primary care doctor and diagnosed with anemia and has been following up wit Dr. Peña and Dr. Worley who saw him during his prior hospitalization. He has been on a course of prednisone as noted above as well as oxycodone. He was admitted with pneumonia, and as he was found to be cachectic and tachycardic, he was given supportive care. He was also found to be very anemic. There is airspace opacification predominantly in the left lower lung mid diaz. In terms of his pr ior workup, he has been seen by Dr. Ding from Pulmonology. He was seen as an outpatient on 7. He has a history of gastroesophageal reflux disease as well as an abnormal chest CT in the past a s well too and emphysema, which is likely related to smoking. He has had significant precipitous maribel nges bilaterally with paraseptal emphysema and blebs noted on prior CT scans, and this was noted on h is visit in 2017. He is also noted to have mildly enlarged hilar lymph nodes with no mediastinal usha nopathy. He does have a history of frequent bronchitis, which may be related to his COPD, but he als o has gastroesophageal reflux disease. He has been limited in terms of his ability to work and was i ncarcerated in the distant past. In terms of his prior pulmonology workup, he was noted to have prio r mildly enlarged hilar lymph nodes with no mediastinal adenopathy in the past. It was felt to be in flammation from smoking. He has also had lymphadenopathy, which was advised to be followed by Pulmono garima in the past, who last saw him in January of 2017. He was noted to have significant emphysema seco ndary to smoking and marijuana usage. It was advised that he have alpha-1 antitrypsin levels checked at that time and a sleep study. In terms of his more recent history, however, he was seen in the [facility] in February and evaluated by GI as well as Hematology. He has had difficulty with appetite over the past couple of months with a decreased appetite, although this recently stabilized. He has had 1 episode of bright red blood per rectum in the past, but not recently. He has also had an upper endo scopy in March 2017, which revealed healing gastric ulcers, with Dr. Wright. He was also seen by Dr. Tyson samaniego in the setting of weight loss, iron deficiency anemia, and leukopenia in February 2019. At that alexander e, he was also cachectic with fever and creatinine of 1.22 on admission with COPD, noted changes on C T of the chest. At that time, he was found to have leukopenia as well as anemia iron deficiency with odynophagia and weight loss. It was advised that he have a CT scan of his abdomen and pelvis checke d at that time. He was also referred to Pain Management in the past as well too for his symptoms. I n terms of his prior serologic evaluation, today he had an elevated C-reactive protein, and he was an emic with a hemoglobin of 6.4. His BNP was also elevated at 161. He has had a prior MRI of the [facility] spine in 2017, which revealed scoliosis with degenerative changes and osteoarthritis. He has hung d a chest CT most recently done on 06/12/19, it showed [id number] centrolobular emphysema wit hout focal consolidation with increased inherent contrast between the blood pool and myocardium, whic h could represent anemia with generalized increased attenuation of the liver, which was nonspecific, it could be seen in the setting of iron deposition. His inflammatory markers, however, have also bee n elevated, and on 06/27/19, in addition to elevated inflammatory markers, he was found to have an ab normal pANCA as well as elevated CK, and he was also leukopenic with a white count of 3.2 on 06/11/19 with an alpha-1 antitrypsin (A1A) of 207. PAST MEDICAL HISTORY: In terms of his past medical history, he has had no recent travel. In terms o f his prior hospitalization history, he was admitted to [facility] on 03/17/19 with 6 months of weight loss and shortness of breath with weakness and his white count was 1.2 at that time with a fever of 102. White count improved with changed antibiotics. He has had a prior CT evaluation, which showed mild h ilar changes with an JURGEN level of 37 with an GREG of 12, ESR of 68 with a B12 of 217, MMA of 0.18, janette ritin 91, saturations of 8%. EGD and colonoscopy, which revealed esophageal candidiasis. HIV was ne gative. He was prescribed IV iron with the hemoglobin going to 8.4 at that time. He was discharged on 03/20/19 and lost to follow up for several months. Past medical history is also notable for hilar abnormalities noted in 2017 with his brand protection manager. MEDICATIONS: Included: 1. Acetaminophen 325 mg up to 6 times daily. 2. Albuterol sulfate and [facility] 1 tablet as needed. ALLERGIES: No known drug allergies. FAMILY HISTORY: Notable for arthritis in his mother and father. Mother had blood cancer, at th e age of 83 with father had lung cancer and was a smoker. SOCIAL HISTORY: He is . He stopped smoking in February 2019. He has worked in [employer] occasionally has been used in the past but no alcohol use. He also has a history of esophagitis. He has had prior injections of the spine as well too. REVIEW OF SYSTEMS: General: He has had cachexia and weight loss. ENT: No trauma to the eyes or ea rs. Mouth and Nose: No dry mouth or dry eyes. Cardiac: Elevated BNP in the past, but denies chest wall pain or anginal symptoms. Pulmonary: He has had shortness of breath as noted above. GI: He hung s had peptic ulcer disease as noted above. Neurologic: No focal weakness. No evidence of mononeuri tis multiplex. Skin: No recent rash. Musculoskeletal: As noted above with diffuse arthralgias. O phthalmologic History: He has had no sensory impairment and no acute ocular changes. Other 14-point review of systems were reviewed and were otherwise negative. PHYSICAL EXAM: He had a respiratory rate of 16, temperature of 98.2, blood pressure 90/58. In gener al, he is pleasant, in no acute distress, sitting up, conversive but he appeared to be very weak and he required some assistance with sitting up to listen to his lungs. HEENT: Normocephalic, atraumati c. Pupils equal, round, reactive to light and accommodate. Pale conjunctivae. Ears: The hearing w as grossly intact. Mouth: Oropharynx was within normal limits. Neck was supple. Trachea was midli ne. No adenopathy. Cardiac: No JVP elevation. No carotid bruits. Pulmonary: Symmetric. No tend erness to palpation. Slightly diminished breath sounds at the bases, but no wheezes. He had slightl y barrel- shaped chest. Cardiac: Normal S1 and S2. No S3 or S4. No murmurs, rubs, or gallops appr eciated. Abdomen: Soft, nontender, nondistended. Positive bowel sounds with no organomegaly. Extr emities: Full range of motion in all major joints. No edema. No cyanosis or clubbing. Neurologic: Alert and oriented fully with no acute neurologic deficits. Normal speech and follows commands. S kin was dry and warm with no erythema and no rash. On musculoskeletal exam, there is no synovitis of his joints, but he does have kyphosis and mild osteoarthritic deformities in his knees as well as hi s PIP and DIP joints, but no synovitis was noted. Neurologic: He had 4+/5 strength in the biceps an d triceps with deep tendon reflexes 1+ throughout with no focal neurologic deficits. : No CVA ten derness. Lymph: No adenopathy. DIAGNOSTIC STUDIES/LAB DATA: As noted above. He had an elevated C-reactive protein and a lactic aci d today of 1.9 which was normal. Sodium of 132. His calcium was 7.7, albumin of 2.5, CRP of 251.44 with an INR of 1.27 with a hemoglobin of 6.4, hematocrit 20. ASSESSMENT AND PLAN: Mr. Bloom is a 58-year-old male with a history of a positive GREG as well as indeterminate pANCA with a recent history of pneumonia and frequent history of infections in the sett ing of arthralgias and arthritis, which did seem to respond to prednisone. He does have a history of hilar abnormalities, but this was also noted in 2017 with his brand protection manager Dr. Ding. He also has a history of possible iron overload on CT imaging studies, which is intriguing given his history of anemia. It is possible that he may have an underlying metabolic condition as well such as hemochroma tosis which is masked by iron deficiency anemia secondary to blood loss. At this present time, in te bren of his pANCA abnormality, I agree with further serologic evaluation including checking myeloperox idase antibody and a proteinase 3 antibody. In terms of his antinuclear antibody, even though it is nonspecific, given his underlying above mentioned conditions, we should consider the possibility of a n evolving connective tissue disorder. I would also check extractable nuclear antigens, complements, and double-stranded DNA. Given his history of frequent infections, I would also consider checking im munoglobin levels to screen for a humoral immunodeficiency as well as CMV titers. He may be immunosup pressed from chronic disability and smoking, also increases his risk for lung disease. It should be noted that the pANCA is nonspecific, it could reflect a wide variety of autoimmune conditions includi ng rheumatoid arthritis, so it is intriguing that his joint pain responded to prednisone, but at this point in time, it is not diagnostic and further immunosuppressive therapy should be held until we ac hieve a more definitive diagnosis. Consider consulting his outpatient brand protection manager as well Dr. Andrez torres for evaluation. We will continue to follow. [id number]/[facility] #: [id number]
--- NOTE | 2019-06-28 18:44 | HP ---
AMENDED REPORT NOW INCLUDES DESIGNATED COSIGNER CC: Dr. Cierra Bell; Dr. Bismark Fenton; Dr. Luis Alberto Hoskins * ADMISSION HISTORY AND PHYSICAL: DATE OF ADMISSION: 06/28/19 PRIMARY CARE PROVIDER: Dr. Cierra Bell. MY ATTENDING PHYSICIAN WHILE IN THE HOSPITAL: Dr. Patrick Rivera * (DICTATED BY NAEL ROMERO) CONSULTING NETWORK CONTROLLER: Dr. Bismark Fenton. CONSULTING STULL INSTALLER: Dr. Luis Alberto Hoskins. CHIEF COMPLAINT: Syncope. HISTORY OF PRESENT ILLNESS: Mr. Bloom is a 58-year-old male with a past medical history significant for severe malnutrition, iron deficiency anemia, COPD, history of esophageal candidiasis with possible recurrence, and heart failure with reduced ejection fraction, recently diagnosed with EF 45% to 50%, who presents to the emergency department after earlier this week he had been feeling sick for approximately 3 days, Monday, Monday, and Monday. He had cough, shortness of breath, fevers, chills, and aches and pain all over. For this, he took aspirin 2 tablets each day, which he takes intermittently as well for his joint pain, which he feels made him feel better. He around the same time also ran out of prednisone due to his inability to pay for co-pays on his medications, and then on , 06/27/19, he states he felt relatively well, but he has overlying sense of unwellness related to joint pain, fatigue, and weight loss. The patient on Monday, however, felt poorly from when he woke up and felt had some changes in his vision, sweating, shortness of breath, but had no cough this morning, no hemoptysis. The patient has had worsening symptoms from 5 to 7 a.m. and then passed out around 7 a.m. and was brought into the emergency department. In the ambulance, the patient was found to be in SVT with heart rate in the 170s to 180s. The patient was given adenosine and was transitioned to sinus tachycardia. The patient was initially hypoxic and hypotensive. The patient was found to have a hemoglobin of 6.7 with microcytic pattern, decreased from his recent baseline of around 8. The patient also had chest x-ray consistent with pneumonia and a CRP at 251.44. The patient was given blood and fluids in the emergency department and felt somewhat better with resolution of his presyncopal symptoms and vision change. In a broader sense, the patient still feels as if he has been failing at home. He states he eats all the time, but never gains any weight. He was recently seen by his telephone lines repairer, offered an iron infusion, but it was felt he was not up for it and went home. The patient has not had any dark or tarry stools. No bright red blood per rectum per his report, though previous primary care doctor notes do report bright red blood per rectum. The patient denies any other recent changes in his meds. No recent sick contacts. The patient has for significant period of time been feeling as if his balance is off; he feels oozy when he walks and bumps into the mari, he states. The patient has not had any recent difficulty swallowing since most treatment with fluconazole. The patient had some sharp pain in his abdomen last night night with no associated gastrointestinal symptoms that lasted only several seconds and then went away. The patient complains of dry mouth and joint pain which get better when he is on steroids. The patient denies any swelling in his legs, no difficulty breathing lying flat. The patient has chronic fatigue. The patient denies any rash. The patient states that his symptoms got somewhat better on steroids and worse again when he was off them. Due to concern for hypotension, anemia, and pneumonia, we were asked to evaluate the patient for admission to the hospital. PAST MEDICAL HISTORY: Protein calorie malnutrition, iron deficiency anemia, COPD, history of recurrent esophageal candidiasis, heart failure with reduced ejection fraction, unspecified autoimmune disorder. PAST SURGICAL HISTORY: Hernia repair, skin grafting. MEDICATIONS AT HOME: 1. Aspirin as needed for pain. 2. Oxycodone 5 mg p.o. q.6 hours. The patient is out of this medication. 3. Prednisone 20 mg daily. The patient is out of this medication. ALLERGIES: No known drug allergies. FAMILY HISTORY: The patient's father of lung cancer. The patient's mother by a complication of blood cancer. SOCIAL HISTORY: The patient still smokes cigarettes occasionally. Denies any illicit drug use or any alcohol abuse. 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 The patient is and has no children. REVIEW OF SYSTEMS: A 14-point review of systems was reviewed and is negative except as above in the HPI. PHYSICAL EXAMINATION GENERAL: The patient is 58-year-old male who appears much older than his stated age. He is pale, sitting in the bed, in no acute distress. VITAL SIGNS: At the time of evaluation, temperature 98.2, pulse rate 83, respiratory rate 20, oxygen saturation 100% on room air, blood pressure 99/74. HEENT: Head: Normocephalic, atraumatic. Sclerae anicteric. No conjunctival injection. Nasal mucosa moist. Oral mucosa moist. No pharyngeal erythema, discharge, or exudate. NECK: Supple, nontender. No lymphadenopathy. No carotid bruits. No JVD. RESPIRATORY: Diminished throughout. No wheezes, rales, or rhonchi. Diminished breath sounds in the left lower lobe. CARDIAC: Regular rate and rhythm. No clicks, murmurs, gallops, or rubs. Pulses are +2 in dorsalis pedis, posterior tibialis, and radial areas. Capillary refill less than 3 seconds. The patient is pale. The patient is non- tachycardic. The patient has negative lactic acid. The patient has Lalo Coma Scale of 15. ABDOMEN: Soft. GENITOURINARY: No suprapubic tenderness or CVA tenderness NEURO: Cranial nerves II through XII intact. No focal deficits. Alert and oriented x3. SKIN: Clean, dry and intact. No rashes. PSYCHIATRIC: Pleasant and cooperative. DIAGNOSTIC STUDIES/LAB DATA: White blood cell count 6.4, hemoglobin 6.4, platelet count 334. INR 1.27, APTT 33.4. Sodium 132, potassium 3.6, chloride 103, carbon dioxide 19, anion gap 10, BUN 27, creatinine 1.52, lactic acid 1.9, calcium is 7.7. Bilirubin 0.6, AST 16, ALT 9, alkaline phosphatase 41. Troponin I 0.03. CRP 251.44. BNP 161. Protein 5.7, albumin 2.5, globulin 3.2. Studies: Chest x-ray read as opacification probably in the left lower and middle lung zone this is concerning for pneumonia. Electrocardiogram shows normal sinus rhythm, incomplete right bundle-branch block. No ST segment elevation or depression. QTc of 472, rate of 109. Compared to previous exam, there are no significant changes. ASSESSMENT AND PLAN: Impression: Mr. Bloom is a 58-year-old male with past medical history significant for severe protein calorie malnutrition, iron efficiency anemia, chronic obstructive pulmonary disease, and newly diagnosed heart failure with reduced ejection fraction as well as concern for unspecified autoimmune condition who presents to the emergency department with syncope, found to be markedly anemic and having chest x-ray findings consistent with pneumonia. 1. Anemia. The patient's anemia is microcytic. The patient did not have a source found when he was previously admitted for chronic blood loss. The patient at that time was not found to have elevated corrected reticulocyte count in the setting of hemoglobin. The patient was given IV iron with some response in his hemoglobin. He was also on steroids at that time. The patient has been on steroids on and off for several months now. The patient has also been taking aspirin for his joint pain and respiratory symptoms. The patient will be admitted to the hospital. The patient was given 1 unit of packed red blood cells in the emergency department. His hemoglobin will be rechecked after this and he will be re-transfused as needed. The patient was seen in consultation by Dr. Luis Alberto Hoskins of Gastroenterology who recommends PPI drip for concern for possible upper gastrointestinal bleed, though he did not recommend repeat endoscopy at this point, only empiric treatment for his possible upper gastrointestinal bleeding. The patient will not be transfused iron at this point given transfusions, this may be considered later in the hospitalization. 2. Pneumonia. The patient had symptoms earlier this week which seemed to have significantly decreased which are consistent with pneumonia. The patient is hypotensive. The patient's pneumonia may have resolved at this point; however, given his hypotension, he will be treated for community-acquired pneumonia with azithromycin and ceftriaxone. The patient received a 150 mL/kg bolus while in the emergency department along with blood to which his blood pressure responded. The patient does meet criteria for severe sepsis. The patient's initial hypotension has at this point resolved. The patient is perfusing well. Please consider this to be the patient's severe sepsis reassessment note. 3. Unspecified inflammatory condition. The patient has concerns for an autoimmune condition which has not been fully elucidated yet. The patient had an elevated AMMY. To further clarify this, we will add on an anti-double- stranded DNA antibody and anti-smooth antibody. The patient had a negative rheumatoid factor, negative CCP. The patient had intermittently positive P- ANCA. MPO and PR3 antibodies have been sent through this case and discussed with Dr. Fenton of Rheumatology who will see the patient. Recommended steroids and consideration of a lung biopsy to look for any lymph nodes which could give clarity to whether or not the patient has sarcoidosis. Given patient's heart dysfunction, pulmonary lymph node, kidney dysfunction, and dry mouth and chronic wasting, these could be symptoms consistent with sarcoidosis. The patient had negative JURGEN level but this is neither sensitive or specific for this condition. An ESR has been an added on those, this is likely going to be high as well due to the patient's pneumonia. Pulmonology consultation should be considered after the patient's acute illnesses have resolved for possible bronchoscopy. 4. Chronic obstructive pulmonary disease. The patient is not currently exacerbation even with pneumonia. Will have p.r.n. DuoNeb. 5. Heart failure with reduced ejection fraction. The patient does show signs of fluid overload. We will be cautious with mass transfusions and fluids for precipitating fluid overload. 6. FEN. The patient will be on heart healthy diet without caffeine, which has been cleared with GI and will have fluids as needed. 7. Protein calorie malnutrition. The patient will have nutrition consultation for possible dietary supplementation. 8. DVT prophylaxis. SCDs in the setting of possible gastrointestinal bleeding. 9. Disposition. The patient is admitted inpatient to the hospital. TIME SPEN: Approximately 60 minutes was spent on this discharge, 30 of which spent [id number] with the patient obtaining history and physical and discussing the treatment plan. This plan has been discussed with my attending, Dr. Patrick Rivera, and he is in agreement. NAEL ROMERO [id number]/[facility] #: [id number] LUCINDA
[2019-06-28 19:28] LABS: Hematocrit 29 % (42-52); Hemoglobin 9.8 g/dL (14.0-18.0)
[2019-06-28] MEDS: guaiFENesin ER TAB 600 MG PO SCH (22:42)
[2019-06-29] MEDS: Pantoprazole* 80 mg IN NS 80 MG/250 ML BAG IV SCH (01:10)
[2019-06-29 07:30] LABS: ABS Lymphocytes 0.2 10^3/ul (1.0-4.8); ABS Monocytes 0.2 10^3/ul (0-0.8); Corrected Retic Count 0.3 % (0.5-1.5); Hematocrit 28 % (42-52); Hematocrit for Retic CNT 28 % (42-52); Hemoglobin 9.4 g/dL (14.0-18.0); Immature Retic Fraction 0.29; Lymphocyte % 2.4 %; Mean Corpuscular HGB Conc 34 g/dL (31-36); Mean Corpuscular Hemoglobin 27 pg (27-31); Mean Corpuscular Volume 80 fL (80-94); Mean Platelet Volume 6.8 fL (7.4-10.4); Nucleated Red Blood Cells % 0.1; Platelet Count 379 10^3/uL (150-450); RBC Retic Count 3.46 10^6/uL (4.18-5.48); Red Blood Count 3.46 10^6 /uL (4.18-5.48); Red Cell Distribution Width 18 % (10-15); White Blood Count 9.4 10^3/uL (3.5-10.8)
[2019-06-29 07:50] LABS: Urine Appearance Cloudy; Urine Bacteria 1+ (Absent); Urine Bilirubin Negative (Negative); Urine Blood 3+ (Negative); Urine Color Yellow; Urine Glucose Negative (Negative); Urine Ketones Negative (Negative); Urine Nitrite Negative (Negative); Urine Protein 1+(30 mg/dL) (Negative); Urine Red Blood Cell 3+(>10/hpf) (Absent); Urine Specific Gravity 1.018 (1.010-1.030); Urine Urobilinogen Negative (Negative); Urine White Blood Cell Trace(0-5/hpf) (Absent)
[2019-06-29 07:51] LABS: Albumin 2.5 g/dL (3.2-5.2); Calcium 7.9 mg/dL (8.6-10.3); Magnesium 1.9 mg/dL (1.9-2.7); Total Bilirubin 0.3 mg/dL (0.2-1.0)
[2019-06-29 07:57] LABS: Albumin/Globulin Ratio 0.8 (1-3); BUN/Creatinine Ratio 25.2 (8-20); EGFR African American 73.1 (>60); EGFR Non-African American 60.4 (>60); Globulin 3.2 g/dL (2-4); Total Protein 5.7 g/dL (6.4-8.9)
[2019-06-29] MEDS: predniSONE TAB* 50 MG PO SCH (09:53)
[2019-06-29] MEDS: guaiFENesin ER TAB 600 MG PO SCH ×2 (09:53→21:13)
[2019-06-29] MEDS: Pantoprazole IV* 40 MG IV SCH ×2 (09:54→21:13)
[2019-06-29] MEDS: cefTRIAXone(*) 1 GM in NS 0.9% 50 ML* 50 ML IVPB SCH (11:29)
[2019-06-29] MEDS: Azithromycin IV(*) 250 MG in NS 0.9% 250 ML* 250 ML IVPB SCH (12:19)
--- NOTE | 2019-06-29 15:36 | PN ---
Subjective Date of Service: 06/29/19 Interval History: Patient is feeling better today. Patient had some diarrhea yesterday again with no blood or dark material in it. Patient states his appetite is good, patient has no abdominal pain today. Patient has occasional cough that brings up no sputum nor blood. patient Family History: Unchanged from Admission Social History: Unchanged from Admission Past Medical History: Unchanged from Admission Objective Active Medications: Acetaminophen (Tylenol Tab*) 650 mg PO Q6H PRN PRN Reason: MILD PAIN or TEMP > 100.4 Albuterol/Ipratropium (Duoneb (Albuterol 2.5 Mg/Ipratropium 0.5 Mg)) 1 neb INH Q4H PRN PRN Reason: SOB/WHEEZING Last Admin: 06/29/19 09:03 Dose: 1 neb Benzonatate (Tessalon Cap*) 100 mg PO BID PRN PRN Reason: COUGH Last Admin: 06/28/19 16:00 Dose: 100 mg Guaifenesin (Mucinex*) 1,200 mg PO BID [facility] Last Admin: 06/29/19 09:53 Dose: 1,200 mg Azithromycin 250 mg/ Sodium (Chloride) 250 mls @ 250 mls/hr IVPB Q24H [facility] Last Admin: 06/29/19 12:19 Dose: 250 mls/hr Ceftriaxone Sodium 1 gm/ (Sodium Chloride) 50 mls @ 200 mls/hr IVPB Q24H [facility] Last Admin: 06/29/19 11:29 Dose: 200 mls/hr Ondansetron HCl (Zofran Inj*) 4 mg IV Q6H PRN PRN Reason: NAUSEA Pantoprazole Sodium (Protonix Iv*) 40 mg IV Q12H [facility] Last Admin: 06/29/19 09:54 Dose: 40 mg Prednisone (Deltasone Tab*) 50 mg PO DAILY [facility] Last Admin: 06/29/19 09:53 Dose: 50 mg Vital Signs - 8 hr 06/29/19 06/29/19 06/29/19 07:36 09:05 09:45 Temperature 97.7 F Pulse Rate 81 69 Respiratory 18 18 18 Rate Blood Pressure 126/81 (mmHg) O2 Sat by Pulse 100 100 Oximetry 06/29/19 11:49 Temperature 97.7 F Pulse Rate 75 Respiratory 20 Rate Blood Pressure 118/63 (mmHg) O2 Sat by Pulse 100 Oximetry Oxygen Devices in Use Now: Nasal Cannula Appearance: Patient is a 58yo male who appears older than stated age and is sitting in the bed in NAD. Eyes: No Scleral Icterus, PERRLA Ears/Nose/Mouth/Throat: NL Teeth, Lips, Gums, Clear Oropharnyx, Mucous Membranes Moist Neck: NL Appearance and Movements; NL JVP, Trachea Midline Respiratory: Symmetrical Chest Expansion and Respiratory Effort, - - Diminished in right lung base. Cardiovascular: NL Sounds; No Murmurs; No JVD, RRR, No Edema Abdominal: NL Sounds; No Tenderness; No Distention, No Hepatosplenomegaly Lymphatic: No Cervical Adenopathy Extremities: No Edema, No Clubbing, Cyanosis Skin: No Rash or Ulcers, No Nodules or Sclerosis Neurological: Alert and Oriented x 3, NL Sensation, NL Muscle Strength and Tone , - - CN II-XII intact. Result Diagrams: 06/29/19 07:03 06/29/19 07:03 Microbiology and Other Data: Microbiology 06/29/19 07:40 Gram Stain - Final Sputum 06/28/19 10:31 Aerobic Blood Culture - Preliminary Blood Venous No Growth Day 1 Anaerobic Blood Culture - Preliminary No Growth Day 1 06/28/19 09:33 Aerobic Blood Culture - Preliminary Blood Venous No Growth Day 1 Anaerobic Blood Culture - Preliminary No Growth Day 1 Assess/Plan/Problems-Billing Assessment: Patient is a 58yo male with a PMH for Severe Emphysema, Severe Malnutrition, History of Candidal Esophagitis, and anemia who presents to the hospital for syncope and was found to be markedly anemic and having CXR findings concerning for pneumonia. Patient is improving with transfusion and Antibiotics. - Patient Problems (1) Anemia Current Visit: No Status: Chronic Code(s): D64.9 - ANEMIA, UNSPECIFIED SNOMED Code(s): 586903910 Comment: - FLAVIA with acute worsening, possibly due to bleeding - AOCD also likely. - Gastric ulcer seen in 2017 EGD which healed on repeat EGD, Positive CLOtest at that time. - S/P 2u PRBC, with good response - Poor reticulocyte count likely due to chronic anemia - Previous slight response to IV iron and steroids - Stool Occult Blood Pending - May need More IV iron this hospitalization. - Likely EGD again tomorrow for repeat Ulcer and CLOtest. (2) Pneumonia Current Visit: Yes Status: Acute Code(s): J18.9 - PNEUMONIA, UNSPECIFIED ORGANISM SNOMED Code(s): 623411242 Comment: - CXR findings consistent with pneumonia - Treat with antibiotics despite symptoms having resolved mostly - Urine antigens pending - Pulmonary toilet - F/U chest imaging to assess for resolution. (3) Protein-calorie malnutrition, severe Current Visit: No Status: Chronic Code(s): E43 - UNSPECIFIED SEVERE PROTEIN- CALORIE MALNUTRITION SNOMED Code(s): 016507351 Comment: - Muscle wasting and over 60 pounds of weight loss in the past year - Claims he eats very well - Concern for inflammatory state - Nutrition consult pending. (4) Cachexia Current Visit: No Status: Chronic Priority: High Code(s): R64 - CACHEXIA SNOMED Code(s): 042981575 Comment: - Concern for chronic inflammatory state or occult malignancy - Negative Colonoscopy and Endoscopy - Multiple negative CT of chest - Start Steroids and continue Autoimmune workup. - Severely elevated CRP and ESR - May need Bronchoscopy for LN biopsy and - ? Liver iron overload, HFE testing pending, FLAVIA possibly masking Hemochromatosis (5) DVT prophylaxis Current Visit: No Status: Acute Priority: Low Code(s): XMT1850 - SNOMED Code(s): 379106393 Comment: - SCDs in setting of Possible GI Bleeding and profound anemia. Status and Disposition: Inpatient, Discharge when medically stable.
--- NOTE | 2019-06-29 16:05 | CONS ---
DICTATION ENDS ABRUPTLY - FULLY REDICTATED GASTROENTEROLOGY CONSULT: DATE OF CONSULT: 06/29/19 CONSULTING PHYSICIANS: Dr. Cierra Bell; NAEL Hanley. REASON FOR CONSULT: Profound anemia and malnutrition in a man with a gastric ulcer in December 2016, but a negative GI workup in February of 2017 when he was admitted also anemic and with profound leukopenia down to 1.4, though no unifying diagnosis made. 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 on Monday and in the emergency room was converted from an SVT of 170 to sinus rhythm. He was found to be anemic, microcytic, hemoglobin 6.7, MCV 78, and with an indeterminate BUN/creatinine ratio with BUN 27, creatinine 1.52. Stool was not submitted for Hemoccult, though had been negative during his previous admission on 03/16/19. He is a man with chronic malnutrition, social deprivation DICTATION ENDS ABRUPTLY [id number]/[facility] #: [id number] [facility]
--- NOTE | 2019-06-29 17:52 | CONS ---
GASTROENTEROLOGY CONSULTATION DATE: 09/07 CONSULTING PHYSICIANS: NAEL Hanley; Cierra Bell MD REASON FOR CONSULT: Anemia with hemoglobin 6.4, MCV 78 found during an admission for syncope with SVT discovered in the ER. HISTORY: This chronically ill 58-year-old man with chronic low back pain and cachexia was in the hospital in February and had a workup for microcytic anemia that was inconclusive, presents with multiple problems. He fainted at home around 7 a.m. and in the emergency room SVT of 170s to 180s, was treated with adenosine. An infiltrate was seen on chest x-ray and CRP was 251, so he was placed on azithromycin and ceftriaxone. He is a difficult historian and it is difficult to determine when he had been at his baseline. About 5 weeks ago, he was placed on prednisone 20 mg twice a day (dosing not certain) and took it for 21 days, stating that arthralgias felt better during this time. He has a long history of anemia with hemoglobin 8.5 in April 2016, at which time his MCV was 71 and he turned down colonoscopy, so a virtual colonoscopy ordered by his rig manager at that time, Dr. Van, was negative though with some limitations in the rectosigmoid. He then later had upper endoscopy in December [address] Wright, finding a significant deep 2 cm lesser curvature ulcer. Biopsies were negative. Three months later, after 20 mg twice a day of Prilosec , it was healed. Repeat CLOtest at that time showed Helicobacter. He does not recall ever being treated for that. Several lines of questioning were used and it appears he did not take any antibiotic pills over the last several years. He also was not taking any NSAIDs on Dr. Wright' advice. When he was admitted here in February 2019 with an MCV of 70, hemoglobin 7.9, upper endoscopy was negative and no specimens were taken. Hemoccult was negative then. Colonoscopy then was negative including ileoscopy. At that time, he was also reporting more than 50-pound weight loss. From the [facility] chart, his weight bounces around from 120 to 110 to 145 and indeed it is very difficult to get a true baseline. Current weight is reported at 114. He had been seen by Dr. Peña. Some parenteral iron was given, but it is unclear how much. He is still smoking. He maintains that he does not have any money to do anything other than eat. He said he cannot afford generic acetaminophen and certainly has not been taking any Advil, Aleve, etc. His was not present to corroborate. PAST MEDICAL HISTORY: 1. Chronic back pain - old compression fractures present. 2. History of gastric ulcer - December 2016 with possible H. pylori. 3. History of hernia repair. 4. COPD, centrilobular emphysema seen on chest CT. 5. Ongoing tobacco abuse. 6. Iron-deficiency anemia with borderline vitamin B12 level. 7. Alcohol abuse. 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 He is from [place], attended 1 year of [employer] [place] [employer]. There was a history of alcohol use 2 packs a day until mid 2017. REVIEW OF SYSTEMS: Denies any history of chest pain, SC, hemoptysis, TB, CVA, seizures, hepatitis, rectal bleeding. He did have leukopenia in February 2019, which was the focus of Dr. Peña's consultation. He wondered about a medication reaction. Blood cultures were negative then. EXAM: He is a cachectic, middle-aged man, appearing unwell, in no overt distress. He is afebrile, pulse 75, blood pressure 118/63, O2 saturation 100% on 2 L. HEENT exam shows no icterus. His temples were sunken and he is definitely cachectic with temporal wasting. He has no adenopathy. Breath sounds are diminished symmetrically. He is not coughing. Heart sounds are regular. The abdomen is scaphoid, firm and without focal finding. Perianal inspection is normal and rectal reveals no specimen other than a little bit of liquid mucus, not sufficient for submission. Extremities show no edema. IMPRESSION: This 58-year-old man with weight loss and cachexia, certainly has protein malnutrition and is anemic with an iron deficient predominating pattern. Malabsorption needs to be ruled out and celiac antibodies will be sent. His NSAID use is uncertain and as his anemia seems out of proportion to other aspects of his chronic illness (though they are significant) and he had a history of an ulcer 2- 1/2 years ago with apparently untreated Helicobacter pylori, upper endoscopy will be done. Maintenance PPI therapy may be indicated until the situation is clear- cut. Two days of antibiotics could suppress the finding of Helicobacter pylori on biopsy. [id number]/[facility] #: [id number] [facility]
[2019-06-29] MEDS: Cyanocobalamin TAB* 500 MCG PO SCH (21:13)
[2019-06-30 06:24] LABS: ABS Lymphocytes 0.3 10^3/ul (1.0-4.8); ABS Monocytes 0.3 10^3/ul (0-0.8); ABS Neutrophils 6.5 10^3/ul (1.5-7.7); Hematocrit 25 % (42-52); Hemoglobin 8.1 g/dL (14.0-18.0); Lymphocyte % 4.7 %; Mean Corpuscular HGB Conc 33 g/dL (31-36); Mean Corpuscular Hemoglobin 27 pg (27-31); Mean Corpuscular Volume 81 fL (80-94); Mean Platelet Volume 6.7 fL (7.4-10.4); Platelet Count 383 10^3/uL (150-450); Red Blood Count 3.04 10^6 /uL (4.18-5.48); Red Cell Distribution Width 18 % (10-15); White Blood Count 7.1 10^3/uL (3.5-10.8)
[2019-06-30 06:38] LABS: C Reactive Protein 98.68 mg/L (<8.01); Calcium 8.2 mg/dL (8.6-10.3); EGFR African American 78.2 (>60); EGFR Non-African American 64.7 (>60); Magnesium 1.8 mg/dL (1.9-2.7); Potassium 3.9 mmol/L (3.5-5.0)
[2019-06-30] MEDS ORDERED: Midazolam* 1 MG/ML 10 ML VIAL (10 MG) ONE (07:55)
[2019-06-30] MEDS ORDERED: fentaNYL* 50 MCG/ML 2 ML VIAL (100 MCG VIAL) ONE (07:55)
[2019-06-30] MEDS: guaiFENesin ER TAB 600 MG PO SCH ×2 (10:07→21:12)
[2019-06-30] MEDS: Pantoprazole IV* 40 MG IV SCH (10:07)
[2019-06-30] MEDS: Cyanocobalamin TAB* 500 MCG PO SCH (10:08)
[2019-06-30] MEDS: predniSONE TAB* 50 MG PO SCH (10:08)
--- NOTE | 2019-06-30 11:41 | PRO ---
DATE: 06/30/19 - ROOM #417 REFERRING PHYSICIAN: Cierra Bell MD.* PROCEDURE: Upper gastrointestinal endoscopy and CLOtest and biopsy of gastric lesser curvature and third portion of duodenum. INDICATION: This 58-year-old man has had progressive weight loss of over 50 pounds over a prolonged period of time. He also reports diarrhea. He was admitted after a syncopal episode, being found to be profoundly anemic with a hemoglobin of 6.4, MCV 78 on 06/28/19. His BUN was 27 that day, generally consistent with his recent baseline over the last 4 months where he has run from 27 to 43. His stool was heme negative twice yesterday. Stool was heme negative on 03/16/19 during his last admission. ENDOSCOPIST: Dr. Hoskins. MEDICATION: Midazolam 7, fentanyl 100. FINDINGS: He is a slender, cachectic man with temporal wasting, in no distress. He was positioned left side down and moderate sedation induced with sequential doses of medication. ESOPHAGOGASTRODUODENOSCOPY: Larynx - not seen. Esophagus - easily entered. The mucosa is normal in the upper, mid, and lower esophagus with the EG junction at 42 showing no scarring or columnar replacement or hiatal hernia. Stomach - minimal retention of pale, pellet-like seed or pill material in the fundus. There is no general bezoar. The retention is minimal. The mucosa in general is normal in the cardia, fundus, body, and antrum. There is a scar in the lesser curvature corresponding to the ulcer reported by Dr. Wright 2 years ago. A CLOtest and 2 biopsies from the lesser curvature obtained. Duodenum - the pylorus, bulb, and second through fourth portions appeared normal with a somewhat light complexion, potentially postabsorptive effect. Three biopsies obtained from the third portion of the duodenum. IMPRESSION: 1. Gastric scar, lesser curvature. Addendum: Clotest negative ; duodenal and gastric Bx normal 2. Minimal gastric retention. 3. History of H. pylori - specimen sent today, though he has been on 48 hours of intravenous antibiotics. 4. Diarrhea and weight loss - studies pending [id number]/[facility] #: [id number] [facility]
[2019-06-30] MEDS: cefTRIAXone(*) 1 GM in NS 0.9% 50 ML* 50 ML IVPB SCH (11:50)
[2019-06-30] MEDS: Azithromycin IV(*) 250 MG in NS 0.9% 250 ML* 250 ML IVPB SCH (12:11)
[2019-06-30 15:20] LABS: Hematocrit 27 % (42-52); Hemoglobin 8.7 g/dL (14.0-18.0)
--- NOTE | 2019-06-30 17:27 | PN ---
Subjective Date of Service: 06/30/19 Interval History: Patient feels his fatigue and shortness of breath is improved. He tells me the small wounds on his extremities have been appearing for several months, he denies excoriation and IV drug use. He denies fever/chills, chest pain, abd pain , n/v. Family History: Unchanged from Admission Social History: Unchanged from Admission Past Medical History: Unchanged from Admission Objective Active Medications: Acetaminophen (Tylenol Tab*) 650 mg PO Q6H PRN PRN Reason: MILD PAIN or TEMP > 100.4 Albuterol/Ipratropium (Duoneb (Albuterol 2.5 Mg/Ipratropium 0.5 Mg)) 1 neb INH Q4H PRN PRN Reason: SOB/WHEEZING Last Admin: 06/29/19 09:03 Dose: 1 neb Benzonatate (Tessalon Cap*) 100 mg PO BID PRN PRN Reason: COUGH Last Admin: 06/28/19 16:00 Dose: 100 mg Cyanocobalamin (Vitamin B12 Tab*) 1,000 mcg PO DAILY [facility] Last Admin: 06/30/19 10:08 Dose: 1,000 mcg Guaifenesin (Mucinex*) 1,200 mg PO BID [facility] Last Admin: 06/30/19 10:07 Dose: 1,200 mg Azithromycin 250 mg/ Sodium (Chloride) 250 mls @ 250 mls/hr IVPB Q24H [facility] Last Admin: 06/30/19 12:11 Dose: 250 mls/hr Ceftriaxone Sodium 1 gm/ (Sodium Chloride) 50 mls @ 200 mls/hr IVPB Q24H [facility] Last Admin: 06/30/19 11:50 Dose: 200 mls/hr Ondansetron HCl (Zofran Inj*) 4 mg IV Q6H PRN PRN Reason: NAUSEA Pantoprazole Sodium (Protonix Tab*) 20 mg PO DAILY [facility] Prednisone (Deltasone Tab*) 50 mg PO DAILY [facility] Last Admin: 06/30/19 10:08 Dose: 50 mg Vital Signs - 8 hr 06/30/19 06/30/19 06/30/19 09:51 10:47 11:46 Temperature 97.4 F 97.6 F 97.4 F Pulse Rate 51 58 45 Respiratory 18 20 20 Rate Blood Pressure 140/68 136/51 122/80 (mmHg) O2 Sat by Pulse 96 95 99 Oximetry 06/30/19 13:42 Temperature 97.6 F Pulse Rate 70 Respiratory 18 Rate Blood Pressure 114/58 (mmHg) O2 Sat by Pulse 97 Oximetry Oxygen Devices in Use Now: None Appearance: Cachectic appearing middle age white male laying in bed appearing in NAD Eyes: No Scleral Icterus, PERRLA Ears/Nose/Mouth/Throat: Mucous Membranes Moist Neck: NL Appearance and Movements; NL JVP Respiratory: Symmetrical Chest Expansion and Respiratory Effort, Clear to Auscultation Cardiovascular: NL Sounds; No Murmurs; No JVD, RRR Abdominal: NL Sounds; No Tenderness; No Distention Extremities: No Edema, No Clubbing, Cyanosis, - - thin extremities Skin: - - diffuse ~3mm eschar throughout LEs including on hands, flexor surface of UEs, feet Neurological: Alert and Oriented x 3 Result Diagrams: 06/30/19 15:11 06/30/19 05:54 Microbiology and Other Data: Microbiology 06/29/19 07:40 Gram Stain - Final Sputum 06/28/19 10:31 Aerobic Blood Culture - Preliminary Blood Venous No Growth Day 1 Anaerobic Blood Culture - Preliminary No Growth Day 1 06/28/19 09:33 Aerobic Blood Culture - Preliminary Blood Venous No Growth Day 1 Anaerobic Blood Culture - Preliminary No Growth Day 1 Assess/Plan/Problems-Billing Assessment: Patient is a 58yo male with a PMH for Severe Emphysema, Severe Malnutrition, History of Candidal Esophagitis, and anemia who presents to the hospital for syncope and was found to be markedly anemic and having CXR findings concerning for pneumonia. Patient is improving with transfusion and Antibiotics. - Patient Problems (1) Anemia Current Visit: No Status: Chronic Code(s): D64.9 - ANEMIA, UNSPECIFIED SNOMED Code(s): 093190422 Comment: - FLAVIA with acute worsening, low reticulocyte count - S/P 2u PRBC, with good response - UGIB ruled out with overall normal EGD today, and stool occult negative x 3 - AOCD also possible - Gastric ulcer seen in 2017 EGD which healed on repeat EGD, Positive CLOtest at that time. CAREN test from this EGD pending, will continue a po PPI - Previous slight response to IV iron and steroids - May need More IV iron this hospitalization, but will await input from heme/onc (2) Pneumonia Current Visit: Yes Status: Acute Code(s): J18.9 - PNEUMONIA, UNSPECIFIED ORGANISM SNOMED Code(s): 142769019 Comment: - CXR findings consistent with pneumonia - Treat with antibiotics despite symptoms having resolved mostly, cont azithromycin and ceftriaxone - Urine antigens negative - Pulmonary toilet - F/U chest imaging to assess for resolution. (3) MEENAKSHI (acute kidney injury) Current Visit: Yes Status: Acute Code(s): N17.9 - ACUTE KIDNEY FAILURE, UNSPECIFIED SNOMED Code(s): 07325013 Comment: - now resolved - likely prerenal (4) Cachexia Current Visit: No Status: Chronic Priority: High Code(s): R64 - CACHEXIA SNOMED Code(s): 182039692 Comment: - Concern for chronic inflammatory state or occult malignancy - Negative Colonoscopy and Endoscopy - recent CT of chest negative, but did previously have hilar adenopathy which is concerning for sarcoidosis especially considering strange cutaneous lesions - Start Steroids and continue Dr. Fenton's autoimmune workup which is pending - Severely elevated CRP and ESR - ? Liver iron overload, due to abnormal liver on CT chest; ordered US liver (5) Protein-calorie malnutrition, severe Current Visit: No Status: Chronic Code(s): E43 - UNSPECIFIED SEVERE PROTEIN- CALORIE MALNUTRITION SNOMED Code(s): 526606953 Comment: - Muscle wasting and over 60 pounds of weight loss in the past year - Claims he eats very well - Concern for inflammatory state - Possibly related to celiac's, ttg from EGD biospy pending - 24hr urine protein ordered - Nutrition consult placed (6) Full code status Current Visit: Yes Status: Acute Code(s): Z78.9 - OTHER SPECIFIED HEALTH STATUS SNOMED Code(s): 030049943 (7) DVT prophylaxis Current Visit: No Status: Acute Priority: Low Code(s): QZU2080 - SNOMED Code(s): 338180823 Comment: - SCDs in setting of Possible GI Bleeding and profound anemia. Status and Disposition: Inpatient, Discharge when medically stable.
[2019-07-01] MEDS ORDERED: oxyCODONE TAB* 5 MG TAB PO ONE (04:15)
[2019-07-01 06:08] LABS: ABS Lymphocytes 0.3 10^3/ul (1.0-4.8); ABS Monocytes 0.2 10^3/ul (0-0.8); Eosinophil % 0.1 %; Hematocrit 25 % (42-52); Hemoglobin 8.4 g/dL (14.0-18.0); Lymphocyte % 7.6 %; Mean Corpuscular HGB Conc 33 g/dL (31-36); Mean Corpuscular Hemoglobin 27 pg (27-31); Mean Corpuscular Volume 81 fL (80-94); Mean Platelet Volume 6.9 fL (7.4-10.4); Platelet Count 409 10^3/uL (150-450); Red Blood Count 3.11 10^6 /uL (4.18-5.48); Red Cell Distribution Width 18 % (10-15); White Blood Count 4.6 10^3/uL (3.5-10.8)
[2019-07-01 06:36] LABS: % Iron Saturation 11 % (15-55); Iron 24 ug/dL (50-212); Total Iron Binding Capacity 213 mcg/dL (250-450); Transferrin 152 mg/dL (203-362)
[2019-07-01 06:37] LABS: ALT 20 U/L (7-52); AST 22 U/L (13-39); Albumin 2.5 g/dL (3.2-5.2); Albumin/Globulin Ratio 0.9 (1-3); Alkaline Phosphatase 42 U/L (34-104); Blood Urea Nitrogen 40 mg/dL (6-24); CO2 Carbon Dioxide 20 mmol/L (22-32); EGFR African American 92.9 (>60); EGFR Non-African American 76.7 (>60); Globulin 2.9 g/dL (2-4); Glucose 129 mg/dL (70-100); Potassium 3.9 mmol/L (3.5-5.0); Sodium 139 mmol/L (135-145); Total Protein 5.4 g/dL (6.4-8.9)
[2019-07-01 06:42] LABS: Anion Gap 7 mmol/L (2-11); Chloride 112 mmol/L (101-111)
[2019-07-01 06:55] LABS: Ferritin 233.5 ng/mL (24-336)
[2019-07-01 08:11] LABS: Phosphorus 1.4 mg/dL (2.5-5.0)
[2019-07-01 08:22] LABS: Folate 7.95 ng/mL (>3.99)
[2019-07-01] MEDS ORDERED: Mirtazapine TAB* 15 MG PO PRN (08:33)
[2019-07-01 08:58] LABS: Magnesium 1.9 mg/dL (1.9-2.7)
[2019-07-01] MEDS ORDERED: Pantoprazole TAB * 40 MG TAB PO SCH (09:00)
[2019-07-01] MEDS: guaiFENesin ER TAB 600 MG PO SCH (09:46)
[2019-07-01] MEDS: Dronabinol CAP* 2.5 MG PO SCH ×2 (09:46→13:28)
[2019-07-01] MEDS: predniSONE TAB* 50 MG PO SCH (09:47)
[2019-07-01] MEDS: Cyanocobalamin TAB* 500 MCG PO SCH (09:47)
--- NOTE | 2019-07-01 10:49 | PN ---
Progress Note - Progress Note Date of Service: 07/01/19 SOAP: Subjective: []Feeling better and is now eating well. He is not in pain. Very anxious to go home. Acetaminophen (Tylenol Tab*) 650 mg PO Q6H PRN PRN Reason: MILD PAIN or TEMP > 100.4 Albuterol/Ipratropium (Duoneb (Albuterol 2.5 Mg/Ipratropium 0.5 Mg)) 1 neb INH Q4H PRN PRN Reason: SOB/WHEEZING Last Admin: 06/29/19 09:03 Dose: 1 neb Benzonatate (Tessalon Cap*) 100 mg PO BID PRN PRN Reason: COUGH Last Admin: 06/28/19 16:00 Dose: 100 mg Cyanocobalamin (Vitamin B12 Tab*) 1,000 mcg PO DAILY [facility] Last Admin: 07/01/19 09:47 Dose: 1,000 mcg Dronabinol (Marinol Cap*) 5 mg PO TID [facility] Last Admin: 07/01/19 09:46 Dose: 5 mg Guaifenesin (Mucinex*) 1,200 mg PO BID [facility] Last Admin: 07/01/19 09:46 Dose: 1,200 mg Azithromycin 250 mg/ Sodium (Chloride) 250 mls @ 250 mls/hr IVPB Q24H [facility] Last Admin: 06/30/19 12:11 Dose: 250 mls/hr Ceftriaxone Sodium 1 gm/ (Sodium Chloride) 50 mls @ 200 mls/hr IVPB Q24H [facility] Last Admin: 06/30/19 11:50 Dose: 200 mls/hr Mirtazapine (Remeron Tab*) 15 mg PO BEDTIME PRN PRN Reason: SLEEP Ondansetron HCl (Zofran Inj*) 4 mg IV Q6H PRN PRN Reason: NAUSEA Pantoprazole Sodium (Protonix Tab*) 40 mg PO DAILY [facility] Last Admin: 07/01/19 09:47 Dose: 40 mg Prednisone (Deltasone Tab*) 50 mg PO DAILY [facility] Last Admin: 07/01/19 09:47 Dose: 50 mg Objective: [] Vital Signs Temp Pulse Resp BP Pulse Ox 97.4 F 56 20 132/78 99 07/01/19 07:15 07/01/19 07:15 07/01/19 09:46 07/01/19 07:15 07/01/19 07:15 HEENT: think, pale, no oral lesions CTA RRR S1S2 +BS NT ND, no HSM Ext w/o edema Assessment: []58 with marked weight loss, positive inflammatory markers and a refractory anemia. Possible vasculitis or connective tissue disease. During admission eating well and he feels better after IV Abx. DDx anemia includes thalassemia, anemia of chronic disease, possible concurrent iron deficiency. No evidence for primary bone marrow disease or malignancy at this time. Plan: [] 1. Anemia stable s/p PRBC 2. No supplemental iron 3. Check hemoglobin electrophoresis 4. Will follow up later this week if he goes home today
[2019-07-01] MEDS: cefTRIAXone(*) 1 GM in NS 0.9% 50 ML* 50 ML IVPB SCH (12:02)
[2019-07-01 12:24] LABS: JO-1 Antibody <0.2 U; RNP Antibody, IgG 0.2 U; SS-A/Ro Antibody <0.2 U; SS-B/La Antibody <0.2 U; Sm (Smith) IgG Antibody <0.2 U
[2019-07-01] MEDS: Azithromycin IV(*) 250 MG in NS 0.9% 250 ML* 250 ML IVPB SCH (12:24)
[2019-07-01 12:33] LABS: Cytomegalovirus IgG Antibody Positive (Negative)
[2019-07-01 15:00] LABS: Myeloperoxidase Antibody <0.2 U; Proteinase 3 <0.2 U; Sm (Smith) IgG Antibody <0.2 U
[2019-07-01 15:37] VITALS: BP 148/72
[2019-07-01 16:01] LABS: Complement C3 108 mg/dL (75 - 175)
[2019-07-01 16:08] LABS: Immunoglobulin A 346 mg/dL (61 - 356); Immunoglobulin G 1100 mg/dL (767 - 1590); Immunoglobulin M 81 mg/dL (37 - 286)
--- NOTE | 2019-07-02 00:52 | DS ---
CC: Dr. Bell; Dr. Fenton; Dr. Peña; Dr. Worley; Dr. Hoskins * DISCHARGE SUMMARY: DATE OF ADMISSION: 06/28/19 DATE OF DISCHARGE: 07/01/19 PROVIDER: NAEL Hayden. PRIMARY CARE PROVIDER: Dr. Bell. ATTENDING PHYSICIAN WHILE IN THE HOSPITAL: Dr. Trino Miller * (dictated by NAEL Hayden). CONSULTING OPTICAL COATING TECHNICIAN: Dr. Fenton. CONSULTING ELECTRICAL APPLIANCE REPAIRER/ONCOLOGIST: Dr. Peña. CONSULTING TRANSPORTATION PROJECT MANAGER: Dr. Worley, Dr. Hoskins. PRIMARY DIAGNOSES: 1. Acute kidney injury, likely prerenal, resolved. 2. Possible anemia of chronic disease or thalassemia in addition to previously known iron deficiency anemia. 3. Unclear autoimmune disorder. 4. Pneumonia. SECONDARY DIAGNOSES: 1. Ongoing protein-calorie malnutrition. 2. Iron deficiency anemia. 3. Heart failure with reduced ejection fraction. 4. History of gastritis. 5. Chronic obstructive pulmonary disease. 6. Recurrent esophageal candidiasis. PROCEDURE DONE WHILE IN THE HOSPITAL: EGD on 06/30/[address] Hoskins. Impression: 1. Gastric scar, lesser curvature. 2. Minimal gastric retention. STUDIES WHILE IN THE HOSPITAL: Liver ultrasound on 06/30/19. Impression: Liver has normal ultrasound appearance. Trace free fluid in the right upper quadrant of uncertain etiology. Chest x-ray on 06/28/19. Air space opacification predominating the left lower and mid lung zones concerning for pneumonia. PERTINENT LABORATORY DATA: CMV IgG positive. CMV IgM negative. RF 14. Creatinine on day of discharge 1.00. B12 and folate were within normal limits. HISTORY OF PRESENT ILLNESS/HOSPITAL COURSE: Hector Bloom is a 58-year-old male with a past medical history of COPD, iron deficiency anemia, recurrent esophageal candidiasis, heart failure with reduced ejection fraction, who has been recently admitted and has an ongoing workup for his ongoing malnutrition status and reported to the emergency department on 06/28/19 due to feeling unwell and experiencing syncope. Please see admitting history and physical dictated by Fabio Velazco, physician per diem physical therapist assistant, for further information. Ultimately, the patient was found to have anemia of 6.4 and was given 2 units of PRBCs. The patient additionally was given IV iron during his hospital stay. His H and H did improve and remained stable and the patient was no longer feeling symptomatic of this anemia. He does continue to have low protein and he was seen by registered sales assistant who did not have further recommendations aside from increased sauces and gravies and Ensure supplementation 3 times a day. The patient's iron studies were consistent with low iron, but did have normal ferritin. This was discussed with Dr. Peña who believes he probably has an ongoing anemia of chronic disease in the setting of this ongoing autoimmune disorder that may be masking what may be a lower ferritin, plus also the patient may have thalassemia. The patient had an outpatient echocardiogram prior to admission and results demonstrate an ejection fraction of 45% to 50%, which has raised concern for possible amyloidosis as the patient has ongoing poor nutrition and subcutaneous findings of small wounds and describes occasional lesions which are transient and the patient describes as a healing bite howell. The patient's endoscopy did not demonstrate any concern for oncological findings and did not demonstrate any cause of active bleeding and Dr. Hoskins recommended restarting a PPI concerning the patient had previous gastritis. The patient did have colonoscopy in the previous recent hospitalization, which was also negative for any evidence of masses. Because the patient had a CT chest, which demonstrated a possible iron overload in the previous hospitalization 8 weeks ago and a liver ultrasound, which was normal other than some small serous fluid, which is likely due to his heart failure. It does not appear the patient is on medications to help treat his heart failure. He was bradycardiac on the last several days of his hospital stay and would likely not tolerate a beta-lisa though would likely benefit from an JURGEN inhibitor. The patient has been seen by Dr. Peña in the past when he followed up outpatient with him, was found to have a positive AMMY and was looking very unwell on his office visit according to Dr. Peña. This prompted a referral to Dr. Fenton and the patient took that opportunity to follow up with his outpatient provider by coming to the hospital, when Dr. Fenton evaluated the patient and also ordered several labs, which will be further discussed, which are still pending. On the day of discharge, the patient had positive CMV IgG which was discussed with Dr. Fenton. Considering that the patient is likely not immunosuppressive, he had been on prednisone for a period of time. He is not in need of treatment for CMV at this time. I did order a CMV PCR which is pending. On the day of discharge, the patient was feeling improved from time of his arrival. His MEENAKSHI has resolved. He denies chest pain, difficulty breathing, shortness of breath, dizziness, stomach pain, nausea and vomiting and he feels safe for discharge. LABS THAT ARE PENDING AT THE TIME OF DISCHARGE: Tissue transglutaminase antibody, endoscopy pathology, immunoglobulin A, stool H. pylori antigen, pancreatic elastase-1 stool. CCP, MPO, double-stranded DNA, hemoglobin electrophoresis, Bharti-1 antibody, SSA/Ro antibody, SSB/La antibody, Salgado IgG, HEAD GOLF PROFESSIONAL IgG, scleroderma antibody, complements C3 and C4. PHYSICAL EXAMINATION: General: Cachetic middle aged white male, lying in hospital bed, appearing comfortable, in no acute distress. Head: Normocephalic , atraumatic. Eyes: PERRL. Sclerae anicteric. ENT: Mucous membranes moist. Neck: Supple. Neck is thin. Lungs: Clear to auscultation throughout. Cardio : Regular rate and rhythm without murmurs, rubs, or gallops. Abdomen: Soft, nontender, nondistended. Extremities: No clubbing, cyanosis, or edema. Neuro : The patient is alert and oriented x3. No focal deficits. Skin: Diffuse small eschar less than 0.5 cm in diameter disseminated throughout lower extremities, upper extremities including on flexor surfaces of upper arms and fingers. DISCHARGE PLAN: Diet: Regular, unrestricted diet to be supplemented a.c. with Ensure. Activity: The patient may return to normal activity. The patient was advised to return to emergency department if he experiences shortness of breath, chest pain, loss of consciousness. The patient will be following up with Dr. Fenton and Dr. Peña as an outpatient. At this time, he will have followup of labs previously discussed. Results pending at the time of discharge. The patient should have a repeat CMV IgG tested in 2 to 4 weeks to evaluate if this is raising as this may be signs sales representative of an acute CMV infection. The patient has followup appointments scheduled with Dr. Bell for 07/03/19. He is planning on reporting to his appointment and he should review this hospital stay at that time. During his stay, a customer care team coach with [facility] was established and will be following the patient to help coordinate his care. Of note, I did prescribe the patient 20 mg of Lasix considering his heart failure diagnosis and he has been complaining of intermittent lower extremity edema. However, given the patient's poor nutrition status, I will call the pharmacy and notify them to tell the patient not to take this medication. DISCHARGE MEDICATIONS: 1. Prednisone 50 mg x1 day, then 40 mg x1 week, then 30 mg x1 week, then 20 mg x1 week, 10 mg x1 week, then discontinue. 2. Pantoprazole 40 mg p.o. daily. 3. Mirtazapine 50 mg p.o. at bedtime. 4. Lisinopril 20 mg p.o. daily. 5. Ensure High Protein 237 mL p.o. a.c. 6. Cefdinir 300 mg p.o. b.i.d. Continued home medications: 1. Oxycodone 5 mg p.o. q. 6 hours p.r.n. severe pain, maximum daily dose 4 tabs. 2. Acetaminophen 650 mg p.o. q. 6 hours p.r.n. mild pain. CONDITION ON DISCHARGE: Fair. DISPOSITION: Home. TIME SPENT: Approximately 50 minutes was spent on this discharge, approximately half this time was spent at the bedside. NAEL HAYDEN [id number]/[facility] #: [id number] [facility]
[2019-07-02 16:31] LABS: Stool Helicobacter pylori Ag Negative (Negative)
[2019-07-02 17:22] LABS: Tissue Transglutaminase IgG Ab 1.3 U/mL
[2019-07-02 17:27] LABS: Tissue Transglutaminase IgA Ab <1.2 U/mL
[2019-07-05 10:54] LABS: Hemochromatosis Specimen WB Whole Blood
== END 2019-07-01 17:50 | disposition home or self-care (01) | DRG 469 ==
LOC: ED 08:53 → MED 13:50
PROVIDERS: ADMIT Internal Medicine; ATTEND Internal Medicine
PROC: 30233N1 Transfusion of Nonautologous Red Blood Cells into Peripheral Vein, Percutaneous Approach (ICD-10-PCS; principal; 2019-06-28)
PROC: 0DD98ZX Extraction of Duodenum, Via Natural or Artificial Opening Endoscopic, Diagnostic (ICD-10-PCS; 2019-06-30)
PROC: 0DD68ZX Extraction of Stomach, Via Natural or Artificial Opening Endoscopic, Diagnostic (ICD-10-PCS; 2019-06-30)
DX: N17.9 Acute kidney failure, unspecified (principal); E43 Unspecified severe protein-calorie malnutrition; J18.9 Pneumonia, unspecified organism; R64 Cachexia; B37.81 Candidal esophagitis; I47.1 Supraventricular tachycardia; Z68.1 Body mass index [BMI] 19.9 or less, adult; D89.89 Other specified disorders involving the immune mechanism, not elsewhere classified; I50.9 Heart failure, unspecified; D63.8 Anemia in other chronic diseases classified elsewhere; D50.9 Iron deficiency anemia, unspecified; J44.9 Chronic obstructive pulmonary disease, unspecified; R00.1 Bradycardia, unspecified; D56.9 Thalassemia, unspecified; R19.7 Diarrhea, unspecified; M54.5 Low back pain; I45.19 Other right bundle-branch block; M17.0 Bilateral primary osteoarthritis of knee; F10.10 Alcohol abuse, uncomplicated; F17.210 Nicotine dependence, cigarettes, uncomplicated; R40.2413 Glasgow coma scale score 13-15, at hospital admission; Z79.82 Long term (current) use of aspirin; Z79.891 Long term (current) use of opiate analgesic; Z79.52 Long term (current) use of systemic steroids; Z80.1 Family history of malignant neoplasm of trachea, bronchus and lung; Z80.7 Family history of other malignant neoplasms of lymphoid, hematopoietic and related tissues
CPT/HCPCS: 36415; 71045; 76705; 80048; 80053; 81003; 81015; 81256; 82270; 82272; 82607; 82656; 82728; 82746; 82784; 83020; 83516; 83540; 83550; 83605; 83735; 83880; 84100; 84484; 85014; 85018; 85025; 85045; 85610; 85652; 85730; 86140; 86160; 86200; 86225; 86235; 86431; 86644; 86645; 86850; 86900; 86901; 86922; 87040; 87070; 87077; 87086; 87205; 87338; 87497; 87899; 88305; 93005; 94640; 99156; 99157; 99232; 99285; A9270-GY; J0456; J0696; J2250; J3010; J7512; P9040

== ENCOUNTER 2019-12-20 14:15 | Observation (INO) | payer OTHER ==
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
--- OUTSIDE RECORDS SUMMARY | 2019-12-20 15:05 | XMS REPORT | Continuity of Care Document ---
:1960 External Reference #:[id number] Author Name Dariana Chavez M.D., FACP (transmitted by agent of provider Elda Mcneill) Address [address], [place] [address] Care Team Providers Name Role Phone Cierra Bell M.D. 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 Ding MD Onset: 01/19/2017 Tobacco user Cyndy Ding MD Onset: 01/19/2017 Emphysema, unspecified Cyndy Ding MD Onset: 01/19/2017 Social History Type Date Description Comments Sex Unknown Tobacco Use Start: Unknown Currently smokes 1-5 Cigarettes Daily ETOH Use Occasionally consumes alcohol Recreational Drug Use Current Drug User Marijuna occasionally Tobacco Use Start: Unknown Patient is a current smoker, smokes every day Smoking Status Reviewed: 11/11/19 Patient is a current smoker, smokes every day Exercise Type/Frequency Does not exercise Allergies, Adverse Reactions, Alerts Description No Known Drug Allergies Medications Active Medications SIG Qnty Indications Ordering Date Provider Megace ES 5 ml by mouth 150ml R64 Dariana Chavez, 11/11/2019 625mg/5ML daily M.D., FACP Suspension Gabapentin take one pill 3 60caps Bismark Fenton, 10/29/2019 300mg times a day M.D. Capsules Aspercreme Lidocaine apply daily as 30units Bismark Fenton, 10/29/2019 Max Strength needed for M.D. 4% Patches localized pain Ipratropium 1 unit every 6 270ml J44.9 Cyndy Ding, 08/22/2019 [place]/Albuterol hours as needed MD Sulfate 0.5-2.5(3)mg/3ML Solution Nebulizer System 1 unit q4 hours 1units J44.9 Cyndyangel luis Paradaali, 08/22/2019 ALL-In-One and as needed MD Andrews Spiriva Respimat one inhalation 4gm Cierra Bell MD 08/14/2019 once a day 2.5mcg/Act Aerosol Mirtazapine take one tablet at 90tabs Cierra Bell MD 07/18/2019 45mg night Tablets Plaquenil 1 by mouth every 30tabs M06.4 Bismark Fenton, 07/11/2019 200mg Tablets day M.D. Prednisone take one 60tabs M06.4 Bismark Fenton, 07/11/2019 10mg Tablets capsule/tablet M.D. daily by mouth Lisinopril 1 by mouth every 90tabs Cierra Bell MD 07/03/2019 20mg Tablets day Acetaminophen ER take every 6 hours 60tabs Other Ordering 07/03/2019 650mg as needed for Provider Tablets ER pain. Protonix every day 90tabs Cierra Bell MD 07/01/[address] Freitas Before Meals 90caps Unknown 07/01/2019 2.5mg Capsules Ensure Active High 2-3 times a day 90units R64 Dariana Chavez, 05/28/2019 Protein after meals dx r64 M.D., FACP Liquid auth# [id number] Spiriva Handihaler inhale the 90caps J43.9 Cierra Bell MD 05/28/2019 contents of one 18mcg Capsules capsule via handihaler by mouth every evening Oxycodone HCL 1 - 2 tabs by 90caps Dariana Chavez, 5mg mouth every 6 M.D., FACP Capsules hours as needed pain History Medications Spiriva Respimat one inhalation 4gm Cierra Bell MD 08/14/2019 - once a day 08/14/2019 1.25mcg/Act Aerosol Mirtazapine 50MG 1 by mouth at 90units Cierra Bell MD 07/03/2019 - bedtime 07/18/2019 Remeron Unknown 07/01/2019 - 07/03/2019 Cefdinir Twice Daily 14caps Unknown 07/01/2019 - 300mg 08/09/2019 Capsules Lasix Every Day 30tabs Unknown 07/01/2019 - 20mg Tablets 07/17/2019 Prednisone one tab daily 30tabs M06.4 Cierra Bell MD 06/18/2019 - 20mg 07/11/2019 Tablets Medications Administered in Office Medication SIG Qnty Indications Ordering Provider Date Inj, Regadenoson, 0.1 MG Blake Connell, DO [facility] 08/07/2019 Injection Technetium TC 99M Blake Connell, DO [facility] 08/07/2019 Tetrofosmin, Per Unit Dose Up To 40 Millicuries Injection Technetium TC 99M Blake S. Ko, DO [facility] 08/07/2019 Tetrofosmin, Per Unit Dose Up To 40 Millicuries Injection Inj, Regadenoson, 0.1 MG Michael Rodrigues M.D. 12/16/2016 Injection Technetium TC 99M Michael Rodrigues M.D. 12/16/2016 Tetrofosmin, Per Unit Dose Up To 40 Millicuries Injection Immunizations CPT Code Status Date Vaccine Lot # [id number] Given 07/21/2016 Influ Virus Vaccine, Quadrivalent, Split Virus, Im Fluzone not PF Vital Signs Date Vital Result Comment 11/11/2019 8:10am Height 74 inches 6'2" Weight 132.00 lb Heart Rate 76 /min BP Systolic Sitting 97 mmHg BP Diastolic Sitting 62 mmHg O2 % BldC Oximetry 98 % BMI (Body Mass Index) 16.9 kg/m2 10/29/2019 1:11pm Height 74 inches 6'2" Weight 131.25 lb Heart Rate 86 /min BP Systolic Sitting 118 mmHg BP Diastolic Sitting 62 mmHg Pain Level 3 BMI (Body Mass Index) 16.8 kg/m2 Results Test Acquired Date Facility Test Result H/L Range Note Laboratory test 11/04/2019 [facility] TSH 1.42 Normal 0.34- 5.[address] (Thyroid mcIU/[place] [address] [employer] H[employer]) [phone] Comp Metabolic 11/04/2019 [facility] Sodium 135 mmol/L Normal 135-[address] [place], [place] [id number] [phone] Chloride 104 mmol/L Normal 101-111 Co2 Carbon Dioxide 26 mmol/L Normal 22-32 Glucose 84 mg/dL Normal 70-100 Blood Urea Nitrogen 32 mg/dL High 6-24 Creatinine 1.36 mg/dL High 0.67-1.17 BUN/Creatinine Ratio 23.5 High 8-20 Calcium 9.5 mg/dL Normal 8.6-10.3 Total Protein 6.2 g/dL Low 6.4-8.9 Albumin 3.6 g/dL Normal 3.2-5.2 Globulin 2.6 g/dL Normal 2-4 Albumin/Globulin Ratio 1.4 Normal 1-3 Total Bilirubin 0.20 mg/dL Normal 0.2-1.0 Alkaline Phosphatase 46 U/L Normal 34-104 Alt 7 U/L Normal 7-52 Ast 11 U/L Low 13-39 Egfr Non- 53.8 >60 Egfr 65.1 >60 1 Potassium 5.1 mmol/L High 3.5-5.0 Anion Gap 5 mmol/L Normal 2-11 Laboratory test 11/04/2019 [facility] C Reactive 11.34 High < 8.[address] Protein mg/[place] [address] [phone] CBC Auto Diff 11/04/2019 [facility] White Blood 8.2 Normal 3.5 -10.[address] Count 10^3/[place] [address] [phone] Red Blood Count 3.50 10^6/uL Low 4.18-5.48 Hemoglobin 10.0 g/dL Low 14.0-18.0 Hematocrit 31 % Low 42-52 Mean Corpuscular Volume 88 fL Normal 80-94 Mean Corpuscular Hemoglobin 29 pg Normal 27-31 Mean Corpuscular HGB Conc 32 g/dL Normal 31-36 Red Cell Distribution Width 19 % High 10-15 Platelet Count 284 10^3/uL Normal 150-450 Mean Platelet Volume 7.8 fL Normal 7.4-10.4 Abs Neutrophils 7.4 10^3/uL Normal 1.5-7.7 Abs Lymphocytes 0.6 10^3/uL Low 1.0-4.8 Abs Monocytes 0.2 10^3/uL Normal 0-0.8 Abs Eosinophils 0.0 10^3/uL Normal 0-0.6 Abs Basophils 0.0 10^3/uL Normal 0-0.2 Abs Nucleated RBC 0.0 10^3/uL Granulocyte % 89.9 % Lymphocyte % 6.8 % Monocyte % 2.7 % Eosinophil % 0.3 % Basophil % 0.3 % Nucleated Red Blood Cells % 0.1 Laboratory test 11/04/2019 [facility] Erythrocyte Sed 30 mm/Hr High 0-[address] Rate [place], [place] [id number] [phone] Connective 11/04/2019 [facility] Anti-Nuclear > 12.0 U High 2 Tissue Panel [address] [place] [address] [phone] Cyclic Citrullinated Peptide <15.6 U 3 Laboratory test 11/04/2019 [facility] Anti Nuclear >12.0 U Abnormal [address] [place] [address] [phone] Protein 11/04/2019 [facility] Total 6.5 g/dL 6.[address] Protein([place]) [place] [address] 7.9 [phone] Albumin 3.3 g/dL Abnormal 3.4-4.7 Alpha-1 Globulin 0.3 g/dL 0.1-0.3 Alpha-2 Globulin 0.8 g/dL 0.6-1.0 Beta Globulin 0.9 g/dL 0.7-1.2 Gamma Globulin 1.2 g/dL 0.6-1.6 Albumin/Globulin Ratio 1.05 Impression See Comment 5 Drug Abuse 20 09/05/2019 [facility] Urine Amphetamine Negative ng/mL [address] [place] [address] [phone] Urine Barbiturates Negative ng/mL 7 Urine Benzodiazepines Negative ng/mL 8 Urine Cocaine Negative ng/mL 9 Urine Phencyclidine Negative ng/mL Cutoff: 25 Urine Tetrahydrocannabinol Negative ng/mL Cutoff: 50 10 Creatinine, Urine 17.6 mg/dL Specific [place] 1.004 pH 6.0 Oxidants Negative 11 Adulterants Comment Normal Codeine, Ur Not Detected ng/mL Cutoff: 25 12 Ghxqbsn-0-tlvz-glucuronide, Ur Not Detected ng/mL 13 Morphine, Ur Not Detected ng/mL Cutoff: 25 14 Zzauptra-0-rnaf-glucuronide, U Not Detected ng/mL 15 6-monoacetylmorphine, Ur Not Detected ng/mL Cutoff: 25 16 Hydrocodone, Ur Not Detected ng/mL Cutoff: 25 17 Norhydrocodone, Ur Not Detected ng/mL Cutoff: 25 18 Dihydrocodeine, Ur Not Detected ng/mL Cutoff: 25 19 Hydromorphone, Ur Not Detected ng/mL Cutoff: 25 20 Gfyoplvgveoau0tmnyubkcqqpauts Not Detected ng/mL 21 Oxycodone, Ur Present ng/mL Abnormal Cutoff: 25 22 Noroxycodone, Ur Present ng/mL Abnormal Cutoff: 25 23 Oxymorphone, Ur Not Detected ng/mL Cutoff: 25 24 Llwqbczaeca-7-qjvy-glucuronide Present ng/mL Abnormal 25 Noroxymorphone, Ur Present ng/mL Abnormal Cutoff: 25 26 Fentanyl, Ur Not Detected ng/mL Cutoff: 2 27 Norfentanyl, Ur Not Detected ng/mL Cutoff: 2 28 Meperidine, Ur Not Detected ng/mL Cutoff: 25 29 Normeperidine, Ur Not Detected ng/mL Cutoff: 25 30 Naloxone, Ur Not Detected ng/mL Cutoff: 25 31 Jsubsdyy-9-vjdf-glucuronide, U Not Detected ng/mL 32 Methadone, Ur Not Detected ng/mL Cutoff: 25 33 Eddp, Ur Not Detected ng/mL Cutoff: 25 34 Propoxyphene, Ur Not Detected ng/mL Cutoff: 25 35 Norpropoxyphene, Ur Not Detected ng/mL Cutoff: 25 36 Tramadol, Ur Not Detected ng/mL Cutoff: 25 37 O-desmethyltramadol, Ur Not Detected ng/mL Cutoff: 25 38 Tapentadol, Ur Not Detected ng/mL Cutoff: 25 39 N-desmethyltapentadol, Ur Not Detected ng/mL Cutoff: 50 40 Xqqkehanwx-whrc-jljyzqwmicb, U Not Detected ng/mL 41 Buprenorphine, Ur Not Detected ng/mL Cutoff: 5 42 Norbuprenorphine, Ur Not Detected ng/mL Cutoff: 5 43 Norbuprenorphine glucuronide Not Detected ng/mL Cutoff: 20 44 Opioid Interpretation See Comment 45 CBC Auto 09/05/2019 [facility] White Blood 8.8 10^3/uL Normal 3.5-10.[address] [place] [address] [phone] Red Blood Count 3.09 10^6/uL Low 4.18-5.48 Hemoglobin 9.1 g/dL Low 14.0-18.0 Hematocrit 28 % Low 42-52 Mean Corpuscular Volume 89 fL Normal 80-94 Mean Corpuscular Hemoglobin 29 pg Normal 27-31 Mean Corpuscular HGB Conc 33 g/dL Normal 31-36 Red Cell Distribution Width 17 % High 10-15 Platelet Count 383 10^3/uL Normal 150-450 Mean Platelet Volume 7.7 fL Normal 7.4-10.4 Abs Neutrophils 7.6 10^3/uL Normal 1.5-7.7 Abs Lymphocytes 0.7 10^3/uL Low 1.0-4.8 Abs Monocytes 0.3 10^3/uL Normal 0-0.8 Abs Eosinophils 0.1 10^3/uL Normal 0-0.6 Abs Basophils 0.0 10^3/uL Normal 0-0.2 Abs Nucleated RBC 0.0 10^3/uL Granulocyte % 86.7 % Lymphocyte % 8.3 % Monocyte % 3.9 % Eosinophil % 0.8 % Basophil % 0.3 % Nucleated Red Blood Cells % 0.0 Iron & Iron Binding 09/05/2019 [facility] Iron 37 g/dL Low 50-212 [address] [place] [address] [phone] Unsaturated Iron Binding < 328 g/dL Total Iron Binding Capacity 343 g/dL Normal 250-450 Transferrin 245 mg/dL Normal 203-362 % Iron Saturation 11 % Low 15-55 Laboratory test 09/05/2019 [facility] Ferritin 25.8 ng/mL Normal 24-336 [address] [place], [place] [address] [phone] Vitamin B12 350 pg/mL Normal 180-914 46 Comp Metabolic 07/03/2019 [facility] Sodium 136 mmol/L Normal 135-145 Panel [address] [place] [address] [phone] Potassium 4.6 mmol/L Normal 3.5-5.0 Chloride 106 mmol/L Normal 101-111 Co2 Carbon Dioxide 22 mmol/L Normal 22-32 Anion Gap 8 mmol/L Normal 2-11 Glucose 107 mg/dL High 70-100 Blood Urea Nitrogen 33 mg/dL High 6-24 Creatinine 0.96 mg/dL Normal 0.67-1.17 BUN/Creatinine Ratio 34.4 High 8-20 Calcium 8.6 mg/dL Normal 8.6-10.3 Total Protein 6.1 g/dL Low 6.4-8.9 Albumin 2.9 g/dL Low 3.2-5.2 Globulin 3.2 g/dL Normal 2-4 Albumin/Globulin Ratio 0.9 Low 1-3 Total Bilirubin 0.30 mg/dL Normal 0.2-1.0 Alkaline Phosphatase 47 U/L Normal 34-104 Alt 22 U/L Normal 7-52 Ast 15 U/L Normal 13-39 Egfr Non- 80.5 >60 Egfr 97.3 >60 47 Cell Morphology 07/03/2019 [facility] Microcytosis 1+ [address] [place] [address] [phone] Hypochromasia 2+ Lauren Cells 1+ Elliptocyte 2+ CBC Auto 07/03/2019 [facility] White Blood 4.9 10^3/uL Normal 3.5-10.[address] [place] [address] [phone] Red Blood Count 3.54 10^6/uL Low 4.18-5.48 Hemoglobin 9.5 g/dL Low 14.0-18.0 Hematocrit 29 % Low 42-52 Mean Corpuscular Volume 82 fL Normal 80-94 Mean Corpuscular Hemoglobin 27 pg Normal 27-31 Mean Corpuscular HGB Conc 33 g/dL Normal 31-36 Red Cell Distribution Width 19 % High 10-15 Platelet Count 587 10^3/uL High 150-450 Mean Platelet Volume 7.0 fL Low 7.4-10.4 Abs Neutrophils 4.4 10^3/uL Normal 1.5-7.7 Abs Lymphocytes 0.3 10^3/uL Low 1.0-4.8 Abs Monocytes 0.2 10^3/uL Normal 0-0.8 Abs Eosinophils 0.0 10^3/uL Normal 0-0.6 Abs Basophils 0.0 10^3/uL Normal 0-0.2 Abs Nucleated RBC 0.0 10^3/uL Granulocyte % 88.9 % Lymphocyte % 6.4 % Monocyte % 4.5 % Eosinophil % 0.1 % Basophil % 0.1 % Nucleated Red Blood Cells % 0.1 Hemochromatosis 06/28/2019 [facility] Hemochromatosis See Comment 48 Hereditary Dna [address] [place] [address] [phone] Hemochromatosis Specimen WB Whole Blood Hemochromatosis Method See Comment 49 Hemochromatosis Results See Comment 50 Hemochromatosis Interpretation See Comment 51 Hemochromatosis Reviewed By See Comment 52 Laboratory test 06/28/2019 [facility] SM([place]) Igg <0.2 U [address] [place] [address] [phone] Myeloperoxidase AB <0.2 U 54 Proteinase 3 <0.2 U 55 Anti Double Stranded Dna AB 160 IU/mL Abnormal 56 Urine Culture And 06/28/2019 [facility] Urine Culture SEE RESULT [address] [place] [address] [phone] Laboratory test 06/28/2019 [facility] Blood Culture SEE RESULT [address] [place] [address] [phone] Urinalysis Profile 06/28/2019 [facility] Urine Color Yellow [address] [place] [address] [phone] Urine Appearance Cloudy Urine Specific [place] 1.018 Normal 1.010-1.030 Urine pH 5.0 Normal 5-9 Urine Urobilinogen Negative Negative Urine Ketones Negative Negative Urine Protein 1+(30 mg/dL) Abnormal Negative Urine Leukocytes Negative Negative Urine Blood 3+ Abnormal Negative Urine Nitrite Negative Negative Urine Bilirubin Negative Negative Urine Glucose Negative Negative Urine White Blood Cell Trace(0-5/hpf) Absent Urine Red Blood Cell 3+(>10/hpf) Abnormal Absent Urine Bacteria 1+ Abnormal Absent Laboratory test 06/28/2019 [facility] Erythrocyte Sed 115 mm/Hr High 0-[address] [place] [address] [phone] Cell Morphology 06/28/2019 [facility] Microcytosis 1+ [address] [place] [address] [phone] Hypochromasia 1+ Anisocytosis 2+ Elliptocyte 1+ CBC Auto 06/28/2019 [facility] White Blood 6.4 10^3/uL Normal 3.5-10.[address] [place] [address] [phone] Red Blood Count 2.53 10^6/uL Low 4.18-5.48 Hemoglobin 6.4 g/dL Critical low 14.0-18.0 59 Hematocrit 20 % Low 42-52 Mean Corpuscular Volume 78 fL Low 80-94 Mean Corpuscular Hemoglobin 26 pg Low 27-31 Mean Corpuscular HGB Conc 33 g/dL Normal 31-36 Red Cell Distribution Width 18 % High 10-15 Platelet Count 334 10^3/uL Normal 150-450 Mean Platelet Volume 6.4 fL Low 7.4-10.4 Abs Neutrophils 6.0 10^3/uL Normal 1.5-7.7 Abs Lymphocytes 0.3 10^3/uL Low 1.0-4.8 Abs Monocytes 0.2 10^3/uL Normal 0-0.8 Abs Eosinophils 0.0 10^3/uL Normal 0-0.6 Abs Basophils 0.0 10^3/uL Normal 0-0.2 Abs Nucleated RBC 0.0 10^3/uL Granulocyte % 92.7 % Lymphocyte % 3.9 % Monocyte % 3.2 % Eosinophil % 0.1 % Basophil % 0.1 % Nucleated Red Blood Cells % 0.0 Laboratory 06/28/2019 [facility] Partial 33.4 Normal 26.0- 38.0 test finding [address] [place] [address] PTT [phone] Inr/Protime 06/28/2019 [facility] Inr 1.27 High 0.82-1.[address] [place] [address] [phone] Laboratory 06/28/2019 [facility] C Reactive 251.44 High <8.01 test finding [address] Protein mg/[place] [address] [phone] Troponin-I (TnI) 0.03 ng/mL <0.04 61 B-Type Natriuretic Peptide BNP 161 pg/mL High <=100 Comp Metabolic Panel 06/28/2019 [facility] Sodium 132 mmol/L Low 135-[address] [place] [address] [phone] Potassium 3.6 mmol/L Normal 3.5-5.0 Chloride 103 mmol/L Normal 101-111 Co2 Carbon Dioxide 19 mmol/L Low 22-32 Anion Gap 10 mmol/L Normal 2-11 Glucose 97 mg/dL Normal 70-100 Blood Urea Nitrogen 27 mg/dL High 6-24 Creatinine 1.52 mg/dL High 0.67-1.17 BUN/Creatinine Ratio 17.8 Normal 8-20 Calcium 7.7 mg/dL Low 8.6-10.3 Total Protein 5.7 g/dL Low 6.4-8.9 Albumin 2.5 g/dL Low 3.2-5.2 Globulin 3.2 g/dL Normal 2-4 Albumin/Globulin Ratio 0.8 Low 1-3 Total Bilirubin 0.60 mg/dL Normal 0.2-1.0 Alkaline Phosphatase 41 U/L Normal 34-104 Alt 9 U/L Normal 7-52 Ast 16 U/L Normal 13-39 Egfr Non- 47.3 >60 Egfr 57.3 >60 62 Laboratory 06/28/2019 [facility] Lactic Acid 1.9 mmol/L Normal 0.5-2.[address] [place] [address] [phone] Laboratory 06/28/2019 [facility] Packed SEE RESULTS 64, test finding DR[address] Cells BELO <SEE [address] [place] [address] NOTE> [phone] Laboratory 06/28/2019 [facility] Lactic Acid 1.5 mmol/L Normal 0.5-2.[address] [place] [address] [phone] Type & Screen 06/28/2019 [facility] Patient [place] [address] [phone] Antibody Screen NEGATIVE Anca AB Ser If 06/18/2019 [facility] C-Anca [place] [address] [phone] P-Anca Indeterminate Abnormal Negative 67 Laboratory test 06/18/2019 [facility] Rheumatoid < 10 IU/mL Normal <[address] [place] [address] [phone] Cyclic Citrullinated Pep Igg <15.6 U 68 CK Isoenzymes 06/18/2019 [facility] Creatine 15 U/L Abnormal 39 - [address] [place] [address] [phone] CK Isoenzyme Elec, Specimen See Comment 69 Laboratory test 06/18/2019 [facility] Erythrocyte Sed 35 mm/Hr High 0-[address] [place] [address] [phone] C Reactive Protein 22.18 mg/L High <8.01 PSA Screening 0.427 ng/mL Normal 0-4.000 70 B-Type Natriuretic Peptide BNP 302 pg/mL High <=100 Protein 05/28/2019 [facility] Total 7.0 g/dL 6.3 - Electrophoresis [address] Protein(Pep) 7.9 [place], [place] [id number] [phone] Albumin 3.0 g/dL Abnormal 3.4-4.7 Alpha-1 Globulin 0.3 g/dL 0.1-0.3 Alpha-2 Globulin 1.0 g/dL 0.6-1.0 Beta Globulin 0.9 g/dL 0.7-1.2 Gamma Globulin 1.9 g/dL Abnormal 0.6-1.6 Albumin/Globulin Ratio 0.73 Impression See Comment 71 CBC Auto 05/28/2019 [facility] White Blood 3.2 10^3/uL Low 3.5 -10.[address] [place] [address] [phone] Red Blood Count 3.19 10^6/uL Low 4.18-5.48 [...] Red Blood Cells % 0.0 Laboratory 05/28/2019 [facility] Alpha 1 207 mg/dL Abnormal 100 - 190 72 test finding [address] [place] [address] A1a [phone] HIV 4TH 05/28/2019 [facility] HIV 4th Negative Negative Generation [address] [place] [address] [phone] Laboratory 05/21/2019 [facility] Partial 31.6 Normal 26.0- 38.0 73 test finding [address] [place] [address] PTT [phone] Lactic Acid 1.4 mmol/L Normal 0.5-2.0 74 CBC Auto 05/21/2019 [facility] White Blood 2.2 10^3/uL Low 3.5 -10.[address] [place] [address] [phone] Red Blood Count 3.27 10^6/uL Low 4.18-5.48 [...] Blood Cells % 0.0 Comp Metabolic 05/21/2019 [facility] Sodium 136 mmol/L Normal 135-[address] [place] [address] [phone] Potassium 4.2 mmol/L Normal 3.5-5.0 Chloride 105 [...] Egfr Non- 48.1 >60 Egfr 58.2 >60 75 Laboratory test 05/21/2019 [facility] Creatine 17 U/L Normal 10-[address] Kinase(CK) [place], [place] [address] [phone] Troponin-I (TnI) 0.01 ng/mL <0.04 76 CKMB 05/21/2019 [facility] CKMB 0.6 ng/mL Normal 0.6-6.[address] ng/[place] [address] [phone] Laboratory test 05/21/2019 [facility] TSH 2.56 Normal 0.34- 5.[address] (Thyroid mcIU/[place] [address] Stim Horm) [phone] Free T4 (Free Thyroxine) 1.08 ng/dL Normal 0.61-1.12 Blood Culture SEE RESULT BELOW 77 1 Because ethnic data is not always readily [...] 15-29 5 Kidney failure <15 (or dialysis) 2 Interpretation: Strong Positive (>=6.0) REFERENCE VALUE <=1.0 (Negative) 3 REFERENCE VALUE <20.0 (Negative) Test Performed by: [place] [address] [employer] Agent: Fabio Rosa M.D. Ph.D.; CLIA# [id number] 4 Interpretation: Strong Positive (>=6.0) REFERENCE VALUE <=1.0 (Negative) Test Performed by: [place] [address] [employer] Agent: Fabio Rosa M.D. Ph.D.; CLIA# [id number] 5 RESULT: No apparent monoclonal protein on serum electrophoresis. Test Performed by: [place] [address] [employer] Agent: Fabio Rosa M.D. Ph.D.; CLIA# [id number] 6 REFERENCE VALUE Cutoff: 500 7 REFERENCE VALUE Cutoff: 200 8 REFERENCE VALUE Cutoff: 100 9 REFERENCE VALUE Cutoff: 150 10 ADDITIONAL INFORMATION This report is intended for use in clinical monitoring or management of patients. It is not intended for use in employment-related testing. Test Performed by: [facility] [employer] - [address] [address] [employer] Agent: Fabio Rosa M.D. Ph.D.; [facility]# [id number] 11 REFERENCE VALUE Cutoff: 200 mg/L 12 Tylenol 3 13 Metabolite of codeine REFERENCE VALUE Cutoff: 100 14 Jeni Cho, Contin; Also a minor metabolite (10%) of codeine and can be seen in low concentrations (<2,000 ng/mL) with poppy seed ingestion. 15 Metabolite of morphine REFERENCE VALUE Cutoff: 100 16 Metabolite of heroin 17 Lortab, [place], Vicodin; Also a very minor metabolite of codeine and impurity (<1%) of oxycodone. 18 Metabolite of hydrocodone 19 Metabolite of hydrocodone 20 Dilaudid, Exalgo; Also a metabolite of hydrocodone and a minor (<5%) metabolite of morphine. 21 Metabolite of hydromorphone REFERENCE VALUE Cutoff: 100 22 Endocet, Percocet, Oxycontin 23 Metabolite of oxycodone 24 Numorphan, Opana; Also a metabolite of oxycodone. 25 Metabolite of oxymorphone REFERENCE VALUE Cutoff: 100 26 Metabolite of oxymorphone 27 Actiq, Duragesic, Fentora 28 Metabolite of fentanyl 29 Demerol 30 Metabolite of meperidine 31 Narcan 32 Metabolite of naloxone REFERENCE VALUE Cutoff: 100 33 Dolophine 34 Metabolite of methadone 35 Darvon, Darvocet 36 Metabolite of propoxyphene 37 Tradol, Ultram, Ultracet 38 Metabolite of tramadol 39 Nucynta 40 Metabolite of tapentadol 41 Metabolite of tapentadol REFERENCE VALUE Cutoff: 100 42 Buprenex, Suboxone 43 Metabolite of buprenorphine 44 Metabolite of buprenorphine 45 Test detected the presence of oxycodone and several metabolites (noroxycodone, noroxymorphone, and vozxmbjksds-5-fpcf-glucuronide). Suspect use of oxycodone and/or oxymorphone within the past three days. ADDITIONAL INFORMATION This test was developed and its performance characteristics determined by [facility] in a manner consistent with CLIA requirements. This test has not been cleared or approved by the U.S. Food and Drug Administration. 46 Normal Range 180 to 914 Indeterminate Range 145 to 180 Deficient Range <145 47 Because ethnic data is not always readily [...] 15-29 5 Kidney failure <15 (or dialysis) 48 RESULT: COMPLEX (SEE RESULT AND INTERPRETATION) 49 A multiplex PCR based assay utilizing the [employer] Array platform was used to test for the following three mutations in the HFE gene; C282Y, H63D, and S65C. Because of the minimal effect on iron metabolism associated with the S65C mutation, it is only reported when it is found with the C282Y mutation (i.e. if the patient has the C282Y/S65C genotype). 50 C282Y: One copy of the C282Y mutation was identified. H63D: Not detected. S65C: Not detected. 51 This result indicates that this individual is at minimum a carrier of hereditary hemochromatosis (HH). The diagnosis of HH cannot be excluded because approximately 3 to 5% of patients with HH in the [place] population carry this allele. For other ethnicities, the frequency of HH patients with this allele may differ. This assay does not rule out the presence of other disease-causing mutations in the HFE gene or in other genes associated with hemochromatosis. Genotyping results should be interpreted in the context of clinical findings, family history, and other laboratory testing (e.g. serum transferrin-iron saturation and serum ferritin). A genetic consultation may be of benefit. ADDITIONAL INFORMATION Please note that this assay cannot exclude segmental UPD or low level mosaicism for the indicated chromosome(s). An online research opportunity called [employer] (Qnary.How do you roll?), a project of [employer], is available for the recipient of this genetic test. This patient registry collects de-identified genetic and health information to advance the knowledge of genetic variants. [facility] is a collaborator of [employer]. This may not be applicable for all tests. Test results should be interpreted in the context of clinical findings, family history, and other laboratory data. Misinterpretation of results may occur if the information provided is inaccurate or incomplete. Rare polymorphisms exist that could lead to false-negative or false-positive results. If results obtained do not match the clinical findings, additional testing should be considered. Bone Marrow transplants from allogenic donors will interfere with testing. Call [facility] for instructions for testing patients who have received a bone marrow transplant. This test was developed and its performance characteristics determined by [facility] in a manner consistent with CLIA requirements. This test has not been cleared or approved by the U.S. Food and Drug Administration. 52 RESULT: Good Titus, Ph.D. Test Performed by: [facility] - [address] [address] 53 REFERENCE VALUE <1.0 (Negative) Test Performed by: [facility] - [facility] Code Blue [address] [place] [address] 54 REFERENCE VALUE <0.4 (Negative) Test Performed by: [facility] - [address] [address] 55 REFERENCE VALUE <0.4 (Negative) Test Performed by: [facility] - [address] Code Blue , [place] [address] 56 Interpretation: Positive (>75.0) REFERENCE VALUE <30.0 (Negative) Test Performed by: [facility] - [facility] Code Blue [address] [place] [address] 57 SEE RESULT BELOW Name: HECTOR BARR : [address]: Rosalba Bourgeois MD Acct: [id number] Unit: [id number] AGE: 58 Location: [place] [address] Re06/28/19 SEX: M Status: ADM IN SPEC: [id number] WANDA: 06/29/[address] [facility] [address]: Liz Bernard MD REQ: [id number] RECD: 06/29/19 STATUS: COMP ONDINAHR DR: Cierra Bell MD _ SOURCE: URINE SPDESC: ORDERED: Urine Culture Procedure Result Reported Site Urine Culture Final 06/30/19- 1018 ML No Growth (<1,000 CFU/mL) * ML - Main Lab . END OF REPORT DEPARTMENT OF PATHOLOGY, [address] [place] [address] Clifford Quesada M.D. Director [facility] # [id number] 58 SEE RESULT BELOW Name: HECTOR BARR : [address]: Trino Miller MD Acct: [id number] Unit: [id number] AGE: 58 Location: [address] Re06/28/19 Dis: 07/01/19 SEX: M Status: DIS IN SPEC: [id number] WANDA: 06/28/[address]: Liz Bernard MD REQ: [id number] RECD: 06/28/19 STATUS: BENJA FELIX DR: Cierra Bell MD _ SOURCE: BLOOD,VENO SPDES: ORDERED: Blood Cult Procedure Result Reported Site Aerobic Culture Bottle Final 07/03/19- 5 ML No Growth Day 5 Anaerobic Culture Bottle Final 07/03/19- 1035 ML No Growth Day 5 * ML - Main Lab . END OF REPORT DEPARTMENT OF PATHOLOGY, [address] [place] [address] Clifford Quesada M.D. Director [facility] # [id number] 59 Verbal to [id number] by LUCIO at 950 on 06/28/19.Results read back accurately 60 Standard intensity warfarin therapeutic range: 2.0-3.0 High intensity warfarin therapeutic range: 2.5-3.5 61 Troponin-I testing on Plasma Separator Tubes (PST) has a known false positive rate of 0.20-0.40%. All positive troponins reflex immediately to secondary confirmatory testing. Using the [employer] Dhe[employer] Bolo Access Immunoassay systems, the 99th percentile upper reference limit was demonstrated to be < 0.03 ng/mL. 62 Because ethnic data is not always readily [...] 15-29 5 Kidney failure <15 (or dialysis) 63 [facility] Severe Sepsis and Septic Shock Management Bundle Measure requires all lactic acids initially measuring >2.0 mmol/L be repeated. 64 RAPID HR PER EMS 65 SEE RESULTS BELOW [id number] AP PC TRANSFUSED 06/28/19 1201 [id number] AP PC TRANSFUSED 06/28/19 1431 66 [facility] Severe Sepsis and Septic Shock Management Bundle Measure requires all lactic acids initially measuring >2.0 mmol/L be repeated. 67 Indeterminate for pANCA pattern by immunofluorescence using ethanol-fixed neutrophils. Consider further testing for anti-proteinase 3 (PR3) and/or anti-myeloperoxidase (MPO) antibodies, if clinically indicated. Also, consider testing for antinuclear antibody (AMMY) to rule out presence of interfering antibody. ADDITIONAL INFORMATION This test was developed and its performance characteristics determined by [facility] in a manner consistent with CLIA requirements. This test has not been cleared or approved by the U.S. Food and Drug Administration. Test Performed by: [place] [address] 68 REFERENCE VALUE <20.0 (Negative) Test Performed by: [place] [address] 69 RESULT: If CK result is <100, isoenzyme will not be performed. Test Performed by: [address] [address] 70 Serum levels of PSA measured using the [employer] DXI Hybritech immunoassay should not be interpreted as absolute evidence of the presence or absence of disease. The PSA value should be used in conjunction with other pertinent clinical diagnostic procedures. A PSA value in the range of 0.1 to 0.6 ng/ml is indeterminate if being used as an indicator of recurrent or residual disease. The values obtained with different assay methods or kits cannot be used interchangeably. 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 NO 74 [facility] Severe Sepsis and Septic Shock Management Bundle Measure requires all lactic acids initially measuring >2.0 mmol/L be repeated. 75 Because ethnic data is not always readily [...] 15-29 5 Kidney failure <15 (or dialysis) 76 Troponin-I testing on Plasma Separator Tubes (PST) has a known false positive rate of 0.20-0.40%. All positive troponins reflex immediately to secondary confirmatory testing. Using the [employer] DxI 800 Access Immunoassay systems, the 99th percentile upper reference limit was demonstrated to be < 0.03 ng/mL. 77 SEE RESULT BELOW Name: HECTOR BARR : [address]: Noa Maldonado MD Acct: [id number] Unit: [id number] AGE: 58 Location: [place] Re05/21/19 SEX: M Status: DEP ER SPEC: [id number] WANDA: 05/21/[address] [facility] [address]: Noa Maldonado MD REQ: [id number] RECD: 05/21/19 STATUS: BENJA FELIX DR: Pawel Van III, MD _ SOURCE: BLOOD,VENO SPDESC: ORDERED: Blood Cult COMMENTS: Patient is On Antibiotics? NO Procedure Result Reported Site Aerobic Culture Bottle Final 05/26/19- 2151 ML No Growth Day 5 Anaerobic Culture Bottle Final 05/26/19- 2151 ML No Growth Day 5 * ML - Main Lab . END OF REPORT DEPARTMENT OF PATHOLOGY, [address] [place] [address] Clifford Quesada M.D. Director [facility] # [id number] Procedures Date Code Description Status 08/07/2019 13654 Stress Test Completed 08/07/2019 48709 Myocardial Perfusion Imaging Tomographic (Spect) Completed Multiple Studies 07/18/2019 02224 EKG Tracing & Interpretation Completed 06/30/2019 05701 Endoscopy Upper GI Biopsy Completed 06/27/2019 94040 ECHO Transthoracic, Real-Time 2D With Doppler And Color Completed Flow 06/27/2019 25985 ECHO Transthoracic, Real-Time 2D With Doppler And Color Completed Flow 03/19/2019 40470004 Colonoscopy Completed Medical Devices Description No Information Available Encounters Type Date Location Provider Dx Diagnosis Office Visit 10/29/2019 Rheumatology Bismark Fenton, M35.9 Systemic 1:40p Services Of Christina Lundy involvement of connective tissue, unspecified Z79.899 Other skilled nursing (current) drug therapy R20.8 Other disturbances of skin sensation R53.83 Other fatigue D64.9 Anemia, unspecified Office Visit 08/22/2019 1:30p Pulmonology And Cyndy R06.02 Shortness of Sleep Services Of MD Timur breath Lathe Puller J44.9 Chronic obstructive pulmonary disease, unspecified Z72.0 Tobacco use R59.0 Localized enlarged lymph nodes Office Visit 08/09/2019 2:20p [facility] Internal Cierra Bell, D50.9 Iron deficiency Medicine - Ccmob anemia, unspecified J44.9 Chronic obstructive pulmonary disease, unspecified Z72.0 Tobacco use 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 polyarthropathy Office Visit 07/18/2019 10:00a [facility] Blake Chicas R07.9 Chest pain , Of [facility] Ko, unspecified FACC I42.9 Cardiomyopathy, unspecified R06.02 Shortness of breath 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 polyarthropathy 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 polyarthropathy Z79.899 Other buttermaker helper (current) drug therapy R06.02 Shortness of breath R53.83 Other fatigue Office Visit 07/01/2019 8:13a [facility] Anna D64.9 Anemia, Assoc,pc Marium, PA-C unspecified Hospitalists J44.0 Chr obstructive pulmon disease with (acute) lower resp infct J18.9 Pneumonia, unspecified organism I50.9 Heart failure, unspecified Office Visit 06/30/2019 8:12a [facility] Anna D64.9 Anemia, Assoc,pc Marium, PA-C unspecified Hospitalists J18.9 Pneumonia, unspecified organism R64 Cachexia E43 Unspecified severe protein-calorie malnutrition Office Visit 06/29/2019 8:12a [facility] Fabio D64.9 Anemia, Assoc,pc Juan A PA unspecified Hospitalists J18.9 Pneumonia, unspecified organism E43 Unspecified severe protein-calorie malnutrition R64 Cachexia Office Visit 06/29/2019 [facility] Gastroenterology Luis Alberto Martin E43 Unspecified severe 7:00a MD Gato protein-calorie malnutrition D50.9 Iron deficiency anemia, unspecified R64 Cachexia Office Visit 06/28/2019 1:07p Rheumatology Bismark Fenton, R76.0 Raised antibody Services [facility] CarmencitaDKita titer M79.18 Myalgia, other site M25.50 Pain in unspecified joint Z87.01 Personal history of pneumonia (recurrent) Office Visit 06/28/2019 8:11a [facility] D64.9 Anemia, Assoc,pc NAEL Velazco unspecified Hospitalists J44.0 Chr obstructive pulmon disease with (acute) lower resp infct J18.9 Pneumonia, unspecified organism I50.9 Heart failure, unspecified Office Visit 06/18/2019 2:00p [facility] Internal Medicine - Cierra Bell MD R64 Cachexia Ccmob D50.9 Iron deficiency anemia, unspecified R53.83 Other fatigue 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 polyarthropathy R06.02 Shortness of breath Office Visit 06/04/2019 1:00p [facility] Gaurav Peña M.D. R64 Cachexia Of [facility] AT [place] R76.0 Raised antibody titer R70.0 Elevated erythrocyte sedimentation rate B37.81 Candidal esophagitis R53.1 Weakness D64.9 Anemia, unspecified M79.18 Myalgia, other site R59.0 Localized enlarged lymph nodes Office Visit 05/28/2019 8:50a [facility] Internal Medicine Elaine Stallings M.D. R64 Cachexia - Ccmob J43.9 Emphysema, unspecified D64.9 Anemia, unspecified Assessments Date Code Description Provider 11/11/2019 R64 Cachexia Dariana Chavez M.D., FACP 11/11/2019 Z79.891 shelter (current) use of opiate Dariana Chavez M.D., FACP analgesic 10/29/2019 M35.9 Systemic involvement of connective Bismark Fenton M.D. tissue, unspecified 10/29/2019 Z79.899 Other buttermaker helper (current) drug therapy Bismark Fenton M.D. 10/29/2019 R20.8 Other disturbances of skin sensation Bismark Fenton M.D. 10/29/2019 R53.83 Other fatigue Bismark Fenton M.D. 10/29/2019 D64.9 Anemia, unspecified Bismark Fenton M.D. 08/22/2019 R06.02 Shortness of breath Cyndy Ding MD 08/22/2019 J44.9 Chronic obstructive pulmonary disease, Cyndy Ding MD unspecified 08/22/2019 Z72.0 Tobacco use Cyndy Ding MD 08/22/2019 R59.0 Localized enlarged lymph nodes Cyndy Ding MD 08/09/2019 D50.9 Iron deficiency anemia, unspecified Cierra Bell MD 08/09/2019 J44.9 Chronic obstructive pulmonary disease, Cierra Bell MD unspecified 08/09/2019 Z72.0 Tobacco use Cierra Bell MD 08/09/2019 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 polyarthropathy Cierra Bell MD 08/07/2019 R07.9 Chest pain, unspecified Blake S. Ko, DO FACC 07/18/2019 R07.9 Chest pain, unspecified Blake S. Connell, DO FACC 07/18/2019 I42.9 Cardiomyopathy, unspecified Blake S. Connell, DO FACC 07/18/2019 R06.02 Shortness of breath Blake SKita Connell, DO FACC 07/18/2019 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 polyarthropathy Blake S. Ko, DO FACC 07/18/2019 Z79.899 Other skilled nursing (current) drug therapy Blake S. Connell, DO FACC 07/18/2019 D50.9 Iron deficiency anemia, unspecified Blake S. Connell, DO FACC 07/18/2019 J44.9 Chronic obstructive pulmonary disease, Blake S. Connell, DO FACC unspecified 07/18/2019 Z72.0 Tobacco use Blake SKita Connell, DO FACC 07/11/2019 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 polyarthropathy Bismark Fenton M.D. 07/11/2019 Z79.899 Other skilled nursing (current) drug therapy Bismark Fenton M.D. 07/11/2019 R06.02 Shortness of breath Bismark Fenton M.D. 07/11/2019 R53.83 Other fatigue Bismark Fenton M.D. 07/01/2019 D64.9 Anemia, unspecified Anna Brandi'lexa, PA-C 07/01/2019 J44.0 Chronic obstructive pulmonary disease JUANJOSE LionC with (acute) lower respiratory infection 07/01/2019 J18.9 Pneumonia, unspecified organism Annakassie Forreste, PA-C 07/01/2019 I50.9 Heart failure, unspecified Anna Brandi'lexa, NAEL-C 06/30/2019 R19.8 Other specified symptoms and signs Luis Alberto Hoskins MD involving the digestive system and abdomen 06/30/2019 D64.9 Anemia, unspecified Anna Marium, NAEL-C 06/30/2019 K31.89 Other diseases of stomach and duodenum Luis Alberto Hoskins MD 06/30/2019 J18.9 Pneumonia, unspecified organism Anna Causey, NAEL-C 06/30/2019 R19.7 Diarrhea, unspecified Luis Alberto Hoskins MD 06/30/2019 R64 Cachexia JUANJOSE LionC 06/30/2019 E43 Unspecified severe protein-calorie Anna Causey, PA-C malnutrition 06/29/2019 E43 Unspecified severe protein-calorie Luis Alberto Hoskins MD malnutrition 06/29/2019 D64.9 Anemia, unspecified NAEL Hanley 06/29/2019 D50.9 Iron deficiency anemia, unspecified Luis Alberto Hoskins MD 06/29/2019 J18.9 Pneumonia, unspecified organism NAEL Hanley 06/29/2019 R64 Cachexia Luis Alberto Hoskins MD 06/29/2019 E43 Unspecified severe protein-calorie NAEL Hanley malnutrition 06/29/2019 R64 Cachexia NAEL Hanley 06/28/2019 D64.9 Anemia, unspecified NAEL Hanley 06/28/2019 J44.0 Chronic obstructive pulmonary disease NAEL Hanley with (acute) lower respiratory infection 06/28/2019 R76.0 Raised antibody titer Bismark Fenton M.D. 06/28/2019 J18.9 Pneumonia, unspecified organism NAEL Hanley 06/28/2019 I50.9 Heart failure, unspecified NAEL Hanley 06/28/2019 M79.18 Myalgia, other site Bismark Fenton M.D. 06/28/2019 M25.50 Pain in unspecified joint Bismark Fenton M.D. 06/28/2019 Z87.01 Personal history of pneumonia (recurrent) Bismark Fenton M.D. 06/27/2019 R06.02 Shortness of breath Blake Connell, [facility] 06/27/2019 R06.02 Shortness of breath [facility] 06/18/2019 R64 Cachexia Cierra Bell MD 06/18/2019 D50.9 Iron deficiency anemia, unspecified Cierra Bell MD 06/18/2019 R53.83 Other fatigue Cierra Bell MD 06/18/2019 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 polyarthropathy Cierra Bell MD 06/18/2019 R06.02 Shortness of breath Cierra Bell MD 06/04/2019 R64 Cachexia Gaurav Peña M.D. 06/04/2019 R76.0 Raised antibody titer Gaurav Peña M.D. 06/04/2019 R70.0 Elevated erythrocyte sedimentation rate Gaurav Peña M.D. 06/04/2019 B37.81 Candidal esophagitis Gaurav Peña M.D. 06/04/2019 R53.1 Weakness Gaurav Peña M.D. 06/04/2019 D64.9 Anemia, unspecified Gaurav Peña M.D. 06/04/2019 M79.18 Myalgia, other site Gaurav Peña M.D. 06/04/2019 R59.0 Localized enlarged lymph nodes Gaurav Peña M.D. 05/28/2019 R64 Cachexia Elaine Stallings M.D. 05/28/2019 J43.9 Emphysema, unspecified Elaine Stallings M.D. 05/28/2019 D64.9 Anemia, unspecified Elaine Stallings M.D. Plan of Treatment Future Appointment(s):03/25/2020 11:40 am - Cierra Bell MD at [facility] Internal Medicine - [facility]12/03/2019 2:40 pm - Bismark Fenton M.D. at Rheumatology [facility]11/28/2019 3:30 pm - Cyndy Ding MD at Pulmonology [facility]11/11/2019 - Dariana Chavez M.D., FACPR64 CachexiaNew Medication:Megace ES 625 mg/5ML - 5 ml by mouth dailyComments:WEIGHT LOSS: I think that you may benefit from a medication call Megace that can stimulate appetite. I have called this in to your pharmacy.We will also try to have you seen at the [facility] for a trial of medical marijuana.Z79.891 shelter ( current) use of opiate analgesicComments:PAIN CONTROL:Today we talked at length about the discrepancy involving your oxycodone prescribing. As you know, [facility] is very strict about this and it is a criminal offense to misrepresent opioid use. I understand that you received oxycodone from Dr. Peña's office on 10/21/19. Today we both signed a narcotic contract that states that you are not to seek or fill controlled substances from other medical offices and that [facility] 's is your designated pharmacy. 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 Patient with unexplained wasting syndrome Sent and recent onset of lower extremity edema, slightly decreased ejection fraction found on echo. [facility] [place], [place] [id number] [phone] Bismark Gomez MD Please check for Plaquenil or Prednisone toxicity Sent [address] [place] [address] [phone] Gaurav Peña MD Closed 06/04/[address] [facility] [address] [place], [place] [id number] [phone]
--- OUTSIDE RECORDS SUMMARY | 2019-12-20 15:05 | XMS REPORT | Continuity of Care Document ---
:1960 External Reference #:[id number] Author Name Bismark Fenton M.D. (transmitted by agent of provider Mel Logan) Address [address] [place] [address] Care Team Providers Name Role Phone Cierra Bell M.D. 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 Active Problems Provider Date Disturbance in [...] smoker, smokes every day Smoking Status Reviewed: 10/29/19 Patient is a current smoker, smokes every day Exercise Type/Frequency Does not exercise Allergies, Adverse Reactions, Alerts Description No Known Drug Allergies Medications Active Medications SIG Qnty Indications Ordering Date Provider Gabapentin take one 60caps Bismark Fenton, 10/29/2019 300mg capsule/tablet by M.DKita Capsules mouth at night for 1 week then 1 twice daily for 1 week the 1 three times daily Aspercreme Lidocaine apply daily as 30units Bismark Fenton, 10/29/2019 Max Strength needed for M.D. 4% localized pain Patches Ipratropium 1 unit every 6 270ml J44.9 Cyndy Ding, 08/22/2019 [place]/Albuterol hours as needed MD Sulfate 0.5-2.5(3)mg/3ML Solution Nebulizer System 1 unit q4 hours 1units J44.9 Cyndy Ding, 08/22/2019 ALL-In-One and as needed MD Andrews Spiriva Respimat one inhalation 4gm Cierra Bell MD 08/14/2019 once a day 2.5mcg/Act Aerosol Mirtazapine take one tablet at 90tabs Cierra Bell MD 07/18/2019 45mg night Tablets Plaquenil 1 by mouth every 30tabs M06.4 Bismark Fenton, 07/11/2019 200mg day M.D. Tablets Prednisone take one 60tabs M06.4 Bismark Fenton, 07/11/2019 10mg capsule/tablet M.D. Tablets daily by mouth Lisinopril 1 by mouth every 90tabs Cierra Bell MD 07/03/2019 20mg day Tablets Acetaminophen ER take every 6 hours 60tabs Other Ordering 07/03/2019 as needed for Provider 650mg Tablets ER pain. Protonix every day 90tabs Cierra Bell MD 07/01/[address] Freitas Before Meals 90caps Unknown 07/01/2019 2.5mg Capsules Ensure Active High 2-3 times a day 90units R64 Cierra Bell MD 05/28/2019 Protein after meals dx r64 Liquid auth# [id number] Spiriva Handihaler inhale the 90caps J43.9 Cierra Bell MD 05/28/2019 contents of one 18mcg Capsules capsule via handihaler by mouth every evening Oxycodone HCL 1 - 2 tabs by 90caps Shayy 5mg mouth every 6 Cotton, M.D. Capsules hours as needed pain History Medications [...] Ordering Provider Date Inj, Regadenoson, 0.1 MG Blaek Jerry. Connell, DO [facility] 08/07/2019 Injection Technetium TC 99M Blake S. Connell, DO [facility] 08/07/2019 Tetrofosmin, Per Unit Dose Up To 40 Millicuries Injection Technetium TC 99M Blake S. Connell, DO [facility] 08/07/2019 Tetrofosmin, Per Unit Dose Up To 40 Millicuries Injection Inj, Regadenoson, 0.1 MG Michael Rodrigues M.D. 12/16/2016 Injection Technetium TC 99M Michael Rodrigues M.D. 12/16/2016 Tetrofosmin, Per Unit Dose Up To 40 Millicuries Injection Immunizations CPT Code Status Date Vaccine Lot # [id number] Given 07/21/2016 Influ Virus Vaccine, Quadrivalent, Split Virus, Im Fluzone not PF Vital Signs Date Vital Result Comment 10/29/2019 1:11pm Height 74 inches 6'2" Weight 131.25 lb Heart Rate 86 /min BP Systolic Sitting 118 mmHg BP Diastolic Sitting 62 mmHg Pain Level 3 BMI (Body Mass Index) 16.8 kg/m2 08/22/2019 1:05pm Height 74 inches 6'2" Weight 124.00 lb Heart Rate 89 /min BP Systolic Sitting 120 mmHg BP Diastolic Sitting 60 mmHg O2 % BldC Oximetry 86 % room air BMI (Body Mass Index) 15.9 kg/m2 Results Test Acquired Date Facility Test Result H/L Range Note Drug Abuse 09/05/2019 [facility] Urine Amphetamine Negative ng/ mL 1 [address] [place] [address] [phone] Urine Barbiturates Negative ng/mL 2 Urine Benzodiazepines Negative ng/mL 3 Urine Cocaine Negative ng/mL 4 Urine Phencyclidine Negative ng/mL Cutoff: 25 Urine Tetrahydrocannabinol Negative ng/mL Cutoff: 50 5 Creatinine, Urine 17.6 mg/dL Specific [place] 1.004 pH 6.0 Oxidants Negative 6 Adulterants Comment Normal Codeine, Ur Not Detected ng/mL Cutoff: 25 7 Asmtfgw-7-cogv-glucuronide, Ur Not Detected ng/mL 8 Morphine, Ur Not Detected ng/mL Cutoff: 25 9 Vxmepork-2-tqvh-glucuronide, U Not Detected ng/mL 10 6-monoacetylmorphine, Ur Not Detected ng/mL Cutoff: 25 11 Hydrocodone, Ur Not Detected ng/mL Cutoff: 25 12 Norhydrocodone, Ur Not Detected ng/mL Cutoff: 25 13 Dihydrocodeine, Ur Not Detected ng/mL Cutoff: 25 14 Hydromorphone, Ur Not Detected ng/mL Cutoff: 25 15 Dnhgvusaforaz7jftfxbqmptbeppw Not Detected ng/mL 16 Oxycodone, Ur Present ng/mL Abnormal Cutoff: 25 17 Noroxycodone, Ur Present ng/mL Abnormal Cutoff: 25 18 Oxymorphone, Ur Not Detected ng/mL Cutoff: 25 19 Azwroqrppwo-1-hwcl-glucuronide Present ng/mL Abnormal 20 Noroxymorphone, Ur Present ng/mL Abnormal Cutoff: 25 21 Fentanyl, Ur Not Detected ng/mL Cutoff: 2 22 Norfentanyl, Ur Not Detected ng/mL Cutoff: 2 23 Meperidine, Ur Not Detected ng/mL Cutoff: 25 24 Normeperidine, Ur Not Detected ng/mL Cutoff: 25 25 Naloxone, Ur Not Detected ng/mL Cutoff: 25 26 Mxobdohv-4-fvvs-glucuronide, U Not Detected ng/mL 27 Methadone, Ur Not Detected ng/mL Cutoff: 25 28 Eddp, Ur Not Detected ng/mL Cutoff: 25 29 Propoxyphene, Ur Not Detected ng/mL Cutoff: 25 30 Norpropoxyphene, Ur Not Detected ng/mL Cutoff: 25 31 Tramadol, Ur Not Detected ng/mL Cutoff: 25 32 O-desmethyltramadol, Ur Not Detected ng/mL Cutoff: 25 33 Tapentadol, Ur Not Detected ng/mL Cutoff: 25 34 N-desmethyltapentadol, Ur Not Detected ng/mL Cutoff: 50 35 Uwjsyllpde-fwks-jfubrlrlefs, U Not Detected ng/mL 36 Buprenorphine, Ur Not Detected ng/mL Cutoff: 5 37 Norbuprenorphine, Ur Not Detected ng/mL Cutoff: 5 38 Norbuprenorphine glucuronide Not Detected ng/mL Cutoff: 20 39 Opioid Interpretation See Comment 40 CBC Auto 09/05/2019 [facility] White Blood 8.8 10^3/uL Normal 3.5-10.[address] [place] [address] [phone] Red Blood Count 3.09 10^6/uL Low 4.18-5.48 [...] % 0.0 Iron & Iron Binding 09/05/2019 [facility] Iron 37 g/dL Low 50-212 [address]acity [address] [place] [address] [phone] Unsaturated Iron Binding < 328 g/dL Total Iron Binding Capacity 343 g/dL Normal 250-450 Transferrin 245 mg/dL Normal 203-362 % Iron Saturation 11 % Low 15-55 Laboratory test 09/05/2019 [facility] Ferritin 25.8 ng/mL Normal 24-[address] [place] [address] [phone] Vitamin B12 350 pg/mL Normal 180-914 41 CBC Auto 07/03/2019 [facility] White Blood 4.9 10^3/uL Normal 3.5-10.[address] [place] [address] [phone] Red Blood Count 3.54 10^6/uL Low 4.18-5.48 [...] Red Blood Cells % 0.1 Cell Morphology 07/03/2019 [facility] Microcytosis 1+ [address] [place] [address] [phone] Hypochromasia 2+ [place] Cells 1+ Elliptocyte 2+ Comp Metabolic 07/03/2019 [facility] Sodium 136 mmol/L Normal 135-145 Panel [address] [place] [address] [phone] Potassium 4.6 mmol/L Normal 3.5-5.0 Chloride 106 [...] Egfr Non- 80.5 >60 Egfr 97.3 >60 42 Hemochromatosis 06/28/2019 [facility] Hemochromatosis See Comment 43 Hereditary Dna [address] [place] [address] [phone] Hemochromatosis Specimen WB Whole Blood Hemochromatosis Method See Comment 44 Hemochromatosis Results See Comment 45 Hemochromatosis Interpretation See Comment 46 Hemochromatosis Reviewed By See Comment 47 Laboratory test 06/28/2019 [facility] SM(Salgado) Igg <0.2 U [address] [address] [phone] Myeloperoxidase AB <0.2 U 49 Proteinase 3 <0.2 U 50 Anti Double Stranded Dna AB 160 IU/mL Abnormal 51 Urine Culture And 06/28/2019 [facility] Urine Culture SEE RESULT [address] [place] [address] [phone] Laboratory test 06/28/2019 [facility] Blood Culture SEE RESULT [address] [place] [address] [phone] Urinalysis Profile 06/28/2019 [facility] Urine Color Yellow [address] [place] [address] [phone] Urine Appearance Cloudy Urine Specific [place] 1.018 Normal 1.010-1.030 Urine pH 5.0 Normal [...] Bacteria 1+ Abnormal Absent Laboratory test 06/28/2019 [facility] Erythrocyte Sed 115 mm/Hr High 0-[address] [place] [address] [phone] Cell Morphology 06/28/2019 [facility] Microcytosis 1+ [address] [place] [address] [phone] Hypochromasia 1+ Anisocytosis 2+ Elliptocyte 1+ CBC Auto 06/28/2019 [facility] White Blood 6.4 10^3/uL Normal 3.5-10.[address] [place] [address] [phone] Red Blood Count 2.53 10^6/uL Low 4.18-5.48 Hemoglobin 6.4 g/dL Critical low 14.0-18.0 54 Hematocrit 20 % Low 42-52 Mean Corpuscular [...] Red Blood Cells % 0.0 Laboratory 06/28/2019 [facility] Partial 33.4 Normal 26.0- 38.[address] [place] [address] PTT [phone] Inr/Protime 06/28/2019 [facility] Inr 1.27 High 0.82-1.[address] [place] [address] [phone] Laboratory 06/28/2019 [facility] C Reactive 251.44 High <8.[address] Protein mg/[place] [address] [phone] Troponin-I (TnI) 0.03 ng/mL <0.04 56 B-Type Natriuretic Peptide BNP 161 pg/mL High <=100 Comp Metabolic Panel 06/28/2019 [facility] Sodium 132 mmol/L Low 135-[address] [place] [address] [phone] Potassium 3.6 mmol/L Normal 3.5-5.0 Chloride 103 [...] Egfr Non- 47.3 >60 Egfr 57.3 >60 57 Laboratory 06/28/2019 [facility] Lactic Acid 1.9 mmol/L Normal 0.5-2.0 58 test finding [address] [place] [address] [phone] Laboratory 06/28/2019 [facility] Packed SEE RESULTS 59, test finding [address] Cells BELO <SEE 60 [place] [address] NOTE> [phone] Laboratory 06/28/2019 [facility] Lactic Acid 1.5 mmol/L Normal 0.5-2.0 61 test finding [address] [place] [address] [phone] Type & Screen 06/28/2019 [facility] Patient A Positive [address] [place] [address] [phone] Antibody Screen NEGATIVE Anca AB Ser If 06/18/2019 [facility] C-Anca Negative Negative [address] [place] [address] [phone] P-Anca Indeterminate Abnormal Negative 62 Laboratory test 06/18/2019 [facility] Rheumatoid < 10 IU/mL Normal <[address] [place] [address] [phone] Cyclic Citrullinated Pep Igg <15.6 U 63 CK Isoenzymes 06/18/2019 [facility] Creatine 15 U/L Abnormal 39 - [address] [facility] [address] [place] [address] [phone] CK Isoenzyme Elec, Specimen See Comment 64 Laboratory test 06/18/2019 [facility] Erythrocyte Sed 35 mm/Hr High 0-[address] [place] [address] [phone] C Reactive Protein 22.18 mg/L High <8.01 PSA Screening 0.427 ng/mL Normal 0-4.000 65 B-Type Natriuretic Peptide BNP 302 pg/mL High <=100 Protein 05/28/2019 [facility] Total 7.0 g/dL 6.3 - Electrophoresis [address] Protein(Pep) 7.9 [place] [address] [phone] Albumin 3.0 g/dL Abnormal 3.4-4.7 Alpha-1 Globulin 0.3 g/dL 0.1-0.3 Alpha-2 Globulin 1.0 g/dL 0.6-1.0 Beta Globulin 0.9 g/dL 0.7-1.2 Gamma Globulin 1.9 g/dL Abnormal 0.6-1.6 Albumin/Globulin Ratio 0.73 Impression See Comment 66 CBC Auto 05/28/2019 [facility] White Blood 3.2 10^3/uL Low 3.5 -10.[address] [place] [address] [phone] Red Blood Count 3.19 10^6/uL Low 4.18-5.48 [...] Red Blood Cells % 0.0 Laboratory 05/28/2019 [facility] Alpha 1 207 mg/dL Abnormal 100 - 190 67 test finding [address] [place] [address] A1a [phone] HIV 4TH 05/28/2019 [facility] HIV 4th Negative Negative Generation [address] [place] [address] [phone] Laboratory 05/21/2019 [facility] Partial 31.6 Normal 26.0- 38.0 68 test finding [address] [place] [address] PTT [phone] Lactic Acid 1.4 mmol/L Normal 0.5-2.0 69 CBC Auto 05/21/2019 [facility] White Blood 2.2 10^3/uL Low 3.5 -10.[address] [place] [address] [phone] Red Blood Count 3.27 10^6/uL Low 4.18-5.48 [...] Blood Cells % 0.0 Comp Metabolic 05/21/2019 [facility] Sodium 136 mmol/L Normal 135-[address] [place] [address] [phone] Potassium 4.2 mmol/L Normal 3.5-5.0 Chloride 105 [...] Egfr Non- 48.1 >60 Egfr 58.2 >60 70 Laboratory test 05/21/2019 [facility] Creatine 17 U/L Normal 10-[address] Kinase(CK) [place] [address] [phone] Troponin-I (TnI) 0.01 ng/mL <0.04 71 CKMB 05/21/2019 [facility] CKMB 0.6 ng/mL Normal 0.6-6.3 [address] [facility] ng/[place] [address] [phone] Laboratory test 05/21/2019 [facility] TSH 2.56 Normal 0.34- 5.[address] (Thyroid mcIU/[place] [address] Stim Horm) [phone] Free T4 (Free Thyroxine) 1.08 ng/dL Normal 0.61-1.12 Blood Culture SEE RESULT BELOW 72 1 REFERENCE VALUE Cutoff: 500 2 REFERENCE VALUE Cutoff: 200 3 REFERENCE VALUE Cutoff: 100 4 REFERENCE VALUE Cutoff: 150 5 ADDITIONAL INFORMATION This report is intended for use in clinical monitoring or management of patients. It is not intended for use in employment-related testing. Test Performed by: [facility] [employer] - [address] [address] Resource Analyst: Fabio Rosa M.D. Ph.D.; IA# [id number] 6 REFERENCE VALUE Cutoff: 200 mg/L 7 Tylenol 3 8 Metabolite of codeine REFERENCE VALUE Cutoff: 100 9 Jeni Cho, MS Contin; Also a minor metabolite (10%) of codeine and can be seen in low concentrations (<2,000 ng/mL) with poppy seed ingestion. 10 Metabolite of morphine REFERENCE VALUE Cutoff: 100 11 Metabolite of heroin 12 Lortab, Jacobson, Vicodin; Also a very minor metabolite of codeine and impurity (<1%) of oxycodone. 13 Metabolite of hydrocodone 14 Metabolite of hydrocodone 15 Dilaudid, Exalgo; Also a metabolite of hydrocodone and a minor (<5%) metabolite of morphine. 16 Metabolite of hydromorphone REFERENCE VALUE Cutoff: 100 17 Endocet, Percocet, Oxycontin 18 Metabolite of oxycodone 19 Numorphan, Opana; Also a metabolite of oxycodone. 20 Metabolite of oxymorphone REFERENCE VALUE Cutoff: 100 21 Metabolite of oxymorphone 22 Actiq, Duragesic, Fentora 23 Metabolite of fentanyl 24 Demerol 25 Metabolite of meperidine 26 Narcan 27 Metabolite of naloxone REFERENCE VALUE Cutoff: 100 28 Dolophine 29 Metabolite of methadone 30 Darvon, Darvocet 31 Metabolite of propoxyphene 32 Tradol, Ultram, Ultracet 33 Metabolite of tramadol 34 Nucynta 35 Metabolite of tapentadol 36 Metabolite of tapentadol REFERENCE VALUE Cutoff: 100 37 Buprenex, Suboxone 38 Metabolite of buprenorphine 39 Metabolite of buprenorphine 40 Test detected the presence of oxycodone and several metabolites (noroxycodone, noroxymorphone, and fjwbhievpem-4-rstb-glucuronide). Suspect use of oxycodone and/or oxymorphone within the past three days. ADDITIONAL INFORMATION This test was developed and its performance characteristics determined by [facility] in a manner consistent with CLIA requirements. This test has not been cleared or approved by the U.S. Food and Drug Administration. 41 Normal Range 180 to 914 Indeterminate Range 145 to 180 Deficient Range <145 42 Because ethnic data is not always readily [...] 15-29 5 Kidney failure <15 (or dialysis) 43 RESULT: COMPLEX (SEE RESULT AND INTERPRETATION) 44 A multiplex PCR based assay utilizing the [employer] Array platform was used to test for the following three mutations in the HFE gene; C282Y, H63D, and S65C. Because of the minimal effect on iron metabolism associated with the S65C mutation, it is only reported when it is found with the C282Y mutation (i.e. if the patient has the C282Y/S65C genotype). 45 C282Y: One copy of the C282Y mutation was identified. H63D: Not detected. S65C: Not detected. 46 This result indicates that this individual is at minimum a carrier of hereditary hemochromatosis (HH). The diagnosis of HH cannot be excluded because approximately 3 to 5% of patients with HH in the [place] population carry this allele. For other ethnicities, [...] indicated chromosome(s). An online research opportunity called [employer] ([employer]), a project of [employer], is available for the recipient of this genetic test. This patient registry collects de-identified genetic and health information to advance the knowledge of genetic variants. [facility] is a collaborator of [employer]. This may not be applicable for all [...] allogenic donors will interfere with testing. Call [facility] [employer] for instructions for testing patients who have received a bone marrow transplant. This test was developed and its performance characteristics determined by [facility] in a manner consistent with CLIA requirements. This test has not been cleared or approved by the U.S. Food and Drug Administration. 47 RESULT: Good Titus, Ph.D. Test Performed by: [facility] - [address] [address] 48 REFERENCE VALUE <1.0 (Negative) Test Performed by: [facility] [employer] - [address] [address] 49 REFERENCE VALUE <0.4 (Negative) Test Performed by: [facility] - [address] [address] 50 REFERENCE VALUE <0.4 (Negative) Test Performed by: [facility] [place] [employer] [address] [place] [address] 51 Interpretation: Positive (>75.0) REFERENCE VALUE <30.0 (Negative) Test Performed by: [facility] [place] [employer] [address] [place] [address] 52 SEE RESULT BELOW Name: HECTOR BARR : [address]: Rosalba Bourgeois MD Acct: [id number] Unit: [id number] AGE: 58 Location: [place] [address] Re06/28/19 SEX: M Status: ADM IN SPEC: [id number] WANDA: 06/29/19 [facility] DR: Liz Bernard MD REQ: [id number] RECD: 06/29/19 STATUS: BENJA FELIX DR: Cierra Bell MD _ SOURCE: URINE SPDESC: ORDERED: Urine Culture Procedure Result Reported Site Urine Culture Final 06/30/19- 1018 ML No Growth (<1,000 CFU/mL) * ML - Main Lab . END OF REPORT DEPARTMENT OF PATHOLOGY, [address] [place] [address] Clifford Quesada M.D. Director [facility] # [id number] 53 SEE RESULT BELOW Name: HECTOR BARR : [address]: Trino Miller MD Acct: [id number] Unit: [id number] AGE: 58 Location: [place] [address]- Re06/28/19 Dis: 07/01/19 SEX: M Status: DIS IN SPEC: [id number] WANDA: 06/28/19 [facility] DR: Liz Bernard MD REQ: [id number] RECD: 06/28/19 STATUS: BENJA FELIX DR: Cierra Bell MD _ SOURCE: BLOOD,VENO SPDESC: ORDERED: Blood Cult Procedure Result Reported Site Aerobic Culture Bottle Final 07/03/19- 5 ML No Growth Day 5 Anaerobic Culture Bottle Final 07/03/19- 5 ML No Growth Day 5 * ML - Main Lab . END OF REPORT DEPARTMENT OF PATHOLOGY, [address] [place] [address] Clifford Quesada M.D. Director [facility] # [id number] 54 Verbal to [id number] by LUCIO at 950 on 06/28/19.Results read back accurately 55 Standard intensity warfarin therapeutic range: 2.0-3.0 High intensity warfarin therapeutic range: 2.5-3.5 56 Troponin-I testing on Plasma Separator Tubes (PST) has a known false positive rate of 0.20-0.40%. All positive troponins reflex immediately to secondary confirmatory testing. Using the [employer] 800 Access Immunoassay systems, the 99th percentile upper reference limit was demonstrated to be < 0.03 ng/mL. 57 Because ethnic data is not always readily [...] 15-29 5 Kidney failure <15 (or dialysis) 58 [facility] Severe Sepsis and Septic Shock Management Bundle Measure requires all lactic acids initially measuring >2.0 mmol/L be repeated. 59 RAPID HR PER EMS 60 SEE RESULTS BELOW [id number] AP PC TRANSFUSED 06/28/19 1201 [id number] AP PC TRANSFUSED 06/28/19 1431 61 [facility] Severe Sepsis and Septic Shock Management Bundle Measure requires all lactic acids initially measuring >2.0 mmol/L be repeated. 62 Indeterminate for pANCA pattern by immunofluorescence using ethanol-fixed neutrophils. Consider further testing for anti-proteinase 3 (PR3) and/or anti-myeloperoxidase (MPO) antibodies, if clinically indicated. Also, consider testing for antinuclear antibody (AMMY) to rule out presence of interfering antibody. ADDITIONAL INFORMATION This test was developed and its performance characteristics determined by [facility] in a manner consistent with CLIA requirements. This test has not been cleared or approved by the U.S. Food and Drug Administration. Test Performed by: [facility] [address] 63 REFERENCE VALUE <20.0 (Negative) Test Performed by: [place] [address] 64 RESULT: If CK result is <100, isoenzyme will not be performed. Test Performed by: [address] [address] 65 Serum levels of PSA measured using the [employer] DXI Hybritech immunoassay should not be interpreted [...] methods or kits cannot be used interchangeably. 66 RESULT: Polyclonal hypergammaglobulinemia Test Performed by: [address] [address] 67 Test Performed by: [place] [address] 68 Patient is On Antibiotics? NO 69 [facility] Severe Sepsis and Septic Shock Management Bundle Measure requires all lactic acids initially measuring >2.0 mmol/L be repeated. 70 Because ethnic data is not always readily [...] 15-29 5 Kidney failure <15 (or dialysis) 71 Troponin-I testing on Plasma Separator Tubes (PST) has a known false positive rate of 0.20-0.40%. All positive troponins reflex immediately to secondary confirmatory testing. Using the [employer] D[employer]I 800 Access Immunoassay systems, the 99th percentile upper reference limit was demonstrated to be < 0.03 ng/mL. 72 SEE RESULT BELOW Name: HECTOR BARR : [address]: Noa Maldonado MD Acct: [id number] Unit: [id number] AGE: 58 Location: ED Re05/21/19 SEX: M Status: DEP ER SPEC: [id number] WANDA: 05/21/[address]: Noa Maldonado MD REQ: [id number] RECD: 05/21/19 STATUS: BENJA FELIX DR: Pawel Van III, MD _ SOURCE: BLOOD,VENO SPDESC: ORDERED: Blood Cult COMMENTS: Patient is On Antibiotics? NO Procedure Result Reported Site Aerobic Culture Bottle Final 05/26/19- 2151 ML No Growth Day 5 Anaerobic Culture Bottle Final 05/26/19- 2151 ML No Growth Day 5 * ML - Main Lab . END OF REPORT DEPARTMENT OF PATHOLOGY, [address] [place] [address] Clifford Quesada M.D. Director [facility] # [id number] Procedures Date Code Description Status 08/07/2019 43960 Stress Test Completed 08/07/2019 78190 Myocardial Perfusion Imaging Tomographic (Spect) Completed Multiple Studies 07/18/2019 72663 EKG Tracing & Interpretation Completed 06/30/2019 07933 Endoscopy Upper GI Biopsy Completed 06/27/2019 34647 ECHO Transthoracic, Real-Time 2D With Doppler And Color Completed Flow 06/27/2019 93466 ECHO Transthoracic, Real-Time 2D With Doppler And Color Completed Flow 03/19/2019 [id number] Colonoscopy Completed Medical Devices Description No Information Available Encounters Type Date Location Provider Dx Diagnosis Office Visit 08/22/2019 Pulmonology And Cyndy Ding, R06.02 Shortness of 1:30p [facility] 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 J44.9 Chronic obstructive pulmonary disease, unspecified Z72.0 Tobacco use R59.0 Localized enlarged lymph nodes Office Visit 08/09/2019 2:20p [facility] Internal Cierra Bell, D50.9 Iron deficiency Medicine - Ccmob anemia, unspecified J44.9 Chronic obstructive pulmonary disease, unspecified Z72.0 Tobacco use 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 polyarthropathy Office Visit 07/18/2019 10:00a [place] Cardiology Blake Chicas R07.9 Chest pain , Of [facility] Ko, unspecified FACC I42.9 Cardiomyopathy, unspecified R06.02 Shortness of breath 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 polyarthropathy Z79.899 Other fpc (current) drug therapy D50.9 Iron deficiency anemia, unspecified J44.9 Chronic obstructive pulmonary disease, unspecified Z72.0 Tobacco use Office Visit 07/11/2019 Rheumatology Bismark 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 4:00p Services [facility] Kamron Fenton polyarthropathy Z79.899 Other long term acute care registered nurse (current) drug therapy R06.02 Shortness of breath R53.83 Other fatigue Office Visit 07/01/2019 8:13a [facility] Anna D64.9 Anemia, Assoc,pc Marium, PA-C unspecified Hospitalists J44.0 Chr obstructive pulmon disease with (acute) lower resp infct J18.9 Pneumonia, unspecified organism I50.9 Heart failure, unspecified Office Visit 06/30/2019 8:12a [facility] Anna D64.9 Anemia, Assoc,pc Marium, PA-C unspecified Hospitalists J18.9 Pneumonia, unspecified organism R64 Cachexia E43 Unspecified severe protein-calorie malnutrition Office Visit 06/29/2019 8:12a [facility] Fabio D64.9 Anemia, Assoc,pc NAEL Velazco unspecified Hospitalists J18.9 Pneumonia, unspecified organism E43 Unspecified severe protein-calorie malnutrition R64 Cachexia Office Visit 06/29/2019 [facility] Gastroenterology Luis Alberto TKita E43 Unspecified severe 7:00a MD Gato protein-calorie malnutrition D50.9 Iron deficiency anemia, unspecified R64 Cachexia Office Visit 06/28/2019 1:07p Rheumatology Bismark Fenton, R76.0 Raised antibody Services [facility] M.DKita titer M79.18 Myalgia, other site M25.50 Pain in unspecified joint Z87.01 Personal history of pneumonia (recurrent) Office Visit 06/28/2019 8:11a [facility] D64.9 Anemia, Assoc,pc NAEL Velazco unspecified Hospitalists J44.0 Chr obstructive pulmon disease with (acute) lower resp infct J18.9 Pneumonia, unspecified organism I50.9 Heart failure, unspecified Office Visit 06/18/2019 2:00p [facility] Internal Medicine - Cierra Bell MD R64 Cachexia Ccmob D50.9 Iron deficiency anemia, unspecified R53.83 Other fatigue 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 polyarthropathy R06.02 Shortness of breath [facility]2019 [facility] R64 Cachexia [facility] [place] R76.0 Raised antibody titer R70.0 Elevated erythrocyte sedimentation rate B37.81 Candidal esophagitis R53.1 Weakness D64.9 Anemia, unspecified M79.18 Myalgia, other site R59.0 Localized enlarged lymph nodes Office Visit 05/28/2019 8:50a [facility] Internal Medicine Elaine Stallings M.D. 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 tissue, unspecified 10/29/2019 Z79.899 Other long term acute care registered nurse (current) drug therapy Bismark Fenton M.D. 10/29/2019 [...] MD 08/09/2019 D50.9 Iron deficiency anemia, unspecified Cirera Bell MD 08/09/2019 J44.9 Chronic obstructive pulmonary disease, Cierra Bell MD unspecified 08/09/2019 Z72.0 Tobacco use Cierra Bell MD 08/09/2019 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 polyarthropathy Cierra Bell MD 08/07/2019 R07.9 Chest pain, unspecified Blake S. Connell, DO FACC 07/18/2019 R07.9 Chest pain, unspecified Blake S. Connell, DO FACC 07/18/2019 I42.9 Cardiomyopathy, unspecified Blake S. Connell, DO FACC 07/18/2019 R06.02 Shortness of breath Blake Connell, DO FACC 07/18/2019 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 polyarthropathy Blake ClaritzaKita Connell, DO FACC 07/18/2019 Z79.899 Other long term acute care registered nurse (current) drug therapy Blake S. Connell, DO FACC 07/18/2019 D50.9 Iron deficiency anemia, unspecified Blake S. Connell, DO FACC 07/18/2019 J44.9 Chronic obstructive pulmonary disease, Blake S. Connell, DO FACC unspecified 07/18/2019 Z72.0 Tobacco use Blake SKita Connell, DO FACC 07/11/2019 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 polyarthropathy Bismark Fenton M.D. 07/11/2019 Z79.899 Other long term acute care registered nurse (current) drug therapy Bismark Fenton M.D. 07/11/2019 R06.02 Shortness of breath Bismark Fenton M.D. 07/11/2019 R53.83 Other fatigue Bismark Fenton M.D. 07/01/2019 D64.9 Anemia, unspecified Anna Causey PA-C 07/01/2019 J44.0 Chronic obstructive pulmonary disease Anna Causey PA-C with (acute) lower respiratory infection 07/01/2019 J18.9 Pneumonia, unspecified organism Anna O'lexa, PA-C 07/01/2019 I50.9 Heart failure, unspecified Anna O'lexa, PA-C 06/30/2019 R19.8 Other specified symptoms and signs Luis Alberto Hoskins MD involving the digestive system and abdomen 06/30/2019 D64.9 Anemia, unspecified Anna O'lexa, PA-C 06/30/2019 K31.89 Other diseases of stomach and duodenum Luis Alberto Hoskins MD 06/30/2019 J18.9 Pneumonia, unspecified organism Anna O'lexa, PA-C 06/30/2019 R19.7 Diarrhea, unspecified Luis Alberto Hoskins MD 06/30/2019 R64 Cachexia Anna Paz'lexa, NAEL-C 06/30/2019 E43 Unspecified severe protein-calorie Anna Paz'lexa, PA-C malnutrition 06/29/2019 E43 Unspecified severe protein-calorie [...] 06/27/2019 R06.02 Shortness of breath Blake Connell, DO [facility] 06/27/2019 R06.02 Shortness of breath [facility] Schedule 06/18/2019 R64 Cachexia Cierra Bell MD 06/18/2019 [...] 05/28/2019 D64.9 Anemia, unspecified Elaine Stallings M.D. 05/10/2019 R64 Cachexia Pawel Van M.D. 05/10/2019 R64 Cachexia Pawel Van M.D. Plan of Treatment Future Appointment(s):12/03/2019 2:40 pm - Bismark Fenton M.D. at Rheumatology [facility]11/28/2019 3:30 pm - Cyndy Ding MD at [facility]ology [facility]02/19/2020 11:40 am - Cierra Bell MD at [facility] Internal Medicine - Ccmob10/29/2019 - Bismark Fenton M.D.M35.9 Systemic involvement of connective tissue, qbzonfhrcdvD15.899 Other long term acute care registered nurse (current) drug therapyReferral:Bismark Gomez MD, FcfnytnvufatkH92.8 Other disturbances of skin sensationNew Orders:EMG w/Nerve Conduct Study, Lower, Ordered: 10/29/19EMG w/Nerve Conduct Study, Upper, Ordered: 10/29/19R53.83 Other hueotcbL11.9 Anemia , unspecifiedFollow up:Follow up in 4 weeks Functional Status Description No Information Available Mental Status Description No Information Available Referrals Refer to Dr Reason for Referral Status Appt Date Bismark Gomez MD Please monitor for Plaquenil toxicity and Created prednisone toxicity [address] [place] [address] [phone] Pain Clinic Sent [address] [place] [id number] [phone] Created Cyndy Ding MD 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 [facility] [place], [place] [id number] [phone] Bismark Gomez MD Please check for Plaquenil or Prednisone toxicity Sent [address] [place], [place] [id number] [phone] Gaurav Peña MD Closed 06/04/[address] [place], [place] [id number] [phone]
--- OUTSIDE RECORDS SUMMARY | 2019-12-20 15:05 | XMS REPORT | Continuity of Care Document ---
:1960 External Reference #:[id number] Author Name Bismark Fenton M.D. (transmitted by agent of provider Tanja Navas) Address [address] [place] [address] Care Team Providers Name Role Phone Cierra Bell M.D. - Family Medicine Care Team Information Leadership Development Manager [facility] - Pain Care Team Information Leadership Development Manager [phone] Problems Active Problems Provider Date Disturbance in [...] smoker, smokes every day Smoking Status Reviewed: 12/03/19 Patient is a current smoker, smokes every day Exercise Type/Frequency Does not exercise Allergies, Adverse Reactions, Alerts Description No Known Drug Allergies Medications Active Medications SIG Qnty Indications Ordering Provider Date Lidoderm 1 apply to 30units Bismark Fenton, 12/03/2019 5% Patches affected area 12 M.D. hours on, 12 hours off to mid thoracic pain Megace Oral 15 ml by mouth by 240ml R64 Dariana Kathy, 11/15/2019 40mg/ml mouth twice daily M.D., FACP Suspension E43 Gabapentin take one pill 3 60caps Bismark Fenton, 10/29/2019 300mg Capsules times a day M.D. Aspercreme Lidocaine apply daily as 30units Bismark Fenton, 10/29/2019 Max Strength needed for localized M.D. 4% Patches pain Ipratropium 1 unit every 6 hours 270ml J44.9 Cyndy Ding, 08/22/2019 [place]/Albuterol as needed Sulfate 0.5-2.5(3)mg/3ML Solution Nebulizer System 1 unit q4 hours and 1units J44.9 Cyndy Ding, 2018 ALL-In-One as needed MD Andrews Spiriva Respimat one inhalation once 4gm Cierra Bell MD 08/14/2019 2.5mcg/Act a day Aerosol Mirtazapine take one tablet at 90tabs Cierra Bell MD 07/18/2019 45mg Tablets night Plaquenil 1 by mouth every day 30tabs M06.4 Bismark Fenton, 07/11/2019 200mg Tablets M.D. Prednisone take one 60tabs M06.4 Bismark Fenton, 07/11/2019 10mg Tablets capsule/tablet daily M.D. by mouth Lisinopril 1 by mouth every day 90tabs Cierra Bell MD 07/03/2019 20mg Tablets Acetaminophen ER take every 6 hours 60tabs Other Ordering 07/03/2019 650mg as needed for pain. Provider Tablets ER Protonix every day 90tabs Cierra Bell MD 07/01/[address] Freitas Before Meals 90caps Unknown 07/01/2019 2.5mg Capsules Ensure Active High 2-3 times a day 90units R64 Dariana Chavez, 05/28/2019 Protein after meals dx r64 M.D., FACP Liquid auth# [id number] Spiriva Handihaler inhale the contents 90caps J43.9 Cierra Bell MD 2018 18mcg of one capsule via Capsules handihaler by mouth every evening Oxycodone HCL 1 - 2 tabs by mouth 90caps Dariana Chavez, 5mg Capsules every 6 hours as M.D., FACP needed pain History Medications Megace ES 5 milliliters by 150ml R64 Jewell Marion 11/11/2019 - 40mg/ml mouth daily 11/15/2019 Suspension E43 Spiriva Respimat one inhalation 4gm Cierra Bell [...] Inj, Regadenoson, 0.1 MG Blake Connell, DO [facility] 08/07/2019 Injection Technetium TC 99M Blake Connell, DO [facility] 08/07/2019 Tetrofosmin, Per Unit Dose Up To 40 Millicuries Injection Technetium TC 99M Blake Connell, DO [facility] 08/07/2019 Tetrofosmin, Per Unit Dose Up To 40 Millicuries Injection Inj, Regadenoson, 0.1 MG Michael Rodrigues M.D. 12/16/2016 Injection Technetium TC 99M Michael Rodrigues M.D. 12/16/2016 Tetrofosmin, Per Unit Dose Up To 40 Millicuries Injection Immunizations CPT Code Status Date Vaccine Lot # [id number] Given 07/21/2016 Influ Virus Vaccine, Quadrivalent, Split Virus, Im Fluzone not PF Vital Signs Date Vital Result Comment 12/03/2019 2:53pm Height 74 inches 6'2" Weight 146.38 lb Heart Rate 72 /min BP Systolic Sitting 98 mmHg BP Diastolic Sitting 60 mmHg Body Temperature 98.2 F Pain Level 5 O2 % BldC Oximetry 98 % BMI (Body Mass Index) 18.8 kg/m2 11/11/2019 8:10am Height 74 inches 6'2" Weight 132.00 lb Heart Rate 76 /min BP Systolic Sitting 97 mmHg BP Diastolic Sitting 62 mmHg O2 % BldC Oximetry 98 % BMI (Body Mass Index) 16.9 kg/m2 Results Test Acquired Date Facility Test Result H/L Range Note CBC Auto 11/25/2019 [facility] White Blood 9.0 10^3/uL Normal 3.5-10.[address] [place] [address] [phone] Red Blood Count 3.03 10^6/uL Low 4.18-5.48 Hemoglobin 8.9 g/dL Low 14.0-18.0 Hematocrit 27 % Low 42-52 Mean Corpuscular Volume 90 fL Normal 80-94 Mean Corpuscular Hemoglobin 29 pg Normal 27-31 Mean Corpuscular HGB Conc 33 g/dL Normal 31-36 Red Cell Distribution Width 18 % High 10-15 Platelet Count 383 10^3/uL Normal 150-450 Mean Platelet Volume 6.7 fL Low 7.4-10.4 Abs Neutrophils 7.8 10^3/uL High 1.5-7.7 Abs Lymphocytes 0.7 10^3/uL Low 1.0-4.8 Abs Monocytes 0.5 10^3/uL Normal 0-0.8 Abs Eosinophils 0.0 10^3/uL Normal 0-0.6 Abs Basophils 0.0 10^3/uL Normal 0-0.2 Abs Nucleated RBC 0.0 10^3/uL Granulocyte % 86.7 % Lymphocyte % 7.7 % Monocyte % 5.2 % Eosinophil % 0.1 % Basophil % 0.3 % Nucleated Red Blood Cells % 0.0 Laboratory 11/04/2019 [facility] TSH (Thyroid 1.42 Normal 0.34 -5.[address] Stim Horm) mcIU/[place] [address] [phone] Comp Metabolic 11/04/2019 [facility] Sodium 135 mmol/L Normal 135-[address] [place] [address] [phone] Chloride 104 mmol/L Normal 101-111 Co2 Carbon [...] 5 mmol/L Normal 2-11 Laboratory test 11/04/2019 [facility] C Reactive 11.34 High < 8.[address] Protein mg/[place] [address] [phone] CBC Auto Diff 11/04/2019 [facility] White Blood 8.2 Normal 3.5 -10.[address] Count 10^3/uL [place] [address] [phone] Red Blood Count 3.50 10^6/uL Low 4.18-5.48 [...] Blood Cells % 0.1 Laboratory test 11/04/2019 [facility] Erythrocyte Sed 30 mm/Hr High 0-[address] [place] [address] [phone] Connective 11/04/2019 [facility] Anti-Nuclear > 12.0 U High 2 Tissue Panel [address] [facility] [place] [address] [phone] Cyclic Citrullinated Peptide <15.6 U 3 Laboratory test 11/04/2019 [facility] Anti Nuclear >12.0 U Abnormal 4 finding [address] [place] [address] [phone] Protein 11/04/2019 [facility] Total 6.5 g/dL 6.[address] [place] [address] Protein([place]ep) [place] [address] 7.9 [phone] Albumin 3.3 g/dL Abnormal 3.4-4.7 Alpha-1 Globulin 0.3 g/dL 0.1-0.3 Alpha-2 Globulin 0.8 g/dL 0.6-1.0 Beta Globulin 0.9 g/dL 0.7-1.2 Gamma Globulin 1.2 g/dL 0.6-1.6 Albumin/Globulin Ratio 1.05 Impression See Comment 5 Mirna Igg AB Reflex 11/04/2019 [facility] SS-A/Ro Antibody <0.2 U [address] [place] [address] [phone] SS-B/La Antibody <0.2 U 7 Sm (Salgado) IgG Antibody <0.2 U 8 TUNNEL ELASTIC OPERATOR ZIGZAG Antibody, IgG <0.2 U 9 Scl-70 (Scleroderma) Antibody <0.2 U 10 Bharti-1 Antibody <0.2 U 11 Laboratory test 11/04/2019 [facility] Centromere Auto Abs <0.2 U 12 finding [address] [place] [address] [phone] Ribosome P Antibodies, Igg >8.0 U Abnormal 13 Crithidia Interpretation See Comment Negative 14 Interpretation See Comment 15 Laboratory test 09/05/2019 [facility] Ferritin 25.8 ng/mL Normal 24-[address] [place] [address] [phone] Vitamin B12 350 pg/mL Normal 180-914 16 Iron & Iron Binding 09/05/2019 [facility] Iron 37 g/dL Low 50-212 Capacity [address] [place] [address] [phone] Unsaturated Iron Binding < 328 g/dL Total Iron Binding Capacity 343 g/dL Normal 250-450 Transferrin 245 mg/dL Normal 203-362 % Iron Saturation 11 % Low 15-55 CBC Auto 09/05/2019 [facility] White Blood 8.8 10^3/uL Normal 3.5-10.[address] [place] [address] [phone] Red Blood Count 3.09 10^6/uL Low 4.18-5.48 [...] % Nucleated Red Blood Cells % 0.0 Drug Abuse 20 09/05/2019 [facility] Urine Amphetamine Negative ng/mL [address] [place] [address] [phone] Urine Barbiturates Negative ng/mL 18 Urine Benzodiazepines Negative ng/mL 19 Urine Cocaine Negative ng/mL 20 Urine Phencyclidine Negative ng/mL Cutoff: 25 Urine Tetrahydrocannabinol Negative ng/mL Cutoff: 50 21 Creatinine, Urine 17.6 mg/dL Specific [place] 1.004 pH 6.0 Oxidants Negative 22 Adulterants Comment Normal Codeine, Ur Not Detected ng/mL Cutoff: 25 23 Gigagqm-7-cmwi-glucuronide, Ur Not Detected ng/mL 24 Morphine, Ur Not Detected ng/mL Cutoff: 25 25 Rgriotnp-2-zndi-glucuronide, U Not Detected ng/mL 26 6-monoacetylmorphine, Ur Not Detected ng/mL Cutoff: 25 27 Hydrocodone, Ur Not Detected ng/mL Cutoff: 25 28 Norhydrocodone, Ur Not Detected ng/mL Cutoff: 25 29 Dihydrocodeine, Ur Not Detected ng/mL Cutoff: 25 30 Hydromorphone, Ur Not Detected ng/mL Cutoff: 25 31 Fqpsrgghwsoqo3iqzunzafghrmtjw Not Detected ng/mL 32 Oxycodone, Ur Present ng/mL Abnormal Cutoff: 25 33 Noroxycodone, Ur Present ng/mL Abnormal Cutoff: 25 34 Oxymorphone, Ur Not Detected ng/mL Cutoff: 25 35 Vlwgxuknrrz-7-pebi-glucuronide Present ng/mL Abnormal 36 Noroxymorphone, Ur Present ng/mL Abnormal Cutoff: 25 37 Fentanyl, Ur Not Detected ng/mL Cutoff: 2 38 Norfentanyl, Ur Not Detected ng/mL Cutoff: 2 39 Meperidine, Ur Not Detected ng/mL Cutoff: 25 40 Normeperidine, Ur Not Detected ng/mL Cutoff: 25 41 Naloxone, Ur Not Detected ng/mL Cutoff: 25 42 Xgdlysmi-1-bpyn-glucuronide, U Not Detected ng/mL 43 Methadone, Ur Not Detected ng/mL Cutoff: 25 44 Eddp, Ur Not Detected ng/mL Cutoff: 25 45 Propoxyphene, Ur Not Detected ng/mL Cutoff: 25 46 Norpropoxyphene, Ur Not Detected ng/mL Cutoff: 25 47 Tramadol, Ur Not Detected ng/mL Cutoff: 25 48 O-desmethyltramadol, Ur Not Detected ng/mL Cutoff: 25 49 Tapentadol, Ur Not Detected ng/mL Cutoff: 25 50 N-desmethyltapentadol, Ur Not Detected ng/mL Cutoff: 50 51 Dwtluxehui-bozj-czsvfuhcjgx, U Not Detected ng/mL 52 Buprenorphine, Ur Not Detected ng/mL Cutoff: 5 53 Norbuprenorphine, Ur Not Detected ng/mL Cutoff: 5 54 Norbuprenorphine glucuronide Not Detected ng/mL Cutoff: 20 55 Opioid Interpretation See Comment 56 CBC Auto 07/03/2019 [facility] White Blood 4.9 10^3/uL Normal 3.5-10.[address] [place] [address] [phone] Red Blood Count 3.54 10^6/uL Low 4.18-5.48 [...] Blood Cells % 0.1 Cell Morphology 07/03/2019 [facility] Microcytosis 1+ [address] [place] [address] [phone] Hypochromasia 2+ [place] Cells 1+ Elliptocyte 2+ Comp Metabolic 07/03/2019 [facility] Sodium 136 mmol/L Normal 135-145 Panel [address] [place] [address] [phone] Potassium 4.6 mmol/L Normal 3.5-5.0 Chloride 106 [...] Egfr Non- 80.5 >60 Egfr 97.3 >60 57 Hemochromatosis 06/28/2019 [facility] Hemochromatosis See Comment 58 Hereditary Dna [address] Result Summary [place], [place] [id number] [phone] Hemochromatosis Specimen WB Whole Blood Hemochromatosis Method See Comment 59 Hemochromatosis Results See Comment 60 Hemochromatosis Interpretation See Comment 61 Hemochromatosis Reviewed By See Comment 62 Laboratory test 06/28/2019 [facility] SM(Salgado) Igg <0.2 U [address] [place] [address] [phone] Myeloperoxidase AB <0.2 U 64 Proteinase 3 <0.2 U 65 Anti Double Stranded Dna AB 160 IU/mL Abnormal 66 Urine Culture And 06/28/2019 [facility] Urine Culture SEE RESULT [address] [place] [address] [phone] Laboratory test 06/28/2019 [facility] Blood Culture SEE RESULT [address] [place] [address] [phone] Urinalysis Profile 06/28/2019 [facility] Urine Color Yellow [address] [place] [address] [phone] Urine Appearance Cloudy Urine Specific [place] 1.018 Normal 1.010-1.030 Urine pH 5.0 Normal [...] Bacteria 1+ Abnormal Absent Laboratory test 06/28/2019 [facility] Erythrocyte Sed 115 mm/Hr High 0-[address] [place] [address] [phone] Cell Morphology 06/28/2019 [facility] Microcytosis 1+ [address] [place] [address] [phone] Hypochromasia 1+ Anisocytosis 2+ Elliptocyte 1+ CBC Auto 06/28/2019 [facility] White Blood 6.4 10^3/uL Normal 3.5-10.[address] [place] [address] [phone] Red Blood Count 2.53 10^6/uL Low 4.18-5.48 Hemoglobin 6.4 g/dL Critical low 14.0-18.0 69 Hematocrit 20 % Low 42-52 Mean Corpuscular [...] Red Blood Cells % 0.0 Laboratory 06/28/2019 [facility] Partial 33.4 Normal 26.0- 38.[address] [place] [address] PTT [phone] Inr/Protime 06/28/2019 [facility] Inr 1.27 High 0.82-1.[address] [place] [address] [phone] Laboratory 06/28/2019 [facility] C Reactive 251.44 High <8.[address] Protein mg/[place] [address] [phone] Troponin-I (TnI) 0.03 ng/mL <0.04 71 B-Type Natriuretic Peptide BNP 161 pg/mL High <=100 Comp Metabolic Panel 06/28/2019 [facility] Sodium 132 mmol/L Low 135-[address] [place] [address] [phone] Potassium 3.6 mmol/L Normal 3.5-5.0 Chloride 103 [...] Egfr Non- 47.3 >60 Egfr 57.3 >60 72 Laboratory 06/28/2019 [facility] Lactic Acid 1.9 mmol/L Normal 0.5-2.0 73 test finding [address] [place] [address] [phone] Laboratory 06/28/2019 [facility] Packed SEE RESULTS 74, test finding [address] Cells BELO <SEE [address] [place] [address] NOTE> [phone] Type & Screen 06/28/2019 [facility] Patient A Positive [address] [place] [address] [phone] Antibody Screen NEGATIVE Laboratory 06/28/2019 [facility] Lactic Acid 1.5 Normal 0.5- 2.0 76 test finding [address] mmol/[place] [address] [phone] Laboratory 06/18/2019 [facility] Erythrocyte Sed 35 mm/Hr High 0-19 test finding [address] [place] [address] [phone] C Reactive Protein 22.18 mg/L High <8.01 PSA Screening 0.427 ng/mL Normal 0-4.000 77 B-Type Natriuretic Peptide BNP 302 pg/mL High <=100 CK Isoenzymes 06/18/2019 [facility] Creatine 15 U/L Abnormal 39 - [address] [place] [address] [phone] CK Isoenzyme Elec, Specimen See Comment 78 Laboratory test 06/18/2019 [facility] Rheumatoid < 10 IU/mL Normal <[address] [place] [address] [phone] Cyclic Citrullinated Pep Igg <15.6 U 79 Anca AB Ser If 06/18/2019 [facility] C-Anca Negative Negative [address] [place] [address] [phone] P-Anca Indeterminate Abnormal Negative 80 1 Because ethnic data is not always [...] REFERENCE VALUE <20.0 (Negative) Test Performed by: [facility] [address] [place] [address] Human Resources Mgr: Fabio Rosa M.D. Ph.D.; CLIA# [id number] 4 Interpretation: Strong Positive (>=6.0) REFERENCE VALUE <=1.0 (Negative) Test Performed by: [facility] [place] [address] Human Resources Mgr: Fabio Rosa M.D. Ph.D.; CLIA# [id number] 5 RESULT: No apparent monoclonal protein on serum electrophoresis. Test Performed by: [facility] [place] [address] Human Resources Mgr: Fabio Rosa M.D. Ph.D.; CLIA# [id number] 6 REFERENCE VALUE <1.0 (Negative) 7 REFERENCE VALUE <1.0 (Negative) 8 REFERENCE VALUE <1.0 (Negative) 9 REFERENCE VALUE <1.0 (Negative) 10 REFERENCE VALUE <1.0 (Negative) 11 REFERENCE VALUE <1.0 (Negative) Test Performed by: [facility] [place] [address] Human Resources Mgr: Fabio Rosa M.D. Ph.D.; CLIA# [id number] 12 REFERENCE VALUE <1.0 (Negative) Test Performed by: [facility] [place] [address] Human Resources Mgr: Fabio Rosa M.D. Ph.D.; CLIA# [id number] 13 Interpretation: Positive (>=1.0) REFERENCE VALUE <1.0 (Negative) Test Performed by: [place] [address] Human Resources Mgr: Fabio Rosa M.D. Ph.D.; CLIA# [id number] 14 Testing for dsDNA antibody by Crithidia IFA was negative. Unable to confirm borderline positive result obtained by enzyme immunoassay. Test Performed by: [place] [address] Human Resources Mgr: Fabio Rosa M.D. Ph.D.; CLIA# [id number] 15 Strongly positive AMMY with antibodies specific for ribosome P. In addition, the result for anti-dsDNA antibody was borderline positive, although follow-up testing was negative by Crithidia luciliae immunofluorescence. Unable to confirm borderline positive anti-dsDNA antibody result obtained by enzyme immunoassay. Overall, results may be consistent with diagnosis of a connective tissue disease, if compatible clinical symptoms are present, although the exact etiology is unclear based on the antibody profile alone. Unable to provide further interpretation without clinical information. Correlation with clinical presentation recommended. Test Performed by: [place] [address] Human Resources Mgr: Fabio Rosa M.D. Ph.D.; CLIA# [id number] 16 Normal Range 180 to 914 Indeterminate Range 145 to 180 Deficient Range <145 17 REFERENCE VALUE Cutoff: 500 18 REFERENCE VALUE Cutoff: 200 19 REFERENCE VALUE Cutoff: 100 20 REFERENCE VALUE Cutoff: 150 21 ADDITIONAL INFORMATION This report is intended for use in clinical monitoring or management of patients. It is not intended for use in employment-related testing. Test Performed by: [facility] [address] [place] [address] Human Resources Mgr: Fabio Rosa M.D. Ph.D.; CLIA# [id number] 22 REFERENCE VALUE Cutoff: 200 mg/L 23 Tylenol 3 24 Metabolite of codeine REFERENCE VALUE Cutoff: 100 25 Jeni Cho, Contin; Also a minor metabolite (10%) of codeine and can be seen in low concentrations (<2,000 ng/mL) with poppy seed ingestion. 26 Metabolite of morphine REFERENCE VALUE Cutoff: 100 27 Metabolite of heroin 28 Lortab, [place], Vicodin; Also a very minor metabolite of codeine and impurity (<1%) of oxycodone. 29 Metabolite of hydrocodone 30 Metabolite of hydrocodone 31 Dilaudid, Exalgo; Also a metabolite of hydrocodone and a minor (<5%) metabolite of morphine. 32 Metabolite of hydromorphone REFERENCE VALUE Cutoff: 100 33 Endocet, Percocet, Oxycontin 34 Metabolite of oxycodone 35 Numorphan, Opana; Also a metabolite of oxycodone. 36 Metabolite of oxymorphone REFERENCE VALUE Cutoff: 100 37 Metabolite of oxymorphone 38 Actiq, Duragesic, Fentora 39 Metabolite of fentanyl 40 Demerol 41 Metabolite of meperidine 42 Narcan 43 Metabolite of naloxone REFERENCE VALUE Cutoff: 100 44 Dolophine 45 Metabolite of methadone 46 Darvon, Darvocet 47 Metabolite of propoxyphene 48 Tradol, Ultram, Ultracet 49 Metabolite of tramadol 50 Nucynta 51 Metabolite of tapentadol 52 Metabolite of tapentadol REFERENCE VALUE Cutoff: 100 53 Buprenex, Suboxone 54 Metabolite of buprenorphine 55 Metabolite of buprenorphine 56 Test detected the presence of oxycodone and several metabolites (noroxycodone, noroxymorphone, and wftnwwgahyi-2-mepo-glucuronide). Suspect use of oxycodone and/or oxymorphone within the past three days. ADDITIONAL INFORMATION This test was developed and its performance characteristics determined by [facility] in a manner consistent with CLIA requirements. This test has not been cleared or approved by the U.S. Food and Drug Administration. 57 Because ethnic data is not always [...] 5 Kidney failure <15 (or dialysis) 58 RESULT: COMPLEX (SEE RESULT AND INTERPRETATION) 59 A multiplex PCR based assay utilizing the [employer] Array platform was used to test for the following three mutations in the HFE gene; C282Y, H63D, and S65C. Because of the minimal effect on iron metabolism associated with the S65C mutation, it is only reported when it is found with the C282Y mutation (i.e. if the patient has the C282Y/S65C genotype). 60 C282Y: One copy of the C282Y mutation was identified. H63D: Not detected. S65C: Not detected. 61 This result indicates that this individual is at minimum a carrier of hereditary hemochromatosis (HH). The diagnosis of HH cannot be excluded because approximately 3 to 5% of patients with HH in the [place] population carry this allele. For other ethnicities, [...] indicated chromosome(s). An online research opportunity called [employer] ([employer]), a project of [employer], is available for the recipient of this genetic test. This patient registry collects de-identified genetic and health information to advance the knowledge of genetic variants. [facility] is a collaborator of [employer]. This may not be applicable for all [...] allogenic donors will interfere with testing. Call [facility] for instructions for testing patients who have received a bone marrow transplant. This test was developed and its performance characteristics determined by [facility] in a manner consistent with CLIA requirements. This test has not been cleared or approved by the U.S. Food and Drug Administration. 62 RESULT: Good Titus, Ph.D. Test Performed by: [facility] - [address] [address] 63 REFERENCE VALUE <1.0 (Negative) Test Performed by: [facility] - [address] [address] 64 REFERENCE VALUE <0.4 (Negative) Test Performed by: [facility] - [address] [address] 65 REFERENCE VALUE <0.4 (Negative) Test Performed by: [facility] [address] [place] [address] 66 Interpretation: Positive (>75.0) REFERENCE VALUE <30.0 (Negative) Test Performed by: [facility] [address] [place] [address] 67 SEE RESULT BELOW Name: HECTOR BARR : [address]: Rosalba Bourgeois MD Acct: [id number] Unit: [id number] AGE: 58 Location: [place] [address] Re06/28/19 SEX: M Status: ADM IN SPEC: [id number] WANDA: 06/29/[address]: Liz Bernard MD REQ: [id number] RECD: 06/29/19 STATUS: BENJA FELIX DR: Cierra Bell MD _ SOURCE: URINE SPDESC: ORDERED: Urine Culture Procedure Result Reported Site Urine Culture Final 06/30/19- 1018 ML No Growth (<1,000 CFU/mL) * ML - Main Lab . END OF REPORT DEPARTMENT OF PATHOLOGY, [address] [place] [address] Clifford Quesada M.D. Director [facility] # [id number] 68 SEE RESULT BELOW Name: HECTOR BARR : [address]: Trino Miller MD Acct: [id number] Unit: [id number] AGE: 58 Location: [place] [address]- Re06/28/19 Dis: 07/01/19 SEX: M Status: DIS IN SPEC: [id number] WANDA: 06/28/[address]: Liz Bernard MD REQ: [id number] RECD: 06/28/19 STATUS: BENJA FELIX DR: Cierra Bell MD _ SOURCE: BLOOD,VENO SPDES: ORDERED: Blood Cult Procedure Result Reported Site Aerobic Culture Bottle Final 07/03/19- 1035 ML No Growth Day 5 Anaerobic Culture Bottle Final 07/03/19- 1035 ML No Growth Day 5 * ML - Main Lab . END OF REPORT DEPARTMENT OF PATHOLOGY, [address] [place] [address] Clifford Quesada M.D. Director [facility] # [id number] 69 Verbal to [id number] by LUCIO at 950 on 06/28/19.Results read back accurately 70 Standard intensity warfarin therapeutic range: 2.0-3.0 High intensity warfarin therapeutic range: 2.5-3.5 71 Troponin-I testing on Plasma Separator Tubes (PST) has a known false positive rate of 0.20-0.40%. All positive troponins reflex immediately to secondary confirmatory testing. Using the [employer] 800 Access Immunoassay systems, the 99th percentile upper reference limit was demonstrated to be < 0.03 ng/mL. 72 Because ethnic data is not always readily [...] 15-29 5 Kidney failure <15 (or dialysis) 73 [facility] Severe Sepsis and Septic Shock Management Bundle Measure requires all lactic acids initially measuring >2.0 mmol/L be repeated. 74 RAPID HR PER EMS 75 SEE RESULTS BELOW [id number] AP PC TRANSFUSED 06/28/19 1201 [id number] AP PC TRANSFUSED 06/28/19 1431 76 [facility] Severe Sepsis and Septic Shock Management Bundle Measure requires all lactic acids initially measuring >2.0 mmol/L be repeated. 77 Serum levels of PSA measured using the [employer] DXI Hybritech immunoassay should not be interpreted [...] methods or kits cannot be used interchangeably. 78 RESULT: If CK result is <100, isoenzyme will not be performed. Test Performed by: [facility] - [address] [address] 79 REFERENCE VALUE <20.0 (Negative) Test Performed by: [facility] - [address] [address] 80 Indeterminate for pANCA pattern by immunofluorescence using ethanol-fixed neutrophils. Consider further testing for anti-proteinase 3 (PR3) and/or anti-myeloperoxidase (MPO) antibodies, if clinically indicated. Also, consider testing for antinuclear antibody (AMMY) to rule out presence of interfering antibody. ADDITIONAL INFORMATION This test was developed and its performance characteristics determined by [facility] in a manner consistent with CLIA requirements. This test has not been cleared or approved by the U.S. Food and Drug Administration. Test Performed by: [facility] - [address] [address] Procedures Date Code Description Status 08/07/2019 80202 Stress Test Completed 08/07/2019 89239 Myocardial Perfusion Imaging Tomographic (Spect) Completed Multiple Studies 07/18/2019 10576 EKG Tracing & Interpretation Completed 06/30/2019 15396 Endoscopy Upper GI Biopsy Completed 06/27/2019 41746 ECHO Transthoracic, Real-Time 2D With Doppler And Color Completed Flow 06/27/2019 72907 ECHO Transthoracic, Real-Time 2D With Doppler And Color Completed Flow 03/19/2019 [id number] Colonoscopy Completed Medical Devices Description No Information Available Encounters Type Date Location Provider Dx Diagnosis Office Visit 11/11/2019 8:30a [facility] Internal Medicine Dariana Chavez M.D., R64 [facility] Z79.891 penitentiary (current) use of opiate analgesic Office Visit 10/29/2019 1:40p Rheumatology [place] M35.9 Systemic Services Of Christina Fenton M.D. involvement of connective tissue, unspecified Z79.899 Other assisted (current) drug therapy R20.8 Other disturbances of skin sensation R53.83 Other fatigue D64.9 Anemia, unspecified Office Visit 08/22/2019 1:30p Pulmonology And Cyndy R06.02 Shortness of Sleep Services Of MD Timur breath [facility] J44.9 Chronic obstructive pulmonary disease, unspecified Z72.0 Tobacco use R59.0 Localized enlarged lymph nodes Office Visit 08/09/2019 2:20p [facility] Internal Cierra Arabella, D50.9 [facility] J44.9 Chronic obstructive pulmonary disease, unspecified Z72.0 Tobacco use 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 polyarthropathy Office Visit 07/18/2019 10:00a [facility] Blake Chicas R07.9 Chest pain , Of [facility] Ko, unspecified FACC I42.9 Cardiomyopathy, unspecified R06.02 Shortness of breath 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 polyarthropathy Z79.899 Other assisted (current) drug therapy D50.9 Iron deficiency anemia, unspecified J44.9 Chronic obstructive pulmonary disease, unspecified Z72.0 Tobacco use Office Visit 07/11/2019 Rheumatology [place] 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 4:00p Services Of Christina Fenton M.D. polyarthropathy Z79.899 Other assisted (current) drug therapy R06.02 Shortness of breath R53.83 Other fatigue Office Visit 07/01/2019 8:13a [facility] Anna D64.9 Anemia, Assoc,pc Marium, PA-C unspecified Hospitalists J44.0 Chr obstructive pulmon disease with (acute) lower resp infct J18.9 Pneumonia, unspecified organism I50.9 Heart failure, unspecified Office Visit 06/30/2019 8:12a [facility] Anna D64.9 Anemia, Assoc,pc Marium, PA-C unspecified Hospitalists J18.9 Pneumonia, unspecified organism R64 Cachexia E43 Unspecified severe protein-calorie malnutrition Office Visit 06/29/2019 8:12a [facility] Fabio D64.9 Anemia, Assoc,pc NAEL Velazco unspecified Hospitalists J18.9 Pneumonia, unspecified organism E43 Unspecified severe protein-calorie malnutrition R64 Cachexia Office Visit 06/29/2019 [facility] Gastroenterology Peter TKita E43 Unspecified severe 7:00a MD Gato protein-calorie malnutrition D50.9 Iron deficiency anemia, unspecified R64 Cachexia Office Visit 06/28/2019 1:07p Rheumatology [place] Fenton, R76.0 Raised antibody Services Of [facility] M.DKita titer M79.18 Myalgia, other site M25.50 Pain in unspecified joint Z87.01 Personal history of pneumonia (recurrent) Office Visit 06/28/2019 8:11a [facility] Fabio D64.9 Anemia, Assoc,pc NAEL Velazco unspecified Hospitalists J44.0 Chr obstructive pulmon disease with (acute) lower resp infct J18.9 Pneumonia, unspecified organism I50.9 Heart failure, unspecified Office Visit 06/18/2019 2:00p [facility] Internal Medicine - Cierra Bell MD R64 Cachexia [facility] D50.9 Iron deficiency anemia, unspecified R53.83 Other fatigue 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 polyarthropathy R06.02 Shortness of breath Office Visit 06/04/2019 1:00p [facility] Gaurav Peña M.D. R64 Cachexia Of [facility] AT [place] R76.0 Raised antibody titer R70.0 Elevated erythrocyte sedimentation rate B37.81 Candidal esophagitis R53.1 Weakness D64.9 Anemia, unspecified M79.18 Myalgia, other site R59.0 Localized enlarged lymph nodes Assessments Date Code Description Provider 12/03/2019 M54.6 Pain in thoracic spine [facility] Fenton M.D. 12/03/2019 M35.9 Systemic involvement of connective [place] Fenton M.D. tissue, unspecified 12/03/2019 Z79.899 Other terminal supervisor (current) drug therapy [facility] Fenton M.D. 12/03/2019 Z79.52 penitentiary (current) use of systemic [place] Fenton M.D. steroids 11/11/2019 R64 Cachexia Dariana Chavez M.D., FACP 11/11/2019 Z79.891 penitentiary (current) use of opiate Dariana Chavez M.D., FACP analgesic 10/29/2019 M35.9 Systemic involvement of connective [place] Fenton M.D. tissue, unspecified 10/29/2019 Z79.899 Other terminal supervisor (current) drug therapy [place] Fenton M.D. 10/29/2019 [...] MD 08/07/2019 R07.9 Chest pain, unspecified Blake Connell, DO FACC 07/18/2019 R07.9 Chest pain, unspecified Blake Connell, DO FACC 07/18/2019 I42.9 Cardiomyopathy, unspecified Blake Connell, DO FACC 07/18/2019 R06.02 Shortness of breath Blake Connell, DO FACC 07/18/2019 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 polyarthropathy Blake Connell, DO FACC 07/18/2019 Z79.899 Other assisted (current) drug therapy Blake Connell, DO FACC 07/18/2019 D50.9 Iron deficiency anemia, unspecified Blake Connell, DO FACC 07/18/2019 J44.9 Chronic obstructive pulmonary disease, Blake Connell, DO FACC unspecified 07/18/2019 Z72.0 Tobacco use Blake Connell, DO [facility] 07/11/2019 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 polyarthropathy [place] Fenton M.D. 07/11/2019 Z79.899 Other terminal supervisor (current) drug therapy [facility] Fenton M.D. 07/11/2019 R06.02 Shortness of breath [place] Fenton M.D. 07/11/2019 R53.83 Other fatigue [facility] Fenton M.D. 07/01/2019 D64.9 Anemia, unspecified Anna O'lexa, PA-C 07/01/2019 J44.0 Chronic obstructive pulmonary disease NAEL Lion-C with (acute) lower respiratory infection 07/01/2019 J18.9 Pneumonia, unspecified organism Anna Brandi'lexa, PA-C 07/01/2019 I50.9 Heart failure, unspecified Anna [...] Hoskins MD 06/30/2019 R64 Cachexia Anna Paz'lexa, PA-C 06/30/2019 E43 Unspecified severe protein-calorie Anna Brandi'lexa, PA-C malnutrition 06/29/2019 E43 Unspecified severe protein-calorie [...] 06/27/2019 R06.02 Shortness of breath Blake Connell, [facility] 06/27/2019 R06.02 Shortness of breath [facility] 06/18/2019 R64 Cachexia Cierra Bell MD 06/18/2019 [...] Localized enlarged lymph nodes Gaurav Peña M.D. Plan of Treatment Future Appointment(s):02/03/2020 8:20 am - [place] Fenton M.D. at Rheumatology Services Of [facility]12/18/2019 11:30 am - Cyndy Ding MD at Pulmonology And Sleep Services Of [facility]03/25/2020 11:40 am - Cierra Bell MD at [facility] Internal Medicine - Ccmob12/03/2019 - [place] Fenton M.D.M54.6 Pain in thoracic spineNew Xrays:Ribs Unilat Chest PA View Min 3 V R, Ordered: 12/03/19Follow up:Follow up in 2 or 3 months or sooner if gdqzohN36.9 Systemic involvement of connective tissue, kgwvbzobpcgJ20.899 Other assisted (current) drug lslsphyQ92.52 penitentiary (current) use of systemic steroidsNew Xrays:Dexa Bone Study, Ordered: 12/03 Functional Status Description No Information Available Mental Status Description No Information Available Referrals Refer to Dr Reason for Referral Status Appt Date Pain Clinic manage back pain cachexia: requesting Marinol Sent [address] [place] [facility] [phone] [place] Gomez MD Please monitor for Plaquenil toxicity and Sent prednisone toxicity [address] [place] [address] [phone] Pain Clinic Pain Clinic states that they need more Received Partial information about why this pt needs to be seen [address] [address] [phone] Created Cyndy Ding MD pt with severe COPD 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 [address] [place] [address] [phone] [place] Gomez MD Please check for Plaquenil or Prednisone toxicity Sent [address] [place] [address] [phone]
--- OUTSIDE RECORDS SUMMARY | 2019-12-20 15:05 | XMS REPORT | Continuity of Care Document ---
:1960 External Reference #:[id number] Author Name Srinivas Uribe M.D. (transmitted by agent of provider Good Persaud) Address [address] [place] [address] Care Team Providers Name Role Phone [facility] Fenton MD - Rheumatology Care Team Information [employer] Cierra Bell MD - Internal Medicine Care Team Information [employer] Gaurav Peña M.D. - Hematology & Care Team Information [employer] [phone] Oncology Problems Active Problems Provider Date Pulmonary emphysema Onset: Anemia Onset: Disorder of connective tissue co-occurrent and due to Onset: systemic disease Chronic obstructive lung disease Onset: Autoimmune disease Onset: Inflammatory polyarthropathy Onset: Social History Type Date Description Comments Sex Unknown Tobacco Use Start: Unknown Light tobacco smoker (10 or fewer 1-5 a day cigarettes/day) Recreational Drug Use Sporadically uses Marijuana Smoking Status Reviewed: 11/19/19 Light tobacco smoker (10 or fewer 1-5 a day cigarettes/day) Allergies, Adverse Reactions, Alerts Description No Known Drug Allergies Medications Active Medications SIG Qnty Indications Ordering Date Provider Lisinopril Take 1 Tablet Unknown 20mg Tablets By Mouth Every Day Mirtazapine Take 1 Tablet Unknown 45mg Tablets By Mouth AT Night Hydroxychloroquine Sulfate Take 1 Tablet Unknown 200mg By Mouth Every Tablets Day Prednisone Take 1 Tablet Unknown 10mg Tablets By Mouth Every Day Spiriva Respimat Inhale 1 puff Unknown 1.25mcg/Act By Mouth Every Aerosol Day Oxycodone HCL Dariana Chavez MD 5mg Tablets Gabapentin [place] Fenton 300mg Capsules Megestrol Acetate Take 15 ML By Unknown 40mg/ml Mouth Two Suspension Times Daily Iron Unknown 28mg Tablets Nebulizer Unknown Immunizations Description No Information Available Vital Signs Description No Information Available Results Description No Information Available Procedures Description No Information Available Medical Devices Description No Information Available Encounters Description No Information Available Assessments Date Code Description Provider 11/19/2019 Z79.899 Other senior care (current) drug therapy Srinivas Uribe M.D. 11/19/2019 H25.13 Age-related nuclear cataract, bilateral Srinivas Uribe M.D. 11/19/2019 H04.123 Dry eye syndrome of bilateral lacrimal Srinivas Uribe M.D. glands Plan of Treatment Future Appointment(s):11/18/2020 11:00 am - Srinivas Uribe M.D. at [place] Gomez MD, 11/18/2020 10:00 am - [facility] at [place] Gomez MD, 2018 - Srinivas Uribe M.D.Z79.899 Other senior care (current) drug therapyComments:Smoking can increase the risk of developing or worsening any eye related disease, as well as affect your overall health. If you are a smoker , we strongly recommend that you quit.If you are not a smoker, we strongly recommend that you do not start. Some of the medications you are on have the potential to cause damage to your retinas. Depending on the length of time that you have been taking the medication, Dr. Uribe may monitor you annually or bi-annually. Dr. Uribe may also order a Visual Field test or an Optical Coherence Tomography test to monitor your retinas.Follow up:1 Year Follow Up DFE , OCT MAC, COLOR PLATES, VF 10-2 You can expect to have your eyes dilated at your next visit. If Dr. Uribe orders any additional testing, it may require extra time. We recommendthat you bring sunglasses, as dilation drops often make you light sensitive until they wear off. We always recommend you bring someone to drive you home if you are uncomfortable driving with your eyes dilated. If you have any questions before your next visit, feel free to call our office at .H25.13 Age-related nuclear cataract, bilateralComments:You have been diagnosed with cataracts. If you are happy with your vision as it is now, then we willsee you at your next scheduled appointment. If you feel like your vision is getting worse before your scheduled appointment, please call Gabriela at [phone].H04.123 Dry eye syndrome of bilateral lacrimal glandsComments: Both of your eyes appear to be dry. Use artificial tears as directed. You can use the tears more often if you are reading a book or are on the computer, as we tend to blink less, making our eyes dry out more.[facility] offers a few items in our optical department to help alleviate dry eye symptoms. USE THE ARTIFICAL TEARS 2-3 TIMES A DAY TO BOTH EYES FOR TWO WEEKS THEN DECREASE TO NEEDED. Functional Status Description No Information Available Mental Status Description No Information Available Referrals Description No Information Available
--- OUTSIDE RECORDS SUMMARY | 2019-12-20 15:05 | XMS REPORT | Continuity of Care Document ---
:1960 External Reference #:[id number] Author Name Srinivas Uribe M.D. Address [address] [place] [address] Care Team Providers Name Role Phone [place] Fenton MD - Rheumatology Care Team Information Social Work Administrator Cierra Bell MD - Internal Medicine Care Team Information Social Work Administrator Gaurav Peña M.D. - Hematology & Care Team Information Social Work Administrator Oncology Problems Active Problems Provider Date Pulmonary emphysema Onset: Anemia Onset: Disorder of connective tissue co-occurrent and due to Onset: systemic disease Chronic obstructive lung disease Onset: Autoimmune disease Onset: Social History Type Date Description Comments [...] 5mg Tablets Gabapentin [place] Fenton 300mg Capsules MD Megestrol Acetate Take 15 ML By Unknown 40mg/ml Mouth Two Suspension Times Daily Iron Unknown 28mg Tablets Nebulizer Unknown Immunizations Description No Information Available Vital Signs Description No Information Available Results Description No Information Available Procedures Description No Information Available Medical Devices Description No Information Available Encounters Description No Information Available Assessments Date Code Description Provider 11/19/2019 Z79.899 [facility] [place] [facility] drug therapy Srinivas Uribe M.D. 11/19/2019 H25.13 Age-related nuclear cataract, bilateral Srinivas Uribe M.D. 11/19/2019 H04.123 Dry eye syndrome of bilateral lacrimal Srinivas Uribe M.D. glands Plan of Treatment 11/19/2019 - Srinivas Uribe M.D.Z79.899 [facility] [place] [facility] (current) drug therapyComments:Smoking can increase the risk [...] your scheduled appointment, please call Gabriela at [phone].H04.123 Dry eye syndrome of bilateral lacrimal glandsComments: Both of your eyes appear to be dry. Use artificial tears as directed. You can use the tears more often if you are reading a book or are on the computer, as we tend to blink less, making our eyes dry out more.[facility] offers a few items in our optical department to help alleviate dry eye symptoms. USE THE ARTIFICAL TEARS 2-3 TIMES A DAY TO BOTH EYES FOR TWO WEEKS THEN DECREASE TO NEEDED. Functional Status Description No Information Available Mental Status Description No Information Available Referrals Description No Information Available
[2019-12-20 15:13] LABS: Activated Partial Thrombo Time 27.5 seconds (26.0-38.0)
[2019-12-20 15:15] LABS: Albumin 3.2 g/dL (3.2-5.2); Albumin/Globulin Ratio 1.6 (1-3); BUN/Creatinine Ratio 22.3 (8-20); Calcium 8.5 mg/dL (8.6-10.3); EGFR African American 47.3 (>60); EGFR Non-African American 39.1 (>60); Potassium 4.3 mmol/L (3.5-5.0); Total Bilirubin 0.2 mg/dL (0.2-1.0); Total Protein 5.2 g/dL (6.4-8.9)
[2019-12-20 15:16] LABS: Hematocrit 17 % (42-52); Hemoglobin 5.9 g/dL (14.0-18.0); Mean Corpuscular HGB Conc 34 g/dL (31-36); Mean Corpuscular Hemoglobin 34 pg (27-31); Mean Corpuscular Volume 99 fL (80-94); Mean Platelet Volume 6.5 fL (7.4-10.4); Platelet Count 247 10^3/uL (150-450); Red Blood Count 1.76 10^6 /uL (4.18-5.48); Red Cell Distribution Width 21 % (10-15); White Blood Count 4.3 10^3/uL (3.5-10.8)
[2019-12-20] MEDS ORDERED: Pantoprazole IV* 40 MG IV ONE (15:23)
[2019-12-20] MEDS ORDERED: Ondansetron INJ* 2 MG/ML VIAL IV PRN (16:32)
[2019-12-20] MEDS ORDERED: Al Hydrox/Mg Hydrox/Simet LIQ* 30 ML UDC PO PRN (16:32)
[2019-12-20] MEDS ORDERED: Senna TAB 8.6 mg* TAB PO PRN (16:32)
[2019-12-20] MEDS ORDERED: Acetaminophen TAB* 325 MG PO PRN (16:32)
[2019-12-20] MEDS ORDERED: oxyCODONE TAB* 5 MG TAB PO PRN (16:41)
[2019-12-20] MEDS ORDERED: NS 0.9% 1000 ML** 1,000 ML IV SCH (16:45)
[2019-12-20 17:16] LABS: ABS Lymphocytes 0.6 10^3/ul (1.0-4.8); ABS Monocytes 0.4 10^3/ul (0-0.8); ABS Neutrophils 3.3 10^3/ul (1.5-7.7); Eosinophil % 0.8 %; Lymphocyte % 13.3 %; Nucleated Red Blood Cells % 0.1
[2019-12-20] MEDS: Pantoprazole* 80 mg IN NS 80 MG/250 ML BAG IV SCH (17:29)
[2019-12-20] MEDS ORDERED: Iron Sucrose* 200 MG in NS 0.9% 100 ML* 100 ML IVPB ONE (17:30)
--- NOTE | 2019-12-20 19:53 | CONS ---
GASTROENTEROLOGY CONSULT: DATE: CONSULTING PHYSICIANS: Dr. Benny Medina, Dr. Cierra Bell. REASON FOR CONSULTATION: Passing blood per rectum for 10 to 12 hours on , 12/19/19, arriving in the emergency room 2 p.m. today with a hemoglobin of 5.9. HISTORY: This 59-year-old man, chronically ill with malnutrition, active smoking, COPD, possible autoimmune disorder on prednisone 10mg and a history of headaches, with an ulcer in 2017, has been slowly gaining some weight with an increased diet over the last 6 to 8 months. He has been followed by Dr. Bell , Dr. Peña, and Dr. Fenton. A unifying diagnosis has not really emerged. He takes oxycodone for chronic pain and becomes constipated, not going for 3 or 4 days and then taking "a little blue pill" sporadically maybe every 7 to 10 days. He cannot really be pinned down any more. He denies digital disimpaction or using enemas. Yesterday afternoon around 2:30, he felt the urge to go and said what came out was "as if you opened up a faucet." He said it was all blood and he had multiple other passages through the day and into the evening, last passing blood around 10:30 p.m. He slept for about 4 hours and then tossed and turned but did not have any more bowel movements through the night and has had none today as of 6 p.m. He denies any prior such episodes. He has had numerous recent gastrointestinal investigations. In June this past year, upper endoscopy was unremarkable when he had presented severely anemic. CLOtest was negative. In February 2019 when he was clearly malnourished and anemic with a hemoglobin of 6.5, he had heme-negative stool twice and upper endoscopy by Dr Worley was unremarkable and the next day colonoscopy and ileoscopy by me similarly unremarkable. In December 2016, Dr. Wright found a large gastric ulcer and he was CLOtest negative at that initial endoscopy but then in followup March 2017 the ulcer was healed, though his CLOtest was positive. The procedure report says he was treated, though specific followup that year is not known. Stool HP was negative June 2019 PAST MEDICAL HISTORY: 1. Malnutrition - evident when he was admitted in February 2019, although at that time it was said he had no significant past medical history. He had pancytopenia then. He seemed to have socioeconomic factors for this saying to some people he could not afford food and he has no vehicle and is dependent on others for transportation. 2. Tobacco abuse - significant in the past and ongoing 3. Pancytopenia - he has been seen by Dr. Peña and his notes in the recent months are not available, though when he was seen in February 2019, the focus was on iron deficiency anemia and leukopenia. Just 2 weeks ago, the patient received intravenous iron. 4. COPD - he has been seen by Dr. Ding. 5. Connective tissue disorder - he is followed by Dr. Fenton for a positive AMMY and has received some courses of prednisone. 6. Helicobacter pylori carriage and history of gastric ulcer - stool H. pylori antigen was negative in June 2019. MEDICATIONS: Home medications include: 1. Prednisone 10 mg. 2. Lisinopril 20. 3. Pantoprazole 40. 4. Megace b.i.d. 5. Hydroxychloroquine 200. 6. Neurontin 300 t.i.d. 7. Acetaminophen p.r.n. 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 He says he has gained weight from 110 to 143 in the last 6- 9 months. He denies NSAID use. His confirmed that but interchangeably uses aspirin and acetaminophen not seeming to understand the difference. REVIEW OF SYSTEMS: No history of migraine headaches, seizures, recent syncope, MN, chest pain, hemoptysis, hematuria, renal disease, jaundice, monoarthritis, or rash or eye problems. EXAM: He is a chronically ill and somewhat cachectic-appearing middle-aged man , in no overt distress. Pulse 76 and regular, blood pressure 110/68. He has multiple tattoos. He has no adenopathy. His lungs are clear with diminished breath sounds. Heart sounds are regular. His abdomen is flat with active bowel sounds that sound normal. Abdomen is soft. Rectal: Deferred at this time. Extremities show no edema. LABS: CBC on admission: Hemoglobin 5.9, hematocrit 17, MCV 99, platelets 247, white count 4.3. INR 1.00. BUN 40, creatinine 1.79 which seems to indicate dehydration as it is the highest over the last 4 years. IMPRESSION: This 59-year-old man, chronically ill, with chronic smoking, chronic obstructive pulmonary disease, a possible rheumatologic condition, and malnutrition, comes in now with a distinct complaint of bright red rectal bleeding. Although he has been anemic in the past, he has always shown signs of chronic disease and stool has been heme-negative and endoscopic workups have been negative. Current history of abrupt fresh blood being passed in the context of chronic pain and taking OxyContin might suggest a stercoral ulcer. Fortunately, it has been almost 24 hours since he has passed any bright red blood and the defect may have sealed over. Given his complexity, upper endoscopy would be useful because of his history of an ulcer and then an unprepped sigmoidoscopy in conjunction with that. [id number]/[facility] #: [id number] LUCINDA
[2019-12-20] MEDS: SPIRIVA Respimat* (tiotropium) 2.5 mcg/inh Inhaler INH SCH (20:25)
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
[2019-12-20] MEDS: Gabapentin CAP(*) 300 MG PO SCH (20:52)
[2019-12-20] MEDS ORDERED: Mirtazapine TAB* 15 MG PO SCH (21:00)
[2019-12-20] MEDS ORDERED: Lidocaine Patch REMOVE* 1 NOTE MISC PATCH OFF SCH (21:00)
[2019-12-21 00:48] LABS: Hematocrit 25 % (42-52); Hemoglobin 8.2 g/dL (14.0-18.0)
[2019-12-21] MEDS: Pantoprazole* 80 mg IN NS 80 MG/250 ML BAG IV SCH ×2 (02:33→16:03)
[2019-12-21 06:42] LABS: Hematocrit 23 % (42-52); Hemoglobin 7.8 g/dL (14.0-18.0); Mean Corpuscular HGB Conc 34 g/dL (31-36); Mean Corpuscular Hemoglobin 32 pg (27-31); Mean Corpuscular Volume 93 fL (80-94); Mean Platelet Volume 6.2 fL (7.4-10.4); Platelet Count 211 10^3/uL (150-450); Red Blood Count 2.46 10^6 /uL (4.18-5.48); Red Cell Distribution Width 23 % (10-15); White Blood Count 4.7 10^3/uL (3.5-10.8)
[2019-12-21 06:55] LABS: BUN/Creatinine Ratio 22.5 (8-20); Calcium 8.4 mg/dL (8.6-10.3); EGFR African American 63.8 (>60); EGFR Non-African American 52.7 (>60); Potassium 4.9 mmol/L (3.5-5.0)
[2019-12-21 07:39] LABS: ABS Lymphocytes 0.4 10^3/ul (1.0-4.8); ABS Monocytes 0.1 10^3/ul (0-0.8); ABS Neutrophils 4.3 10^3/ul (1.5-7.7); Lymphocyte % 7.4 %
[2019-12-21] MEDS: SPIRIVA Respimat* (tiotropium) 2.5 mcg/inh Inhaler INH SCH ×2 (08:09→15:11)
--- NOTE | 2019-12-21 08:30 | PN ---
Subjective Date of Service: 12/21/19 Interval History: Admitted yesterday for BRBPR. No acute overnight events. Pending endoscopy today. Hgb responded appropriately after 2 u pRBC. Pt denies further episodes of BRBPR. States he had a normal brown solid BM this morning. His appetite is strong and he wishes to eat food. Denies pain. Objective Active Medications: Acetaminophen (Tylenol Tab*) 650 mg PO Q4H PRN PRN Reason: MILD PAIN or TEMP > 100.4 Al Hydrox/Mg Hydrox/Simethicone (Maalox Plus*) 30 ml PO Q6H PRN PRN Reason: INDIGESTION Gabapentin (Neurontin Cap(*)) 300 mg PO TID [facility] Last Admin: 12/20/19 20:52 Dose: 300 mg Hydroxychloroquine Sulfate (Plaquenil Tab*) 200 mg PO DAILY [facility] Sodium Chloride (Ns 0.9% 1000 Ml) 1,000 mls @ 100 mls/hr IV PER RATE [facility] Pantoprazole Sodium (Protonix Iv Bag*) 80 mg in 250 mls @ 25 mls/hr IV Q10H [facility] Last Admin: 12/21/19 02:33 Dose: 25 mls/hr Iron Sucrose 200 mg/ Sodium (Chloride) 110 mls @ 440 mls/hr IVPB Q24H [facility] Stop: 12/24/19 17:14 Lidocaine (Lidoderm 5% Patch*) 1 patch TRANSDERM DAILY [facility] Mirtazapine (Remeron Tab*) 45 mg PO BEDTIME [facility] Last Admin: 12/20/19 20:52 Dose: 45 mg Ondansetron HCl (Zofran Inj*) 4 mg IV Q4H PRN PRN Reason: NAUSEA/VOMITING Oxycodone HCl (Roxycodone Tab*) 5 mg PO Q6H PRN PRN Reason: PAIN - SEVERE Pharmacy Profile Note (Lidocaine Patch Remove*) 1 note PATCH OFF BEDTIME [facility] Last Admin: 12/20/19 20:53 Dose: Not Given Prednisone (Deltasone 10 Mg Tab) 40 mg PO DAILY [facility]; Taper Stop: 01/18/20 08:59 Senna (Senokot 8.6 Mg Tab*) 1 tab PO BID PRN PRN Reason: CONSTIPATION Tiotropium [place] (Spiriva Respimat 2.5 Mcg) 1 puff INH TID [facility] Last Admin: 12/21/19 08:09 Dose: Not Given Vital Signs - 8 hr 12/21/19 03:07 Temperature 98.8 F Pulse Rate 67 Respiratory 19 Rate Blood Pressure 112/51 (mmHg) O2 Sat by Pulse 99 Oximetry Oxygen Devices in Use Now: None Appearance: well-appearing thin man in NAD Eyes: No Scleral Icterus Ears/Nose/Mouth/Throat: Clear Oropharnyx, Mucous Membranes Moist Neck: NL Appearance and Movements; NL JVP, Trachea Midline Respiratory: Symmetrical Chest Expansion and Respiratory Effort, Clear to Auscultation Cardiovascular: NL Sounds; No Murmurs; No JVD, RRR Abdominal: NL Sounds; No Tenderness; No Distention, No Hepatosplenomegaly Lymphatic: No Cervical Adenopathy Extremities: No Edema Skin: No Rash or Ulcers Neurological: Alert and Oriented x 3 Result Diagrams: 12/21/19 06:30 12/21/19 06:30 Assess/Plan/Problems-Billing Assessment: 59M with h/o H pylori gastritis, Fe-def anemia, COPD, HFrEF, autoimmune disorder NOS, presents after one episode of BRBPR, found with anemia requiring blood transfusion. - Patient Problems (1) Bright red blood per rectum Comment: No further episodes in hospital. Passing brown stool. Hgb responded appropriately to transfusion and has remained stable. - pending GI recs after endoscopy - trend Hgb - cont IV PPI until after endoscopy (2) DVT prophylaxis Comment: - SCDs in setting of Possible GI Bleeding and profound anemia. Status and Disposition: Pt requests to go home. Reports good social supports. Has Medicaid and can get cab to appointments. Has good f/u with [facility], and is in the [facility] clinic with a correctional casework specialist involved, per CM.
[2019-12-21] MEDS ORDERED: Midazolam* 1 MG/ML 10 ML VIAL (10 MG) ONE (08:41)
[2019-12-21] MEDS ORDERED: fentaNYL* 50 MCG/ML 2 ML VIAL (100 MCG VIAL) ONE (08:41)
[2019-12-21] MEDS ORDERED: Lidocaine PATCH 5%* 1 PATCH TRANSDERM SCH (09:00)
[2019-12-21] MEDS ORDERED: Hydroxychloroquine TAB* 200 MG PO SCH (09:00)
[2019-12-21] MEDS ORDERED: Lisinopril TAB* 10 MG PO SCH (09:00)
[2019-12-21] MEDS: Gabapentin CAP(*) 300 MG PO SCH ×2 (11:25→15:47)
[2019-12-21 14:12] LABS: Hematocrit 23 % (42-52); Hemoglobin 7.8 g/dL (14.0-18.0); Mean Corpuscular HGB Conc 34 g/dL (31-36); Mean Corpuscular Hemoglobin 32 pg (27-31); Mean Corpuscular Volume 93 fL (80-94); Mean Platelet Volume 6.4 fL (7.4-10.4); Platelet Count 224 10^3/uL (150-450); Red Blood Count 2.44 10^6 /uL (4.18-5.48); Red Cell Distribution Width 23 % (10-15); White Blood Count 7.3 10^3/uL (3.5-10.8)
[2019-12-21 14:16] VITALS: BP 113/49
[2019-12-21] MEDS ORDERED: Iron Sucrose* 200 MG in NS 0.9% 100 ML* 100 ML IVPB SCH (17:00)
--- NOTE | 2019-12-21 17:21 | DS ---
CC: Dr. Cierra Bell DISCHARGE SUMMARY: DATE OF ADMISSION: 12/20/19 DATE OF DISCHARGE: 12/21/19 PRIMARY CARE PROVIDER: Dr. Cierra Bell. PRIMARY DIAGNOSIS: Gastrointestinal bleeding of unknown origin. SECONDARY DIAGNOSES: 1. Iron-deficiency anemia. 2. Malnutrition. 3. Chronic obstructive pulmonary disease. 4. Helicobacter pylori gastritis. 5. Heart failure with reduced ejection fraction. 6. Unknown autoimmune disorder. 7. Chronic back pain, on chronic opioids. CONSULTATION: Dr. Hoskins of GI. PROCEDURES: EGD and flex sig on 12/21/19. DISCHARGE MEDICATIONS: 1. Prednisone 10 mg daily. 2. Oxycodone 5 mg every 6 hours as needed for pain. 3. Tiotropium 1 inhalation daily. 4. Pantoprazole 40 mg daily. 5. Mirtazapine 45 mg at bedtime. 6. Megestrol 15 mL twice a day. 7. Hydroxychloroquine 200 mg daily. 8. Gabapentin 300 mg 3 times a day. 9. Milk of mag 30 mL twice a day as needed for constipation. 10. Senna 1 tab twice a day as needed for constipation. HISTORY OF PRESENT ILLNESS: Mr. Bloom is a 59-year-old man with heart failure, reduced ejection fraction ; COPD; unknown connective tissue disorder; chronic pain, on opioids; previous H. pylori gastritis; ongoing protein-calorie malnutrition; and iron-deficiency anemia, who is presenting after 6 episodes of bright red blood per rectum on day prior to presentation. He reports feeling his normal self until the afternoon on day prior to presentation when he had a sudden urge to defecate, rather than having a bowel movement he felt a dodson of blood like turning on a faucet into the toilet. He had 6 total episodes between 2 p.m. and 10:30 p.m. on day prior presentation and has had no episodes since. He also began to develop right upper quadrant pain on the border of his ribcage, but otherwise has had no symptoms. He denies nausea or vomiting. He has chronic dizziness and lightheadedness, which have not recently worsened. He denies chest pain, shortness of breath, chills, fevers, recent travel. He denies recent NSAID use or over-the- counters. He only takes his prescription medications as prescribed. He has undergone a recent IV iron infusion by Hematology/Oncology, who have been following him for his recurrent iron-deficiency anemia. He is also undergoing workup for ongoing joint pain by Dr. Fenton. It is believed he likely has a connective tissue disorder and is on chronic prednisone and Plaquenil. HOSPITAL COURSE: In the emergency room, the patient's vital signs were notable for blood pressure 96/56. He was noted to have a hemoglobin of 5.9 and was initiated on 2 units of packed red blood cells. He was also started on an IV PPI. GI was consulted and recommended to keep the patient n.p.o. for planned endoscopy and likely flex sig. Over the patient's first night of hospitalization, he completed his 2 units of packed red blood cells and had an appropriate response to 8.2. A repeat in the morning was notable for very slight decrease to 7.8 with another repeat 7 hours later still at 7.8. The patient denied further episodes of rectal bleeding and states he had a normal soft brown bowel movement by the next morning. He continued to deny any symptoms. He underwent an EGD and flex sig by GI and per verbal report these exams were only notable for internal hemorrhoids without other findings suggestive of etiology for this patient's GI bleed. As the patient had no further rectal bleeding during the hospitalization and because his hemoglobin remained stable, he was deemed safe to discharge home with close followup with his outpatient providers. PERTINENT DIAGNOSTIC STUDIES/LAB DATA: Hemoglobin on presentation 5.9, which is lower than the patient's baseline between 8 and 9. On discharge, hemoglobin 7.8. WBC and platelets normal. BMP notable for slight in creatinine to 1.79, by the day of discharge 1.38, which is likely the patient's baseline. LFTs unremarkable. EGD and flex sig reports pending at the time of discharge. DISCHARGE PLAN: The patient will be discharged to follow up with his outpatient provider as well as his subspecialists in Hematology and Rheumatology. His home medications are to be continued as before with the addition of a bowel regimen while he is on chronic opioids and suffering from constipation. The patient was given return precautions which include, but are not limited to recurrence of GI bleeding or worsening lightheadedness, dizziness, shortness of breath, or palpitations. DIET: Regular diet. ACTIVITY: As tolerated. DISPOSITION: To home. CONDITION: Improved. TIME SPENT: Approximately 60 minutes was spent on discharge of this patient, more than half of which was spent with care coordination at bedside for interview and exam. [id number]/[facility] #: [id number] LUCINDA
--- NOTE | 2019-12-21 20:13 | PRO ---
DATE: 12/21/19 REFERRING PHYSICIAN: Dr. Cierra Bell. PROCEDURES: Upper gastrointestinal endoscopy and biopsy for CLOtest; flexible sigmoidoscopy to 35 cm, unprepped. INDICATION: This 59-year-old man, with a complex past history (see separate consult), is evaluated for an episode of bright red rectal bleeding, occurring ldr nurse in the day on 12/19/19. At this time, he has not had any clinical bleeding in 36 hours. He did have a very small formed brown stool this morning. He is in no distress and is hungry. ENDOSCOPIST: Dr. Hoskins. MEDICATIONS: Midazolam 6, fentanyl 62.5. FINDINGS: He is a slender, chronically ill-appearing man, in no distress. He was positioned left side down and moderate sedation induced with multiple incremental doses of medication. He tolerated the exam very well. ESOPHAGOGASTRODUODENOSCOPY: Esophagus - easily entered and the mucosa is normal in the upper, mid, and lower esophagus with EG junction at 41 and hiatus at 42. There are no erosions. He has been taking pantoprazole 40 mg q.a.m. Stomach - small amount of retained food including corn and some other smudgy granular debris. It only obscures possibly 10% of the surface area, but is remarkable 14 hours after his last meal. The exact size of the meal is not known. Otherwise, the mucosa in the cardia, fundus, body, and antrum appears normal. There is a little bit of scarring and irregularity to the contours, but the mucosa is not inflamed and there are no erosions. The distal antrum appears quite normal. Duodenum - the pylorus and bulb appear normal with a whitening postabsorptive appearance. In the distal bulb, there are seeds and corn kernels. Given the retention, further insertion into the distal duodenum was not attempted. A CLOtest was taken of the gastric body during withdrawal. The patient was then rotated. FLEXIBLE SIGMOIDOSCOPY: Canal hemorrhoids were noted, though there was no bleeding. In the rectum, there was some very dark pasty stool, though 80% of the mucosa could initially be seen. Supplementary lavage increased the visualization to 90%. There was no proctitis, inflammation, or erosions. Views were approximately 80% in the rectosigmoid and lower half of the sigmoid and then an angulation appeared to be entering in an area where there was even more fecal contamination. The stool was appearing a ldr nurse brown as one went more proximal. Further withdrawal views especially in the rectum with lavage and retroflexion just showed substantial internal hemorrhoids, though complete inspection of the hemorrhoids did not disclose any sign of a mucosal break. IMPRESSION: 1. Small hiatal hernia. 2. Gastroparesis - mild. 3. History of gastric ulcer and H. pylori - no evidence of disease and a CLOtest is pending. Addendum: Clotest negativer 4. Internal hemorrhoids. 5. Gastrointestinal bleeding event - source not determined with today's exams. A Dieulafoy lesion in the distal one-third of the colon is certainly a possibility, as might be bleeding from a diverticulum that was not demonstrated in the February 2019 colonoscopy. Views appeared quite good during that exam, but it cannot be felt to be definitive to ruling out all diverticula. [id number]/[facility] #: [id number] MTDD
== END 2019-12-21 15:55 | disposition home or self-care (01) | DRG 253 ==
LOC: ED 14:15 → UNDOADMIN 16:32 → INTOOBSV 16:32 → MED 16:32 → UNDODISIN 12-21 15:55
PROVIDERS: ADMIT Internal Medicine; ATTEND Internal Medicine
DX: K62.5 Hemorrhage of anus and rectum (principal); E43 Unspecified severe protein-calorie malnutrition; D62 Acute posthemorrhagic anemia; I50.22 Chronic systolic (congestive) heart failure; N17.9 Acute kidney failure, unspecified; Z68.1 Body mass index [BMI] 19.9 or less, adult; J44.9 Chronic obstructive pulmonary disease, unspecified; G89.29 Other chronic pain; K44.9 Diaphragmatic hernia without obstruction or gangrene; K31.84 Gastroparesis; K64.8 Other hemorrhoids; D89.89 Other specified disorders involving the immune mechanism, not elsewhere classified; K21.9 Gastro-esophageal reflux disease without esophagitis; M19.90 Unspecified osteoarthritis, unspecified site; D50.9 Iron deficiency anemia, unspecified; M54.9 Dorsalgia, unspecified; K29.60 Other gastritis without bleeding; Z28.21 Immunization not carried out because of patient refusal; Z87.891 Personal history of nicotine dependence; Z79.899 Other long term (current) drug therapy
CPT/HCPCS: 36415; 80048; 80053; 85014; 85018; 85025; 85027; 85610; 85730; 86850; 86900; 86901; 86922; 87077; 88305; 96374; 99156; 99157; 99285; A9270-GY; J1756; J2250; J3010; J3535; J7512; P9040

== ENCOUNTER 2023-12-22 15:46 | Observation (INO) ==
[2023-12-22 16:41] LABS: INR 1.12 (0.83-1.13)
[2023-12-22 16:50] LABS: Hemoglobin 4.9 g/dL (13.2-16.3); Mean Corpuscular Hemoglobin 19.7 pg (27-33); Mean Corpuscular Hgb Conc 29.1 g/dL (31-36); Mean Corpuscular Volume 67.9 fL (80-97); Mean Platelet Volume 6.8 fL (7.5-11.2); Platelet Count 415 10^3/uL (150-450); Red Cell Distribution Width 20.8 % (12-17); White Blood Count 6.5 10^3/uL (3.6-10.2)
[2023-12-22 16:55] LABS: ALT 7 U/L (7-52); AST 12 U/L (13-39); Albumin 3.7 g/dL (3.2-5.2); Albumin/Globulin Ratio 1.4 (1-3); Alkaline Phosphatase 51 U/L (35-149); Anion Gap 8 mmol/L (2-16); Blood Urea Nitrogen 28 mg/dL (6-24); CO2 Carbon Dioxide 21 mmol/L (22-32); Calcium 9.2 mg/dL (8.6-10.3); Chloride 105 mmol/L (101-111); Creatinine, Serum 1.57 mg/dL (0.67-1.17); Globulin 2.6 g/dL (2-4); Glucose 130 mg/dL (70-100); Potassium 3.9 mmol/L (3.5-5.0); Sodium 134 mmol/L (135-145); Total Bilirubin 0.3 mg/dL (0.2-1.0); Total Protein 6.3 g/dL (6.4-8.9); eGFR CKD-EPI 49.2 (>60)
[2023-12-22 17:16] LABS: LDH 156 U/L (140-271)
[2023-12-22 17:31] LABS: ABS Lymphocytes 0.4 10^3/uL (1.0-4.8); ABS Monocytes 0.5 10^3/uL (0.0-1.1); ABS Neutrophils 5.6 10^3/uL (1.5-7.6); ABS Nucleated RBC 0.01 10^3/ul; Ferritin 14.9 ng/mL (24-336); Lymphocyte % 6.7 %; Nucleated Red Blood Cells % 0.1 %/100WBC (0.0-0.8)
[2023-12-22 17:36] LABS: Vitamin B12 186 pg/mL (180-914)
[2023-12-22 19:17] LABS: % Iron Saturation 4 % (15-55); .Transferrin 331 mg/dL (203-362); Iron < 20 ug/dL (50-212); Total Iron Binding Capacity 463 mcg/dL (250-450); Unsaturated Iron Binding 443 ug/dL
[2023-12-22] MEDS: Pantoprazole VIAL 40 MG VIAL IV ONE (19:18)
[2023-12-22 19:32] LABS: TSH Ultra Thyroid Stim Horm 1.24 mcIU/mL (0.34-5.60)
[2023-12-22] MEDS ORDERED: Nicotine PATCH 14 MG/24 HR PATCH TRANSDERM PRN (20:03)
[2023-12-22] MEDS: Pantoprazole 80 mg in NS BAG 80 MG/250 ML BAG IV ONE (20:04)
[2023-12-22] MEDS ORDERED: Albuterol HFA INHALER 8 gm MDI INH PRN (20:11)
[2023-12-22 21:08] LABS: Urine Appearance Clear; Urine Bilirubin Negative (Negative); Urine Blood Negative (Negative); Urine Color Yellow; Urine Glucose Negative (Negative); Urine Ketones Negative (Negative); Urine Nitrite Negative (Negative); Urine Protein Negative (Negative); Urine Specific Gravity 1.015 (1.002-1.030); Urine Urobilinogen Negative (Negative)
[2023-12-23 02:22] LABS: Hematocrit 25.4 % (38-53); Hemoglobin 7.3 g/dL (13.2-16.3)
[2023-12-23 07:00] LABS: ABS Basophils 0.1 10^3/uL (0.0-0.1); ABS Lymphocytes 0.2 10^3/uL (1.0-4.8); ABS Monocytes 0.5 10^3/uL (0.0-1.1); ABS Neutrophils 5.3 10^3/uL (1.5-7.6); ABS Nucleated RBC 0.02 10^3/ul; Eosinophil % 0.7 %; Hematocrit 24.4 % (38-53); Hemoglobin 7.5 g/dL (13.2-16.3); Lymphocyte % 3.5 %; Mean Corpuscular Hemoglobin 22.2 pg (27-33); Mean Corpuscular Hgb Conc 30.5 g/dL (31-36); Mean Corpuscular Volume 72.7 fL (80-97); Mean Platelet Volume 6.8 fL (7.5-11.2); Nucleated Red Blood Cells % 0.3 %/100WBC (0.0-0.8); Platelet Count 358 10^3/uL (150-450); Red Blood Count 3.36 10^6/uL (4.06-5.63); Red Cell Distribution Width 23.9 % (12-17)
[2023-12-23 07:43] LABS: Folate > 20.00 ng/mL (5.90-24.80)
[2023-12-23 07:47] LABS: Phosphorus 2.5 mg/dL (2.5-5.0); Potassium 4.7 mmol/L (3.5-5.0)
[2023-12-23 07:48] LABS: Anion Gap 9 mmol/L (2-16); Blood Urea Nitrogen 20 mg/dL (6-24); CO2 Carbon Dioxide 20 mmol/L (22-32); Calcium 8.7 mg/dL (8.6-10.3); Chloride 106 mmol/L (101-111); Creatinine, Serum 1.21 mg/dL (0.67-1.17); Glucose 84 mg/dL (70-100); Magnesium 1.8 mg/dL (1.9-2.7); Sodium 135 mmol/L (135-145); eGFR CKD-EPI 67.3 (>60)
[2023-12-23] MEDS: Tiotropium Brom/Olodaterol MDI (ACUTE) INH SCH (08:14)
[2023-12-23] MEDS: DULoxetine DR 60 mg CAP PO SCH (10:04)
[2023-12-23] MEDS: DULoxetine DR 30 mg CAP PO SCH (10:04)
[2023-12-23] MEDS: Pantoprazole VIAL 40 MG VIAL IV SCH (10:04)
[2023-12-23] MEDS: Cyanocobalamin INJ 1,000 MCG/ML VIAL 1 ML VIAL IM ONE (17:47)
[2023-12-23] MEDS: Ferric Gluconate IV 250 MG in NS 0.9% 250 ml 200 ML IVPB ONE (17:48)
[2023-12-24 07:36] LABS: Calcium 8.8 mg/dL (8.6-10.3); Creatinine, Serum 1.1 mg/dL (0.67-1.17); Magnesium 1.8 mg/dL (1.9-2.7); Potassium 3.6 mmol/L (3.5-5.0); eGFR CKD-EPI 75.4 (>60)
[2023-12-24 08:00] LABS: ABS Eosinophils 0.1 10^3/uL (0.0-0.5); ABS Lymphocytes 0.5 10^3/uL (1.0-4.8); ABS Monocytes 0.5 10^3/uL (0.0-1.1); ABS Neutrophils 2.1 10^3/uL (1.5-7.6); ABS Nucleated RBC 0.01 10^3/ul; Eosinophil % 3.7 %; Hematocrit 24.3 % (38-53); Hemoglobin 7.6 g/dL (13.2-16.3); Lymphocyte % 15.2 %; Mean Corpuscular Hemoglobin 22.5 pg (27-33); Mean Corpuscular Hgb Conc 31.3 g/dL (31-36); Mean Corpuscular Volume 71.7 fL (80-97); Mean Platelet Volume 6.5 fL (7.5-11.2); Nucleated Red Blood Cells % 0.3 %/100WBC (0.0-0.8); Platelet Count 355 10^3/uL (150-450); Red Blood Count 3.38 10^6/uL (4.06-5.63); Red Cell Distribution Width 23.7 % (12-17); White Blood Count 3.3 10^3/uL (3.6-10.2)
[2023-12-24 10:09] VITALS: BP 119/95
[2023-12-25 23:41] LABS: Anaplasma phagocytophilum Negative (Negative); B. miyamotoi PCR, B Negative (Negative); Babesia divergens/MO-1 Negative (Negative); Babesia ducani Negative (Negative); Ehrlichia chaffeensis Negative (Negative); Ehrlichia ewingii/canis Negative (Negative); Ehrlichia muris eauclairensis Negative (Negative)
[2023-12-26 11:02] LABS: Cytomegalovirus IgG Antibody Positive (Negative)
== END 2023-12-24 11:15 | disposition left against medical advice (07) ==
LOC: EDHOLD 15:46 → ED 15:46 → SUATTDRO 18:12 → MED 20:47
PROVIDERS: ADMIT Hospitalist; ATTEND Internal Medicine